=== PATIENT | male | born 1990 | race Caucasian/White ===

== ENCOUNTER 2021-02-09 12:00 | Outpatient (REF) | payer BC, OTHER, SELFPAY ==
--- NOTE | ~2021-02-09 | XR_ITS ---
EXAMINATION: XR ABDOMEN KUB CLINICAL INDICATION: Constipation and weight loss COMPARISON: None TECHNIQUE: AP view of the abdomen. FINDINGS: No dilated air-filled loops of small bowel to suggest an obstructive process. There is a mild to moderate stool burden throughout the colon. Visualized lung bases are well aerated. Scoliotic and postsurgical changes of the lumbar spine. An IVC filter projects over the mid right abdomen. XR/XR KUB IMPRESSION: -nonobstructing bowel gas pattern. -Hsio-ud-hbxrlggn colonic stool burden.
== END 2021-02-09 12:01 | disposition home or self-care (01) ==
LOC: HO.XRAY 12:00
PROVIDERS: PCP Internal Medicine; Visit Provider Internal Medicine
DX: R05 Cough (principal); R63.4 Abnormal weight loss; G43.909 Migraine, unspecified, not intractable, without status migrainosus
CPT/HCPCS: 74018

== ENCOUNTER 2021-04-12 23:05 | Emergency (ER) | payer BC, OTHER, SELFPAY ==
[2021-04-12 23:10] VITALS: BP 125/76; PULSE 108; RESP 18; TEMP 36.4; O2SAT 95; BMI 22.9
[2021-04-13 00:07] LABS: COVID-19 Test Negative (Negative); IDNOW Serial# 9DD0AD1C
[2021-04-13 00:12] LABS: Amphetamine Screen Urine Not Detected (Not Detect); Barbiturates, Urine Not Detected (Not Detect); Benzodiazepines Screen Urine POSITIVE (Not Detect); Cannabinoid Screen Urine Not Detected (Not Detect); Cocaine Screen Urine Not Detected (Not Detect); Opiate Screen Urine POSITIVE (Not Detect); Phencyclidine Screen Urine Not Detected (Not Detect)
--- NOTE | 2021-04-13 01:27 | ED_ITS ---
HPI - Psych General Chief Complaint: Psychiatric Symptoms Stated Complaint: crisis Time Seen by Provider: 04/12/21 23:44 Source: patient Mode of arrival: EMS Limitations: no limitations History of Present Illness HPI Narrative: Patient is a 31-year-old male with a past medical history of heroin addiction who was brought in by ambulance from a detox facility after he presented the staff with a suicide note. The patient tells me that he got caught injecting heroin at his sober house and that the pet house sitter called 911. pet house sitter told EMS that the patient presented a suicide note to him and that is why he called 911. Patient denied suicidal ideations to EMS staff as well as the staff at this hospital. When I questioned the patient, he stated that he thinks he has it under control and denied anything about a note. he did not lead tonight suicidal ideations but he did deny HI. he denies any physical complaints at this time. patient states the pet house sitter told him he could come back tonight if we discharged him. Related Data Home Medications Medication Instructions Recorded Confirmed fremanezumab-vfrm [Ajovy 1 mg SUBCUT QMONTH 04/12/21 04/12/21 Autoinjector] gabapentin 1 cap PO DAILY 04/12/21 04/12/21 sumatriptan succinate 1 tab PO Q2H PRN 04/12/21 04/12/21 Allergies Allergy/AdvReac Type Severity Reaction Status Date / Time vancomycin [VANCOMYCIN] Allergy Unknown SKIN GETS Unverified 07/02/20 19:28 RED Review of Systems Review of Systems: Yes all other systems are reviewed and are negative [facility] Social History Social History Advance Directives: No Advance Directives Information Provided: No Physical Exam Vital Signs: Vital Signs: Last Vital Signs Temp 97.5 F 04/12/21 23:10 Pulse 108 H 04/12/21 23:10 Resp 18 04/12/21 23:10 BP 125/76 04/12/21 23:10 Pulse Ox 95 04/12/21 23:10 Body Mass Index 22.9 Const: General: cooperative, healthy appearing, comfortable and no acute distress Nutritional Appearance: average body habitus Orientation/consciousness: patient oriented x3 Limitations: no limitations HENMT: Head: Yes normal to inspection, Yes No palpable skull fracture present, Yes normocephalic and Yes atraumatic Ears: hearing grossly normal bilaterally and external ears normal General nose exam: Normal external nose present Face and sinus: Yes normal facial exam Eyes: General: appearance normal, both eyes and all related structures Neck: Neck: Yes normal visual inspection and Yes full ROM Resp: Effort & Inspection: normal respiratory effort and able to speak in complete sentences Neuro: General: patient oriented x3 Psych: Appearance: disheveled Speech and movement: Normal speech and movement present Affect: normal affect Attitude: cooperative Thought process: Normal thought process present Thought content: Suicidality present and no homicidality Insight: Fair insight present (Psych) Judgement: Fair judgement present (Psych) Course Course Course Narrative: Patient is a 31-year-old male with a past medical history of heroin addiction who was brought in by ambulance from a detox facility after he presented the staff with a suicide note. vital signs notable for tachycardia at 108BPM. physical exam unremarkable. Will put in consult to [facility] for SI. Reevaluation(s) Reevaluation #1: sign out to Dr Echevarria Time: 02:00 [facility] - Psych Lab Data Labs: Lab Results 04/12/21 04/12/21 Range/Units 23:41 23:41 Urine Opiates Screen POSITIVE H (Not Detect) Ur Barbiturates Screen Not Detected (Not Detect) Ur Phencyclidine Scrn Not Detected (Not Detect) Ur Amphetamines Screen Not Detected (Not Detect) U Benzodiazepines Scrn POSITIVE H (Not Detect) Urine Cocaine Screen Not Detected (Not Detect) U Marijuana (THC) Screen Not Detected (Not Detect) COVID-19 (GALINA) Negative (Negative) COVID-19 Clin Com See Note Discharge Plan Discharge Clinical Impression: Suicidal ideation, Heroin use Prescriptions: No Action sumatriptan succinate 100 mg tablet 1 tab PO Q2H PRN (Reason: Migraine Headache) RF: 0 gabapentin 300 mg capsule 1 cap PO DAILY RF: 0 Ajovy Autoinjector 225 mg/1.5 mL auto-injector 1 mg subcut QMONTH RF: 0
--- NOTE | 2021-04-13 06:27 | PC.NURSE ---
Patient slept through the night, no distress observed/reported, respiration +/=/non-labored bilaterally, patient will be seeing by N this morning, will continue to monitor.
[2021-04-13 07:48] VITALS: BP 101/70; PULSE 98; RESP 15; TEMP 37.3; O2SAT 98
[2021-04-13] MEDS: Gabapentin 300 MG CAPSULE PO (09:05)
--- NOTE | 2021-04-13 11:24 | PC.NURSE ---
Report received. Pt currently resting in bed, no complaints at this time, calm.
--- NOTE | 2021-04-13 11:52 | PC.NURSE ---
C/o pain on tops of hands near IV injection sites. Areas swollen and warm to touch. VICKY Yost notified.
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
== END 2021-04-13 13:19 | disposition home or self-care (01) ==
PROVIDERS: Physician Assistant; Emergency Provider Emergency Medicine Emergency Medical Services
DX: R45.851 Suicidal ideations (principal); F11.20 Opioid dependence, uncomplicated; Z20.822 Contact with and (suspected) exposure to COVID-19; L03.114 Cellulitis of left upper limb; L03.113 Cellulitis of right upper limb; R00.0 Tachycardia, unspecified
CPT/HCPCS: 36415; 80307; 87635; 99284; 99285

== ENCOUNTER 2022-04-05 10:32 | Emergency (ER) | payer BC, OTHER, SELFPAY ==
--- NOTE | ~2022-04-05 | XR_ITS ---
EXAMINATION: XR ANKLE, RIGHT CLINICAL INFORMATION: Right ankle pain for 2 days. No recent injury. COMPARISON: Radiographs right foot 03/08/2019, 02/19/2019 TECHNIQUE: Right ankle is imaged in 4 views. FINDINGS: There is no acute or healing fracture, dislocation, destructive process. There has been prior open reduction internal fixation with hardware distal fibula, distal tibia and talar dome. The hardware is similar to prior exam 03/08/2019. The 2 distal most screws passing through intraosseous region distal lower leg are chronically fractured, unchanged from the prior remote exam. No interval hardware failure or osteolysis. Again, there is osseous ankylosis in the intraosseous region between the distal fibula and tibia. There is chondrocalcinosis ankle joint. Old appearing posttraumatic changes talar dome. No erosive change. Again, there is spurring distal anterior tibia and adjacent talar dome with some corticated ossicles posterior ankle. Subtalar joint unremarkable. Borderline posterior calcaneal spur again seen. XR/XR ankle RT 2V IMPRESSION: -Old posttraumatic and postsurgical changes. -No visible acute fracture, dislocation, destructive process, or osteolysis. -Degenerative changes ankle joint with chondrocalcinosis. No visible erosive change.
[2022-04-05 10:41] VITALS: BP 150/96; PULSE 147; RESP 22; TEMP 37.1; O2SAT 97; BMI 20.7
[2022-04-05 11:25] VITALS: BP 168/84; PULSE 134; RESP 18; TEMP 37.3; O2SAT 98
--- NOTE | 2022-04-05 11:45 | ECG_ITS ---
Test Reason : tachycardia Blood Pressure : / mmHG Vent. Rate : 118 BPM Atrial Rate : 118 BPM P-R Int : 134 ms QRS Dur : 082 ms QT Int : 316 ms P-R-T Axes : 081 048 006 degrees QTc Int : 442 ms Sinus tachycardia Cannot rule out Inferior infarct , age undetermined Abnormal ECG No previous ECGs available Referred By: Jeanna Little Electronically Signed By:BREANN VASQUES MD
--- NOTE | 2022-04-05 11:48 | ED_ITS ---
HPI - General Adult General Chief complaint: Skin/Abscess/Foreign Body Stated complaint: bug bite r ankle Time Seen by Provider: 04/05/22 11:01 Source: patient Mode of arrival: ambulatory History of Present Illness HPI narrative: 32-year-old male with history of PE right femoral, history of IVDA states that he is 1 year sober and currently lives an a custodial house and comes in with complaints of right ankle pain that started 2 days ago that he attributes to a bug bite and states that is very painful on palpation. His history is sign ificant for having been seen at [facility] within the past 3 months and at that time he was diagnosed with a clot in the right femoral vein which was surgically removed and he was placed on Eliquis and states that he took it for 1 month but then said it was too expensive and he stops taking the medication. He reports heart palpitations but denies shortness of breath at this time. Related Data Home Medications Medication Instructions Recorded Confirmed fremanezumab-vfrm 225 mg/1.5 mL 1 mg subcut QMONTH 04/12/21 04/12/21 subcutaneous auto-injector (Ajovy) gabapentin 300 mg capsule 1 cap PO DAILY 04/12/21 04/12/21 sumatriptan succinate 100 mg tablet 1 tab PO Q2H PRN Migraine Headache 04/12/21 04/12/21 methadone 5 mg/5 mL oral solution 57 mg PO DAILY 04/13/21 04/13/21 Previous Rx's Medication Instructions Recorded doxycycline monohydrate 100 mg 100 mg PO BID #20 caps 04/13/21 capsule Allergies Allergy/AdvReac Type Severity Reaction Status Date / Time vancomycin [VANCOMYCIN] Allergy Unknown SKIN GETS Unverified 07/02/20 19:28 RED Review of Systems Review of Systems: Pertinent positives and negatives as stated in HPI and 10 point review of systems is otherwise negative. [facility] Past Medical History Source: nursing notes reviewed Social History Social History Alcohol intake: never Patient Tobacco Use Status: Never used Tobacco Use of substances other than those prescribed or required for medical reasons: No Physical Exam ED Vital Signs: Vital Signs - 24 hr 04/05/22 10:41 04/05/22 11:25 Temperature 98.7 F 99.2 F Pulse Rate 147 H 134 H Respiratory Rate 22 H 18 Blood Pressure 150/96 H 168/84 H Pulse Oximetry 97 98 Oxygen Delivery Method Room Air Room Air BMI result Body Mass Index 20.7 VITAL SIGNS: Reviewed. GENERAL: Well developed, well nourished, in no acute distress. HEAD: Normocephalic/atraumatic EYES: PERRLA, EOMI EARS: Ext canals without abnormality OROPHARYNX: no oral lesions noted, posterior pharynx clear LUNGS: Normal breath sounds. No adventitious sounds or accessory muscle use. SpO2<97> CARDIOVASCULAR: Sinus tachycardia and rhythm without noted murmurs ABDOMEN: Soft, non-tender, non-distended with bowel sounds. Right groin with well-healed scar, no erythema or induration. MUSCULOSKELETAL: No tenderness, deformities, or effusions noted on gross inspection. EXTREMITIES: No cyanosis, clubbing or edema, old bruising noted to the anterior aspect of bilateral lower extremities with evidence of scabs from scratching, no obvious insect bite noted the right ankle is somewhat edematous on both the lateral and medial malleoli, however patient has history of injury as well as hardware to the ankle and denies any falls or re-injury. There is no erythema or induration to the right ankle and is otherwise neurovascularly intact.. SKIN: Inspection of the skin reveals no rashes, ulcerations NEUROLOGIC: Alert and oriented x 4. Strength and sensation to light touch were grossly intact x 4. Course Course Course Narrative: 32-year-old male with history and clinical presentation with poor medication compliance as he decided to stop taking Eliquis despite having recent right femoral thrombosis. Without comes in tachycardic in with right ankle pain that does not appear to be cellulitic in nature. Review of all investigations otherwise negative for acute findings, specifically the D-dimer is less than 150, patient has a prescription for Eliquis and he was strongly counseled on taking this medication as directed. He is oxygenating well on room air and has no tachypnea or increased work of breathing. The ankle does not appear cellulitic and is likely simply inflammatory process and he was encouraged to take [id number] analgesics for this and to use crutches as needed. He is noted to have crutches within the room and otherwise directed to follow-up with his primary care provider. Medical Decision Making Lab Data Result diagrams: 04/05/22 11:59 04/05/22 11:59 Labs: Lab Results 04/05/22 04/05/22 04/05/22 Range/Units 11:59 11:59 11:59 WBC 9.5 (4.8-10.8) X10*3/uL RBC 5.24 (4.60-5.80) X10*6/uL Hgb 14.5 (14.0-18.0) g/dl Hct 45.0 (42.0-52.0) % MCV 85.9 (80.0-98.0) fL MCH 27.7 (27.0-33.0) pg MCHC 32.2 (31.0-36.0) g/dl RDW 17.2 H (11.0-16.0) % Plt Count 352 (160-400) X10*3/uL MPV 9.4 (9.4-12.4) fL Immature Gran % (Auto) 1.1 H (0.0-0.4) % Neut % (Auto) 75.7 H (45-73) % Lymph % (Auto) 12.8 L (20-40) % [place] % (Auto) 10.0 (2-11) % Eos % (Auto) 0.1 (0-4) % Baso % (Auto) 0.3 (0-2) % Lymph # (Auto) 1.2 (1.2-4.9) X10*3/uL [place] # (Auto) 1.0 (0.1-1.2) X10*3/uL Eos # (Auto) 0.0 (0.0-0.4) X10*3/uL Baso # (Auto) 0.0 (0.0-0.2) X10*3/uL Abs Immat Gran (auto) 0.10 H (0.00-0.03) X10*3/uL Absolute Neuts (auto) 7.2 (2.0-8.3) x10*3/uL Absolute Nucleated RBC 0.000 (0.0-0.012) X10*3/uL Nucleated RBC % (auto) 0.0 (0.0-0.2) /100WBC D-Dimer High Sensitivty < 150 NG/ML Sodium 137 (135-145) mmol/L Potassium 4.4 (3.3-5.1) mmol/L Chloride 96 (96-108) mmol/L Carbon Dioxide 31 H (22-29) mmol/L Anion Gap 14 (12-20) BUN 19 H (9-16) mg/dL Creatinine 0.97 (0.5-1.4) mg/dL Estim Creat Clear Calc 99.8 Estimated GFR > 60 Random Glucose 109 (60-115) mg/dL Calcium 9.6 (8.4-10.2) mg/dL Total Bilirubin 0.4 (0.0-1.0) mg/dL AST 23 (5-37) U/L ALT 22 (0-40) U/L Alkaline Phosphatase 120 H (39-117) U/L Total Protein 7.5 (6.5-8.0) g/dL Albumin 4.2 (3.5-5.0) g/dL ECG Data Attestation: I personally reviewed and interpreted this ECG as follows: Prior ECG tracings: not available for review Interpretation: Sinus tachycardia, HR- 118, no STEMI, possible SQ 3 in inferior leads will evaluate for PE. Discharge Plan Discharge Clinical Impression: Ankle pain, right Patient Disposition: Home, Self-Care Instructions: Crutch Instructions (ED), Arthralgia (ED), R.I.C.E. Treatment (ED), Ice Pack Application (ED) Additional Instructions: 1. Resume all home medications as prescribed. Recommend [id number] a nalgesics for remaining pain as well as application of ice to unexposed skin for additional pain relief 2. Resume your Eliquis as directed, last picker that prescription today. 3. Follow-up with your primary care provider for re-evaluation of your ankle, and use crutches as needed. return to the ER for worsening symptoms. Prescriptions: No Action sumatriptan succinate 100 mg tablet 1 tab PO Q2H PRN (Reason: Migraine Headache) gabapentin 300 mg capsule 1 cap PO DAILY Ajovy Autoinjector 225 mg/1.5 mL auto-injector 1 mg subcut QMONTH methadone 5 mg/5 mL Solution 57 mg PO DAILY doxycycline monohydrate 100 mg capsule 100 mg PO BID Qty: 20 0RF
[2022-04-05 12:05] LABS: MANUAL DIFF FLAG NO
[2022-04-05 12:07] LABS: Basophils Percent Auto 0.3 % (0-2); Eosinophils Percent Auto 0.1 % (0-4); Hemoglobin 14.5 g/dl (14.0-18.0); Imm Gran Pct Auto 1.1 % (0.0-0.4); Lymphocytes Absolute Auto 1.2 X10*3/uL (1.2-4.9); Lymphocytes Percent Auto 12.8 % (20-40); Mean Corpuscular HGB Conc 32.2 g/dl (31.0-36.0); Mean Corpuscular Hemoglobin 27.7 pg (27.0-33.0); Mean Corpuscular Volume 85.9 fL (80.0-98.0); Mean Platelet Volume 9.4 fL (9.4-12.4); Neutrophils Absolute Auto 7.2 x10*3/uL (2.0-8.3); Neutrophils Percent Auto 75.7 % (45-73); Platelet Count 352 X10*3/uL (160-400); Red Blood Count 5.24 X10*6/uL (4.60-5.80); Red Cell Distribution Width 17.2 % (11.0-16.0); White Blood Count 9.5 X10*3/uL (4.8-10.8)
[2022-04-05 12:16] LABS: D Dimer High Sensitivity < 150 NG/ML
[2022-04-05] MEDS: Ketorolac Tromethamine 30 MG/ML VIAL 15 MG IVPUSH (12:18)
[2022-04-05] MEDS: Acetaminophen 325 MG TABLET 975 MG PO (12:19)
[2022-04-05 12:22] LABS: Alanine Aminotransferase 22 U/L (0-40); Albumin Level 4.2 g/dL (3.5-5.0); Alkaline Phosphatase 120 U/L (39-117); Anion Gap 14 (12-20); Aspartate Amino Transferase 23 U/L (5-37); Bilirubin Total 0.4 mg/dL (0.0-1.0); Blood Urea Nitrogen 19 mg/dL (9-16); Calcium 9.6 mg/dL (8.4-10.2); Carbon Dioxide 31 mmol/L (22-29); Chloride 96 mmol/L (96-108); Creatinine Clr Calc Pharmacy 99.8; Estimated Glomerular Filt Rate > 60; Glucose Random 109 mg/dL (60-115); Potassium 4.4 mmol/L (3.3-5.1); Sodium 137 mmol/L (135-145); Total Protein 7.5 g/dL (6.5-8.0)
== END 2022-04-05 14:37 | disposition home or self-care (01) ==
LOC: HO.ED 13:13
PROVIDERS: Emergency Provider Student in an Organized Health Care Education/Training Program
DX: M25.572 Pain in left ankle and joints of left foot (principal); R00.0 Tachycardia, unspecified; Z79.899 Other long term (current) drug therapy
CPT/HCPCS: 36415; 73600; 80053; 85025; 85379; 93005; 96374; 99284; J1885

== ENCOUNTER 2022-09-25 11:21 | Emergency (ER) | payer BC, SELFPAY ==
--- NOTE | ~2022-09-25 | US_ITS ---
EXAMINATION: US VENOUS ULTRASOUND WITH DOPPLER LOWER EXTREMITY, RIGHT CLINICAL INFORMATION: Pain. Injury. History of inferior vena cava filter placed 8-9 months ago. COMPARISON: None TECHNIQUE: Ultrasound of the deep veins is performed from the hip to the calf with compression sonography and color and pulse Doppler assessment. Spectral analysis with color-flow imaging is performed. FINDINGS: There is chronic appearing small volume of nonocclusive thrombus in the common femoral vein. There is normal venous compression and respiratory variation and augmented flow in the remainder of the deep veins of the lower extremity. The visualized of the superficial femoral vein, profunda femoral vein, popliteal vein, and the trifurcation region shows no evidence of deep venous thrombosis. There is no significant popliteal fossa cyst. If the patient's symptoms persist, followup ultrasound in 5 days 7 days might be of value to exclude proximal propagation from a non-visualized calf vein. US/US venous duplex LE RT IMPRESSION: 1. No acute DVT demonstrated in the right lower extremity. 2. Chronic appearing small volume of nonocclusive thrombus in the common femoral vein. This critical result was discussed with Dr Whitney on 09/25/2022, 3:17 PM and it was ascertained that the content and urgency of the report was understood at the time of direct communication.
--- NOTE | ~2022-09-25 | XR_ITS ---
EXAMINATION: XR KNEE, RIGHT CLINICAL INFORMATION: Status post injury 1 week ago. COMPARISON: None TECHNIQUE: Four views of the right knee. FINDINGS: A curvilinear lucency is seen in the lateral tibial plateau extending to the articular surface. Mild depression is seen with sclerosis. The medial tibial plateau is intact. The patella, femur and fibula are intact as well. The joint spaces are otherwise unremarkable. Trace suprapatellar joint effusion. The soft tissues are unremarkable. XR/XR knee RT 4V IMPRESSION: Acute, mildly depressed lateral tibial plateau fracture with intra-articular extension. Trace suprapatellar joint effusion. Correlate with physical exam and trauma history.
--- NOTE | ~2022-09-25 | CT_ITS ---
EXAMINATION: CT KNEE WITHOUT CONTRAST, RIGHT CLINICAL INFORMATION: Tibial plateau fracture. COMPARISON: X-ray of the right knee performed earlier same day. TECHNIQUE: CT scan of the right knee is performed without contrast with reconstruction imaging performed at the acquisition workstation. This CT examination was performed using dose optimization techniques as appropriate, variously including the following: *Automated exposure control *Adjustment of mA and/or kV according to patient size (this includes techniques or standardized protocols for targeted exams where dose is matched to indication/reason for exam; i.e. extremities or head) *Use of iterative reconstruction technique DLP: 240 mGy-cm FINDINGS: There is a moderately comminuted minimally displaced intra-articular tibial plateau fracture. The fracture involves essentially all of the articular surface of the lateral compartment. Deep to the articular surface, the fracture extends medially to the level of the tibial spines. There is a small minimally displaced fracture fragment noted within the intercondylar notch measuring approximately 5 mm. There is joint depression of approximately 3.6 mm. The fracture extends distally over approximately 2.3 cm craniocaudal through the cortex of the proximal lateral metaphysis. There is a mild joint effusion. There is a small Garcia's cyst. No additional fractures. There is no arthrosis. CT/CT knee RT wo IV con IMPRESSION: Moderately comminuted minimally depressed intra-articular lateral tibial plateau fracture. Joint effusion and Garcia's cyst.
[2022-09-25 11:26] VITALS: BP 133/76; PULSE 121; RESP 14; TEMP 36.1; O2SAT 99; BMI 23.0
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
--- OUTSIDE RECORDS SUMMARY | 2022-09-25 11:54 | XMS_ITS | Continuity of Care Document ---
:1990 Author Organization [facility] Address [address] [place] [address]- Care Team Providers Name Role Phone Not on Staff, PCP Primary Care Physician Unavailable Encounter [facility] [place] Date(s): 06/17/22 - 06/20/[address] [address]- Encounter Diagnosis Tachycardia (Final) - 06/17/22 Shortness of breath (Final) - 06/17/22 Chest pain (Final) - 06/17/22 Discharge Disposition: A-D/C Home Attending Physician: Eliseo ERICKSON, Jose Flanagan Admitting Physician: Saida Morocho MD Referring Physician: Not on Staff, Referring MD Allergies, Adverse Reactions, Alerts Substance Reaction Severity Status vancomycin red skin raswh Active Medications Ajovy Autoinjector 225 mg/1.5 mL subcutaneous solution = 225 mg, Subcutaneous Injection, Every 28 days, # 1 kit, 5 Refills, Maintenance, 06/18/22 4:26:00 EDT, Partial fill upon patient request if the prescription is for a schedule II opioid drug. Start Date: 06/18/22 Status: OrderedcloNIDine 0.1 mg oral tablet 0.1 mg, 1, tablet, By Mouth, 2 times a day, # 14 tablet, Refills 0, Tot. Refills 0, Maintenance, 06/20/22 11:51:00 EDT, Route to Pharmacy Electronically, [facility], Partial fill upon patient request if the prescription is for a schedule... Start Date: 06/20/22 Stop Date: 06/27/22 Status: Orderedesomeprazole 20 mg oral enteric coated capsule 1 capsule = 20 mg, By Mouth, Daily, # 30 capsule, 0 Refills, Maintenance, 12/28/17 18:37:37, EC Capsule Start Date: 12/28/17 Status: OrderedGabapentin = 300 mg, By Mouth, 3 times a day, 0 Refills, Maintenance, 06/17/22 17:19:00 EDT, Partial fill upon patient request if the prescription is for a schedule II opioid drug. Start Date: 06/17/22 Status: Orderedgabapentin 300 mg oral capsule 300 mg, Capsule, By Mouth, 06/20/22 9:00:00 EDT Start Date: 06/20/22 Stop Date: 06/20/22 Status: CompletedImitrex 100 mg oral tablet 1 tablet = 100 mg, By Mouth, Daily, PRN for migraine headache, may repeat dose after 2 hours up to amaximum of 2, # 9 tablet, 0 Refills, Maintenance, 06/17/22 17:20:00 EDT, Tablet, Partial fill upon patient request if the prescription is for a schedu... Start Date: 06/17/22 Status: OrderedMethadone = 67 mg, Daily, 0 Refills, Maintenance, 06/17/22 17:20:00 EDT, Partial fill upon patient request if the prescription is for a schedule II opioid drug. Start Date: 06/17/22 Status: OrderedMethadone Liquid 67 mg, Solution, By Mouth, 06/20/22 9:00:00 EDT Start Date: 06/20/22 Stop Date: 06/20/22 Status: CompletedZolpidem = 10 mg, Daily at bedtime, 0 Refills, Maintenance, 06/17/22 17:19:00 EDT, Partial fill upon patient request if the prescription is for a schedule II opioid drug. Start Date: 06/17/22 Status: Ordered Problem List Condition Effective Dates Status Health Status Informant Deep vein thrombosis (DVT) of femoral Active vein of right lower extremity(Confirmed) History of migraine Active headaches(Confirmed) History of heroin abuse(Confirmed) Active Results Orders for Microbiology Reports Name Date Blood Culture 06/17/22 Blood Culture #2 06/17/22 Microbiology Reports TEST:Blood Culture STATUS:Unauthenticated BODY SITE: SOURCE:Blood COLLECTED DATE/TIME:06/17/22 9:59 AMBlood Culture SPECIMEN DESCRIPTION : BLOOD LAC SPECIAL REQUESTS : NONE CULTURE : NO GROWTH 3 DAYS REPORT STATUS : PRELIMINARY REPORT TEST:Blood Culture, Second Order STATUS:Unauthenticated BODY SITE: SOURCE:Blood COLLECTED DATE/TIME:06/17/22 9:40 AMBlood Culture, Second Order SPECIMEN DESCRIPTION : BLOOD RAC SPECIAL REQUESTS : NONE CULTURE : NO GROWTH 3 DAYS REPORT STATUS : PRELIMINARY REPORT Radiology Reports Exam Date Time Procedure Performing Provider Status 06/17/22 4:20 PM Chest Portable Julienne, Naomi; Auth (Verifie d) Notes:(Chest Portable) Reason For Exam: Shortness of BreathRESULT: Chest Portable Chest Portable Reason: Shortness of Breath; Clinical Question(s): CHF COMPARISON: Earlier today at 12:28 PM FINDINGS: LINES AND TUBES: None. LUNGS AND PLEURA: Clear lungs. Normal pulmonary vascularity. No pleural effusion. No pneumothorax. HEART, MEDIASTINUM AND BECKY: Heart is normal in size. Normal upper mediastinal and hilar contour. BONES AND SOFT TISSUES: No acute abnormality. IMPRESSION: No acute abnormality. WSN: [id number] Ordering Physician: Felix Evans Dictated By: Marco Gil MD Dictated Date/Time: 06/17/22 4:39 pm Reviewed By: Marco Gil MD Signed By: Marco Gil MD Signed Date/Time: 06/17/22 4:39 pm Transcribed By: TERRY Transcribed Date/Time: 06/17/22 4:38 pm Exam Date Time Procedure Performing Provider Status 06/17/22 1:03 PM Chest Portable Jesus Alberto , Sheridan; Auth (Verified) Notes:(Chest Portable) Reason For Exam: Shortness of BreathRESULT: Chest Portable Chest Portable Hx of Present Illness: SOB; Clinical Question(s): CHF; COMPARISON: None. FINDINGS: LINES AND TUBES: None. LUNGS AND PLEURA: Clear lungs. Normal pulmonary vascularity. No pleural effusion. No pneumothorax. HEART, MEDIASTINUM AND BECKY: Heart is normal in size. Normal upper mediastinal and hilar contour. BONES AND SOFT TISSUES: No acute abnormality. IMPRESSION: No acute abnormality. WSN: [id number] Ordering Physician: Felix Evans Dictated By: Teodoro Mireles MD Dictated Date/Time: 06/17/22 1:23 pm Reviewed By: Teodoro Mireles MD Signed By: Teodoro Mireles MD Signed Date/Time: 06/17/22 1:23 pm Transcribed By: CSHannah Transcribed Date/Time: 06/17/22 1:22 pm Vital Signs Most recent to oldest 1 2 3 [Reference Range]: Height 178 cm 178 cm 178 cm (06/20/22 7:52 AM) (06/20/22 2:34 AM) (06/19/22 10:54 PM) Weight 68.5 kg 68.5 kg (06/18/22 12:11 AM) (06/17/22 5:21 PM) Oxygen Saturation [94-100 %] 100 % 98 % 99 % (06/20/22 7:52 AM) (06/20/22 2:34 AM) (06/19/22 10:54 PM) Pulse Rate [55-90 bpm] 89 bpm 82 bpm 86 bpm (06/20/22 7:52 AM) (06/20/22 2:34 AM) (06/19/22 10:54 PM) Body Mass Index [18.5-24.99] 21.62 (06/17/22 5:21 PM) Blood Pressure [90-138/55-84 105/70 mm Hg 100/71 mm Hg 123 /88 mm Hg mm Hg] (06/20/22 7:52 AM) (06/20/22 2:34 AM) (06/19/22 10:54 PM) Respiratory Rate [16-30 18 br/min 18 br/min 16 br/mi n br/min] (06/20/22 9:36 AM) (06/20/22 9:25 AM) (06/20/22 7:52 A M) Temperature [96.8-100.4 97.7 DegF 98.3 DegF 98.1 Deg F DegF] (06/20/22 7:52 AM) (06/20/22 2:34 AM) (06/19/22 10:54 PM) Mode of Delivery (Oxygen) Room air Room air Room a ir (06/20/22 7:52 AM) (06/20/22 2:34 AM) (06/19/22 10:54 PM) Blood pressure sites Arm, right Arm, right Arm, right (06/20/22 7:52 AM) (06/20/22 2:34 AM) (06/19/22 10:54 PM) Temperature Route Oral Oral Oral (06/20/22 7:52 AM) (06/20/22 2:34 AM) (06/19/22 10:54 PM) Dry Weight 68.5 kg (06/17/22 5:21 PM) Weight Obtained Via Patient/family stated (06/17/22 5:21 PM) Portable XR Chest Views [facility]ers[facility] , CIS S: TRANSCRIBE Teodoro Mireles MD: VERIFY Event Display: Result: Authored Date: [id number] Chest Portable Hx of Present Illness: SOB; Clinical Question(s): CHF; COMPARISON: None. FINDINGS: LINES AND TUBES: None. LUNGS AND PLEURA: Clear lungs. Normal pulmonary vascularity. No pleural effusion. No pneumothorax. HEART, MEDIASTINUM AND BECKY: Heart is normal in size. Normal upper mediastinal and hilar contour. BONES AND SOFT TISSUES: No acute abnormality. IMPRESSION: No acute abnormality. WSN: [id number] Ordering Physician: Felix Evans Dictated By: Teodoro Mireles MD Dictated Date/Time: 06/17/22 1:23 pm Reviewed By: Teodoro Mireles MD Signed By: Teodoro Mireles MD Signed Date/Time: 06/17/22 1:23 pm Transcribed By: TERRY Transcribed Date/Time: 06/17/22 1:22 pmBHSPowerscrimarquita , CIS S: TRANSCRIBE Marco Gil MD: VERIFY Event Display: Result: Authored Date: [id number] Chest Portable Reason: Shortness of Breath; Clinical Question(s): CHF COMPARISON: Earlier today at 12:28 PM FINDINGS: LINES AND TUBES: None. LUNGS AND PLEURA: Clear lungs. Normal pulmonary vascularity. No pleural effusion. No pneumothorax. HEART, MEDIASTINUM AND BECKY: Heart is normal in size. Normal upper mediastinal and hilar contour. BONES AND SOFT TISSUES: No acute abnormality. IMPRESSION: No acute abnormality. WSN: [id number] Ordering Physician: Felix Evans Dictated By: Marco Gil MD Dictated Date/Time: 06/17/22 4:39 pm Reviewed By: Marco Gil MD Signed By: Marco Gil MD Signed Date/Time: 06/17/22 4:39 pm Transcribed By: TERRY Transcribed Date/Time: 06/17/22 4:38 pm Care Team PersonnelName: Not on Staff, PCP
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
--- NOTE | 2022-09-25 12:05 | ECG_ITS ---
Test Reason : tavhycardia Blood Pressure : / mmHG Vent. Rate : 098 BPM Atrial Rate : 098 BPM P-R Int : 138 ms QRS Dur : 086 ms QT Int : 368 ms P-R-T Axes : 075 022 -11 degrees QTc Int : 469 ms Normal sinus rhythm cannot exclude old Inferior infarct (cited on or before 05-APR-2022) Abnormal ECG When compared with ECG of 05-APR-2022 11:44, No significant change was found Referred By: Francisco Toro Electronically Signed By:GINNY ATKINS
[2022-09-25] MEDS: SUMAtriptan succinate 25 MG TABLET PO (16:34)
== END 2022-09-25 17:11 | disposition home or self-care (01) ==
PROVIDERS: Emergency Provider Emergency Medicine
DX: S82.141A Displaced bicondylar fracture of right tibia, initial encounter for closed fracture (principal); I82.411 Acute embolism and thrombosis of right femoral vein; G43.909 Migraine, unspecified, not intractable, without status migrainosus; R00.0 Tachycardia, unspecified; M25.561 Pain in right knee; V29.401A Electric (assisted) bicycle driver injured in collision with unspecified motor vehicles in traffic accident, initial encounter; Y93.9 Activity, unspecified; Y92.410 Unspecified street and highway as the place of occurrence of the external cause; Y99.9 Unspecified external cause status; Z79.899 Other long term (current) drug therapy
CPT/HCPCS: 29530; 73564; 73700; 93005; 93971; 99283; 99284

== ENCOUNTER 2022-09-27 12:52 | Day surgery (SDC) | payer BC, SELFPAY ==
[2022-09-27] VITALS (13 sets, daily range): BP systolic 133–161; BP diastolic 78–103; PULSE 82–104; RESP 14–20; TEMP 36.3–37.1; O2SAT 0–100; BMI 23.0
--- NOTE | ~2022-09-27 | FL_ITS ---
EXAMINATION: XR FLUOROSCOPY WITH IMAGES CLINICAL INFORMATION: Tibial plateau fracture. COMPARISON: CT knee 09/25/2022. TECHNIQUE: Fluoroscopy Supervised By: Dr. Wero Ramos Fluoroscopy Time: 0.9 minutes Cumulative Dose: 4.87 mGy DAP: 0.0847 Gy-cm2 Images: 2 FINDINGS: Imaging demonstrates a lateral plate with 6 screws. Please see the operative note for complete details FL/FL guidance in OR IMPRESSION: Fluoroscopy provided for a lateral plate and screws.
[2022-09-27 13:38] LABS: Amphetamine Screen Urine Not Detected (Not Detect); Barbiturates, Urine Not Detected (Not Detect); Benzodiazepines Screen Urine Not Detected (Not Detect); Cannabinoid Screen Urine Not Detected (Not Detect); Cocaine Screen Urine Not Detected (Not Detect); Fentanyl, urine Not Detected (Not Detect); Opiate Screen Urine Not Detected (Not Detect); Phencyclidine Screen Urine Not Detected (Not Detect)
[2022-09-27 13:41] LABS: COVID-19 Test Negative (Negative); IDNOW Serial# 16C4AD1C
--- NOTE | 2022-09-27 14:35 | MHC.SHP ---
Pre-Procedural Eval Section A Date of Service: 09/27/22 The patient is an INPATIENT: No Changes since office visit: No Cold of Flu in the past 2 weeks, No New Medical Problems, No Changes in Medication and No Patient answered all questions The History & Physical has been completed within 30 days and I have reviewed it.: Yes Section B Chief Complaint: Displaced bicondylar fracture of right tibia, Allergies: Allergies Allergy/AdvReac Type Severity Reaction Status Date / Time vancomycin [VANCOMYCIN] Allergy Unknown SKIN GETS Verified 09/27/22 14:03 RED Plan I have reviewed the history and physical and performed a pertinent physical examination on my patient. No changes have occurred unless specified. Time Spent With Patient Time: Total time managing care of this patient today ____ minutes.
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
--- NOTE | 2022-09-27 15:17 | HO.ANESPROP2 ---
HPI - Anesthesia Eval Consult details Narrative: 32 M for tibial ORIF PMFSH Active Problems Active Problems: All Active Problems (Updated 09/26/22 @ 15:45 by Elizabeth Mata PA-C) Tibial plateau fracture, right (Acute) Family History Family history of problems with anesthesia: No Surgical History History of Problems with Anesthesia: No Social History Social History Alcohol intake: never Patient Tobacco Use Status: Never used Tobacco Use of substances other than those prescribed or required for medical reasons: No Are you DNR?: No Advance Directives: No Advance Directives Information Provided: Yes Meds Allergies Allergy/AdvReac Type Severity Reaction Status Date / Time vancomycin [VANCOMYCIN] Allergy Unknown SKIN GETS Verified 09/27/22 14:03 RED Home Medications Medication Instructions Recorded Confirmed Last Taken Type fremanezumab-vfrm 225 mg/1.5 mL 1 mg subcut QMONTH 04/12/21 04/12/21 Unknown History subcutaneous auto-injector (Ajovy) gabapentin 300 mg capsule 1 cap PO DAILY 04/12/21 04/12/21 Unknown History sumatriptan succinate 100 mg tablet 1 tab PO Q2H PRN Migraine Headache 04/12/21 04/12/21 Unknown History methadone 5 mg/5 mL oral solution 57 mg PO DAILY 04/13/21 04/13/21 04/11/21 History Exam Exam Date and Time: September 27, 2022 1517 Height,Weight and Vital Signs: Height 5 ft 11 in Weight 165 lb Last Vital Signs Temp 97.3 F 09/27/22 14:01 Pulse 98 09/27/22 14:01 Resp 14 09/27/22 14:01 BP 144/97 H 09/27/22 14:01 Pulse Ox 96 09/27/22 14:01 O2 Del Method 09/27/22 14:01 Pertinent Lab Results Pertinent Lab Results: Laboratory Tests 09/27/22 09/27/22 13:12 13:12 Urine Opiates Screen Not Detected Urine Fentanyl Screen Not Detected Ur Barbiturates Screen Not Detected Ur Phencyclidine Scrn Not Detected Ur Amphetamines Screen Not Detected U Benzodiazepines Scrn Not Detected Urine Cocaine Screen Not Detected U Marijuana (THC) Screen Not Detected COVID-19 (GALINA) Negative COVID-19 Clin Com See Note Airway Mallampati Class: II TM Dist: >3cm Neck ROM: Full Loose/Missing/Broken Teeth: Yes Assessment and Plan Assessment Anesthesia Assessment: Anesthesia Plan Discussed and Chart Reviewed Final Anesthetic Review Family History of Problems with Anesthesia: No History of Problems with Anesthesia: No NPO: Yes ASA Class: II Final Preanesthetic Review: No Changes in Pt Med Stat, Meds/Allgs Chart Reviewed, Consent Obtained/Reviewed and Anes Risks/Benef Reviewed Patient Risk: Low Procedure Risk: Low Anesthetic Plan Anesthetic Plan: GA and Regional Block (0.25% ropivacaine to minimize risk of missed compartment syndrome) Disposition: Standard PACU
--- NOTE | 2022-09-27 16:46 | P.BOP_ITS ---
Brief Operative Note Date of Service: 09/27/22 Pre-op diagnosis: Right tibial plateau fracture Post-op diagnosis: same Procedure: ORIF right tibial Plateau Implants: Tahoma locking plate and 5 ml Hydroset Surgeon: Wero Ramos MD Anesthesia: GETA and regional Was an Wholesale Parts Salesperson used for this Procedure?: Yes Wholesale Parts Salesperson: Parth Diggs Estimated blood loss (mL): 150 Tourniquet time (min): 79 IV fluids (mL): 1,200 Pathology: none sent Condition: stable Disposition: PACU
[2022-09-27] MEDS: oxyCODONE HCl Immed Release 5 MG TABLET PO (17:32)
[2022-09-27] MEDS: Acetaminophen 1,000 MG/100 ML PIGGYBACK 400 MG IV (17:33)
[2022-09-27] MEDS: HYDROmorphone HCl 0.5 MG/0.5 ML SYRINGE IVPUSH (17:47)
[2022-09-27] MEDS: Docusate Sodium 100 MG CAPSULE PO (20:59)
[2022-09-27] MEDS: oxyCODONE HCl ER 10 MG TAB.ER.12H PO (20:59)
[2022-09-27] MEDS: Celecoxib 200 MG CAPSULE PO (20:59)
[2022-09-27] MEDS: Lactated Ringers 1,000 ML 100 ML IVCONT (21:18)
[2022-09-27] MEDS: ceFAZolin Sodium/Dextrose,Iso 2 GM/50 ML PIGGYBACK IV (21:20)
[2022-09-27] MEDS: HYDROmorphone HCl 0.5 MG/0.5 ML SYRINGE 0.25 MG IVPUSH (21:32)
[2022-09-27] MEDS: oxyCODONE HCl Immed Release 5 MG TABLET 10 MG PO (22:44)
[2022-09-28] VITALS (7 sets, daily range): BP systolic 140–158; BP diastolic 79–101; PULSE 68–93; RESP 16–18; TEMP 36.6–38.1; O2SAT 96–100; BMI 21.5
[2022-09-28] MEDS: HYDROmorphone HCl 0.5 MG/0.5 ML SYRINGE 0.25 MG IVPUSH (01:11)
[2022-09-28] MEDS: Acetaminophen 1,000 MG/100 ML PIGGYBACK 400 MG IV (02:43)
[2022-09-28] MEDS: Magnesium Hydrox/Alum Hydrox 30 ML ORAL.SUSP PO ×2 (02:52→07:59)
[2022-09-28] MEDS: oxyCODONE HCl Immed Release 5 MG TABLET 10 MG PO ×3 (03:18→19:35)
--- NOTE | 2022-09-28 03:28 | PC.NURSE ---
0118AM-0120 AM PT WAS C/o excruciating pain in his right knee , knee has immobulizer on cms+ ice applied and dilaudid prn dose given 0.25 mg iv when Elizabeth WISE GOT MESSAGE SHE ORDERED tylenol iv and given. also pt c/o heart burn maalax given as ordered pt stated tylenol iv didnt do anything and also nursing spring assembler supervisor was notified of this sytuation we also got zofran iv for nausea. spoke with pts aunt and she said we should be medicating him better and she will speak with our nursing director. pt receved his oxycodone q 4 hours po 10 mg
[2022-09-28] MEDS: ondansetron HCL 4 MG/2 ML VIAL IVPUSH ×2 (03:44→07:56)
[2022-09-28] MEDS: HYDROmorphone HCl 0.5 MG/0.5 ML SYRINGE IVPUSH (06:08)
[2022-09-28] MEDS: Scopolamine 1.5 MG PATCH.TD.3 EAR-BEHIND (06:08)
--- NOTE | 2022-09-28 07:42 | PM.PNORT ---
Subjective Subjective Date of Service: 09/28/22 <Elizabeth Mata PA-C - Last Filed: 09/28/22 10:00> 09/28/22 <Parth Diggs PA-C - Last Filed: 09/28/22 07:58> Interval history: POD1 s/p right tibial plateau ORIF. Pain is difficult to manage. Adjustments made periodically throughout the night. <Elizabeth Mata PA-C - Last Filed: 09/28/22 10:00> POD1 s/p right tibial plateau ORIF. Pain is difficult to manage. Adjustments made periodically throughout the night. Resting in bed with brace on Denies cp, sob, palpitations. <Parth Diggs PA-C - Last Filed: 09/28/22 07:58> Physical Exam Vital Signs: Vital Signs: Last Vital Signs Temp 97.9 F 09/28/22 03:00 Pulse 81 09/28/22 03:00 Resp 18 09/28/22 03:00 BP 140/92 H 09/28/22 03:00 Pulse Ox 100 09/28/22 03:00 O2 Del Method 09/28/22 03:00 O2 Flow Rate 2 09/27/22 18:17 BMI result Body Mass Index 21.5 <Elizabeth Mata PA-C - Last Filed: 09/28/22 10:00> Const: General: cooperative, healthy appearing and no acute distress <Parth Diggs PA-C - Last Filed: 09/28/22 07:58> Resp: Effort & Inspection: normal respiratory effort and able to speak in complete sentences <Parth Diggs PA-C - Last Filed: 09/28/22 07:58> Cardio: Rate: regular rate <Parth Diggs PA-C - Last Filed: 09/28/22 07:58> Peripheral pulses: Peripheral pulses 2+ throughout <Parth Diggs PA-C - Last Filed: 09/28/22 07:58> GI: Palpation (GI): Soft to palpation <Parth Diggs PA-C - Last Filed: 09/28/22 07:58> Skin: General skin exam: no rashes or lesions noted <Parth Diggs PA-C - Last Filed: 09/28/22 07:58> Extrem: Other: Right knee bandage c/d/i. No drainage. Mild swelling, compartments soft. Calf supple non tender. He isable to dorsi/plantar flex. NVI. <Parth Diggs PA-C - Last Filed: 09/28/22 07:58> Procedures Date of Service Date of Service: 09/28/22 <Parth Diggs PA-C - Last Filed: 09/28/22 07:58> Progress Note: A&P Assessment and plan (1) Tibial plateau fracture, right: Status: Acute <Elizabeth Mata PA-C - Last Filed: 09/28/22 10:00> Assessment and Plan: Pain mgmnt-medication adjusted Begin PT --NWB RLE, NWB ROM, SLR gait training-brace prn Dispo-home when cleared by PT <Parth Diggs PA-C - Last Filed: 09/28/22 07:58> Time Spent With Patient Time: Total time managing care of this patient today ____ minutes. <Elizabeth Mata PA-C - Last Filed: 09/28/22 10:00> Quality Stroke Does the patient have a stroke diagnosis?: No <Parth Diggs PA-C - Last Filed: 09/28/22 07:58> VTE Prior VTE?: No <Parth Diggs PA-C - Last Filed: 09/28/22 07:58> VTE Risk Level:: Surgical - moderate <Parth Diggs PA-C - Last Filed: 09/28/22 07:58> VTE Device Contraindication: N/A - Device Ordered <Parth Diggs PA-C - Last Filed: 09/28/22 07:58> VTE Drug Contraindication: Treatment Not Indicated <Parht Diggs PA-C - Last Filed: 09/28/22 07:58>
[2022-09-28] MEDS: HYDROmorphone HCl 0.5 MG/0.5 ML SYRINGE 1 MG IVPUSH ×5 (07:56→18:03)
[2022-09-28] MEDS: Acetaminophen 1,000 MG/100 ML PIGGYBACK 100 MG IV ×3 (08:10→21:00)
[2022-09-28] MEDS: Docusate Sodium 100 MG CAPSULE PO ×2 (08:52→19:37)
[2022-09-28] MEDS: oxyCODONE HCl ER 10 MG TAB.ER.12H PO ×2 (08:52→23:23)
[2022-09-28] MEDS: Celecoxib 200 MG CAPSULE PO ×2 (08:52→19:36)
[2022-09-28] MEDS: Lactated Ringers 1,000 ML 100 ML IVCONT (08:53)
[2022-09-28 09:09] LABS: MANUAL DIFF FLAG NO
[2022-09-28 09:30] LABS: Basophils Percent Auto 0.2 % (0-2); Hematocrit 40.5 % (42.0-52.0); Imm Gran Abs Auto 0.08 X10*3/uL (0.00-0.03); Imm Gran Pct Auto 0.9 % (0.0-0.4); Lymphocytes Absolute Auto 0.9 X10*3/uL (1.2-4.9); Lymphocytes Percent Auto 10.6 % (20-40); Mean Corpuscular HGB Conc 32.1 g/dl (31.0-36.0); Mean Corpuscular Hemoglobin 29.1 pg (27.0-33.0); Mean Corpuscular Volume 90.8 fL (80.0-98.0); Monocytes Percent Auto 11.8 % (2-11); Neutrophils Absolute Auto 6.6 x10*3/uL (2.0-8.3); Neutrophils Percent Auto 76.5 % (45-73); Platelet Count 302 X10*3/uL (160-400); Red Blood Count 4.46 X10*6/uL (4.60-5.80); Red Cell Distribution Width 14.6 % (11.0-16.0); White Blood Count 8.7 X10*3/uL (4.8-10.8)
--- NOTE | 2022-09-28 10:08 | MHC.RECOVRN ---
Met with pt and aunt in 376 to discuss pain management as well as substance use. Pt laying in bed, awake, alert, easily engages in conversation, wincing. Pt reports pain management was inadequate overnight, aunt visibly upset pt was not being managed properly. Pt reports receiving 60 mg methadone daily x a couple years from [facility]. Pt denies substance use at this time. Pt educated regarding tolerance and need for increased pain medication, pt acknowledges and understands. Pt educated regarding thought that methadone blocks other pain medication. Pt reports dilaudid increase to 1 mg q2 hours has been effective and just received a dose. Pt is also receiving 10 mg oxycodone which pt finds helpful. Pt denies other questions or concerns at this time. Aunt insistent that all providers, including surgeons and anesthesiology, be educated regarding pain management in people with CARTER. Pt and aunt provided with t/w contact information if needed. Discussed with Tatianna Smith APRN.
[2022-09-28 10:09] LABS: Anion Gap 15 (12-20); Blood Urea Nitrogen 11 mg/dL (9-16); Calcium 9.4 mg/dL (8.4-10.2); Carbon Dioxide 25 mmol/L (22-29); Chloride 101 mmol/L (96-108); Creatinine Clr Calc Pharmacy 119.8; Estimated Glomerular Filt Rate > 60; Glucose Fasting 120 mg/dL (60-99); Sodium 137 mmol/L (135-145)
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
[2022-09-28] MEDS: LORazepam 2 MG/ML VIAL 1 MG IV (10:51)
--- NOTE | 2022-09-28 13:28 | MHC.RECOVRN ---
Spoke with Madhu at [facility], pt last received 61 mg methadone on 09/27 at 11:47AM. Madhu informed t/w that pt would need dc paperwork and to arrive to [facility] between 7-11AM to be reinstated once dc from [facility]. Pt must also bring last dose letter. RN aware.
--- NOTE | 2022-09-28 14:02 | P.OP_ITS ---
Operative Note Operative Note Date of Service: 09/27/22 Narrative: Date of Service: 09/27/22 Pre-op diagnosis: Right tibial plateau fracture Post-op diagnosis: same Procedure: ORIF right tibial Plateau Implants: Max locking plate and 5 ml Hydroset Surgeon: Wero Ramos MD Anesthesia: GETA and regional Was an Project Drilling Engineer used for this Procedure?: Yes Project Drilling Engineer: Parth Diggs Estimated blood loss (mL): 150 Tourniquet time (min): 79 IV fluids (mL): 1,200 Pathology: none sent Condition: stable Disposition: PACU Procedure in detail: Patient was brought to the operating room and placed supine on the surgical table. He was prepped and draped in standard sterile fashion and a time out was called to identify proper site, proper procedure and IV antibiotics per weight were administered.The tourniquet was insufflated to 300 mm Hg and I began by making a lateral incision from the distal femur across the lateral joint line to Gerdy's tubercle. The IT band was incised in line with the incision and the capsule was opened. There was hematoma and joint fluid that was evacuated. I tag ged and incision the lateral coronary ligments. The joint space was then visualized as my nutrition services assistant applied a varus pressure to the knee. The lateral tibial plateau was depressed and the split exited the anterior tibial plateau. The lateral cortex was reflected laterally and a tamp was then used to elevate the lateral joint surface. 5 ml of Hydroset was placed ion the remaining metaphyseal space and a small Fisk lateral locking plate was applied. THe lateral tibial plateau cortex was repositioned and 4 proximal locking screws, a raft screw and 2 distal cortical screws were placed using standard AO technique and biplanar fluoroscopy. I was satsfied with the articualr reduction under direct visualization and with fluoro as well as the hardware position. I then let the tourniquet down and there was no brisk bleeding. Patient was then placed in sterile dressing and extubated. She was brought to the recovery room in stable condition. There were no known complications.
--- NOTE | 2022-09-28 14:10 | HE.PHANOTE ---
METHADONE CONFIRMATION FORM RECEIVED FROM [facility] FOR 61MG LAST TAKEN 09/27
--- NOTE | 2022-09-28 14:37 | PC.NURSE ---
Patient C/O persistent right knee pain. Surgery at bedside to evaluate patient at 0730. IV dilaudid increased from 0.5mg to 1MG q2 hrs. Dilaudid given at 0800, 1000, and 1315. Patient c/o nausea, able to eat 25% of breakfast and lunch. Phenergan given at 1230 with relief. Patient states pain level is 8/10, slightly improved . PT encouraged patient to participate to sit on the side of the bed, but unable due to pain level. Methadone verified from facility and faxed to pharmacy, awaiting order. Aunt at bedside throughout the day, and updated on plan of care.
[2022-09-28] MEDS: Zolpidem Tartrate 5 MG TABLET PO (23:26)
[2022-09-29] MEDS: oxyCODONE HCl Immed Release 5 MG TABLET 10 MG PO ×2 (05:43→11:14)
[2022-09-29 07:00] VITALS: BP 131/96; PULSE 98; RESP 17; TEMP 36.6; O2SAT 98
--- NOTE | 2022-09-29 08:20 | MHC.CM.PN ---
Addendum entered by Sujey Lewis RN 09/29/22 09:08: CHANGE OF PLAN - AUNT (LEONELA) ASKS FOR A REFERRAL TO [place] AFTER SPEAKING WITH ORTHO TEAM PATIENT WILL GO TO: [address] [facility] Original Note: PATIENT IS FULLY INDEPENDENT. HE LIVES IN A [facility]. NO DME OR VNA HE DOES HAVE METHADONE TREATMENT SERVICES. AT [place], PATIENT WILL BE STAYING WITH HIS AUNT (IN ROOM) PRIOR TO RETURNING TO [facility]. AUNT IS AN RN AND DOES NOT FEEL PATIENT WILL NEED ADDITIONAL SERVICES IN THE HOME
[2022-09-29] MEDS: Celecoxib 200 MG CAPSULE PO (09:02)
[2022-09-29] MEDS: oxyCODONE HCl ER 10 MG TAB.ER.12H PO (09:02)
[2022-09-29] MEDS: methADONE HCl 20 MG/2 ML ORAL.CONC 61 MG PO (09:03)
--- NOTE | 2022-09-29 09:07 | PM.PNORT ---
Subjective Subjective Date of Service: 09/29/22 Interval history: POD2 s/p right tibial plateau ORIF. Patient is resting in bed. Pain is more managed today. Aunt is sitting in the hallway and then followed to bedside. No overnight events. No additional complaints. Physical Exam Vital Signs: Vital Signs: Last Vital Signs Temp 97.8 F 09/29/22 07:00 Pulse 98 09/29/22 07:00 Resp 17 09/29/22 07:00 BP 131/96 H 09/29/22 07:00 Pulse Ox 98 09/29/22 07:00 O2 Del Method 09/29/22 07:00 O2 Flow Rate 2 09/27/22 18:17 BMI result Body Mass Index 21.5 Const: General: cooperative, healthy appearing and no acute distress Resp: Effort & Inspection: normal respiratory effort and able to speak in complete sentences Cardio: Rate: regular rate Peripheral pulses: Peripheral pulses 2+ throughout GI: Palpation (GI): Soft to palpation Skin: General skin exam: no rashes or lesions noted Extrem: Other: Right knee bandage c/d/i. No drainage. Mild swelling, compartments soft. Calf supple non tender. He isable to dorsi/plantar flex. NVI. Procedures Date of Service Date of Service: 09/29/22 Progress Note: A&P Assessment and plan (1) Tibial plateau fracture, right: Status: Acute Assessment and Plan: Pain mgmnt-medication adjustments made yesterday, IV was removed yesterday evening and patient is no longer taking IV Dilaudid Begin PT --NWB RLE, NWB ROM, SLR gait training-brace prn Dispo-home when cleared by PT, Answered all questions by aunt at bedside Time Spent With Patient Time: Total time managing care of this patient today ____ minutes. Quality Stroke Does the patient have a stroke diagnosis?: No VTE Prior VTE?: No VTE Risk Level:: Surgical - moderate VTE Device Contraindication: N/A - Device Ordered VTE Drug Contraindication: Treatment Not Indicated
--- NOTE | 2022-09-29 09:15 | PC.NURSE ---
Patient refused AM Colace, states he is having bowel movements and Colace causes abd discomfort
--- NOTE | 2022-09-29 09:34 | HO.POSTANES ---
Post Anesthesia Evaluation Post Anesthesia Evaluation Vital Signs: Vital Signs Temp Pulse Resp BP Pulse Ox O2 Del Method 09/29/22 07:00 97.8 F 98 17 131/96 H 98 Room Air 09/28/22 23:00 100.5 F H 68 16 156/79 H 99 Room Air Anesthesia: Nerve Block and General Mental Status: Awake Pain Control: Satisfactory Nausea/Vomiting: None Hydration: Adequate Anesthesia-Related Issues: No Anes. Related Issues
--- NOTE | 2022-09-29 10:08 | P.PNIM_ITS ---
Subjective Subjective Date of Service: 09/29/22 Interval History: . He is reasonably well controlled. BP is better Review of Systems Gen: no fever Resp: no sob, no cough CV: no chest, no HARRY, no leg edema GI: No n/v, no abd pain Neuro: No confusion pain in the knee Physical Exam Vital Signs: Vital Signs: Last Vital Signs Temp 97.8 F 09/29/22 07:00 Pulse 98 09/29/22 07:00 Resp 17 09/29/22 07:00 BP 131/96 H 09/29/22 07:00 Pulse Ox 98 09/29/22 07:00 O2 Del Method 09/29/22 07:00 O2 Flow Rate 2 09/27/22 18:17 BMI result Body Mass Index 21.5 Const: Other: General: AO X 3, no acute distress Resp: CTA bilateral CVS: S1,S2,RRR GI: +BS, NT, no distention Skin: No rash, knee dressing in place Neuro: motor grossly intact Psych: appropriate affect Objective Data Active Medications Al Hydroxide/Mg Hydroxide (Magnesium Hydrox/Alum Hydrox 30 Ml Oral.Susp) 30 ml PO Q6H PRN PRN Reason: Indigestion Last Admin: 09/28/22 07:59 Dose: 30 ml Documented By: YANA Celecoxib (Celecoxib 200 Mg Capsule) 200 mg PO BID [facility] Last Admin: 09/29/22 09:02 Dose: 200 mg Documented By: CAROL Docusate Sodium (Docusate Sodium 100 Mg Capsule) 100 mg PO BID [facility] Last Admin: 09/29/22 09:02 Dose: Not Given Documented By: CAROL Non-Admin Reason: Patient Refused Enoxaparin Sodium (Enoxaparin Sodium 40 Mg/0.4 Ml Syringe) 40 mg SUBCUT Q24H [facility] Hydromorphone HCl (Hydromorphone Hcl 0.5 Mg/0.5 Ml Syringe) 1 mg IVPUSH Q2H PRN; Protocol PRN Reason: Pain, Severe (Pain Scale 7-10) Last Admin: 09/28/22 18:03 Dose: 1 mg Documented By: SARAHI Promethazine HCl 12.5 mg/ (Sodium Chloride) 50.5 mls @ 202 mls/hr IV Q4H PRN PRN Reason: Nausea Last Infusion: 09/28/22 12:26 Dose: 0 mls/hr Documented By: YANA Methadone HCl (Methadone Hcl 20 Mg/2 Ml Oral.Conc) 61 mg PO DAILY [facility] Last Admin: 09/29/22 09:03 Dose: 61 mg Documented By: CAROL Ondansetron HCl (Ondansetron Hcl 4 Mg/2 Ml Vial) 4 mg IVPUSH Q6H PRN PRN Reason: Nausea Last Admin: 09/28/22 07:56 Dose: 4 mg Documented By: YANA Oxycodone HCl (Oxycodone Hcl Immed Release 5 Mg Tablet) 10 mg PO Q4H PRN PRN Reason: Pain, Moderate (Pain Scale 4-6 Last Admin: 09/28/22 19:35 Dose: 10 mg Documented By: ЕЛЕНА Comments: PT SCREAMING IN PAIN, RESTLESS, ANXIOUS AND UPSET. MED WAS GIVEN BUT NOT SCANNED UNDER THE CIRCUMSTANCES Oxycodone HCl (Oxycodone Hcl Er 10 Mg Tab.Er.12h) 10 mg PO BID [facility] Last Admin: 09/29/22 09:02 Dose: 10 mg Documented By: CAROL Sodium Chloride (0.9 % Sodium Chloride Flush 3 Ml Syringe) 3 ml IVFLUSH QSHIFT [facility] Last Admin: 09/29/22 09:03 Dose: Not Given Documented By: CAROL Non-Admin Reason: No Access Zolpidem Tartrate (Zolpidem Tartrate 5 Mg Tablet) 5 mg PO BEDTIME PRN PRN Reason: Insomnia Last Admin: 09/28/22 23:26 Dose: 5 mg Documented By: ЕЛЕНА Labs CBC & Chem 7: 09/28/22 08:28 09/28/22 08:28 Labs: Laboratory Results - last 24 hr 09/28/22 08:28 Anion Gap 15 Estim Creat Clear Calc 119.8 Estimated GFR > 60 Fasting Glucose 120 H Calcium 9.4 Assessment and Plan (1) Tibial plateau fracture, right: Status: Acute (2) Opioid use disorder in remission: Status: Acute Plan 32/m with history of opioid use desorder in remission here with tibia plateau fracture s/p repair, noted to have elevated BP 1/ Elevated BP no diagnosis of HTN, BP is better, residual high could be pain related. To follow up with PCP upon discharge 2/Opioid use desorder--continue Methadone 3/s/p repair of tibial plateau fracture--management per ortho from medical perspective ok to dc Time Spent With Patient Time: Total time managing care of this patient today ____ minutes. Quality Stroke Does the patient have a stroke diagnosis?: No VTE Prior VTE?: No VTE Risk Level:: Surgical - moderate VTE Device Contraindication: N/A - Device Ordered VTE Drug Contraindication: Treatment Not Indicated
[2022-09-29 11:00] VITALS: BP 143/90; PULSE 86; RESP 17; TEMP 36.9; O2SAT 97
--- NOTE | 2022-09-29 11:24 | MHC.RECOVRN ---
Met with pt to follow up regarding pain management and methadone. Pt did not receive methadone yesterday but did receive it today. Pt reports pain is bearable and is currently trying to catch up on sleep. Pt denied questions or concerns for t/w.
--- NOTE | 2022-09-29 11:34 | PC.NURSE ---
Patient refused Lovenox injection, educated on importance of med
--- NOTE | 2022-09-29 12:44 | P.DS_ITS ---
DS: Providers Provider Date of Service: 09/29/22 Primary care physician: Wero Ramos MD Consults: 09/27/22 19:45 Consult to Hospitalist Routine Consulting Provider: Hospitalist Reason For Exam: h/o substance use on methadone 09/28/22 09:14 Consult to Care Team Routine Comment: s/p orif right tibial plateau Reason for consultation: methadone use, high anxiety about narcotics DS: Diagnosis Discharge Diagnosis (1) Tibial plateau fracture, right: Status: Acute DS: Summary Hospital Course Hospital Course: The patient underwent a successful ORIF right tibial plateau, was transferred to PACU and then to the floor to recover. During their stay, their vitals were stable, afebrile at 98.4. Labs were unremarkable, H/H 13.0/40.5. POD 2 he was started on Lovenox for DVT ppx,he also received PT services twice a day. Prior to discharge, their dressing was change, incision clean dry and intact, new Aquacel dressing applied and the plan was to be discharged home with PT services. Time Spent with Patient Time attestation: Total time managing care of this patient today 25 minutes. Discharge coordination time: Less than 30 minutes Quality: Safe Use of Opioids Does Pt have an Active Cancer Diagnosis on the Problem List?: No Quality: Stroke Does the patient have a stroke diagnosis?: No Physical Exam Vital Signs: Vital Signs: Last Vital Signs Temp 98.4 F 09/29/22 11:00 Pulse 86 09/29/22 11:00 Resp 17 09/29/22 11:00 BP 143/90 H 09/29/22 11:00 Pulse Ox 97 09/29/22 11:00 O2 Del Method 09/29/22 11:00 O2 Flow Rate 2 09/27/22 18:17 BMI result Body Mass Index 21.5 Const: General: cooperative, healthy appearing and no acute distress Resp: Effort & Inspection: normal respiratory effort and able to speak in complete sentences Cardio: Rate: regular rate Peripheral pulses: Peripheral pulses 2+ throughout GI: Palpation (GI): Soft to palpation Skin: General skin exam: no rashes or lesions noted Extrem: Other: Right knee bandage c/d/i. No drainage. Mild swelling, compartments soft. Calf supple non tender. He isable to dorsi/plantar flex. NVI. Discharge Plan Discharge Patient Disposition: Home Health Service Referrals: Parth Diggs PA-C [Physician Merchandise Presentation Manager] - 1 Week (10/07/22 10:15 [facility] [place] [facility] Parth Diggs PA-C) Discharge Medications: New docusate sodium 100 mg Capsule 100 mg PO BID 14 Days Qty: 28 0RF celecoxib 200 mg Capsule 200 mg PO BID 30 Days Qty: 60 0RF enoxaparin 40 mg/0.4 mL Syringe 40 mg subcut Q24H 42 Days Qty: 16.8 0RF oxycodone 10 mg tablet 10 mg PO Q4H PRN (Reason: Pain, Moderate (Pain Scale 4-6) 7 Days Qty: 42 0RF Rx Instructions: Partial Fill upon patient request. oxycodone [OxyContin] 10 mg Tablet,Oral Only,Ext.Rel.12 Hr 10 mg PO BID 3 Days Qty: 6 0RF Rx Instructions: Partial Fill upon patient request. acetaminophen 325 mg Tablet 650 mg PO Q6H PRN (Reason: Pain, Mild (Pain Scale 1-3)) 30 Days Qty: 240 0RF Continued sumatriptan succinate 100 mg tablet 1 tab PO Q2H PRN (Reason: Migraine Headache) gabapentin 300 mg capsule 1 cap PO DAILY Ajovy Autoinjector 225 mg/1.5 mL auto-injector 1 mg subcut QMONTH methadone 5 mg/5 mL Solution 61 mg PO DAILY Discontinued doxycycline monohydrate 100 mg capsule 100 mg PO BID Qty: 20 0RF amoxicillin-pot clavulanate 875-125 mg tablet 1 tab PO Q12H 5 Days Qty: 10 0RF Discharge Orders: Discharge Order (Routine); Ordered 09/29/22 Ordered By: Parth Diggs Diet: Regular diet Activity on Discharge: Use cane or walker Activity Restrictions/Additional Instructions: * NWB x6 weeks * NWB ROM as tolerated beginning 2 weeks post op * Knee immobilizer intact on at all times while ambulating-may remove with NWB ROM exercises * Keep dressing clean, dry and intact . * Continue anticoagulant x 6 weeks * No tub bath or shower-Keep dressing clean, dry and intact * Follow up with orthopedics in 1 week
--- NOTE | 2022-09-29 12:49 | P.F2F_ITS ---
Service Date Service Date: 09/29/22 Encounter Date of encounter: 09/29/22 Reasons for Services Signs and symptoms assessed: right knee pain, swelling, difficulty with ambulation. Reason for long term: medication management and medication treatment Reason for physical therapy: home safety and mobility, therapeutic exercises, restore joint function, gait/transfer training, assess need for DME, ADL training and energy conservation Reason for occupational therapy: home safety and mobility, therapeutic exercises, restore joint function, gait/transfer training, assess need for DME, ADL training and energy conservation MD Overseeing Care: Wero Ramos Homebound: Leaving the home is medically contraindicated at this time without the asist of a device and/or another person due th the listed conditions above and below. Reason homebound: unsteady gait / fall risk, leg weakness, pain with ambulation, pain with transfers, poor balance / fall risk, non-weight bearing and unable to drive Homebound supporting statement: Pt. is considered home bound due to recent surgery. Unable to drive, poor balance, poor gait mechanics. Certification: Based on the above findings, I certify that this patient is confined to the home and needs intermittent long term care, physical therapy and/or speech therapy, or continues to need occupational therapy. The patient is under my care, and I have initiated the establishment of the plan of care. The patient will be followed by a physician who will periodically review the plan of care. Time Spent With Patient Time: Total time managing care of this patient today ____ minutes.
--- NOTE | 2022-09-29 14:01 | MHC.CM.PN ---
PATIENT IS DC HOME (TO [facility] ) WITH NEW [facility] SERVICES. ORTHO TO SIGN ORDERS PATIENT HAS MISSED PCP VISITS
== END 2022-09-29 16:01 | disposition home health service (06) ==
LOC: HO.SSS 12:53 → HO.S3 18:07
PROVIDERS: Anesthesiology; Physician Assistant; PCP Orthopaedic Surgery; Visit Provider Orthopaedic Surgery
PROC: (CPT 27535; principal; 2022-09-27 15:50)
DX: S82.141A Displaced bicondylar fracture of right tibia, initial encounter for closed fracture (principal); F11.20 Opioid dependence, uncomplicated; R03.0 Elevated blood-pressure reading, without diagnosis of hypertension; Z79.899 Other long term (current) drug therapy; V28.09XA Other motorcycle driver injured in noncollision transport accident in nontraffic accident, initial encounter; Y93.55 Activity, bike riding; Y92.9 Unspecified place or not applicable; Y99.9 Unspecified external cause status; Z20.822 Contact with and (suspected) exposure to COVID-19; Z88.1 Allergy status to other antibiotic agents
CPT/HCPCS: 27535; 36415; 80048; 80307; 85025; 87635; 97116; 97162; C1713; J0131; J0690; J1170; J2060; J2250; J2370; J2405; J2550; J2795; J3010

== ENCOUNTER 2022-10-07 07:58 | Outpatient (REF) | payer BC, SELFPAY ==
--- NOTE | ~2022-10-07 | XR_ITS ---
EXAMINATION: XR KNEE, RIGHT CLINICAL INFORMATION: Fracture tibial plateau. Reduction. COMPARISON: Right knee radiographs 09/25/2022 TECHNIQUE: AP and lateral views of the right knee. FINDINGS: The lateral tibial plateau fracture is reduced with lateral side plate and multiple screws. Fracture fragments are in near-anatomic alignment. The hardware is intact. There is no destructive process or osteolysis. Skin alivia are present. There is small suprapatellar effusion. Bony mineralization normal. No periostitis. XR/XR knee RT 2V IMPRESSION: Status post reduction lateral tibial plateau fracture. Hardware intact. No destructive process.
== END 2022-10-07 07:59 | disposition home or self-care (01) ==
LOC: HO.HOSX 07:58
PROVIDERS: Visit Provider Physician Assistant
DX: S82.141D Displaced bicondylar fracture of right tibia, subsequent encounter for closed fracture with routine healing (principal)
CPT/HCPCS: 73560

== ENCOUNTER 2022-11-02 10:41 | Emergency (ER) | payer BC, SELFPAY ==
--- NOTE | ~2022-11-02 | US_ITS ---
EXAMINATION: US VENOUS ULTRASOUND WITH DOPPLER LOWER EXTREMITY, BILATERAL CLINICAL INFORMATION: Recent right knee surgery with question of DVT COMPARISON: 09/25/2022 TECHNIQUE: Ultrasound of the deep veins is performed from the hip to the calf with compression sonography and color and pulse Doppler assessment. Spectral analysis with color-flow imaging is performed. FINDINGS: RIGHT: On 09/25/2022, there was no evidence of right-sided DVT. On today's study, acute thrombus is seen extending throughout the femoral vein into the calf veins. The thrombus in the tibial veins and femoral vein appear occlusive. Some flow is seen in the popliteal vein. Thrombus is also present in the profunda femoris vein. Chronic thickening/is present in the right common femoral There is no significant popliteal fossa cyst. LEFT: On the left, there is thrombus in the common femoral vein with a small patent. The left lower extremity is otherwise unremarkable with normal venous compression and respiratory variation and augmented flow. The visualized superficial femoral vein, profunda femoral vein, popliteal vein, and the trifurcation region shows no evidence of deep venous thrombosis. There is no significant popliteal fossa cyst. US/US venous duplex LE BI IMPRESSION: Acute extensive DVT right lower extremity. 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
[2022-11-02 10:48] VITALS: BP 125/91; PULSE 110; RESP 19; TEMP 36.6; O2SAT 99; BMI 22.9
[2022-11-02 11:07] LABS: MANUAL DIFF FLAG NO
[2022-11-02 11:10] LABS: Basophils Absolute Auto 0.1 X10*3/uL (0.0-0.2); Basophils Percent Auto 0.6 % (0-2); Eosinophils Absolute Auto 0.1 X10*3/uL (0.0-0.4); Eosinophils Percent Auto 1.4 % (0-4); Hematocrit 39.9 % (42.0-52.0); Hemoglobin 12.9 g/dl (14.0-18.0); Imm Gran Abs Auto 0.35 X10*3/uL (0.00-0.03); Imm Gran Pct Auto 3.4 % (0.0-0.4); Lymphocytes Absolute Auto 1.5 X10*3/uL (1.2-4.9); Lymphocytes Percent Auto 14.3 % (20-40); Mean Corpuscular HGB Conc 32.3 g/dl (31.0-36.0); Mean Corpuscular Hemoglobin 27.9 pg (27.0-33.0); Mean Corpuscular Volume 86.4 fL (80.0-98.0); Mean Platelet Volume 9.6 fL (9.4-12.4); Monocytes Absolute Auto 0.9 X10*3/uL (0.1-1.2); Monocytes Percent Auto 8.6 % (2-11); Neutrophils Absolute Auto 7.3 x10*3/uL (2.0-8.3); Neutrophils Percent Auto 71.7 % (45-73); Platelet Count 360 X10*3/uL (160-400); Red Blood Count 4.62 X10*6/uL (4.60-5.80); Red Cell Distribution Width 15.1 % (11.0-16.0); White Blood Count 10.2 X10*3/uL (4.8-10.8)
[2022-11-02 11:16] LABS: Prothrombin Time 11.7 SEC (10.0-13.1)
[2022-11-02 11:28] LABS: Anion Gap 13 (12-20); Blood Urea Nitrogen 12 mg/dL (9-16); Calcium 9.9 mg/dL (8.4-10.2); Carbon Dioxide 35 mmol/L (22-29); Chloride 95 mmol/L (96-108); Creatinine Clr Calc Pharmacy 106.8; Estimated Glomerular Filt Rate > 60; Glucose Random 83 mg/dL (60-115); Potassium 4.2 mmol/L (3.3-5.1); Sodium 139 mmol/L (135-145)
[2022-11-02 12:33] LABS: Partial Thromboplastin Time 25.2 SEC (26.0-36.4)
[2022-11-02 12:37] LABS: Alanine Aminotransferase 28 U/L (0-40); Albumin Level 4.3 g/dL (3.5-5.0); Alkaline Phosphatase 78 U/L (39-117); Aspartate Amino Transferase 27 U/L (5-37); Bilirubin Direct 0.2 mg/dL (0.0-0.5); Bilirubin Total 0.4 mg/dL (0.0-1.0); Total Protein 7.5 g/dL (6.5-8.0)
--- NOTE | 2022-11-02 13:16 | ED.LOWEXIN ---
HPI - Extremity Injury (Lower) General Chief Complaint: Extremity Injury, Lower Stated Complaint: R knee surg T-1 month/Leg is swollen Time Seen by Provider: 11/02/22 13:01 History of Present Illness HPI Narrative: Patient is a 32-year-old male with a history of DVTs in the past. Patient had a [place] filter in place baseline. Patient had a bad ankle and spine fracture about 12 years ago, had the [place] filter placed in [place]. Middle of September patient had a tibial plateau fracture on the right side. It was subsequently repaired. Post surgery patient was placed on Lovenox 40 mg. He took it for 2 days and then decided not to take it now is noticing increasing swelling to the leg today. Patient came to the ED for further evaluation. There is no fever no chills no systemic complaints. Patient is from home. Denies any chest pain or shortness of breath no diaphoresis. Has a previous history of IV drug use but has not use IV narcotics. Patient is on methadone. Related Data Home Medications Medication Instructions Recorded Confirmed fremanezumab-vfrm 225 mg/1.5 mL 1 mg subcut QMONTH 04/12/21 04/12/21 subcutaneous auto-injector (Ajovy) gabapentin 300 mg capsule 1 cap PO DAILY 04/12/21 04/12/21 sumatriptan succinate 100 mg tablet 1 tab PO Q2H PRN Migraine Headache 04/12/21 04/12/21 methadone 5 mg/5 mL oral solution 61 mg PO DAILY 04/13/21 09/28/22 Previous Rx's Medication Instructions Recorded acetaminophen 325 mg tablet 650 mg PO Q6H PRN Pain, Mild (Pain 09/29/22 Scale 1-3) 30 days #240 tabs docusate sodium 100 mg capsule 100 mg PO BID 14 days #28 caps 09/29/22 enoxaparin 40 mg/0.4 mL 40 mg (0.4 mL) subcut Q24H 42 days 09/29/22 subcutaneous syringe #16.8 mL oxycodone 10 mg tablet,crush 10 mg PO BID 3 days #6 tabs 09/29/22 resistant,extended release 12 hr (OxyContin) oxycodone 10 mg tablet 10 mg PO Q6H PRN Pain, Moderate 10/18/22 (Pain Scale 4-6 7 days #42 tabs celecoxib 200 mg capsule 200 mg PO BID #60 caps 10/26/22 apixaban 5 mg (74 tabs) tablets in 5 mg PO BID #74 ea 11/02/22 a dose pack (Eliquis DVT-PE Treat 30D Start) Allergies Allergy/AdvReac Type Severity Reaction Status Date / Time vancomycin [VANCOMYCIN] Allergy Unknown SKIN GETS Verified 10/07/22 10:25 RED Review of Systems Review of Systems: Positive positive Yes all other systems are reviewed and are negative [facility] Past Medical History Attestation statement: The following information was validated with the patient. Medical History Opioid use disorder in remission Social History Social History Household Members: None Housing: Other Do you presently have visiting nurse or other home services: No Alcohol intake: never Patient Tobacco Use Status: Current everyday Tobacco user e-Cigarette/Vaping Use: Former Use Second Hand Smoke Exposure: No Substance Use Type: Heroin Advance Directives: No Advance Directives Information Provided: No service: No Current occupational status: unemployed Physical Exam Vital Signs: Vital Signs: Last Vital Signs Temp 98 F 11/02/22 10:48 Pulse 110 H 11/02/22 10:48 Resp 19 11/02/22 10:48 BP 125/91 H 11/02/22 10:48 Pulse Ox 99 11/02/22 10:48 O2 Del Method 11/02/22 10:48 BMI result Body Mass Index 22.9 Appearance: Alert. Oriented X3. No acute distress. Eyes: Pupils equal, round and reactive to light. ENT: Pharynx normal. Neck: Normal inspection. Neck supple. No lymph nodes noted. No crepitus CVS: Normal heart rate and rhythm. Pulses normal. Normal S1 and S2 Respiratory: No respiratory distress. Breath sounds normal. No Wheezing. No rales Abdomen: Soft and nontender. No rigidity. No distention. good BS x4 Skin: Skin warm and dry. Normal skin color. Normal skin turgor. Extremities: positive right lower extremity edema. Clearly more swollen on the right side compared to the left. Distal pulses intact at dorsalis pedis and posterior tibialis. Sensation grossly intact. Motor intact at ankle, knees, hips, surgical scar grossly intact. There is no erythema. There is no discharge noted. Neuro: Oriented X 3. No motor deficit. No sensory deficit. Moving all extermities. No slurred speech Medical Decision Making Differential Diagnosis Differential diagnosis includes DVT in the lower extremity. Swelling postop. Ultrasound was done. Doppler ultrasound showed extensive DVT noted. In the right lower extremity. The finding was discussed with vascular surgery Dr. Wick. Agree with plan of starting Eliquis, close follow-up on an outpatient basis. Patient has no chest pain no shortness of breath no diaphoresis. No evidence for PE at this point. The wound did not look infected. He is well appearing. He is 32 years old. Comfortable managing his affairs. Comfortable with using crutches. Patient told to take the medication, close follow-up with vascular surgery given the extensive clot. Worsening condition return to the emergency department. Look out for shortness of breath. Patient is in stable condition with discharge home. Consult Healthcare Provider Management of the patient was discussed with: Ex Assistant/Program Director Vascular surgery consulted Lab Data MDM Lab Attestation statement: I reviewed the patient's lab results. 11/02/22 11:00 11/02/22 11:00 Labs: Lab Results 11/02/22 11/02/22 11/02/22 Range/Units 11:00 11:00 11:00 WBC 10.2 (4.8-10.8) X10*3/uL RBC 4.62 (4.60-5.80) X10*6/uL Hgb 12.9 L (14.0-18.0) g/dl Hct 39.9 L (42.0-52.0) % MCV 86.4 (80.0-98.0) fL MCH 27.9 (27.0-33.0) pg MCHC 32.3 (31.0-36.0) g/dl RDW 15.1 (11.0-16.0) % Plt Count 360 (160-400) X10*3/uL MPV 9.6 (9.4-12.4) fL Immature Gran % (Auto) 3.4 H (0.0-0.4) % Neut % (Auto) 71.7 (45-73) % Lymph % (Auto) 14.3 L (20-40) % Hart % (Auto) 8.6 (2-11) % Eos % (Auto) 1.4 (0-4) % Baso % (Auto) 0.6 (0-2) % Lymph # (Auto) 1.5 (1.2-4.9) X10*3/uL Hart # (Auto) 0.9 (0.1-1.2) X10*3/uL Eos # (Auto) 0.1 (0.0-0.4) X10*3/uL Baso # (Auto) 0.1 (0.0-0.2) X10*3/uL Abs Immat Gran (auto) 0.35 H (0.00-0.03) X10*3/uL Absolute Neuts (auto) 7.3 (2.0-8.3) x10*3/uL Absolute Nucleated RBC 0.000 (0.0-0.012) X10*3/uL Nucleated RBC % (auto) 0.0 (0.0-0.2) /100WBC PT 11.7 (10.0-13.1) SEC INR 1.0 (0.9-1.1) APTT 25.2 L (26.0-36.4) SEC Sodium 139 (135-145) mmol/L Potassium 4.2 (3.3-5.1) mmol/L Chloride 95 L (96-108) mmol/L Carbon Dioxide 35 H (22-29) mmol/L Anion Gap 13 (12-20) BUN 12 (9-16) mg/dL Creatinine 1.00 (0.5-1.4) mg/dL Estim Creat Clear Calc 106.8 Estimated GFR > 60 Random Glucose 83 (60-115) mg/dL Calcium 9.9 (8.4-10.2) mg/dL Magnesium 2.0 (1.6-2.6) mg/dL Total Bilirubin 0.4 (0.0-1.0) mg/dL Direct Bilirubin 0.2 (0.0-0.5) mg/dL AST 27 (5-37) U/L ALT 28 (0-40) U/L Alkaline Phosphatase 78 (39-117) U/L Total Protein 7.5 (6.5-8.0) g/dL Albumin 4.3 (3.5-5.0) g/dL External Record Review External record reviewed: Inpatient record Prescription Management I considered prescription management with: Other will prescribe patient with Eliquis. Considered giving patient Lovenox but patient preferred to take a pill. Social Determinants Patient?s care significantly limited by Social Determinants of Health including: Alcoholism and drug addiction in family Discharge Plan Discharge Clinical Impression: Tibial plateau fracture, right, DVT (deep venous thrombosis) Patient Disposition: Home, Self-Care Instructions: Leg Fracture (ED), Deep Vein Thrombosis (ED) Prescriptions: New Eliquis DVT-PE Treat 30D Start 5 mg (74 tabs) tablets,dose pack 5 mg PO BID Qty: 74 0RF No Action oxycodone 10 mg tablet 10 mg PO Q6H PRN (Reason: Pain, Moderate (Pain Scale 4-6) 7 Days Qty: 42 0RF Rx Instructions: Partial Fill upon patient request. celecoxib 200 mg capsule 200 mg PO BID Qty: 60 0RF sumatriptan succinate 100 mg tablet 1 tab PO Q2H PRN (Reason: Migraine Headache) gabapentin 300 mg capsule 1 cap PO DAILY Ajovy Autoinjector 225 mg/1.5 mL auto-injector 1 mg subcut QMONTH methadone 5 mg/5 mL Solution 61 mg PO DAILY docusate sodium 100 mg Capsule 100 mg PO BID 14 Days Qty: 28 0RF enoxaparin 40 mg/0.4 mL Syringe 40 mg subcut Q24H 42 Days Qty: 16.8 0RF oxycodone [OxyContin] 10 mg Tablet,Oral Only,Ext.Rel.12 Hr 10 mg PO BID 3 Days Qty: 6 0RF Rx Instructions: Partial Fill upon patient request. acetaminophen 325 mg Tablet 650 mg PO Q6H PRN (Reason: Pain, Mild (Pain Scale 1-3)) 30 Days Qty: 240 0RF Referrals: Lon Wick MD [Physician] - 11/04/22
[2022-11-02 13:26] VITALS: BP 131/91; PULSE 93; RESP 15; TEMP 37.5; O2SAT 100
--- NOTE | 2022-11-02 13:30 | PC.NURSE ---
patient a/ox4 . jaquanrla . heart rate regular at 77 beats per minute . breathing even and unlabored . lungs clear thought . leg on right side is paler then left . swollen below knee and patient reports pain level of 3 out of 10 . patient recently had knee surgery .a month ago . poitive for pulses in the extremity . ultrasound done . abdomen soft . positive bowel sounds in all four quadrants . patient aware of plan of care .
--- NOTE | 2022-11-02 13:52 | PC.NURSE ---
Patient a/ox4 . VSS . Went over discharge instructions as ordered by provider . patient to follow up with vascular contact information provided . patient to return ed if symptoms worsen . no questions at this time .
== END 2022-11-02 13:55 | disposition home or self-care (01) ==
PROVIDERS: Physician Assistant Medical; Emergency Provider Emergency Medicine Emergency Medical Services
DX: I82.411 Acute embolism and thrombosis of right femoral vein (principal); I82.512 Chronic embolism and thrombosis of left femoral vein; S82.141D Displaced bicondylar fracture of right tibia, subsequent encounter for closed fracture with routine healing; X58.XXXD Exposure to other specified factors, subsequent encounter; R60.0 Localized edema; F17.200 Nicotine dependence, unspecified, uncomplicated; F11.20 Opioid dependence, uncomplicated; Z79.01 Long term (current) use of anticoagulants
CPT/HCPCS: 36415; 80048; 80076; 83735; 85025; 85610; 85730; 93970; 99284

== ENCOUNTER 2022-11-04 08:14 | Outpatient (REF) | payer BC, SELFPAY ==
--- NOTE | ~2022-11-04 | XR_ITS ---
EXAMINATION: XR knee RT 2V CLINICAL INFORMATION: Pain COMPARISON: Knee radiographs 10/04/2022 TECHNIQUE: 2 views of the knee FINDINGS: Redemonstration of a lateral plate and screw fixation of the proximal tibia fixating the lateral tibial plateau fracture which demonstrates decreased conspicuity of the fracture margins suggesting ongoing healing. Alignment is unchanged. No evidence of hardware fracture or complication. Joint spaces are maintained. Trace suprapatellar joint effusion similar to prior. Soft tissues are unremarkable. XR/XR knee RT 2V IMPRESSION: Redemonstration of a lateral plate and screw fixation of the proximal tibia fixating the lateral tibial plateau fracture which demonstrates decreased conspicuity of the fracture margins suggesting ongoing healing. Alignment is unchanged. No evidence of hardware fracture or complication. Trace suprapatellar joint effusion similar to prior.
== END 2022-11-04 08:15 | disposition home or self-care (01) ==
LOC: HO.HOSX 08:14
PROVIDERS: Visit Provider Physician Assistant
DX: S82.141D Displaced bicondylar fracture of right tibia, subsequent encounter for closed fracture with routine healing (principal)
CPT/HCPCS: 73560

== ENCOUNTER 2022-11-11 18:48 | Inpatient (IN) | payer BC, SELFPAY ==
--- NOTE | ~2022-11-11 | CT_ITS ---
EXAMINATION: CT FOOT WITHOUT CONTRAST, RIGHT CLINICAL INFORMATION: Question gas COMPARISON: Right ankle radiographs 04/05/2022, right foot radiographs 03/08/2019 TECHNIQUE: Axial images were acquired through the right foot and ankle without the administration of intravenous contrast. Coronal and sagittal reconstructed images were generated. This CT examination was performed using dose optimization techniques as appropriate, variously including the following: *Automated exposure control *Adjustment of mA and/or kV according to patient size (this includes techniques or standardized protocols for targeted exams where dose is matched to indication/reason for exam; i.e. extremities or head) *Use of iterative reconstruction technique DLP: 238 mGy-cm FINDINGS: No tracking soft tissue gas identified. No unexpected radiodense foreign body is seen. No loculated fluid collection to suggest abscess. No appreciable tenosynovitis. No ankle or subtalar joint effusion. Chronic/healed fracture deformities of the distal tibia and talus. Previously removed fixation in the distal tibia and calcaneus with ghost fixation tracks and a couple retained syndesmotic screw fragments. There is solid ankylosis at the distal tibiofibular syndesmosis. Deformity of the talar dome and advanced posttraumatic ankle joint osteoarthritis with milder posterior subtalar joint osteoarthritis. There are scattered ossicles about the ankle joint consistent with intra-articular bodies. Healed fracture deformity of the proximal fifth metatarsal noted. Mild subcutaneous edema along the dorsal foot with a couple small possible blisters or skin tags medially overlying the midfoot. Correlate with exam. Mild subcutaneous edema about the visualized lower leg. CT/CT foot RT wo IV con IMPRESSION: 1. No tracking soft tissue gas or unexpected radiodense foreign body identified. Mild subcutaneous edema and possible mild skin blistering or skin tags overlying the medial midfoot. Correlate with exam. 2. No loculated fluid collection to suggest abscess. 3. Chronic/healed fracture deformities of the distal tibia and talus status post prior fixation. 4. 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 5. Prior healed proximal fifth metatarsal fracture.
--- NOTE | ~2022-11-11 | US_ITS ---
EXAMINATION: US VENOUS ULTRASOUND WITH DOPPLER LOWER EXTREMITY, BILATERAL CLINICAL INFORMATION: Worsening swelling, question occlusive DVT right lower extremity COMPARISON: Lower extremity DVT study 11/02/2022 TECHNIQUE: Ultrasound of the deep veins is performed from the hip to the calf with compression sonography and color and pulse Doppler assessment. Spectral analysis with color-flow imaging is performed. FINDINGS: RIGHT: The greater saphenous vein was not seen. The popliteal, peroneal, and posterior tibial veins of the calf are patent, and the previously seen thrombus in the peroneal vein has resolved.. There is occlusive thrombus in the common femoral vein, proximal, mid, and distal femoral vein, similar to prior. The femoral profunda vein appears patent and was previously occluded. LEFT: Again seen is near occlusive thrombus in the common femoral vein similar to prior and greater saphenous vein, not previously imaged. Remainder of the deep veins are patent with normal compression. US/US venous duplex LE BI IMPRESSION: Again seen is extensive deep venous thrombus in the right lower extremity with interval resolution of the previously seen thrombus in the peroneal and a femoral profunda veins. Again seen is near occlusive thrombus in the left common femoral vein similar to prior. There is also superficial venous thrombus in the greater saphenous vein, not previously imaged.
[2022-11-11 18:49] VITALS: BP 144/96; PULSE 92; RESP 18; TEMP 36.8; O2SAT 95; BMI 22.3
--- NOTE | 2022-11-11 18:50 | ED.GENADULT ---
HPI - General Adult General Chief complaint: Extremity Injury, Lower <VICKY Zee - Last Filed: 11/11/22 18:52> Stated complaint: R Foot injury, work <VICKY Zee - Last Filed: 11/11/22 18:52> Time Seen by Provider: 11/11/22 19:43 <VICKY Zee - Last Filed: 11/11/22 18:52> Source: patient <Carroll Lindsey MD - Last Filed: 11/11/22 23:11> Mode of arrival: ambulatory <Carroll Lindsey MD - Last Filed: 11/11/22 23:11> Limitations: no limitations <Carroll Lindsey MD - Last Filed: 11/11/22 23:11> History of Present Illness HPI narrative: This is a 32 years old man presented to emergency room complaining of right foot pain and redness since today. Also has been complaining of chills. <Carroll Lindsey MD - Last Filed: 11/11/22 23:11> Onset (ago): hour(s) (8) <Carroll Lindsey MD - Last Filed: 11/11/22 23:11> Location: lower extremity (rt foot) <Carroll Lindsey MD - Last Filed: 11/11/22 23:11> Radiation: non-radiation <Carroll Lindsey MD - Last Filed: 11/11/22 23:11> Severity: moderate <Carroll Lindsey MD - Last Filed: 11/11/22 23:11> Quality: burning <Carroll Lindsey MD - Last Filed: 11/11/22 23:11> Relieving factors: none <Carroll Lindsey MD - Last Filed: 11/11/22 23:11> Exacerbating factors: none <Carroll Lindsey MD - Last Filed: 11/11/22 23:11> Related Data Home medications: Home Medications Medication Instructions Recorded Confirmed fremanezumab-vfrm 225 mg/1.5 mL 225 mg subcut QMONTH 04/12/21 11/11/22 subcutaneous auto-injector (Ajovy) gabapentin 300 mg capsule 1 cap PO BEDTIME 04/12/21 11/11/22 sumatriptan succinate 100 mg tablet 1 tab PO Q2H PRN Migraine Headache 04/12/21 11/11/22 methadone 5 mg/5 mL oral solution 50 mg PO DAILY 04/13/21 09/28/22 apixaban 5 mg tablet 10 mg PO BID 11/11/22 11/11/22 celecoxib 200 mg capsule 200 mg PO BID PRN Pain 11/11/22 11/11/22 cephalexin 500 mg capsule 1 cap PO QID 11/11/22 11/11/22 sulfamethoxazole 800 2 tab PO BID 11/11/22 11/11/22 mg-trimethoprim 160 mg tablet <VICKY Zee - Last Filed: 11/11/22 18:52> Allergies/adverse reactions: Allergies Allergy/AdvReac Type Severity Reaction Status Date / Time vancomycin [VANCOMYCIN] Allergy Unknown SKIN GETS Verified 11/04/22 12:34 RED <VICKY Zee - Last Filed: 11/11/22 18:52> Review of Systems ENT: Reports system reviewed and no additional complaints, except as documented <Carroll Lindsey MD - Last Filed: 11/11/22 23:11> [facility] Past Medical History [facility] Narrative: hx cellulitis/hx dvt/hx IVDA <Carroll Lindsey MD - Last Filed: 11/11/22 23:11> Medical History: Medical History Opioid use disorder in remission <VICKY Zee - Last Filed: 11/11/22 18:52> Social History Social History: Social History Household Members: None Housing: Other Do you presently have visiting nurse or other home services: No Alcohol intake: never Patient Tobacco Use Status: Current everyday Tobacco user Smoked in Last 30 Days: No e-Cigarette/Vaping Use: Former Use Second Hand Smoke Exposure: No Use of substances other than those prescribed or required for medical reasons: No Substance Use Type: Heroin Advance Directives: No Advance Directives Information Provided: No service: No Current occupational status: unemployed <VICKY Zee - Last Filed: 11/11/22 18:52> Physical Exam ED Vital Signs: Vital Signs - 24 hr 11/11/22 18:49 11/11/22 19:26 11/11/22 20:07 Temperature 98.2 F 98.6 F 98.6 F Pulse Rate 92 93 86 Respiratory Rate 18 22 H 15 Blood Pressure 144/96 H 146/105 H 148/103 H Pulse Oximetry 95 96 96 Oxygen Delivery Method Room Air Room Air Room Air BMI result Body Mass Index 22.3 <VICKY Zee - Last Filed: 11/11/22 18:52> Vital Signs - 24 hr 11/11/22 18:49 11/11/22 19:26 11/11/22 20:07 Temperature 98.2 F 98.6 F 98.6 F Pulse Rate 92 93 86 Respiratory Rate 18 22 H 15 Blood Pressure 144/96 H 146/105 H 148/103 H Pulse Oximetry 95 96 96 Oxygen Delivery Method Room Air Room Air Room Air BMI result Body Mass Index 22.3 <Carroll Lindsey MD - Last Filed: 11/11/22 23:11> Const General: cooperative <Carroll Lindsey MD - Last Filed: 11/11/22 23:11> Nutritional Appearance: average body habitus <Carroll Lindsey MD - Last Filed: 11/11/22 23:11> Orientation/consciousness: patient oriented x3 <Carroll Lindsey MD - Last Filed: 11/11/22 23:11> HENMT Head: Yes normal to inspection <Carroll Lindsey MD - Last Filed: 11/11/22 23:11> Ears: hearing grossly normal bilaterally <Carroll Lindsey MD - Last Filed: 11/11/22 23:11> General nose exam: Normal external nose present <Carroll Lindsey MD - Last Filed: 11/11/22 23:11> Face and sinus: Yes normal facial exam <Carroll Lindsey MD - Last Filed: 11/11/22 23:11> Neck Neck: Yes normal visual inspection <Carroll Lindsey MD - Last Filed: 11/11/22 23:11> Chest Chest palpation & inspection: normal inspection of the chest <Carroll Lindsey MD - Last Filed: 11/11/22 23:11> Resp Effort & Inspection: normal respiratory effort <Carroll Lindsey MD - Last Filed: 11/11/22 23:11> Auscultation: clear to auscultation bilaterally <Carroll Lindsey MD - Last Filed: 11/11/22 23:11> Cardio Jugular venous distension: no JVD <Carroll Lindsey MD - Last Filed: 11/11/22 23:11> Rate: regular rate <Carroll Lindsey MD - Last Filed: 11/11/22 23:11> Rhythm: regular rhythm <Carroll Lindsey MD - Last Filed: 11/11/22 23:11> GI Inspection: Yes normal to inspection <Carroll Lindsey MD - Last Filed: 11/11/22 23:11> Palpation (GI): not firm, nontender and no guarding <Carroll Lindsey MD - Last Filed: 11/11/22 23:11> Skin General skin exam: no rashes or lesions noted <Carroll Lindsey MD - Last Filed: 11/11/22 23:11> Neuro General: patient oriented x3 <Carroll Lindsey MD - Last Filed: 11/11/22 23:11> Extrem Other: Right foot is very red tender to touch I was able to palpate the pulses by Doppler <Carroll Lindsey MD - Last Filed: 11/11/22 23:11> Course Course Course Narrative: RME performed by Haydee Hurtado PA-C. Patient is a 32 year old male on Eliquis for a lower extremity blood clot presenting to the emergency department for right foot redness + swelling. Labs ordered. Patient placed in the [facility] room pending results and room availability. <VICKY Zee - Last Filed: 11/11/22 18:52> Reevaluation(s) Reevaluation #1: ct no gas will admit to medicine <Carroll Lindsey MD - Last Filed: 11/11/22 23:11> Time: 23:09 <Carroll Lindsey MD - Last Filed: 11/11/22 23:11> Medications Administered Generic Name Dose Route Start Last Admin Trade Name Freq PRN Reason Stop Dose Admin Gabapentin 300 mg 11/11/22 22:00 11/11/22 22:33 Gabapentin 300 Mg Capsule PO 300 mg BEDTIME [place] Administration Discontinued Medications Generic Name Dose Route Start Last Admin Trade Name Freq PRN Reason Stop Dose Admin Piperacillin Sod/Tazobactam 50 mls @ 100 mls/hr 11/11/22 19:58 11/11/22 20:45 Sod 3.375 gm/ Sodium Chloride IV 11/11/22 20:27 Infused ONCE ONE Infusion Vancomycin HCl 1,500 mg/ 500 mls @ 333.333 mls/hr 11/11/22 19:59 11/11/22 21:36 Sodium Chloride IV 11/11/22 21:28 333.33 mls/hr ONCE ONE Administration <VICKY Zee - Last Filed: 11/11/22 18:52> Medications Administered Generic Name Dose Route Start Last Admin Trade Name Freq PRN Reason Stop Dose Admin Gabapentin 300 mg 11/11/22 22:00 11/11/22 22:33 Gabapentin 300 Mg Capsule PO 300 mg BEDTIME [place] Administration Discontinued Medications Generic Name Dose Route Start Last Admin Trade Name Freq PRN Reason Stop Dose Admin Piperacillin Sod/Tazobactam 50 mls @ 100 mls/hr 11/11/22 19:58 11/11/22 20:45 Sod 3.375 gm/ Sodium Chloride IV 11/11/22 20:27 Infused ONCE ONE Infusion Vancomycin HCl 1,500 mg/ 500 mls @ 333.333 mls/hr 11/11/22 19:59 11/11/22 21:36 Sodium Chloride IV 11/11/22 21:28 333.33 mls/hr ONCE ONE Administration <Carroll Lindsey MD - Last Filed: 11/11/22 23:11> Procedures EJ/Peripheral Line Arm L: Time Out Performed: Yes <Carroll Lindsey MD - Last Filed: 11/11/22 23:11> Skin Cleansed in Sterile Fashion: Yes <Carroll Lindsey MD - Last Filed: 11/11/22 23:11> Size (gauge): 20 <Carroll Lindsey MD - Last Filed: 11/11/22 23:11> IV Secured and Dressing Applied: Yes <Carroll Lindsey MD - Last Filed: 11/11/22 23:11> Patient Tolerated Procedure: well <Carroll Lindsey MD - Last Filed: 11/11/22 23:11> Additional Comments: Under ultrasound-guided cannulated the left basilic vein with a 20 gauge a long catheter good flash good blood return <Carroll Lindsey MD - Last Filed: 11/11/22 23:11> Medical Decision Making Differential Diagnosis Differential Diagnoses: The differential diagnosis associated with the presentation includes <Carroll Lindsey MD - Last Filed: 11/11/22 23:11> cellulitis/abscess <Carroll Lindsey MD - Last Filed: 11/11/22 23:11> Admission/Observation Consideration of admission/observation: Escalation of care including admission/observation considered <Carroll Lindsey MD - Last Filed: 11/11/22 23:11> Lab Data MDM Lab Attestation statement: I reviewed the patient's lab results. <Carroll Lindsey MD - Last Filed: 11/11/22 23:11> Result Diagrams: 11/11/22 19:05 11/11/22 19:05 <VICKY Zee - Last Filed: 11/11/22 18:52> Labs: Lab Results 11/11/22 11/11/22 11/11/22 Range/Units 19:05 19:05 19:05 WBC 10.1 (4.8-10.8) X10*3/uL RBC 5.05 (4.60-5.80) X10*6/uL Hgb 13.8 L (14.0-18.0) g/dl Hct 43.2 (42.0-52.0) % MCV 85.5 (80.0-98.0) fL MCH 27.3 (27.0-33.0) pg MCHC 31.9 (31.0-36.0) g/dl RDW 15.3 (11.0-16.0) % Plt Count 476 H D (160-400) X10*3/uL MPV 8.9 L (9.4-12.4) fL Immature Gran % (Auto) 1.7 H (0.0-0.4) % Neut % (Auto) 74.3 H (45-73) % Lymph % (Auto) 17.3 L (20-40) % Gonzales % (Auto) 4.9 (2-11) % Eos % (Auto) 1.3 (0-4) % Baso % (Auto) 0.5 (0-2) % Lymph # (Auto) 1.7 (1.2-4.9) X10*3/uL Gonzales # (Auto) 0.5 (0.1-1.2) X10*3/uL Eos # (Auto) 0.1 (0.0-0.4) X10*3/uL Baso # (Auto) 0.1 (0.0-0.2) X10*3/uL Abs Immat Gran (auto) 0.17 H (0.00-0.03) X10*3/uL Absolute Neuts (auto) 7.5 (2.0-8.3) x10*3/uL Absolute Nucleated RBC 0.000 (0.0-0.012) X10*3/uL Nucleated RBC % (auto) 0.0 (0.0-0.2) /100WBC ESR 16 H (0-15) MM/HR PT 15.2 H (10.0-13.1) SEC INR 1.3 H (0.9-1.1) APTT 38.5 H D (26.0-36.4) SEC Sodium (135-145) mmol/L Potassium (3.3-5.1) mmol/L Chloride (96-108) mmol/L Carbon Dioxide (22-29) mmol/L Anion Gap (12-20) BUN (9-16) mg/dL Creatinine (0.5-1.4) mg/dL Estim Creat Clear Calc Estimated GFR Random Glucose (60-115) mg/dL Lactic Acid (0.5-2.0) mmol/L Calcium (8.4-10.2) mg/dL Magnesium (1.6-2.6) mg/dL Total Bilirubin (0.0-1.0) mg/dL AST (5-37) U/L ALT (0-40) U/L Alkaline Phosphatase (39-117) U/L C-Reactive Protein (< or = 0.50) mg/dL Total Protein (6.5-8.0) g/dL Albumin (3.5-5.0) g/dL 11/11/22 11/11/22 Range/Units 19:05 19:57 WBC (4.8-10.8) X10*3/uL RBC (4.60-5.80) X10*6/uL Hgb (14.0-18.0) g/dl Hct (42.0-52.0) % MCV (80.0-98.0) fL MCH (27.0-33.0) pg MCHC (31.0-36.0) g/dl RDW (11.0-16.0) % Plt Count (160-400) X10*3/uL MPV (9.4-12.4) fL Immature Gran % (Auto) (0.0-0.4) % Neut % (Auto) (45-73) % Lymph % (Auto) (20-40) % Gonzales % (Auto) (2-11) % Eos % (Auto) (0-4) % Baso % (Auto) (0-2) % Lymph # (Auto) (1.2-4.9) X10*3/uL Gonzales # (Auto) (0.1-1.2) X10*3/uL Eos # (Auto) (0.0-0.4) X10*3/uL Baso # (Auto) (0.0-0.2) X10*3/uL Abs Immat Gran (auto) (0.00-0.03) X10*3/uL Absolute Neuts (auto) (2.0-8.3) x10*3/uL Absolute Nucleated RBC (0.0-0.012) X10*3/uL Nucleated RBC % (auto) (0.0-0.2) /100WBC ESR (0-15) MM/HR PT (10.0-13.1) SEC INR (0.9-1.1) APTT (26.0-36.4) SEC Sodium 134 L (135-145) mmol/L Potassium 3.9 (3.3-5.1) mmol/L Chloride 98 (96-108) mmol/L Carbon Dioxide 23 (22-29) mmol/L Anion Gap 17 (12-20) BUN 14 (9-16) mg/dL Creatinine 1.42 H (0.5-1.4) mg/dL Estim Creat Clear Calc 75.2 Estimated GFR 57 Random Glucose 56 L* (60-115) mg/dL Lactic Acid 2.0 (0.5-2.0) mmol/L Calcium 9.6 (8.4-10.2) mg/dL Magnesium 2.4 (1.6-2.6) mg/dL Total Bilirubin 0.3 (0.0-1.0) mg/dL AST 19 (5-37) U/L ALT 16 (0-40) U/L Alkaline Phosphatase 106 (39-117) U/L C-Reactive Protein 0.87 H (< or = 0.50) mg/dL Total Protein 8.3 H (6.5-8.0) g/dL Albumin 4.7 (3.5-5.0) g/dL <VICKY Zee - Last Filed: 11/11/22 18:52> Lab Results 11/11/22 11/11/22 11/11/22 Range/Units 19:05 19:05 19:05 WBC 10.1 (4.8-10.8) X10*3/uL RBC 5.05 (4.60-5.80) X10*6/uL Hgb 13.8 L (14.0-18.0) g/dl Hct 43.2 (42.0-52.0) % MCV 85.5 (80.0-98.0) fL MCH 27.3 (27.0-33.0) pg MCHC 31.9 (31.0-36.0) g/dl RDW 15.3 (11.0-16.0) % Plt Count 476 H D (160-400) X10*3/uL MPV 8.9 L (9.4-12.4) fL Immature Gran % (Auto) 1.7 H (0.0-0.4) % Neut % (Auto) 74.3 H (45-73) % Lymph % (Auto) 17.3 L (20-40) % Gonzales % (Auto) 4.9 (2-11) % Eos % (Auto) 1.3 (0-4) % Baso % (Auto) 0.5 (0-2) % Lymph # (Auto) 1.7 (1.2-4.9) X10*3/uL Gonzales # (Auto) 0.5 (0.1-1.2) X10*3/uL Eos # (Auto) 0.1 (0.0-0.4) X10*3/uL Baso # (Auto) 0.1 (0.0-0.2) X10*3/uL Abs Immat Gran (auto) 0.17 H (0.00-0.03) X10*3/uL Absolute Neuts (auto) 7.5 (2.0-8.3) x10*3/uL Absolute Nucleated RBC 0.000 (0.0-0.012) X10*3/uL Nucleated RBC % (auto) 0.0 (0.0-0.2) /100WBC ESR 16 H (0-15) MM/HR PT 15.2 H (10.0-13.1) SEC INR 1.3 H (0.9-1.1) APTT 38.5 H D (26.0-36.4) SEC Sodium (135-145) mmol/L Potassium (3.3-5.1) mmol/L Chloride (96-108) mmol/L Carbon Dioxide (22-29) mmol/L Anion Gap (12-20) BUN (9-16) mg/dL Creatinine (0.5-1.4) mg/dL Estim Creat Clear Calc Estimated GFR Random Glucose (60-115) mg/dL Lactic Acid (0.5-2.0) mmol/L Calcium (8.4-10.2) mg/dL Magnesium (1.6-2.6) mg/dL Total Bilirubin (0.0-1.0) mg/dL AST (5-37) U/L ALT (0-40) U/L Alkaline Phosphatase (39-117) U/L C-Reactive Protein (< or = 0.50) mg/dL Total Protein (6.5-8.0) g/dL Albumin (3.5-5.0) g/dL 11/11/22 11/11/22 Range/Units 19:05 19:57 WBC (4.8-10.8) X10*3/uL RBC (4.60-5.80) X10*6/uL Hgb (14.0-18.0) g/dl Hct (42.0-52.0) % MCV (80.0-98.0) fL MCH (27.0-33.0) pg MCHC (31.0-36.0) g/dl RDW (11.0-16.0) % Plt Count (160-400) X10*3/uL MPV (9.4-12.4) fL Immature Gran % (Auto) (0.0-0.4) % Neut % (Auto) (45-73) % Lymph % (Auto) (20-40) % Gonzales % (Auto) (2-11) % Eos % (Auto) (0-4) % Baso % (Auto) (0-2) % Lymph # (Auto) (1.2-4.9) X10*3/uL Gonzales # (Auto) (0.1-1.2) X10*3/uL Eos # (Auto) (0.0-0.4) X10*3/uL Baso # (Auto) (0.0-0.2) X10*3/uL Abs Immat Gran (auto) (0.00-0.03) X10*3/uL Absolute Neuts (auto) (2.0-8.3) x10*3/uL Absolute Nucleated RBC (0.0-0.012) X10*3/uL Nucleated RBC % (auto) (0.0-0.2) /100WBC ESR (0-15) MM/HR PT (10.0-13.1) SEC INR (0.9-1.1) APTT (26.0-36.4) SEC Sodium 134 L (135-145) mmol/L Potassium 3.9 (3.3-5.1) mmol/L Chloride 98 (96-108) mmol/L Carbon Dioxide 23 (22-29) mmol/L Anion Gap 17 (12-20) BUN 14 (9-16) mg/dL Creatinine 1.42 H (0.5-1.4) mg/dL Estim Creat Clear Calc 75.2 Estimated GFR 57 Random Glucose 56 L* (60-115) mg/dL Lactic Acid 2.0 (0.5-2.0) mmol/L Calcium 9.6 (8.4-10.2) mg/dL Magnesium 2.4 (1.6-2.6) mg/dL Total Bilirubin 0.3 (0.0-1.0) mg/dL AST 19 (5-37) U/L ALT 16 (0-40) U/L Alkaline Phosphatase 106 (39-117) U/L C-Reactive Protein 0.87 H (< or = 0.50) mg/dL Total Protein 8.3 H (6.5-8.0) g/dL Albumin 4.7 (3.5-5.0) g/dL <Carroll Lindsey MD - Last Filed: 11/11/22 23:11> Radiology Impression Radiologist Impression: re deformity of the proximal fifth metatarsal noted. Mild subcutaneous edema along the dorsal foot with a couple small possible blisters or skin tags medially overlying the midfoot. Correlate with exam. Mild subcutaneous edema about the visualized lower leg. CT/CT foot RT wo IV con IMPRESSION: 1.? No tracking soft tissue gas or unexpected radiodense foreign body identified. Mild subcutaneous edema and possible mild skin blistering or skin tags overlying the medial midfoot. Correlate with exam. 2.? No loculated fluid collection to suggest abscess. 3.? Chronic/healed fracture deformities of the distal tibia and talus status post prior fixation. 4.? 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 5.? Prior healed proximal fifth metatarsal fracture. ? Dictated By: Ryland Goncalves Signed By: <Electronically signed by Violette Goncalves in [place]> 11/11/222127 <Carroll Lindsey MD - Last Filed: 11/11/22 23:11> Discharge Plan Discharge Clinical Impression: Cellulitis of foot <VICKY Zee - Last Filed: 11/11/22 18:52> Patient Disposition: Admitted As Inpatient <VICKY Zee - Last Filed: 11/11/22 18:52>
[2022-11-11 19:14] LABS: MANUAL DIFF FLAG NO
[2022-11-11 19:15] LABS: Basophils Absolute Auto 0.1 X10*3/uL (0.0-0.2); Basophils Percent Auto 0.5 % (0-2); Eosinophils Absolute Auto 0.1 X10*3/uL (0.0-0.4); Eosinophils Percent Auto 1.3 % (0-4); Hematocrit 43.2 % (42.0-52.0); Hemoglobin 13.8 g/dl (14.0-18.0); Imm Gran Abs Auto 0.17 X10*3/uL (0.00-0.03); Imm Gran Pct Auto 1.7 % (0.0-0.4); Lymphocytes Absolute Auto 1.7 X10*3/uL (1.2-4.9); Lymphocytes Percent Auto 17.3 % (20-40); Mean Corpuscular HGB Conc 31.9 g/dl (31.0-36.0); Mean Corpuscular Hemoglobin 27.3 pg (27.0-33.0); Mean Corpuscular Volume 85.5 fL (80.0-98.0); Mean Platelet Volume 8.9 fL (9.4-12.4); Monocytes Absolute Auto 0.5 X10*3/uL (0.1-1.2); Monocytes Percent Auto 4.9 % (2-11); Neutrophils Absolute Auto 7.5 x10*3/uL (2.0-8.3); Neutrophils Percent Auto 74.3 % (45-73); Platelet Count 476 X10*3/uL (160-400); Red Blood Count 5.05 X10*6/uL (4.60-5.80); Red Cell Distribution Width 15.3 % (11.0-16.0); White Blood Count 10.1 X10*3/uL (4.8-10.8)
[2022-11-11 19:21] LABS: INTERNATIONAL NORM RATIO 1.3 (0.9-1.1); Prothrombin Time 15.2 SEC (10.0-13.1)
[2022-11-11 19:24] LABS: Partial Thromboplastin Time 38.5 SEC (26.0-36.4)
[2022-11-11 19:26] VITALS: BP 146/105; PULSE 93; RESP 22; TEMP 37; O2SAT 96
[2022-11-11 19:42] LABS: Alanine Aminotransferase 16 U/L (0-40); Albumin Level 4.7 g/dL (3.5-5.0); Alkaline Phosphatase 106 U/L (39-117); Anion Gap 17 (12-20); Aspartate Amino Transferase 19 U/L (5-37); Bilirubin Total 0.3 mg/dL (0.0-1.0); Blood Urea Nitrogen 14 mg/dL (9-16); C Reactive Protein 0.87 mg/dL (< or = 0.50); Calcium 9.6 mg/dL (8.4-10.2); Carbon Dioxide 23 mmol/L (22-29); Chloride 98 mmol/L (96-108); Creatinine Clr Calc Pharmacy 75.2; Estimated Glomerular Filt Rate 57; Glucose Random 56 mg/dL (60-115); Magnesium 2.4 mg/dL (1.6-2.6); Potassium 3.9 mmol/L (3.3-5.1); Sodium 134 mmol/L (135-145); Total Protein 8.3 g/dL (6.5-8.0)
[2022-11-11 20:07] VITALS: BP 148/103; PULSE 86; RESP 15; TEMP 37; O2SAT 96
[2022-11-11 20:13] LABS: Erythrocyte Sedimentation Rate 16 MM/HR (0-15)
[2022-11-11] MEDS: Piperacillin Sodium/Tazobactam 3.375 GM in 0.9 % Sodium Chloride 50 ML IV (20:18)
--- NOTE | 2022-11-11 20:19 | PC.NURSE ---
Nursing Assessment: Pt is a/ox 4, pt is presenting swollen w/ redness and pain on his right foot today. Pt has chills, and he was connected to the cardiac cath lab manager, it shows NSR but he is hypertensive. This nurse has notified the provider. Labs has been drawn and IV on his LAC w/ ultrasound by the provider. Pt is afribile, and abx are running. please referral to the worklist for further information.
[2022-11-11] MEDS: vancomycin HCL 1,500 MG in 0.9 % Sodium Chloride 500 ML 333.33 MG IV (21:36)
--- NOTE | 2022-11-11 21:45 | PC.NURSE ---
Addendum entered by Becky Mariee 11/11/22 21:47: This nurse also oliver with the pen the rash, the rash is still in the within the line. Original Note: Re-assessment: Pt reports he is in pain 8/10. this nurse administered abx as order. pt is on the monitor and it shows sinus tachy, BP has been improved.
--- NOTE | 2022-11-11 21:55 | PHA.MEDREC ---
MED REC COMPLETE, Patient filled eliquis DVT pack on 11/02/22 should be complete with the 10 mg bid for 7 days. However, the patient has not completed all the doses of the 10 mg bid. Pharmacy Consult ? Medication Reconciliation Pharmacy has completed the medication reconciliation.
--- NOTE | 2022-11-11 22:02 | P.HPHOSP_ITS ---
History of Present Illness Date of Service: 11/11/22 Chief Complaint: foot pain This is a 32-year-old male with a significant surgical history that includes recent right tibial plateau fracture status post surgical repair about 1 month and half ago, as well as right ankle surgery about 4 months ago due to hardware infection in the setting of prior surgical intervention. Patient reports that about a week and half ago he also developed DVT and is currently on Eliquis. He reports that he had Imitrex and ejection a week ago at an urgent care clinic due to his history of migraines, and the site got cellulitis and he was on Keflex as well as Bactrim antibiotics for 1 week. Comes into the hospital today with complaints of right foot pain. He reports that he was at work when he realize his foot was swollen, very tender, as well as red. He reports no fever but has significant chills, no chest pain, no n ausea or vomiting, no diarrhea constipation, no urinary symptoms and no lower extremity edema. He describes the pain as throbbing 10/10 pain constant, nonradiating. On arrival to the ED patient hemodynamically stable with no significant abnormal vitals except for a slightly elevated blood pressure Labs are significant for WBC count of 10.1, ESR 16, glucose of 56, CT of the right foot shows no tracking soft tissue gas or unexpected radiodense foreign body identified, mild subcutaneous edema , no loculated fluid collection to suggest abscess Review of Systems Review of Systems: Yes all other systems are reviewed and are negative [facility] Medical History (Updated 11/12/22 @ 06:29 by Quita Griffiths MD) Migraine headache Opioid use disorder in remission Surgical History (Updated 11/12/22 @ 06:29 by Quita Griffiths MD) History of ankle surgery History of surgery on lower extremity Social History Household Members: None Housing: Apartment Do you presently have visiting nurse or other home services: No Alcohol intake: never Patient Tobacco Use Status: Never used Tobacco Smoked in Last 30 Days: No e-Cigarette/Vaping Use: Never Used Patient Interested in Nicotine Replacement: No Patient Given Instructions on How to Stop Smoking: No Second Hand Smoke Exposure: No Use of substances other than those prescribed or required for medical reasons: No Substance Use Type: Heroin Last Used Substance Other:: summer Currently Displaying Signs/Symptoms of Drug Intoxication Withdrawal: No Any prior treatment program specific to substance use: Yes (methadone) Have you been hit, kicked, punched, or otherwise hurt by someone within the past year? If so, by whom?: No Do you feel safe in your current relationship?: No Current Relationship Is there a partner from a previous relationship who is making you feel unsafe now?: No Are you made to feel afraid or neglected: No Advance Directives: No Advance Directives Information Provided: No Do you have thoughts of harming others: None Do you have a plan to hurt others: No Plan Recently lost weight without trying: No Eating poorly because of decreased appetite: No Nutrition Risks: No Nutritional Risk Poor oral hygiene: No service: No Current occupational status: unemployed Meds Allergies Allergy/AdvReac Type Severity Reaction Status Date / Time vancomycin [VANCOMYCIN] Allergy Unknown SKIN GETS Verified 11/04/22 12:34 RED Active Medications: Current Medications Pharmacy Consult (Consult Rx Vancomycin Dosing) 1 each MISCELLANE DAILY PRN PRN Reason: Consult order Home Medications Medication Instructions Recorded Confirmed Last Taken Type fremanezumab-vfrm 225 mg/1.5 mL 225 mg subcut QMONTH 04/12/21 11/11/22 10/21/22 History subcutaneous auto-injector (Ajovy) gabapentin 300 mg capsule 1 cap PO BEDTIME 04/12/21 11/11/22 Unknown History sumatriptan succinate 100 mg tablet 1 tab PO Q2H PRN Migraine Headache 04/12/21 11/11/22 Unknown History methadone 5 mg/5 mL oral solution 50 mg PO DAILY 04/13/21 09/28/22 09/27/22 History apixaban 5 mg tablet 10 mg PO BID 11/11/22 11/11/22 Unknown History celecoxib 200 mg capsule 200 mg PO BID PRN Pain 11/11/22 11/11/22 Unknown History cephalexin 500 mg capsule 1 cap PO QID 11/11/22 11/11/22 Unknown History sulfamethoxazole 800 2 tab PO BID 11/11/22 11/11/22 Unknown History mg-trimethoprim 160 mg tablet Physical Exam Vital Signs and Narrative: Vital Signs: Last Vital Signs Temp 98.6 F 11/11/22 20:07 Pulse 86 11/11/22 20:07 Resp 15 11/11/22 20:07 BP 148/103 H 11/11/22 20:07 Pulse Ox 96 11/11/22 20:07 O2 Del Method 11/11/22 20:07 BMI result Body Mass Index 22.3 Const: General: cooperative and no acute distress Orientation/consciousness: patient oriented x3 Eyes: General: appearance normal, both eyes and all related structures Resp: Effort & Inspection: normal respiratory effort Auscultation: clear to auscultation bilaterally Cardio: Rate: regular rate Rhythm: regular rhythm GI: Palpation (GI): Soft to palpation Auscultation: normal bowel sounds Skin: Other: Scars along the lateral aspect of right knee as well as right ankle appear clean with no evidence of infection at the site of surgery General skin exam: no rashes or lesions noted Neuro: General: patient oriented x3 Cognition (Neuro): normal cognition Extrem: Other: Right foot severely tender, warm, erythematous,, as well edematous Results Labs 11/11/22 19:05 11/11/22 19:05 Labs: Laboratory Results - last 24 hr 11/11/22 11/11/22 11/11/22 19:05 19:05 19:05 MCV 85.5 MCH 27.3 MCHC 31.9 RDW 15.3 Plt Count 476 H D MPV 8.9 L Immature Gran % (Auto) 1.7 H Neut % (Auto) 74.3 H Lymph % (Auto) 17.3 L [place] % (Auto) 4.9 Eos % (Auto) 1.3 Baso % (Auto) 0.5 Lymph # (Auto) 1.7 [place] # (Auto) 0.5 Eos # (Auto) 0.1 Baso # (Auto) 0.1 Abs Immat Gran (auto) 0.17 H Absolute Neuts (auto) 7.5 Absolute Nucleated RBC 0.000 Nucleated RBC % (auto) 0.0 ESR 16 H PT 15.2 H INR 1.3 H APTT 38.5 H D Anion Gap Estim Creat Clear Calc Estimated GFR Random Glucose Lactic Acid Calcium Magnesium Total Bilirubin AST ALT Alkaline Phosphatase C-Reactive Protein Total Protein Albumin 11/11/22 11/11/22 19:05 19:57 MCV MCH MCHC RDW Plt Count MPV Immature Gran % (Auto) Neut % (Auto) Lymph % (Auto) [place] % (Auto) Eos % (Auto) Baso % (Auto) Lymph # (Auto) [place] # (Auto) Eos # (Auto) Baso # (Auto) Abs Immat Gran (auto) Absolute Neuts (auto) Absolute Nucleated RBC Nucleated RBC % (auto) ESR PT INR APTT Anion Gap 17 Estim Creat Clear Calc 75.2 Estimated GFR 57 Random Glucose 56 L* Lactic Acid 2.0 Calcium 9.6 Magnesium 2.4 Total Bilirubin 0.3 AST 19 ALT 16 Alkaline Phosphatase 106 C-Reactive Protein 0.87 H Total Protein 8.3 H Albumin 4.7 Imaging Radiologist's Impressions: Impressions Foot CT 11/11/22 21:14 IMPRESSION: 1. No tracking soft tissue gas or unexpected radiodense foreign body identified. Mild subcutaneous edema and possible mild skin blistering or skin tags overlying the medial midfoot. Correlate with exam. 2. No loculated fluid collection to suggest abscess. 3. Chronic/healed fracture deformities of the distal tibia and talus status post prior fixation. 4. 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 5. Prior healed proximal fifth metatarsal fracture. Assessment and Plan (1) Cellulitis of foot: Status: Acute (2) Tibial plateau fracture, right: Status: Acute Plan 32-year-old male with past medical history of surgical intervention as well as recent DVT on Eliquis presents to the hospital with complaints of right foot pain and swelling # right foot cellulitis - acute - associated with elevated ESR and CRP - no evidence of abscess on CT - was on p.o. antibiotics for earlier cellulitis of leg secondary to Imitrex injection - given failed p.o. antibiotics as well as history of heart where infection and the same ankle about 4-5 months ago requiring >1 month of abx , patient will be admitted for IV antibiotics - follow cultures # DVT - patient appears to have been noncompliant with his medication per review with pharmacy - will continue 10 mg b.i.d. # recent tibial plateau fracture of the right status post repair - no evidence of acute infection, no pain # migraine headaches - stable - continue home sumatriptan p.r.n. DVT prophylaxis: Eliquis Events patient need for IV antibiotics he will require minimum 2 nights inpatient hospital stay for further management and monitoring Time Spent With Patient Time: Total time managing care of this patient today ____ minutes. Quality Stroke Does the patient have a stroke diagnosis?: No VTE Prior VTE?: No VTE Risk Level:: Medical - moderate - high VTE Device Contraindication: Treatment Not Indicated VTE Drug Contraindication: N/A - Med Ordered
[2022-11-11] MEDS: Gabapentin 300 MG CAPSULE PO (22:33)
[2022-11-11 23:21] LABS: COVID-19 Test Negative (Negative); IDNOW Serial# 6674DD1D
[2022-11-11] MEDS: Morphine Sulfate 4 MG/ML CARTRIDGE IVPUSH (23:22)
[2022-11-11] MEDS: Lactated Ringers 1,000 ML 100 ML IVCONT (23:22)
[2022-11-11] MEDS: ondansetron HCL 4 MG/2 ML VIAL IVPUSH (23:22)
--- NOTE | 2022-11-11 23:30 | PC.NURSE ---
Re-assess: Pt V/S are stable, Pt PRN pc meds were administered. Pt is on the cell inspector and it shows NSR. Pt has LR running as order.
[2022-11-11 23:31] VITALS: BP 119/68; PULSE 93; RESP 16; TEMP 36.9; O2SAT 97
--- NOTE | 2022-11-12 00:35 | PC.NURSE ---
PT's POC 100
[2022-11-12 00:38] LABS: Glucose, Whole Blood 100 mg/dL (60-115)
[2022-11-12 00:59] VITALS: BMI 22.3
[2022-11-12 01:04] VITALS: BP 123/79; PULSE 90; RESP 18; TEMP 36.8; O2SAT 99
[2022-11-12 04:00] VITALS: BP 91/58; PULSE 68; RESP 18; TEMP 36.6; O2SAT 98
[2022-11-12] MEDS: Ketorolac Tromethamine 15 MG/ML VIAL IVPUSH (05:32)
[2022-11-12 07:10] LABS: MANUAL DIFF FLAG NO
[2022-11-12 07:20] LABS: Basophils Percent Auto 0.5 % (0-2); Eosinophils Absolute Auto 0.2 X10*3/uL (0.0-0.4); Eosinophils Percent Auto 2.5 % (0-4); Hematocrit 37.6 % (42.0-52.0); Hemoglobin 11.9 g/dl (14.0-18.0); Imm Gran Abs Auto 0.13 X10*3/uL (0.00-0.03); Lymphocytes Absolute Auto 1.7 X10*3/uL (1.2-4.9); Mean Corpuscular HGB Conc 31.6 g/dl (31.0-36.0); Mean Corpuscular Hemoglobin 27.5 pg (27.0-33.0); Mean Platelet Volume 9.6 fL (9.4-12.4); Monocytes Absolute Auto 0.5 X10*3/uL (0.1-1.2); Neutrophils Absolute Auto 3.9 x10*3/uL (2.0-8.3); Platelet Count 359 X10*3/uL (160-400); Red Blood Count 4.32 X10*6/uL (4.60-5.80); Red Cell Distribution Width 15.7 % (11.0-16.0); White Blood Count 6.5 X10*3/uL (4.8-10.8)
[2022-11-12 07:38] LABS: Anion Gap 13 (12-20); Blood Urea Nitrogen 10 mg/dL (9-16); Calcium 8.5 mg/dL (8.4-10.2); Carbon Dioxide 25 mmol/L (22-29); Chloride 103 mmol/L (96-108); Creatinine Clr Calc Pharmacy 88.2; Estimated Glomerular Filt Rate > 60; Glucose Random 98 mg/dL (60-115); Potassium 4.2 mmol/L (3.3-5.1); Sodium 137 mmol/L (135-145)
[2022-11-12 07:48] VITALS: BP 110/67; PULSE 80; RESP 16; TEMP 36.4; O2SAT 97
[2022-11-12 08:04] LABS: Glucose, Whole Blood 98 mg/dL (60-115)
--- NOTE | 2022-11-12 08:09 | HE.PHANOTE ---
VANCOMYCIN DOSING BASED ON SCR DOSE CONTINUE AT 750 Q 12 HOURS
[2022-11-12] MEDS: Morphine Sulfate 4 MG/ML CARTRIDGE IVPUSH ×3 (08:49→18:18)
[2022-11-12] MEDS: diphenhydrAMINE HCL 25 MG CAPSULE PO ×2 (08:49→20:48)
[2022-11-12] MEDS: Apixaban 5 MG TABLET 10 MG PO (08:49)
[2022-11-12] MEDS: Lactated Ringers 1,000 ML 100 ML IVCONT (08:52)
[2022-11-12] MEDS: 0.9 % Sodium Chloride Flush 3 ML SYRINGE IVFLUSH ×2 (08:58→15:39)
[2022-11-12] MEDS: vancomycin HCL 750 MG in 0.9 % Sodium Chloride 250 ML 265 MG IV ×2 (09:07→20:35)
--- NOTE | 2022-11-12 10:21 | MHC.CM.PN ---
Lives alone on second floor apartment. Takes uber to where he needs to go, but will be buying a car this week. 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 Plan is D/C to home via aunt for transport and if MD recommends VNA services, he would like [facility]. However if in-home nursing services are in fact recommended, he would like for the VNA to run his insurance first, and call him with any out of pocket expenses per visit prior to his agreement for in-home services. CM to follow.
[2022-11-12 10:52] LABS: PTT Heparin Drip 37.1 SEC (53-77.9)
[2022-11-12] MEDS: Heparin Sodium,Porcine 5,000 UNIT/ML VIAL 5800 UNIT IVPUSH (11:04)
[2022-11-12] MEDS: Heparin Sodium,Porcine/1/2NS 25,000 UNIT/250 ML IV.SOLN 10.15 UNIT IVCONT (11:06)
[2022-11-12] MEDS: methADONE HCl 20 MG/2 ML ORAL.CONC 50 MG PO (11:28)
--- NOTE | 2022-11-12 11:55 | P.PNIM_ITS ---
Subjective Subjective Date of Service: 11/12/22 Interval History: C/o RLE swelling/pain, R foot redness No fever Review of Systems Review of Systems: Yes all other systems are reviewed and are negative Physical Exam Vital Signs: Vital Signs: Last Vital Signs Temp 97.6 F 11/12/22 07:48 Pulse 80 11/12/22 07:48 Resp 16 11/12/22 07:48 BP 110/67 11/12/22 07:48 Pulse Ox 97 11/12/22 07:48 O2 Del Method 11/12/22 07:48 BMI result Body Mass Index 22.3 Const: Other: Temp Pulse Resp BP Pulse Ox O2 Del Method 97.6 F 80 16 110/67 97 11/12/22 07:48 11/12/22 07:48 11/12/22 07:48 11/12/22 07:48 11/12/22 07:48 11/12/22 07:48 Gen: in no acute distress HEENT: sclera anicteric, moist mucus membranes Neck: supple Lungs: clear to auscultation bilaterally Heart: regular rate and rhythm, no murmurs Abd: soft, non-tender, non-distended Ext: R lateral superior tibial surgical scar, R ankle scar, R foot with erythema to dorsum without fluctuance, extensive edema + tenderness of entire RLE Skin: warm/well-perfused Neuro: alert and oriented x3, no focal findings Psych: appropriate affect Objective Data Active Medications Acetaminophen (Acetaminophen 325 Mg Tablet) 650 mg PO Q6H PRN PRN Reason: Pain, Mild (Pain Scale 1-3) Diphenhydramine HCl (Diphenhydramine Hcl 25 Mg Capsule) 25 mg PO Q6H PRN PRN Reason: itching Last Admin: 11/12/22 08:49 Dose: 25 mg Documented By: ANDRES Docusate Sodium (Docusate Sodium 100 Mg Capsule) 100 mg PO DAILY PRN PRN Reason: Constipation Gabapentin (Gabapentin 300 Mg Capsule) 300 mg PO BEDTIME [place] Last Admin: 11/11/22 22:33 Dose: 300 mg Documented By: YVETTE Heparin Sodium (Porcine) (Heparin Sodium,Porcine 5,000 Unit/Ml Vial) 2,900 unit 40 unit/kg (2900 unit) IVPUSH PROTOCOL BOLUS PRN; Protocol PRN Reason: 40 unit/kg - Heparin Protocol Heparin Sodium (Porcine) (Heparin Sodium,Porcine 5,000 Unit/Ml Vial) 5,800 unit 80 unit/kg (5800 unit) IVPUSH PROTOCOL BOLUS PRN; Protocol PRN Reason: 80 unit/kg - Heparin Protocol Lactated Ringer's (Lr) 1,000 mls @ 100 mls/hr IVCONT .Q10H [facility] Last Admin: 11/12/22 08:52 Dose: 100 mls/hr Documented By: ANDRES Vancomycin HCl 750 mg/ Sodium (Chloride) 265 mls @ 265 mls/hr IV Q12H [facility] Last Infusion: 11/12/22 10:11 Dose: 0 mls/hr Documented By: ANDRES Heparin Sodium/Sodium Chloride (Heparin Sodium,Porcine/1/2ns) 25,000 unit in 250 mls @ 0 mls/hr IVCONT .Q0M [facility]; Protocol Last Admin: 11/12/22 11:06 Dose: 14 units/kg/hr, 10.15 mls/hr Documented By: ANDRES Co-signed By: MAURO Methadone HCl (Methadone Hcl 20 Mg/2 Ml Oral.Conc) 50 mg PO DAILY [facility] Last Admin: 11/12/22 11:28 Dose: 50 mg Documented By: ANDRES Morphine Sulfate (Morphine Sulfate 4 Mg/Ml Cartridge) 4 mg IVPUSH Q4H PRN; Protocol PRN Reason: Pain, Severe (Pain Scale 7-10) Last Admin: 11/12/22 08:49 Dose: 4 mg Documented By: ANDRES Non-Formulary Medication (Fremanezumab-Vfrm [Ajovy Autoinjector]) 225 mg SUBCUT Q30D [facility] Ondansetron HCl (Ondansetron Hcl 4 Mg/2 Ml Vial) 4 mg IVPUSH Q8H PRN PRN Reason: Nausea and Vomiting Last Admin: 11/11/22 23:22 Dose: 4 mg Documented By: YVETTE Pharmacy Consult (Consult Rx Vancomycin Dosing) 1 each MISCELLANE DAILY PRN PRN Reason: Consult order Sodium Chloride (0.9 % Sodium Chloride Flush 3 Ml Syringe) 3 ml IVFLUSH QSHIFT [facility] Last Admin: 11/12/22 08:58 Dose: 3 ml Documented By: ANDRES Sumatriptan Succinate (Sumatriptan Succinate 100 Mg Tablet) 100 mg PO Q2H PRN PRN Reason: Migraine Headache Labs 11/12/22 06:05 11/12/22 06:05 Labs: Laboratory Results - last 24 hr 11/11/22 11/11/22 11/11/22 19:05 19:05 19:05 MCV 85.5 MCH 27.3 MCHC 31.9 RDW 15.3 Plt Count 476 H D MPV 8.9 L Immature Gran % (Auto) 1.7 H Neut % (Auto) 74.3 H Lymph % (Auto) 17.3 L [place] % (Auto) 4.9 Eos % (Auto) 1.3 Baso % (Auto) 0.5 Lymph # (Auto) 1.7 [place] # (Auto) 0.5 Eos # (Auto) 0.1 Baso # (Auto) 0.1 Abs Immat Gran (auto) 0.17 H Absolute Neuts (auto) 7.5 Absolute Nucleated RBC 0.000 Nucleated RBC % (auto) 0.0 ESR 16 H PT 15.2 H INR 1.3 H APTT 38.5 H D aPTT Heparin Protocol Anion Gap Estim Creat Clear Calc Estimated GFR POC Glucose Random Glucose Lactic Acid Calcium Magnesium Total Bilirubin AST ALT Alkaline Phosphatase C-Reactive Protein Total Protein Albumin COVID-19 ([facility]) COVID-[employer] 11/11/22 11/11/22 11/11/22 19:05 19:57 22:40 MCV MCH MCHC RDW Plt Count MPV Immature Gran % (Auto) Neut % (Auto) Lymph % (Auto) [place] % (Auto) Eos % (Auto) Baso % (Auto) Lymph # (Auto) [place] # (Auto) Eos # (Auto) Baso # (Auto) Abs Immat Gran (auto) Absolute Neuts (auto) Absolute Nucleated RBC Nucleated RBC % (auto) ESR PT INR APTT aPTT Heparin Protocol Anion Gap 17 Estim Creat Clear Calc 75.2 Estimated GFR 57 POC Glucose Random Glucose 56 L* Lactic Acid 2.0 Calcium 9.6 Magnesium 2.4 Total Bilirubin 0.3 AST 19 ALT 16 Alkaline Phosphatase 106 C-Reactive Protein 0.87 H Total Protein 8.3 H Albumin 4.7 COVID-19 ([facility]) Negative COVID-19 Clin Com See Note 11/12/22 11/12/22 11/12/22 00:33 06:05 06:05 MCV 87.0 MCH 27.5 MCHC 31.6 RDW 15.7 Plt Count 359 MPV 9.6 Immature Gran % (Auto) 2.0 H Neut % (Auto) 61.0 Lymph % (Auto) 26.0 [place] % (Auto) 8.0 Eos % (Auto) 2.5 Baso % (Auto) 0.5 Lymph # (Auto) 1.7 [place] # (Auto) 0.5 Eos # (Auto) 0.2 Baso # (Auto) 0.0 Abs Immat Gran (auto) 0.13 H Absolute Neuts (auto) 3.9 Absolute Nucleated RBC 0.000 Nucleated RBC % (auto) 0.0 ESR PT INR APTT aPTT Heparin Protocol Anion Gap 13 Estim Creat Clear Calc 88.2 Estimated GFR > 60 POC Glucose 100 Random Glucose 98 Lactic Acid Calcium 8.5 D Magnesium Total Bilirubin AST ALT Alkaline Phosphatase C-Reactive Protein Total Protein Albumin COVID-19 ([facility]) COVID-19 Clin Com 11/12/22 11/12/22 07:52 10:30 MCV MCH MCHC RDW Plt Count MPV Immature Gran % (Auto) Neut % (Auto) Lymph % (Auto) [place] % (Auto) Eos % (Auto) Baso % (Auto) Lymph # (Auto) [place] # (Auto) Eos # (Auto) Baso # (Auto) Abs Immat Gran (auto) Absolute Neuts (auto) Absolute Nucleated RBC Nucleated RBC % (auto) ESR PT INR APTT aPTT Heparin Protocol 37.1 L Anion Gap Estim Creat Clear Calc Estimated GFR POC Glucose 98 Random Glucose Lactic Acid Calcium Magnesium Total Bilirubin AST ALT Alkaline Phosphatase C-Reactive Protein Total Protein Albumin COVID-19 ([facility]) COVID-19 Clin Com Microbiology Microbiology Results: Microbiology 11/11/22 19:57 Blood Culture - Final Blood - Venous Assessment and Plan (1) Cellulitis of foot: Status: Acute Plan d#2 32yo M with recent R tibial plateau fracture s/p ORIF 09/28/22, R ankle surgery about 4 months ago, RLE DVT diagnosed 11/02/22 admitted with cellulitis # nonpurulent cellulitis without abscess - vancomycin 11/11-, cefazolin 11/12-, follow BCx - recently had a more proximal cellulitis treated with [id number] and cephalexin # acute occlusive DVT - change apixaban to heparin gtt, repeat US and consult Vascular Surgery # migraine - prn sumatriptan # OUD - continue methadone after verifying with Josi Clifford # VTE ppx: IV heparin # dispo: TBD In my clinical judgment, the patient requires continued inpatient hospitali zation for the following reasons: IV heparin, IV ABX Time Spent With Patient Time: Total time managing care of this patient today __40__ minutes. Quality Stroke Does the patient have a stroke diagnosis?: No VTE Prior VTE?: No VTE Risk Level:: Medical - moderate - high VTE Device Contraindication: Treatment Not Indicated VTE Drug Contraindication: N/A - Med Ordered
[2022-11-12 12:19] VITALS: BP 123/66; PULSE 84; RESP 16; TEMP 36.9; O2SAT 97
[2022-11-12 15:40] VITALS: BP 121/78; PULSE 86; RESP 19; TEMP 36.6; O2SAT 98
--- NOTE | 2022-11-12 16:49 | PC.NURSE ---
Patient has orders for continuous heparin drip and IV antibiotics, Patient only has one IV access site with heparin drip running, multiple attempts to gain another IV access not effective, Nursing hotel or motel cleaning supervisor and Dr Tucker made aware, per nursing hotel or motel cleaning supervisor Elizabeth an ICU nurse will attempt to gain another IV access for antibiotics.
--- NOTE | 2022-11-12 18:33 | PC.NURSE ---
ED nurse to floor to attempt secondary IV access, Ultrasound used to guide insertion of 18g catheter into pt's R upper arm. Pt tolerated well, IV patent, will continue to monitor.
[2022-11-12 19:32] VITALS: BP 119/68; PULSE 87; TEMP 36.6; O2SAT 96
[2022-11-12] MEDS: Gabapentin 300 MG CAPSULE PO (20:35)
[2022-11-12] MEDS: Acetaminophen 325 MG TABLET 650 MG PO (20:48)
[2022-11-13 00:39] LABS: PTT Heparin Drip 62.4 SEC (53-77.9)
[2022-11-13] MEDS: vancomycin HCL 750 MG in 0.9 % Sodium Chloride 250 ML 265 MG IV (01:11)
[2022-11-13 04:00] VITALS: BP 102/60; PULSE 70; RESP 18; TEMP 35.9; O2SAT 97
[2022-11-13 06:44] LABS: INTERNATIONAL NORM RATIO 1.1 (0.9-1.1); Prothrombin Time 12.3 SEC (10.0-13.1)
[2022-11-13 06:47] LABS: PTT Heparin Drip 61.3 SEC (53-77.9)
[2022-11-13 07:01] LABS: Vancomycin Trough 11.6 mcg/mL (10.0-20.0)
[2022-11-13 08:00] VITALS: BP 121/78; PULSE 69; RESP 18; TEMP 36.4; O2SAT 96
[2022-11-13 08:02] LABS: Creatinine Clr Calc Pharmacy 124.1; Estimated Glomerular Filt Rate > 60
[2022-11-13] MEDS: Morphine Sulfate 4 MG/ML CARTRIDGE IVPUSH (09:20)
[2022-11-13] MEDS: 0.9 % Sodium Chloride Flush 3 ML SYRINGE IVFLUSH ×2 (09:21→17:34)
[2022-11-13] MEDS: methADONE HCl 20 MG/2 ML ORAL.CONC 50 MG PO (09:21)
[2022-11-13 11:11] LABS: Vancomycin Trough 7.6 mcg/mL (10.0-20.0)
[2022-11-13] MEDS: Heparin Sodium,Porcine/1/2NS 25,000 UNIT/250 ML IV.SOLN 10.15 UNIT IVCONT (11:16)
--- NOTE | 2022-11-13 11:21 | HE.PHANOTE ---
RE: vanco Trough on 11/13 came back at 7.2; increased ddose to 1000mg Q12H with predicted AUC 402mg/L, trough 11.4. Next level to be drawn 11/14/22 @1100
--- NOTE | 2022-11-13 12:15 | HO.PM.IMPN ---
Subjective Subjective Date of Service: 11/13/22 Interval History: ongoing RLE swelling R foot redness improved Review of Systems Review of Systems: Yes all other systems are reviewed and are negative Physical Exam Vital Signs: Vital Signs: Last Vital Signs Temp 97.6 F 11/13/22 08:00 Pulse 69 11/13/22 08:00 Resp 18 11/13/22 08:00 BP 121/78 11/13/22 08:00 Pulse Ox 96 11/13/22 08:00 O2 Del Method 11/13/22 08:00 BMI result Body Mass Index 22.3 Const: Other: Gen: in no acute distress HEENT: sclera anicteric, moist mucus membranes Neck: supple Lungs: clear to auscultation bilaterally Heart: regular rate and rhythm, no murmurs Abd: soft, non-tender, non-distended Ext: R lateral superior tibial surgical scar, R ankle scar, R foot with erythema to dorsum without fluctuance, extensive edema + tenderness of entire RLE Skin: warm/well-perfused Neuro: alert and oriented x3, no focal findings Psych: appropriate affect Objective Data Active Medications Acetaminophen (Acetaminophen 325 Mg Tablet) 650 mg PO Q6H PRN PRN Reason: Pain, Mild (Pain Scale 1-3) Last Admin: 11/12/22 20:48 Dose: 650 mg Documented By: VENKATESH Diphenhydramine HCl (Diphenhydramine Hcl 25 Mg Capsule) 25 mg PO Q6H PRN PRN Reason: itching Last Admin: 11/12/22 20:48 Dose: 25 mg Documented By: VENKATESH Docusate Sodium (Docusate Sodium 100 Mg Capsule) 100 mg PO DAILY PRN PRN Reason: Constipation Gabapentin (Gabapentin 300 Mg Capsule) 300 mg PO BEDTIME [place] Last Admin: 11/12/22 20:35 Dose: 300 mg Documented By: VENKATESH Heparin Sodium (Porcine) (Heparin Sodium,Porcine 5,000 Unit/Ml Vial) 2,900 unit 40 unit/kg (2900 unit) IVPUSH PROTOCOL BOLUS PRN; Protocol PRN Reason: 40 unit/kg - Heparin Protocol Heparin Sodium (Porcine) (Heparin Sodium,Porcine 5,000 Unit/Ml Vial) 5,800 unit 80 unit/kg (5800 unit) IVPUSH PROTOCOL BOLUS PRN; Protocol PRN Reason: 80 unit/kg - Heparin Protocol Heparin Sodium/Sodium Chloride (Heparin Sodium,Porcine/1/2ns) 25,000 unit in 250 mls @ 0 mls/hr IVCONT .Q0M [facility]; Protocol Last Admin: 11/13/22 11:16 Dose: 14 units/kg/hr, 10.15 mls/hr Documented By: ANDRES Co-signed By: JESSE Cefazolin Sodium 1 gm/ Sodium (Chloride) 50 mls @ 100 mls/hr IV Q8H [facility] Last Infusion: 11/13/22 10:42 Dose: 0 mls/hr Documented By: ANDRES Vancomycin HCl 1,000 mg/ (Sodium Chloride) 270 mls @ 270 mls/hr IV Q12H [facility] Methadone HCl (Methadone Hcl 20 Mg/2 Ml Oral.Conc) 50 mg PO DAILY [facility] Last Admin: 11/13/22 09:21 Dose: 50 mg Documented By: ANDRES Morphine Sulfate (Morphine Sulfate 4 Mg/Ml Cartridge) 4 mg IVPUSH Q4H PRN; Protocol PRN Reason: Pain, Severe (Pain Scale 7-10) Last Admin: 11/13/22 09:20 Dose: 4 mg Documented By: ANDRES Non-Formulary Medication (Fremanezumab-Vfrm [Ajovy Autoinjector]) 225 mg SUBCUT Q30D [facility] Ondansetron HCl (Ondansetron Hcl 4 Mg/2 Ml Vial) 4 mg IVPUSH Q8H PRN PRN Reason: Nausea and Vomiting Last Admin: 11/11/22 23:22 Dose: 4 mg Documented By: YVETTE Pharmacy Consult (Consult Rx Vancomycin Dosing) 1 each MISCELLANE DAILY PRN PRN Reason: Consult order Sodium Chloride (0.9 % Sodium Chloride Flush 3 Ml Syringe) 3 ml IVFLUSH QSHIFT [facility] Last Admin: 11/13/22 09:21 Dose: 3 ml Documented By: ANDRES Sumatriptan Succinate (Sumatriptan Succinate 100 Mg Tablet) 100 mg PO Q2H PRN PRN Reason: Migraine Headache Labs 11/12/22 06:05 11/13/22 07:36 Labs: Laboratory Results - last 24 hr 11/12/22 11/13/22 11/13/22 17:34 00:15 06:25 PT INR aPTT Heparin Protocol 66.0 D 62.4 Estim Creat Clear Calc Estimated GFR Vancomycin Trough 11.6 11/13/22 11/13/22 11/13/22 06:25 07:36 10:43 PT 12.3 INR 1.1 aPTT Heparin Protocol 61.3 Estim Creat Clear Calc 124.1 Estimated GFR > 60 Vancomycin Trough 7.6 L Impressions Venous Duplex 11/12/22 10:55 IMPRESSION: Again seen is extensive deep venous thrombus in the right lower extremity with interval resolution of the previously seen thrombus in the peroneal and a femoral profunda veins. Again seen is near occlusive thrombus in the left common femoral vein similar to prior. There is also superficial venous thrombus in the greater saphenous vein, not previously imaged. Microbiology Microbiology Results: Microbiology 11/11/22 19:57 Blood Culture - Preliminary Blood - Venous No growth after 24 hours. 11/11/22 19:58 Blood Culture - Preliminary Blood - Venous No growth after 24 hours. 11/11/22 19:57 Blood Culture - Final Blood - Venous Assessment and Plan (1) Cellulitis of foot: Status: Acute Plan d#3 32yo M with recent R tibial plateau fracture s/p ORIF 09/28/22, R ankle surgery about 4 months ago, RLE DVT diagnosed 11/02/22 admitted with cellulitis # nonpurulent cellulitis without abscess - vancomycin 11/11-, cefazolin 11/12-, follow BCx - recently had a more proximal cellulitis treated with TMP-SMX and cephalexin # acute occlusive DVT - changed apixaban to heparin gtt, Vascular Surgery consultation pending # migraine - prn sumatriptan # OUD - continue methadone # VTE ppx: IV heparin # dispo: TBD In my clinical judgment, the patient requires continued inpatient hospitalization for the following reasons: IV heparin, IV ABX Time Spent With Patient Time: Total time managing care of this patient today __35__ minutes. Quality Stroke Does the patient have a stroke diagnosis?: No VTE Prior VTE?: No VTE Risk Level:: Medical - moderate - high VTE Device Contraindication: Treatment Not Indicated VTE Drug Contraindication: N/A - Med Ordered
[2022-11-13] MEDS: diphenhydrAMINE HCL 25 MG CAPSULE PO (12:24)
[2022-11-13] MEDS: Acetaminophen 1,000 MG/100 ML PIGGYBACK 400 MG IV ×2 (12:25→18:11)
[2022-11-13] MEDS: vancomycin HCL 1,000 MG in 0.9 % Sodium Chloride 250 ML 270 MG IV (12:48)
[2022-11-13] MEDS: HYDROmorphone HCl 0.5 MG/0.5 ML SYRINGE IVPUSH ×3 (14:11→22:04)
[2022-11-13 15:57] VITALS: BP 107/63; PULSE 62; RESP 18; TEMP 36.3; O2SAT 98
[2022-11-13 20:00] VITALS: BP 110/62; PULSE 76; RESP 18; TEMP 36.5; O2SAT 98
[2022-11-13] MEDS: Gabapentin 300 MG CAPSULE PO (22:05)
[2022-11-13] MEDS: SUMAtriptan succinate 100 MG TABLET PO (22:10)
[2022-11-14] MEDS: Acetaminophen 1,000 MG/100 ML PIGGYBACK 400 MG IV (01:26)
[2022-11-14] MEDS: vancomycin HCL 1,000 MG in 0.9 % Sodium Chloride 250 ML 270 MG IV ×2 (01:38→13:20)
[2022-11-14] MEDS: HYDROmorphone HCl 0.5 MG/0.5 ML SYRINGE IVPUSH ×4 (03:22→22:16)
[2022-11-14 03:29] VITALS: BP 100/61; PULSE 61; RESP 18; TEMP 36.3; O2SAT 98
[2022-11-14 06:47] LABS: PTT Heparin Drip 67.8 SEC (53-77.9)
[2022-11-14 06:49] LABS: Anion Gap 14 (12-20); Blood Urea Nitrogen 8 mg/dL (9-16); C Reactive Protein 1.18 mg/dL (< or = 0.50); Calcium 9.8 mg/dL (8.4-10.2); Carbon Dioxide 23 mmol/L (22-29); Chloride 106 mmol/L (96-108); Creatinine Clr Calc Pharmacy 124.1; Estimated Glomerular Filt Rate > 60; Glucose Random 107 mg/dL (60-115); Potassium 4.4 mmol/L (3.3-5.1); Sodium 139 mmol/L (135-145)
[2022-11-14 06:59] LABS: Hematocrit 38.4 % (42.0-52.0); Hemoglobin 12.1 g/dl (14.0-18.0); Mean Corpuscular HGB Conc 31.5 g/dl (31.0-36.0); Mean Corpuscular Hemoglobin 28.1 pg (27.0-33.0); Mean Corpuscular Volume 89.3 fL (80.0-98.0); Mean Platelet Volume 9.3 fL (9.4-12.4); Platelet Count 306 X10*3/uL (160-400); Red Cell Distribution Width 15.6 % (11.0-16.0); White Blood Count 5.7 X10*3/uL (4.8-10.8)
[2022-11-14 07:49] VITALS: BP 114/66; PULSE 60; RESP 18; TEMP 36.9; O2SAT 98
[2022-11-14] MEDS: 0.9 % Sodium Chloride Flush 3 ML SYRINGE IVFLUSH (09:09)
[2022-11-14] MEDS: methADONE HCl 20 MG/2 ML ORAL.CONC 50 MG PO (09:09)
--- NOTE | 2022-11-14 10:29 | P.PNIM_ITS ---
Subjective Subjective Date of Service: 11/14/22 Interval History: RLE swelling markedly better R foot erythema also improved No fever No dyspnea Review of Systems Review of Systems: Yes all other systems are reviewed and are negative Physical Exam Vital Signs: Vital Signs: Last Vital Signs Temp 98.5 F 11/14/22 07:49 Pulse 60 11/14/22 07:49 Resp 18 11/14/22 07:49 BP 114/66 11/14/22 07:49 Pulse Ox 98 11/14/22 07:49 O2 Del Method 11/14/22 07:49 BMI result Body Mass Index 22.3 Const: Other: Gen: in no acute distress HEENT: sclera anicteric, moist mucus membranes Neck: supple Lungs: clear to auscultation bilaterally Heart: regular rate and rhythm, no murmurs Abd: soft, non-tender, non-distended Ext: R lateral superior tibial surgical scar, R ankle scar, R foot with erythema to dorsum without fluctuance, extensive edema + tenderness of entire RLE Skin: warm/well-perfused Neuro: alert and oriented x3, no focal findings Psych: appropriate affect Objective Data Active Medications Acetaminophen (Acetaminophen 325 Mg Tablet) 650 mg PO Q6H PRN PRN Reason: Pain, Mild (Pain Scale 1-3) Last Admin: 11/12/22 20:48 Dose: 650 mg Documented By: VENKATESH Diphenhydramine HCl (Diphenhydramine Hcl 25 Mg Capsule) 25 mg PO Q6H PRN PRN Reason: itching Last Admin: 11/13/22 12:24 Dose: 25 mg Documented By: ANDRES Docusate Sodium (Docusate Sodium 100 Mg Capsule) 100 mg PO DAILY PRN PRN Reason: Constipation Gabapentin (Gabapentin 300 Mg Capsule) 300 mg PO BEDTIME [place] Last Admin: 11/13/22 22:05 Dose: 300 mg Documented By: ANGIE Heparin Sodium (Porcine) (Heparin Sodium,Porcine 5,000 Unit/Ml Vial) 2,900 unit 40 unit/kg (2900 unit) IVPUSH PROTOCOL BOLUS PRN; Protocol PRN Reason: 40 unit/kg - Heparin Protocol Heparin Sodium (Porcine) (Heparin Sodium,Porcine 5,000 Unit/Ml Vial) 5,800 unit 80 unit/kg (5800 unit) IVPUSH PROTOCOL BOLUS PRN; Protocol PRN Reason: 80 unit/kg - Heparin Protocol Hydromorphone HCl (Hydromorphone Hcl 0.5 Mg/0.5 Ml Syringe) 0.5 mg IVPUSH Q4H PRN; Protocol PRN Reason: severe pain Last Admin: 11/14/22 09:46 Dose: 0.5 mg Documented By: YAW Heparin Sodium/Sodium Chloride (Heparin Sodium,Porcine/1/2ns) 25,000 unit in 250 mls @ 0 mls/hr IVCONT .Q0M [facility]; Protocol Last Titration: 11/14/22 09:13 Dose: 14 units/kg/hr, 10.15 mls/hr Documented By: YAW Co-signed By: ALEXANDRE Cefazolin Sodium 1 gm/ Sodium (Chloride) 50 mls @ 100 mls/hr IV Q8H [facility] Last Infusion: 11/14/22 09:40 Dose: 0 mls/hr Documented By: YAW Vancomycin HCl 1,000 mg/ (Sodium Chloride) 270 mls @ 270 mls/hr IV Q12H [facility] Last Infusion: 11/14/22 03:27 Dose: 0 mls/hr Documented By: ANGIE Methadone HCl (Methadone Hcl 20 Mg/2 Ml Oral.Conc) 50 mg PO DAILY [facility] Last Admin: 11/14/22 09:09 Dose: 50 mg Documented By: YAW Non-Formulary Medication (Fremanezumab-Vfrm [Ajovy Autoinjector]) 225 mg SUBCUT Q30D [facility] Ondansetron HCl (Ondansetron Hcl 4 Mg/2 Ml Vial) 4 mg IVPUSH Q8H PRN PRN Reason: Nausea and Vomiting Last Admin: 11/11/22 23:22 Dose: 4 mg Documented By: YVETTE Pharmacy Consult (Consult Rx Vancomycin Dosing) 1 each MISCELLANE DAILY PRN PRN Reason: Consult order Sodium Chloride (0.9 % Sodium Chloride Flush 3 Ml Syringe) 3 ml IVFLUSH QSHIFT [facility] Last Admin: 11/14/22 09:09 Dose: 3 ml Documented By: YAW Sumatriptan Succinate (Sumatriptan Succinate 100 Mg Tablet) 100 mg PO Q2H PRN PRN Reason: Migraine Headache Last Admin: 11/13/22 22:10 Dose: 100 mg Documented By: ANGIE Labs 11/14/22 06:04 11/14/22 06:04 Labs: Laboratory Results - last 24 hr 11/13/22 11/14/22 11/14/22 10:43 06:04 06:04 MCV 89.3 MCH 28.1 MCHC 31.5 RDW 15.6 Plt Count 306 MPV 9.3 L Absolute Nucleated RBC 0.000 Nucleated RBC % (auto) 0.0 aPTT Heparin Protocol Anion Gap 14 Estim Creat Clear Calc 124.1 Estimated GFR > 60 Random Glucose 107 Calcium 9.8 D C-Reactive Protein 1.18 H Vancomycin Trough 7.6 L 11/14/22 06:04 MCV MCH MCHC RDW Plt Count MPV Absolute Nucleated RBC Nucleated RBC % (auto) aPTT Heparin Protocol 67.8 Anion Gap Estim Creat Clear Calc Estimated GFR Random Glucose Calcium C-Reactive Protein Vancomycin Trough Microbiology Microbiology Results: Microbiology 11/11/22 19:57 Blood Culture - Preliminary Blood - Venous No growth after 48 hours. 11/11/22 19:58 Blood Culture - Preliminary Blood - Venous No growth after 48 hours. Assessment and Plan (1) Cellulitis of foot: Status: Acute Plan d#4 32yo M with recent R tibial plateau fracture s/p ORIF 09/28/22, R ankle surgery about 4 months ago, RLE DVT diagnosed 11/02/22 admitted with cellulitis # nonpurulent cellulitis without abscess - vancomycin 11/11-, cefazolin 11/12-, BCx negative to date - recently had a more proximal cellulitis treated with TMP-SMX and cephalexin # acute occlusive DVT - changed apixaban to heparin gtt, Vascular Surgery consultation pending # CHAPIN - resolved, was likely prerenal # migraine - prn sumatriptan # OUD - continue methadone # VTE ppx: IV heparin # dispo: eventually home In my clinical judgment, the patient requires continued inpatient ho spitalization for the following reasons: IV heparin, IV ABX Time Spent With Patient Time: Total time managing care of this patient today __35__ minutes. Quality Stroke Does the patient have a stroke diagnosis?: No VTE Prior VTE?: No VTE Risk Level:: Medical - moderate - high VTE Device Contraindication: Treatment Not Indicated VTE Drug Contraindication: N/A - Med Ordered
[2022-11-14] MEDS: Heparin Sodium,Porcine/1/2NS 25,000 UNIT/250 ML IV.SOLN 10.15 UNIT IVCONT (11:32)
[2022-11-14 11:38] LABS: Vancomycin Trough 14.3 mcg/mL (10.0-20.0)
--- NOTE | 2022-11-14 11:47 | HE.PHANOTE ---
Vancomycin Dosing Level therapeutic at 14.3 today. Continue current regimen. Next level 11/15 @ 1100. Isidro WinnD
[2022-11-14] MEDS: Calcium Carbonate 750 MG TAB.CHEW PO ×2 (12:11→22:06)
--- NOTE | 2022-11-14 14:49 | PC.NURSE ---
heparin drip paused for few minutes so patient can take a shower, approved by Dr Tucker.
--- NOTE | 2022-11-14 15:09 | MHC.CM.PN ---
PER MD ROUNDS, PT NOT YET MEDICALLY CLEARED, AWAITING VASCULAR CONSULT AND STILL REQUIRING IV HEPARIN AND ABX DCP; HOME NO SERVICES, FAMILY TO TRANSPORT
[2022-11-14 15:51] VITALS: BP 116/64; PULSE 71; RESP 20; TEMP 36.8; O2SAT 99
[2022-11-14] MEDS: SUMAtriptan succinate 100 MG TABLET PO (18:04)
[2022-11-14 19:51] VITALS: BP 120/58; PULSE 68; RESP 20; TEMP 36.4; O2SAT 98
[2022-11-14] MEDS: Gabapentin 300 MG CAPSULE PO (22:06)
[2022-11-14] MEDS: diphenhydrAMINE HCL 25 MG CAPSULE PO (22:07)
[2022-11-15] MEDS: Calcium Carbonate 750 MG TAB.CHEW PO ×2 (00:18→14:00)
[2022-11-15] MEDS: vancomycin HCL 1,000 MG in 0.9 % Sodium Chloride 250 ML 270 MG IV ×2 (00:19→13:53)
[2022-11-15] MEDS: HYDROmorphone HCl 0.5 MG/0.5 ML SYRINGE IVPUSH ×4 (02:09→18:05)
[2022-11-15 03:38] VITALS: BP 105/69; PULSE 85; RESP 18; TEMP 36.7; O2SAT 97
[2022-11-15 07:45] LABS: Creatinine Clr Calc Pharmacy 111.1; Estimated Glomerular Filt Rate > 60
[2022-11-15 07:47] VITALS: BP 122/91; PULSE 89; RESP 17; TEMP 36.4; O2SAT 96
[2022-11-15] MEDS: 0.9 % Sodium Chloride Flush 3 ML SYRINGE IVFLUSH (07:56)
[2022-11-15] MEDS: SUMAtriptan succinate 100 MG TABLET PO ×2 (07:56→13:04)
[2022-11-15] MEDS: methADONE HCl 20 MG/2 ML ORAL.CONC 50 MG PO (07:57)
[2022-11-15 08:12] LABS: PTT Heparin Drip 46.6 SEC (53-77.9)
[2022-11-15] MEDS: Heparin Sodium,Porcine 5,000 UNIT/ML VIAL 2900 UNIT IVPUSH (08:28)
[2022-11-15] MEDS: Heparin Sodium,Porcine/1/2NS 25,000 UNIT/250 ML IV.SOLN 11.6 UNIT IVCONT (10:20)
[2022-11-15 13:25] LABS: Vancomycin Trough 12.7 mcg/mL (10.0-20.0)
--- NOTE | 2022-11-15 13:31 | HE.PHANOTE ---
Vancomycin Dosing Patient level therapeutic today at 12.7. Continue current regimen vanco 1000 mg Q12H. Next level 2/ @ 1100. Isidro WinnD
--- NOTE | 2022-11-15 13:58 | P.PNIM_ITS ---
Subjective Subjective Date of Service: 11/15/22 Interval History: Seen in follow-up for cellulitis of the right foot, bilateral occlusive DVTs lower extremity Interval history: Reports pain and swelling has improved in the right foot. Does report a ?neuropathy? pain in the medial aspects of the bilateral lower legs. No back pain. On heparin drip Review of Systems Review of Systems: Yes all other systems are reviewed and are negative Physical Exam Vital Signs: Vital Signs: Last Vital Signs Temp 97.6 F 11/15/22 07:47 Pulse 89 11/15/22 07:47 Resp 17 11/15/22 07:47 BP 122/91 H 11/15/22 07:47 Pulse Ox 96 11/15/22 07:47 O2 Del Method 11/15/22 07:47 BMI result Body Mass Index 22.3 Constitutional - Awake and Alert, No apparent distress Eyes - PERRLA, EOMI Cardiovascular - S1S2, RRR, No edema Respiratory - Normal lung expansion, Normal respiratory effort, No respiratory distress, CTA bilaterally Gastrointestinal - NT / ND; +BS; No rebound or guarding Extremities - no calf tenderness bilaterally, no calf swelling. Mild receding erythema and with mild swelling right foot. See photo. Skin - Warm/Dry Neurological - Alert & oriented x3, CN II-XII in tact, 5/5 strength BUE and BLE. Sensation in tact Psychological - Appropriate affect Objective Data Active Medications Acetaminophen (Acetaminophen 325 Mg Tablet) 650 mg PO Q6H PRN PRN Reason: Pain, Mild (Pain Scale 1-3) Last Admin: 11/12/22 20:48 Dose: 650 mg Documented By: VENKATESH Calcium Carbonate (Calcium Carbonate 750 Mg Tab.Chew) 750 mg PO Q4H PRN PRN Reason: heart burn Last Admin: 11/15/22 00:18 Dose: 750 mg Documented By: ANGIE Comments: per md to give now Diphenhydramine HCl (Diphenhydramine Hcl 25 Mg Capsule) 25 mg PO Q6H PRN PRN Reason: itching Last Admin: 11/14/22 22:07 Dose: 25 mg Documented By: ANGIE Docusate Sodium (Docusate Sodium 100 Mg Capsule) 100 mg PO DAILY PRN PRN Reason: Constipation Gabapentin (Gabapentin 300 Mg Capsule) 300 mg PO BEDTIME [place] Last Admin: 11/14/22 22:06 Dose: 300 mg Documented By: ANGIE Heparin Sodium (Porcine) (Heparin Sodium,Porcine 5,000 Unit/Ml Vial) 2,900 unit 40 unit/kg (2900 unit) IVPUSH PROTOCOL BOLUS PRN; Protocol PRN Reason: 40 unit/kg - Heparin Protocol Last Admin: 11/15/22 08:28 Dose: 2,900 unit Documented By: YAW Heparin Sodium (Porcine) (Heparin Sodium,Porcine 5,000 Unit/Ml Vial) 5,800 unit 80 unit/kg (5800 unit) IVPUSH PROTOCOL BOLUS PRN; Protocol PRN Reason: 80 unit/kg - Heparin Protocol Hydromorphone HCl (Hydromorphone Hcl 0.5 Mg/0.5 Ml Syringe) 0.5 mg IVPUSH Q4H PRN; Protocol PRN Reason: severe pain Last Admin: 11/15/22 13:11 Dose: 0.5 mg Documented By: YAW Heparin Sodium/Sodium Chloride (Heparin Sodium,Porcine/1/2ns) 25,000 unit in 250 mls @ 0 mls/hr IVCONT .Q0M [facility]; Protocol Last Admin: 11/15/22 10:20 Dose: 16 units/kg/hr, 11.6 mls/hr Documented By: YAW Co-signed By: AMPARO Cefazolin Sodium 1 gm/ Sodium (Chloride) 50 mls @ 100 mls/hr IV Q8H [facility] Last Infusion: 11/15/22 10:51 Dose: 0 mls/hr Documented By: YAW Vancomycin HCl 1,000 mg/ (Sodium Chloride) 270 mls @ 270 mls/hr IV Q12H [facility] Last Infusion: 11/15/22 01:33 Dose: 0 mls/hr Documented By: ANGIE Methadone HCl (Methadone Hcl 20 Mg/2 Ml Oral.Conc) 50 mg PO DAILY [facility] Last Admin: 11/15/22 07:57 Dose: 50 mg Documented By: YAW Non-Formulary Medication (Fremanezumab-Vfrm [Ajovy Autoinjector]) 225 mg SUBCUT Q30D [facility] Ondansetron HCl (Ondansetron Hcl 4 Mg/2 Ml Vial) 4 mg IVPUSH Q8H PRN PRN Reason: Nausea and Vomiting Last Admin: 11/11/22 23:22 Dose: 4 mg Documented By: YVETTE Pharmacy Consult (Consult Rx Vancomycin Dosing) 1 each MISCELLANE DAILY PRN PRN Reason: Consult order Sodium Chloride (0.9 % Sodium Chloride Flush 3 Ml Syringe) [facility] Last Admin: 11/15/22 07:56 Dose: 3 ml Documented By: YAW Sumatriptan Succinate (Sumatriptan Succinate 100 Mg Tablet) 100 mg PO Q2H PRN PRN Reason: Migraine Headache Last Admin: 11/15/22 13:04 Dose: 100 mg Documented By: YAW Labs 11/14/22 06:04 11/15/22 05:49 Labs: Laboratory Results - last 24 hr 11/15/22 11/15/22 11/15/22 05:49 05:49 11:25 aPTT Heparin Protocol 46.6 L D Estim Creat Clear Calc 111.1 Estimated GFR > 60 Vancomycin Trough 12.7 Assessment and Plan (1) Cellulitis of foot: Status: Acute (2) DVT of lower extremity, bilateral: Status: Acute Plan 32yo M with recent R tibial plateau fracture s/p ORIF 09/28/22, R ankle surgery about 4 months ago, RLE DVT diagnosed 11/02/22 admitted with cellulitis # nonpurulent cellulitis without abscess - vancomycin 11/11-, cefazolin 11/12-, BCx negative to date - recently had a more proximal cellulitis treated with TMP-SMX and cephalexin # acute occlusive DVT BLE - Continue heparin gtt -Vascular Surgery consultation pending # CHAPIN - resolved, was likely prerenal # migraine - prn sumatriptan # OUD - continue methadone # VTE ppx: IV heparin # dispo: eventually home In my clinical judgment, the patient requires continued inpatient hospitalization for the following reasons: IV heparin, IV ABX and expert consultation pending Time Spent With Patient Time: Total time managing care of this patient today ____ minutes. Quality Stroke Does the patient have a stroke diagnosis?: No VTE Prior VTE?: No VTE Risk Level:: Medical - moderate - high VTE Device Contraindication: Treatment Not Indicated VTE Drug Contraindication: N/A - Med Ordered
[2022-11-15] MEDS: diphenhydrAMINE HCL 25 MG CAPSULE PO (14:00)
[2022-11-15 15:15] LABS: PTT Heparin Drip 138.1 SEC (53-77.9)
[2022-11-15] MEDS: Acetaminophen 325 MG TABLET 650 MG PO (15:27)
[2022-11-15 16:00] VITALS: BP 135/91; PULSE 85; RESP 18; TEMP 36.9; O2SAT 99
[2022-11-15] MEDS: ondansetron HCL 4 MG/2 ML VIAL IVPUSH (16:09)
[2022-11-15] MEDS: Butalb/Acetamin/Caff 50/325/40 TABLET 1 TAB PO (16:09)
--- NOTE | 2022-11-15 16:56 | PC.NURSE ---
last PTT-HD was high 138.1 heparin drip paused , next draw scheduled for 1620, phlebatomy is having hard time drawing, one more person available to draw. awaiting, results are delayed for that reason. VICKY Bae made aware.
[2022-11-15 17:42] LABS: PTT Heparin Drip 31.6 SEC (53-77.9)
[2022-11-15] MEDS: Enoxaparin Sodium 80 MG/0.8 ML SYRINGE 70 MG SUBCUT (18:45)
--- NOTE | 2022-11-15 18:45 | PM.DS ---
DS: Providers Provider Date of Service: 11/15/22 Date of admission: 11/11/22 21:54 Date of discharge: 11/15/22 Primary care physician: None Physician Attending physician on admission: Quita Griffiths Consults: 11/12/22 10:12 Consult to Vascular Surgery Routine Consulting Provider: Lon Wick Reason for consultation: extensive occlusive postop RLE thrombus Attending physician on discharge: Clem Louis Discharging clinician: Stephanie Pa DS: Diagnosis Discharge Diagnosis (1) Cellulitis of foot: Status: Acute (2) DVT of lower extremity, bilateral: Status: Acute DS: Summary Hospital Course Hospital Course: HPI on admission 11/11/[address] Griffiths: Chief Complaint: foot pain This is a 32-year-old male with a significant surgical history that includes recent right? tibial plateau fracture status post surgical repair about 1 month and half ago, as well as right ankle surgery about 4 months ago due to hardware infection in the setting of prior surgical intervention.? Patient reports that about a week and half ago he also developed DVT and is currently on Eliquis.? He reports that he had Imitrex and ejection a week ago at an urgent care clinic due to his history of migraines, and the site got cellulitis and he was on Keflex as well as Bactrim antibiotics for 1 week.? Comes into the hospital today with complaints of right foot pain.? He reports that he was at work when he realize his foot was swollen, very tender, as well as red.? He reports no fever but has significant chills, no chest pain, no nausea or vomiting, no diarrhea constipation, no urinary symptoms and no lower extremity edema.? He describes the pain as throbbing 10/10 pain constant, nonradiating.? On arrival to the ED patient hemodynamically stable with no significant abnormal vitals except for a slightly elevated blood pressure Labs are significant for WBC count of 10.1, ESR 16, glucose of 56, CT of the right foot shows no tracking soft tissue gas or unexpected radiodense foreign body identified, mild subcutaneous edema , no loculated fluid collection to suggest abscess Hospital course: Pt admitted with acute cellulitis of the right foot. CT of the foot was negative for any abscess. He was treated with IV Ancef and vancomycin x 4 days with improvement in erythema, warmth, and swelling. Venous duplex was also repeated to evaluate given bilateral occlussive DVTS BLE given pain and swelling. B/l venous duplex showed extensive DVT in the right lower extremity with interval resolution of previously seen thrombus in the perineal and femoral profundus veins as well as near occlusive thrombus in the left common femoral vein similar to prior as well as superficial venous thrombus in the greater saphenous vein not previously imaged. Patient reports strict compliance with the Eliquis he had been prescribed and had been taking 10 mg twice daily for 9 days. Decision was made to change anticoagulation to IV heparin drip. Case was discussed with vascular surgery and patient was not felt to be a candidate for interventional thrombolytic therapy given recent surgeries for tibial plateau fracture and ankle fracture. He will be discharged on 70 mg subQ Lovenox twice daily and does already have follow-up with Dr. Wick in vascular surgery this . He will be discharged with augmentin 875mg and doxycycline 100mg BID x 5 days. Follow up with methadone clinic and PCP soon. Advised to return for any new or worsening symtpoms. Status at Discharge Functional status at discharge: uses cane/walker (crutches) Overall status at discharge: patient is progressing back to baseline Time Spent with Patient Time attestation: Total time managing care of this patient today ____ minutes. Discharge coordination time: Greater than 30 minutes Quality: Safe Use of Opioids Does Pt have an Active Cancer Diagnosis on the Problem List?: No Quality: Stroke Does the patient have a stroke diagnosis?: No Physical Exam Vital Signs: Vital Signs: Last Vital Signs Temp 98.4 F 11/15/22 16:00 Pulse 85 11/15/22 16:00 Resp 18 11/15/22 16:00 BP 135/91 H 11/15/22 16:00 Pulse Ox 99 11/15/22 16:00 O2 Del Method 11/15/22 16:00 BMI result Body Mass Index 22.3 Constitutional - Awake and Alert, No apparent distress Eyes - PERRLA, EOMI Cardiovascular - S1S2, RRR, No edema Respiratory - Normal lung expansion, Normal respiratory effort, No respiratory distress, CTA bilaterally Gastrointestinal - NT / ND; +BS; No rebound or guarding - No CVA tenderness Extremities - no calf tenderness bilaterally, no calf swelling. Mild erythema and mild swelling right foot within margins of skin marking Musculoskeletal - Normal inspection, normal ROM Skin - Warm/Dry Neurological - Alert & oriented x3 Psychological - Appropriate affect DS: Data Data Completed and Pending Labs on day of discharge: Laboratory Results - last 24 hr 11/15/22 11/15/22 11/15/22 05:49 05:49 11:25 aPTT Heparin Protocol 46.6 L D Creatinine 0.96 Estim Creat Clear Calc 111.1 Estimated GFR > 60 Vancomycin Trough 12.7 11/15/22 11/15/22 14:28 17:19 aPTT Heparin Protocol 138.1 H* D 31.6 L D Creatinine Estim Creat Clear Calc Estimated GFR Vancomycin Trough Preliminary micro results at discharge 11/11/22 19:57 Blood Culture - Preliminary Blood - Venous No growth after 48 hours. 11/11/22 19:58 Blood Culture - Preliminary Blood - Venous No growth after 48 hours. Discharge Plan Discharge Anticipated Discharge Date/Time: 11/15/22 18:25 Patient Disposition: Home, Self-Care Discharge Diagnosis: cellulitis right foot, bilateral DVT Referrals: Physician,None [Primary Care Provider] - 1 Week Discharge Medications: New amoxicillin-pot clavulanate 875-125 mg tablet 1 tab PO BID Qty: 10 0RF doxycycline hyclate 100 mg capsule 100 mg PO BID Qty: 10 0RF Rx Instructions: Take with food and full glass of water. Do not lay down for 1 hour after taking enoxaparin [Lovenox] 80 mg/0.8 mL syringe 80 mg subcut Q12H Qty: 8 0RF Rx Instructions: Use 0.7ml twice daily. Discharge excess Continued sumatriptan succinate 100 mg tablet 1 tab PO Q2H PRN (Reason: Migraine Headache) gabapentin 300 mg capsule 1 cap PO BEDTIME Ajovy Autoinjector 225 mg/1.5 mL auto-injector 225 mg subcut QMONTH methadone 5 mg/5 mL Solution 50 mg PO DAILY Discontinued sulfamethoxazole-trimethoprim 800-160 mg tablet 2 tab PO BID cephalexin 500 mg capsule 1 cap PO QID apixaban 5 mg Tablet 10 mg PO BID Rx Instructions: APIXABAN 10 MG BID FOR 7 DAYS, THEN 5 MG BID. PATIENT FILLED ON 11/03/22, SHOULD BE COMPLETE WITH 7 DAYS celecoxib 200 mg capsule 200 mg PO BID PRN (Reason: Pain) Discharge Orders: Discharge Order (Routine); Ordered 11/15/22 Ordered By: Stephanie Pa Diet: Regular diet Activity on Discharge: Walk with crutches Stand Alone Forms: Patient Portal Discharge page Care Plan Goals: COntinue treating cellulitis Treat bilateral DVT Health Concerns: CEllulitis R foot Bilateral occlusive DVT- provoked post operative with noncompliance with lovenox Plan of Treatment: Your admitted with cellulitis of the right foot after having failed oral antibiotics outpatient. You were treated with IV vancomycin and cefazolin with improvement in symptoms. You should continue antibiotic treatment until oral antibiotics are gone. You will be discharged with Augmentin 875 mg twice daily and doxycycline 100 mg twice daily for 5 days. I would strongly recommend taking these medications with food and a full glass of water and do not lay down for at least 1 hour after taking the medication. There is also limited improvement in your bilateral DVTs in the lower extremities with occlusion in the right femoral vein and partial occlusion in the left despite compliance with therapeutic dose of Eliquis 10 mg twice daily. Your treated inpatient with a heparin drip and will be discharged home with 70 mg of Lovenox twice daily. You have been given a dose of 70 mg Lovenox in the hospital so your next dose due is tomorrow morning around 07:00. Please use 2 of your 40mg/0.4ml synringes to administer 70mg/0.7ml twice daily. Follow up with Dr. Wick on as scheduled for recommendations on transitioning to oral medication. Assessment: as above Discharge Date/Time: 11/15/22 19:17
== END 2022-11-15 19:17 | disposition home or self-care (01) | DRG 721 ==
LOC: HO.ED 21:37 → HO.EDOVER 22:05 → HO.S3 11-12 00:06
PROVIDERS: Family Medicine; Physician Assistant Medical; Admitting Provider Internal Medicine; Emergency Provider Emergency Medicine; Visit Provider Physician Assistant
DX: T80.29XA Infection following other infusion, transfusion and therapeutic injection, initial encounter (principal); N17.9 Acute kidney failure, unspecified; I82.413 Acute embolism and thrombosis of femoral vein, bilateral; G43.909 Migraine, unspecified, not intractable, without status migrainosus; T45.516A Underdosing of anticoagulants, initial encounter; F11.20 Opioid dependence, uncomplicated; L03.115 Cellulitis of right lower limb; Z20.822 Contact with and (suspected) exposure to COVID-19; Z88.1 Allergy status to other antibiotic agents; Z79.899 Other long term (current) drug therapy
CPT/HCPCS: 36415; 73700; 80048; 80053; 80202; 82565; 82947; 83605; 83735; 85025; 85027; 85610; 85652; 85730; 86140; 87040; 87635; 93970; 99285; J0131; J0690; J1170; J1643; J1650; J1885; J2270; J2405; J2543; J3370; J3371

== ENCOUNTER 2022-12-16 10:25 | Outpatient (REF) | payer BC, SELFPAY ==
--- NOTE | ~2022-12-16 | XR_ITS ---
EXAMINATION: XR KNEES, STANDING AP BILATERAL XR KNEE, RIGHT CLINICAL INFORMATION: Pain. Prior fracture. Follow-up. COMPARISON: Radiographs right knee 11/04/2022, 10/07/2022, 09/25/2022. TECHNIQUE: Bilateral standing AP view of the knees is performed. Right knee is also imaged in lateral and axial patella views. FINDINGS: Right: There is hardware proximal tibia again seen with probable augmentation subchondral lateral tibial plateau. The hardware is intact. There is healing from prior studies. No destructive process or osteolysis. No knee joint narrowing no definite suprapatellar effusion. Hoffa's fat pad appears normal. Patella shows no lateralization or definite tilting. Left: No destructive process. No knee joint compartment narrowing or erosive change. XR/XR knee standing BI IMPRESSION: Right: Hardware intact. No destructive process or osteolysis. No effusion. No knee joint compartment narrowing or erosive change. Left: No joint narrowing or erosive change.
--- NOTE | ~2022-12-16 | XR_ITS ---
EXAMINATION: XR KNEES, STANDING AP BILATERAL XR KNEE, RIGHT CLINICAL INFORMATION: Pain. Prior fracture. Follow-up. COMPARISON: Radiographs right knee 11/04/2022, 10/07/2022, 09/25/2022. TECHNIQUE: Bilateral standing AP view of the knees is performed. Right knee is also imaged in lateral and axial patella views. FINDINGS: Right: There is hardware proximal tibia again seen with probable augmentation subchondral lateral tibial plateau. The hardware is intact. There is healing from prior studies. No destructive process or osteolysis. No knee joint narrowing no definite suprapatellar effusion. Hoffa's fat pad appears normal. Patella shows no lateralization or definite tilting. Left: No destructive process. No knee joint compartment narrowing or erosive change. XR/XR knee RT 2V IMPRESSION: Right: Hardware intact. No destructive process or osteolysis. No effusion. No knee joint compartment narrowing or erosive change. Left: No joint narrowing or erosive change.
== END 2022-12-16 10:26 | disposition home or self-care (01) ==
LOC: HO.HOSX 10:25
PROVIDERS: Visit Provider Orthopaedic Surgery
DX: S82.141D Displaced bicondylar fracture of right tibia, subsequent encounter for closed fracture with routine healing (principal); X58.XXXD Exposure to other specified factors, subsequent encounter
CPT/HCPCS: 73560; 73565

== ENCOUNTER 2023-02-22 16:34 | Emergency (ER) | payer BC, SELFPAY ==
[2023-02-22 16:40] VITALS: BP 127/90; PULSE 120; O2SAT 95
--- NOTE | 2023-02-22 16:41 | ED.PSYCH ---
HPI - Psych General Chief Complaint: ETOH/Substance Use Stated Complaint: DIZZINESS AFTER HEROIN USE Related Data Home Medications Medication Instructions Recorded Confirmed fremanezumab-vfrm 225 mg/1.5 mL 225 mg subcut QMONTH 04/12/21 11/11/22 subcutaneous auto-injector (Ajovy) gabapentin 300 mg capsule 1 cap PO BEDTIME 04/12/21 11/11/22 sumatriptan succinate 100 mg tablet 1 tab PO Q2H PRN Migraine Headache 04/12/21 11/11/22 methadone 5 mg/5 mL oral solution 50 mg PO DAILY 04/13/21 09/28/22 Previous Rx's Medication Instructions Recorded amoxicillin 875 mg-potassium 1 tab PO BID #10 tabs 11/15/22 clavulanate 125 mg tablet doxycycline hyclate 100 mg capsule 100 mg PO BID #10 caps 11/15/22 enoxaparin 80 mg/0.8 mL 80 mg (0.8 mL) subcut Q12H #8 mL 11/15/22 subcutaneous syringe (Lovenox) Allergies Allergy/AdvReac Type Severity Reaction Status Date / Time vancomycin [VANCOMYCIN] Allergy Unknown SKIN GETS Verified 11/04/22 12:34 RED PMFSH Past Medical History Medical History (Updated 02/22/23 @ 19:43 by VICKY Arellano) DVT of lower extremity, bilateral Migraine headache Opioid use disorder in remission Surgical History (Updated 11/12/22 @ 06:29 by Quita Griffiths MD) History of ankle surgery History of surgery on lower extremity Social History Social History Household Members: None Housing: Apartment Do you presently have visiting nurse or other home services: No Alcohol intake: never Patient Tobacco Use Status: Never used Tobacco e-Cigarette/Vaping Use: Never Used Second Hand Smoke Exposure: No Substance Use Type: Heroin service: No Current occupational status: employed Physical Exam Vital Signs: Vital Signs: Last Vital Signs Temp 98.4 F 02/22/23 16:58 Pulse 125 H 02/22/23 16:58 Resp 18 02/22/23 16:58 BP 121/95 H 02/22/23 16:58 Pulse Ox 92 02/22/23 16:58 O2 Del Method Room Air 02/22/23 16:58 BMI result Body Mass Index 25.9 Course Course Course Narrative: RME - 32 yo male with history of polysubstance abuse presents to the ER via EMS for evaluation of nausea and dizziness today at work. He was found injecting heroin in the bathroom at his place of employment. He states his symptoms started prior to drug use. Admitted to EMS to using 5 bags today. He states he is in the process of changing over from methadone to suboxone, did not take it today. HR 120 in triage. admits to anxiety Plan: labs, utox, etoh, ekg Reevaluation(s) Reevaluation #1: patient's father came to the triage room demanding that his son be brought back to the treatment room because he was worried about his symptoms being from a stroke. he states I know everything that happened today, he needs to be seen. his father was reassured, that his symptoms were more concerning for substance abuse rather than stroke. patient was found in the bathroom several times during his 2 hour wait in the ER. had to be asked to vacate the bathroom after being in there 20+ minutes. patient states he was leaving the ER and did not want to wait any more. Time: 19:36 Discharge Plan Discharge Clinical Impression: Active substance abuse Patient Disposition: Elopement Prescriptions: No Action sumatriptan succinate 100 mg tablet 1 tab PO Q2H PRN (Reason: Migraine Headache) gabapentin 300 mg capsule 1 cap PO BEDTIME Ajovy Autoinjector 225 mg/1.5 mL auto-injector 225 mg subcut QMONTH methadone 5 mg/5 mL Solution 50 mg PO DAILY amoxicillin-pot clavulanate 875-125 mg tablet 1 tab PO BID Qty: 10 0RF doxycycline hyclate 100 mg capsule 100 mg PO BID Qty: 10 0RF Rx Instructions: Take with food and full glass of water. Do not lay down for 1 hour after taking enoxaparin [Lovenox] 80 mg/0.8 mL syringe 80 mg subcut Q12H Qty: 8 0RF Rx Instructions: Use 0.7ml twice daily. Discharge excess
[2023-02-22 16:58] VITALS: BP 121/95; PULSE 125; RESP 18; TEMP 36.9; O2SAT 92; BMI 25.9
--- NOTE | 2023-02-22 17:02 | ECG_ITS ---
Test Reason : dizziness Blood Pressure : / mmHG Vent. Rate : 132 BPM Atrial Rate : 132 BPM P-R Int : 128 ms QRS Dur : 082 ms QT Int : 298 ms P-R-T Axes : 069 -21 -01 degrees QTc Int : 441 ms Sinus tachycardia cannot exclude old inferior infarct When compared with ECG of 25-SEP-2022 13:52, Increase in ventricular rate Referred By: Tiffanie Johnson Electronically Signed By:GINNY ATKINS
--- NOTE | 2023-02-22 19:31 | PC.NURSE ---
PTS FATHER APPROACHED TRIAGE ROOM STATING HE SUSPECTED PT WAS HAVING A STROKE GIVEN HIS HX OF DVTS. HE WAS ADVISED THAT WAS NOT THE ENTIRETY OF THE STORY PROVIDED DURING TRIAGE PROCESS. FATHER STATED HE UNDERSTOOD WHAT HAD TAKEN PLACE TODAY. FATHER WAS REASSURED THAT HIS SONS SYMPTOMS WERE MORE CONCERNING FOR SUBSTANCE USE OVER CVA. REGISTRATION STAFF STATING THAT THE PT DIRECTED HIS FATHER HERE FOR FURTHER CLARIFICATION OF HOW LONG IT WOULD TAKE FOR HIM TO BE SEEN IN THE MAIN ED. PT APPEARED IN TRIAGE, SPEECH SLURRED, FORGETFUL, HOSTILE TO STAFF FOR HAVING SPOKEN WITH HIS FATHER.
--- OUTSIDE RECORDS SUMMARY | 2023-02-22 19:52 | XMS_ITS | Continuity of Care Document ---
Author Name Unknown Organization [facility] Address [address] [place] [address]- Care Team Providers Care Chair Installer Name Role Phone Not on Staff, PCP Primary Care Physician Unavail able Encounter [facility] Date(s): 11/17/22 - 12/17/22 [facility] [address] [place] [id number]- Allergies, Adverse Reactions, Alerts Substance Reaction Severity Status vancomycin red skin raswh Active Medications Ajovy Autoinjector 225 mg/1.5 mL subcutaneous solution = 225 mg, Subcutaneous Injection, Every 28 days, # 1 kit, 5 Refills, Maintenance, 06/18/22 4:26:00 EDT, Partial fill upon patient request if the prescription is for a schedule II opioid drug. Start Date: 06/18/22 Status: Ordered cloNIDine 0.1 mg oral tablet 0.1 mg, 1, tablet, By Mouth, 2 times a day, # 14 tablet, Refills 0, Tot. Refills 0, Maintenance, 06/20/22 11:51:00 EDT, Route to Pharmacy Electronically, [facility], Partial fill upon patient request if the prescription is for a schedule... Start Date: 06/20/22 Stop Date: 06/27/22 Status: Ordered esomeprazole 20 mg oral enteric coated capsule 1 capsule = 20 mg, By Mouth, Daily, # 30 capsule, 0 Refills, Maintenance, 12/28/17 18:37:37, EC Capsule Start Date: 12/28/17 Status: Ordered Gabapentin = 300 mg, By Mouth, 3 times a day, 0 Refills, Maintenance, 06/17/22 17:19:00 EDT, Partial fill uponpatient request if the prescription is for a schedule II opioid drug. Start Date: 06/17/22 Status: Ordered Imitrex 100 mg oral tablet 1 tablet = 100 mg, By Mouth, Daily, PRN for migraine headache, may repeat dose after 2 hours up to a maximum of 2, # 9 tablet, 0 Refills, Maintenance, 06/17/22 17:20:00 EDT, Tablet, Partial fill uponpatient request if the prescription is for a schedu... Start Date: 06/17/22 Status: Ordered Methadone = 67 mg, Daily, 0 Refills, Maintenance, 06/17/22 17:20:00 EDT, Partial fill upon patient request ifthe prescription is for a schedule II opioid drug. Start Date: 06/17/22 Status: Ordered Zolpidem = 10 mg, Daily at bedtime, 0 Refills, Maintenance, 06/17/22 17:19:00 EDT, Partial fill upon patientrequest if the prescription is for a schedule II opioid drug. Start Date: 06/17/22 Status: Ordered Problem List Condition Confirmation Course Effective Dates Status Health St atus Informant Deep vein thrombosis (DVT) of femoral vein of right lower extremity Confirmed Active History of migraine headaches Confirmed Active History of heroin abuse Confirmed Active Patient Care team information Care Team Personnel Name: Not on Staff, PCP Position: [facility] Physician (General Medicine) Member Role: PCP Name: Pamela Maza LPN Position: [facility] RN Member Role: Primary Care Nurse Care Team Related Persons Name: ARTHUR ORTIZ Address: [place] [address] Name: JOSE FRANCISCO ORTIZ Address: home [address] [place] [address]
== END 2023-02-22 19:53 | disposition left against medical advice (07) ==
PROVIDERS: Emergency Provider Emergency Medicine
DX: F19.10 Other psychoactive substance abuse, uncomplicated (principal); R42 Dizziness and giddiness; F11.20 Opioid dependence, uncomplicated; Z86.718 Personal history of other venous thrombosis and embolism; Z79.01 Long term (current) use of anticoagulants
CPT/HCPCS: 93005; 99283

== ENCOUNTER 2023-03-20 08:33 | Outpatient (REF) | payer MEDICAID, SELFPAY | END 2023-03-20 08:34 | disposition home or self-care (01) | LOC: HO.HOSX 08:33 | PROVIDERS: Visit Provider Orthopaedic Surgery | DX: Z13.89 Encounter for screening for other disorder (principal) ==

== ENCOUNTER 2023-04-14 00:35 | Emergency (ER) | payer OTHER, SELFPAY ==
[2023-04-14 00:39] VITALS: BP 147/110; PULSE 114; RESP 18; TEMP 37; O2SAT 96; BMI 23.0
[2023-04-14 01:07] LABS: Basophils Percent Auto 0.4 % (0-2); Eosinophils Absolute Auto 0.1 X10*3/uL (0.0-0.4); Hematocrit 35.2 % (42.0-52.0); Imm Gran Abs Auto 0.08 X10*3/uL (0.00-0.03); Imm Gran Pct Auto 1.2 % (0.0-0.4); Lymphocytes Absolute Auto 1.6 X10*3/uL (1.2-4.9); Lymphocytes Percent Auto 23.8 % (20-40); MANUAL DIFF FLAG NO; Mean Corpuscular HGB Conc 31.3 g/dl (31.0-36.0); Mean Corpuscular Hemoglobin 26.4 pg (27.0-33.0); Mean Corpuscular Volume 84.4 fL (80.0-98.0); Mean Platelet Volume 9.3 fL (9.4-12.4); Monocytes Absolute Auto 0.5 X10*3/uL (0.1-1.2); Monocytes Percent Auto 7.9 % (2-11); Neutrophils Absolute Auto 4.5 x10*3/uL (2.0-8.3); Neutrophils Percent Auto 65.7 % (45-73); Platelet Count 565 X10*3/uL (160-400); Red Blood Count 4.17 X10*6/uL (4.60-5.80); Red Cell Distribution Width 14.4 % (11.0-16.0); White Blood Count 6.8 X10*3/uL (4.8-10.8)
[2023-04-14 01:24] LABS: Anion Gap 17 (12-20); Blood Urea Nitrogen 12 mg/dL (9-16); Calcium 10.3 mg/dL (8.4-10.2); Carbon Dioxide 26 mmol/L (22-29); Chloride 103 mmol/L (96-108); Estimated Glomerular Filt Rate > 60; Glucose Random 90 mg/dL (60-115); Potassium 4.1 mmol/L (3.3-5.1); Sodium 142 mmol/L (135-145)
--- NOTE | 2023-04-14 01:31 | ED.UPPEXIN ---
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 He denies headache or chest pain. Related Data Home Medications Medication Instructions Recorded Confirmed fremanezumab-vfrm 225 mg/1.5 mL 225 mg subcut QMONTH 04/12/21 11/11/22 subcutaneous auto-injector (Ajovy) gabapentin 300 mg capsule 1 cap PO BEDTIME 04/12/21 11/11/22 sumatriptan succinate 100 mg tablet 1 tab PO Q2H PRN Migraine Headache 04/12/21 11/11/22 methadone 5 mg/5 mL oral solution 50 mg PO DAILY 04/13/21 09/28/22 Previous Rx's Medication Instructions Recorded enoxaparin 80 mg/0.8 mL 80 mg (0.8 mL) subcut Q12H #8 mL 11/15/22 subcutaneous syringe (Lovenox) amoxicillin 875 mg-potassium 1 tab PO BID 5 days #10 tabs 04/14/23 clavulanate 125 mg tablet Allergies Allergy/AdvReac Type Severity Reaction Status Date / Time vancomycin [VANCOMYCIN] Allergy Unknown SKIN GETS Verified 04/14/23 00:45 RED Review of Systems Review of Systems: Pertinent positives and negatives as stated in HPI [facility] Past Medical History Source: nursing notes reviewed Medical History DVT of lower extremity, bilateral Migraine headache Opioid use disorder in remission Surgical History History of ankle surgery History of surgery on lower extremity Social History Social History Household Members: None Housing: Apartment Do you presently have visiting nurse or other home services: No Alcohol intake: never Patient Tobacco Use Status: Never used Tobacco e-Cigarette/Vaping Use: Never Used Second Hand Smoke Exposure: No Substance Use Type: Heroin Advance Directives: No Advance Directives Information Provided: No service: No Current occupational status: employed Physical Exam Vital Signs: Vital Signs: Last Vital Signs Temp 98.6 F 04/14/23 00:39 Pulse 114 H 04/14/23 00:39 Resp 18 04/14/23 00:39 BP 147/110 H 04/14/23 00:39 Pulse Ox 96 04/14/23 00:39 O2 Del Method Room Air 04/14/23 00:39 BMI result Body Mass Index 23.0 VITAL SIGNS: Reviewed. GENERAL: Well developed, well nourished, in no acute distress. HEAD: Normocephalic/atraumatic EYES: PERRLA, EOMI EARS: Ext canals without abnormality LUNGS: Normal breath sounds. No adventitious sounds or accessory muscle use. SpO2<96> CARDIOVASCULAR: Regular rate and rhythm without noted murmurs ABDOMEN: Soft, non-tender, non-distended with bowel sounds. MUSCULOSKELETAL: No tenderness, deformities, or effusions noted on gross inspection. EXTREMITIES: No cyanosis, clubbing or edema; LEFT HAND/WRIST: There is in and checks on site noted at the mid, dorsal, left wrist with some warmth, minimal erythema, fROM. SKIN: Inspection of the skin reveals no rashes NEUROLOGIC: Alert and oriented x 4. Strength and sensation to light touch were grossly intact x 4. Medical Decision Making Medical Decision Making MDM Narrative: 33M with injection to dorsum of left hand, DDX: cellulitis, inflammatory response, localized infiltration of cocaine substance. I reviewed all investigations and hematologic results are w/o leukocytosis or left shift, elevated platelets 2/2 acute phase reactant from cocaine use. Chemistries are grossly wnl. Pt will receive initia abx here and then be discharged with remaining course. Differential Diagnosis Please see the discussion above Admission/Observation Consideration of admission/observation: Escalation of care including admission/observation considered Lab Data Please see the discussion above 04/14/23 01:01 04/14/23 01:01 Labs: Lab Results 04/14/23 04/14/23 Range/Units 01:01 01:01 WBC 6.8 (4.8-10.8) X10*3/uL RBC 4.17 L (4.60-5.80) X10*6/uL Hgb 11.0 L (14.0-18.0) g/dl Hct 35.2 L (42.0-52.0) % MCV 84.4 (80.0-98.0) fL MCH 26.4 L (27.0-33.0) pg MCHC 31.3 (31.0-36.0) g/dl RDW 14.4 (11.0-16.0) % Plt Count 565 H D (160-400) X10*3/uL MPV 9.3 L (9.4-12.4) fL Immature Gran % (Auto) 1.2 H (0.0-0.4) % Neut % (Auto) 65.7 (45-73) % Lymph % (Auto) 23.8 (20-40) % [place] % (Auto) 7.9 (2-11) % Eos % (Auto) 1.0 (0-4) % Baso % (Auto) 0.4 (0-2) % Lymph # (Auto) 1.6 (1.2-4.9) X10*3/uL [place] # (Auto) 0.5 (0.1-1.2) X10*3/uL Eos # (Auto) 0.1 (0.0-0.4) X10*3/uL Baso # (Auto) 0.0 (0.0-0.2) X10*3/uL Abs Immat Gran (auto) 0.08 H (0.00-0.03) X10*3/uL Absolute Neuts (auto) 4.5 (2.0-8.3) x10*3/uL Absolute Nucleated RBC 0.000 (0.0-0.012) X10*3/uL Nucleated RBC % (auto) 0.0 (0.0-0.2) /100WBC Sodium 142 (135-145) mmol/L Potassium 4.1 (3.3-5.1) mmol/L Chloride 103 (96-108) mmol/L Carbon Dioxide 26 (22-29) mmol/L Anion Gap 17 (12-20) BUN 12 (9-16) mg/dL Creatinine 1.07 (0.5-1.4) mg/dL Estim Creat Clear Calc 102.0 Estimated GFR > 60 Random Glucose 90 (60-115) mg/dL Calcium 10.3 H (8.4-10.2) mg/dL External Record Review External record reviewed: Outpatient record and Prior outpatient labs Discharge Plan Discharge Clinical Impression: Cellulitis of hand Patient Disposition: Home, Self-Care Instructions: Cellulitis (ED) Additional Instructions: Complete the entire course of antibiotics as ordered. Prescriptions: New amoxicillin-pot clavulanate 875-125 mg tablet 1 tab PO BID 5 Days Qty: 10 0RF Discontinued amoxicillin-pot clavulanate 875-125 mg tablet 1 tab PO BID Qty: 10 0RF doxycycline hyclate 100 mg capsule 100 mg PO BID Qty: 10 0RF Rx Instructions: Take with food and full glass of water. Do not lay down for 1 hour after taking No Action sumatriptan succinate 100 mg tablet 1 tab PO Q2H PRN (Reason: Migraine Headache) gabapentin 300 mg capsule 1 cap PO BEDTIME Ajovy Autoinjector 225 mg/1.5 mL auto-injector 225 mg subcut QMONTH methadone 5 mg/5 mL Solution 50 mg PO DAILY enoxaparin [Lovenox] 80 mg/0.8 mL syringe 80 mg subcut Q12H Qty: 8 0RF Rx Instructions: Use 0.7ml twice daily. Discharge excess
[2023-04-14 01:46] VITALS: BP 125/87; PULSE 107; RESP 14; O2SAT 96
--- NOTE | 2023-04-14 01:55 | PC.NURSE ---
Pt A&Ox4, reports 9/10 constant sharp/stabbing left wrist pain. Pt reports injecting cocaine to left wrist area one hour prior to arrival. Pt able to move extremity/fingers. Area warm to touch, small red area noted, ice pack provided.
[2023-04-14] MEDS: Acetaminophen 325 MG TABLET 975 MG PO (02:15)
[2023-04-14] MEDS: Amoxicillin/Potassium Clav 875 MG TABLET PO (02:15)
[2023-04-14] MEDS: Ibuprofen 400 MG TABLET PO (02:15)
== END 2023-04-14 02:38 | disposition home or self-care (01) ==
PROVIDERS: Emergency Provider Student in an Organized Health Care Education/Training Program
DX: L03.114 Cellulitis of left upper limb (principal); F14.90 Cocaine use, unspecified, uncomplicated; F11.20 Opioid dependence, uncomplicated; Z86.718 Personal history of other venous thrombosis and embolism; Z79.01 Long term (current) use of anticoagulants
CPT/HCPCS: 36415; 80048; 85025; 99283; 99284

== ENCOUNTER 2023-05-26 06:24 | Emergency (ER) | payer OTHER, SELFPAY ==
[2023-05-26 06:37] VITALS: BP 129/100; PULSE 91; RESP 16; TEMP 36.7; O2SAT 100; BMI 22.2
--- NOTE | 2023-05-26 07:05 | ED.ABDPAIN ---
HPI - Abdominal Pain General Chief Complaint: Abdominal Pain Stated Complaint: Abdominal Pain Time Seen by Provider: 05/26/23 06:57 Source: patient Mode of arrival: ambulatory Limitations: no limitations History of Present Illness HPI narrative: 33-year-old male who presents emergency department for evaluation headache, nausea, vomiting and abdominal pain. Patient states that he gets frequent migraine headaches and gets 1 headache a week. He states that last night he developed a headache which is located on the on the right front of his head and radiates the back of his head. The headache is been constant and is 7/10 at its worst. The headache is consistent with 1 of his migraine headaches. He states that the headache triggered abdominal pain which he describes as a diffuse, cramping sensation which is 5/10 at its worst. Patient had nausea and multiple episodes of vomiting. He denied diarrhea. Patient does have a history of opiate use disorder and states that he was on methadone and they switched him over to Suboxone which caused him to have cravings and he does abuse injection last week. He is back on methadone at this time. He denied fever, chills, rhinorrhea, sore throat, cough, chest pain, shortness of breath, dyspnea on exertion, frequency, urgency or dysuria. He states that he is constipated and he attributes this to the methadone. Related Data Home Medications Medication Instructions Recorded Confirmed fremanezumab-vfrm 225 mg/1.5 mL 225 mg subcut QMONTH 04/12/21 11/11/22 subcutaneous auto-injector (Ajovy) gabapentin 300 mg capsule 1 cap PO BEDTIME 04/12/21 11/11/22 sumatriptan succinate 100 mg tablet 1 tab PO Q2H PRN Migraine Headache 04/12/21 11/11/22 methadone 5 mg/5 mL oral solution 50 mg PO DAILY 04/13/21 09/28/22 Previous Rx's Medication Instructions Recorded enoxaparin 80 mg/0.8 mL 80 mg (0.8 mL) subcut Q12H #8 mL 11/15/22 subcutaneous syringe (Lovenox) amoxicillin 875 mg-potassium 1 tab PO BID 5 days #10 tabs 04/14/23 clavulanate 125 mg tablet ondansetron 4 mg disintegrating 4 mg PO Q6-8H PRN nausea and 05/26/23 tablet vomiting #14 tabs promethazine 25 mg rectal 25 mg ID Q6H PRN nausea and 05/26/23 suppository (Promethegan) vomiting #20 ea Allergies Allergy/AdvReac Type Severity Reaction Status Date / Time vancomycin [VANCOMYCIN] Allergy Unknown SKIN GETS Verified 05/26/23 06:36 RED Review of Systems Review of Systems Yes all other systems are reviewed and are negative [facility] Past Medical History [facility] Narrative: Social history: Migraines, DVT, cellulitis, tibial plateau fracture. Social history: He vapes tobacco products. He occasionally drinks alcohol. Does have a history of opiate use disorder and uses injection heroin, last use 1 week prior, currently he is on methadone. Medical History DVT of lower extremity, bilateral Migraine headache Opioid use disorder in remission Surgical History History of ankle surgery History of surgery on lower extremity Social History Social History Household Members: None Housing: Apartment Do you presently have visiting nurse or other home services: No Alcohol intake: current Alcohol intake frequency: holidays/special occasions only Patient Tobacco Use Status: Never used Tobacco Smoked in Last 30 Days: No e-Cigarette/Vaping Use: Never Used Second Hand Smoke Exposure: No Use of substances other than those prescribed or required for medical reasons: Yes Substance Use Type: Heroin and Marijuana Substance Use Frequency: Occasionally Last Used Substance: Weeks (ago) Any prior treatment program specific to substance use: Yes Advance Directives: No Advance Directives Information Provided: No service: No Current occupational status: employed Physical Exam ED Vital Signs: Vital Signs - 24 hr 05/26/23 06:37 05/26/23 07:14 05/26/23 10:19 Temperature 98.0 F 97.7 F Pulse Rate 91 86 66 Respiratory Rate 16 18 16 Blood Pressure 129/100 H 129/100 H 144/89 H Pulse Oximetry 100 100 99 Oxygen Delivery Method Room Air Room Air Room Air BMI result Body Mass Index 22.2 Vital signs revealed elevated blood pressure 129/100 otherwise unremarkable Exam General: Awake, alert in mild distress secondary to his nausea, head and abdominal pain Head: Normocephalic, atraumatic EENT: PERRL, Lids normal, sclera normal, conjunctiva normal, nose normal , ears normal, throat without erythema or exudates Neck: Supple, no adenopathy, trachea midline and nontender Lung: breath sounds symmetric, no wheezing, rales or rhonchi Chest: symmetric movement, nontender Heart: regular rate and rhythm, normal S1, S2 no murmurs or rubs Abdomen: soft, non-tender, nondistended, normal bowel sounds Back: no vertebral tenderness, no CVAT Extremities: no deformities, moves all extremities symmetrically Skin: no rashes, no lesion, normal color and warmth Neuro: Awake, alert, oriented, normal speech, cranial nerves intact, moves all extremities symmetrically Psych: Pleasant, cooperative Procedures EJ/Peripheral Line Neck R: Time Out Performed: No Skin Cleansed in Sterile Fashion: Yes Size (gauge): 20 IV Secured and Dressing Applied: Yes Patient Tolerated Procedure: well Medical Decision Making Medical Decision Making [facility] Narrative: 33-year-old male with a history of migraines, heroin use disorder-last use 1 week prior, methadone maintenance who presents emergency department for evaluation of a headache which is typical for his migraines with associated abdominal pain, nausea, and vomiting. Vital signs were unremarkable pain. Physical examination revealed no significant abdominal tenderness and he had a normal neurologic exam. Following evaluation was ordered by me: CBC, CMP, lipase, urinalysis. I ordered IV insertion, normal saline x1 L, Toradol 15 mg IV, Zofran 4 mg IV and Ativan 1 mg IV 1337: Nursing staff was unable to establish an IV site I did put in a right EJ, patient tolerated the procedure well. Patient did get some improvement with initial treatment but then required a 2nd dose of Toradol 15 mg IV, Phenergan 12.5 mg IV and a 2 L of normal saline. Patient is feeling significantly better We did confirm his methadone dose, he received his last dose yesterday , therefore I ordered methadone 75 mg orally. Patient will be discharged home with prescriptions for Zofran ODT and Phenergan 25 mg suppositories. He was given printed and verbal instructions and discharged Differential Diagnosis Differential Diagnoses: The differential diagnosis associated with the presentation includes Differential diagnosis includes was not limited to viral syndrome, migraine with abdominal symptoms, electrolyte abnormalities, anemia Admission/Observation Consideration of admission/observation: Escalation of care including admission/observation considered Lab Data [facility] Lab Attestation statement: I reviewed the patient's lab results. My independent interpretation patient's laboratory evaluation is as follows: Anemia with an H&H of 11 and 36. Elevated platelets [id number]. Normal CMP. Normal lipase. Urinalysis was negative. 05/26/23 07:56 05/26/23 07:56 Labs: Lab Results 05/26/23 05/26/23 05/26/23 Range/Units 07:56 07:56 10:23 WBC 10.7 (4.8-10.8) X10*3/uL RBC 4.96 (4.60-5.80) X10*6/uL Hgb 11.5 L (14.0-18.0) g/dl Hct 36.9 L (42.0-52.0) % MCV 74.4 L (80.0-98.0) fL MCH 23.2 L (27.0-33.0) pg MCHC 31.2 (31.0-36.0) g/dl RDW 15.9 (11.0-16.0) % Plt Count 650 H (160-400) X10*3/uL MPV 9.4 (9.4-12.4) fL Immature Gran % (Auto) 0.9 H (0.0-0.4) % Neut % (Auto) 82.0 H (45-73) % Lymph % (Auto) 12.8 L (20-40) % [place] % (Auto) 3.8 (2-11) % Eos % (Auto) 0.1 (0-4) % Baso % (Auto) 0.4 (0-2) % Lymph # (Auto) 1.4 (1.2-4.9) X10*3/uL [place] # (Auto) 0.4 (0.1-1.2) X10*3/uL Eos # (Auto) 0.0 (0.0-0.4) X10*3/uL Baso # (Auto) 0.0 (0.0-0.2) X10*3/uL Abs Immat Gran (auto) 0.10 H (0.00-0.03) X10*3/uL Absolute Neuts (auto) 8.7 H (2.0-8.3) x10*3/uL Absolute Nucleated RBC 0.000 (0.0-0.012) X10*3/uL Nucleated RBC % (auto) 0.0 (0.0-0.2) /100WBC Sodium 140 (135-145) mmol/L Potassium 4.1 (3.3-5.1) mmol/L Chloride 98 (96-108) mmol/L Carbon Dioxide 29 (22-29) mmol/L Anion Gap 17 (12-20) BUN 13 (9-16) mg/dL Creatinine 1.29 (0.5-1.4) mg/dL Estim Creat Clear Calc 79.4 Estimated GFR > 60 Random Glucose 107 (60-115) mg/dL Calcium 11.7 H D (8.4-10.2) mg/dL Total Bilirubin 0.4 (0.0-1.0) mg/dL AST 19 (5-37) U/L ALT 14 (0-40) U/L Alkaline Phosphatase 71 (39-117) U/L Total Protein 8.7 H (6.5-8.0) g/dL Albumin 4.8 (3.5-5.0) g/dL Lipase 55 (8-78) U/L Urine Color Yellow Urine Appearance Cloudy Urine pH 8.5 (5.0-9.0) Ur Specific [place] 1.020 (1.005-1.025) Urine Protein Trace (Neg-Trace) mg/dL Urine Glucose (UA) Negative (Negative) mg/dL Urine Ketones 80 (Negative) mg/dL Urine Blood Negative (Negative) Urine Nitrite Negative (Negative) Ur Leukocyte Esterase Negative (Negative) External Record Review External record reviewed: Outside ED record (Methadone dose record) Prescription Management I considered prescription management with: Other (Antiemetics) Chronic Conditions Patient?s care impacted by: Other (Opiate use disorder, chronic migraine) Medications Administered Discontinued Medications Generic Name Dose Route Start Last Admin Trade Name Freq PRN Reason Stop Dose Admin Sodium Chloride 1,000 mls @ 999 mls/hr 05/26/23 07:05 05/26/23 09:23 Ns IV 05/26/23 08:05 Infused .Q1H1M STA Infusion Promethazine HCl 12.5 mg/ 50.5 mls @ 202 mls/hr 05/26/23 12:06 05/26/23 13:16 Sodium Chloride IV 05/26/23 12:07 Infused ONCE ONE Infusion Sodium Chloride 1,000 mls @ 999 mls/hr 05/26/23 12:06 05/26/23 13:17 Ns IV 05/26/23 13:06 999 mls/hr .Q1H1M STA Administration Ketorolac Tromethamine 15 mg 05/26/23 07:05 05/26/23 08:17 Ketorolac Tromethamine 15 Mg/Ml Vial IVPUSH 05/26/23 07:06 15 mg ONCE STA Administration Ketorolac Tromethamine 15 mg 05/26/23 12:06 05/26/23 12:36 Ketorolac Tromethamine 15 Mg/Ml Vial IVPUSH 05/26/23 12:07 15 mg ONCE STA Administration Lorazepam 1 mg 05/26/23 07:05 05/26/23 08:32 Lorazepam 2 Mg/Ml Vial IVPUSH 05/26/23 07:06 1 mg STAT STA Administration Ondansetron HCl 4 mg 05/26/23 07:05 05/26/23 08:17 Ondansetron Hcl 4 Mg/2 Ml Vial IVPUSH 05/26/23 07:06 4 mg ONCE ONE Administration Discharge Plan Discharge Clinical Impression: Abdominal migraine, Migraine headache, Vomiting, Opiate use, Encounter for methadone maintenance therapy Patient Disposition: Home, Self-Care Additional Instructions: Your presentation is consistent with your migraine headache and abdominal migraine syndrome. Your blood work was unremarkable pain You did receive your dose of methadone 75 mg orally here in the emergency department Take Zofran ODT 4 mg pills, 1 pill dissolved in your mouth every 8 hours as needed for nausea and vomiting. Also take Phenergan 25 mg suppositories, 1 suppository every 8 hours as needed for nausea and vomiting Follow-up with your doctor in 2 days. Please return to the emergency department if your symptoms get worse or if you develop any symptoms that are concerning to you. Prescriptions: New promethazine [Promethegan] 25 mg suppository 25 mg ID Q6H PRN (Reason: nausea and vomiting) Qty: 20 0RF ondansetron 4 mg tablet,disintegrating 4 mg PO Q6-8H PRN (Reason: nausea and vomiting) Qty: 14 0RF No Action sumatriptan succinate 100 mg tablet 1 tab PO Q2H PRN (Reason: Migraine Headache) gabapentin 300 mg capsule 1 cap PO BEDTIME Ajovy Autoinjector 225 mg/1.5 mL auto-injector 225 mg subcut QMONTH methadone 5 mg/5 mL Solution 50 mg PO DAILY enoxaparin [Lovenox] 80 mg/0.8 mL syringe 80 mg subcut Q12H Qty: 8 0RF Rx Instructions: Use 0.7ml twice daily. Discharge excess amoxicillin-pot clavulanate 875-125 mg tablet 1 tab PO BID 5 Days Qty: 10 0RF
[2023-05-26 07:14] VITALS: BP 129/100; PULSE 86; RESP 18; O2SAT 100
--- NOTE | 2023-05-26 07:52 | PC.NURSE ---
RN unable to place IV at this time. MD Lovell placed EJ to right neck. labs drawn.
[2023-05-26 08:00] LABS: MANUAL DIFF FLAG NO
[2023-05-26 08:01] LABS: Basophils Percent Auto 0.4 % (0-2); Eosinophils Percent Auto 0.1 % (0-4); Hematocrit 36.9 % (42.0-52.0); Hemoglobin 11.5 g/dl (14.0-18.0); Imm Gran Pct Auto 0.9 % (0.0-0.4); Lymphocytes Absolute Auto 1.4 X10*3/uL (1.2-4.9); Lymphocytes Percent Auto 12.8 % (20-40); Mean Corpuscular HGB Conc 31.2 g/dl (31.0-36.0); Mean Corpuscular Hemoglobin 23.2 pg (27.0-33.0); Mean Corpuscular Volume 74.4 fL (80.0-98.0); Mean Platelet Volume 9.4 fL (9.4-12.4); Monocytes Absolute Auto 0.4 X10*3/uL (0.1-1.2); Monocytes Percent Auto 3.8 % (2-11); Neutrophils Absolute Auto 8.7 x10*3/uL (2.0-8.3); Platelet Count 650 X10*3/uL (160-400); Red Blood Count 4.96 X10*6/uL (4.60-5.80); Red Cell Distribution Width 15.9 % (11.0-16.0); White Blood Count 10.7 X10*3/uL (4.8-10.8)
[2023-05-26] MEDS: Ketorolac Tromethamine 15 MG/ML VIAL IVPUSH ×2 (08:17→12:36)
[2023-05-26] MEDS: ondansetron HCL 4 MG/2 ML VIAL IVPUSH (08:17)
[2023-05-26] MEDS: 0.9 % Sodium Chloride 1,000 ML 999 ML IV ×2 (08:18→13:17)
[2023-05-26 08:23] LABS: Alanine Aminotransferase 14 U/L (0-40); Albumin Level 4.8 g/dL (3.5-5.0); Alkaline Phosphatase 71 U/L (39-117); Anion Gap 17 (12-20); Aspartate Amino Transferase 19 U/L (5-37); Bilirubin Total 0.4 mg/dL (0.0-1.0); Blood Urea Nitrogen 13 mg/dL (9-16); Calcium 11.7 mg/dL (8.4-10.2); Carbon Dioxide 29 mmol/L (22-29); Chloride 98 mmol/L (96-108); Creatinine Clr Calc Pharmacy 79.4; Estimated Glomerular Filt Rate > 60; Glucose Random 107 mg/dL (60-115); Lipase 55 U/L (8-78); Potassium 4.1 mmol/L (3.3-5.1); Sodium 140 mmol/L (135-145); Total Protein 8.7 g/dL (6.5-8.0)
[2023-05-26] MEDS: LORazepam 2 MG/ML VIAL 1 MG IVPUSH (08:32)
[2023-05-26 10:19] VITALS: BP 144/89; PULSE 66; RESP 16; TEMP 36.5; O2SAT 99
[2023-05-26 10:30] LABS: Appearance Urine Cloudy; Color Urine Yellow; Glucose Urine UA Negative (Negative); Leukocyte Esterase Urine Negative (Negative); Nitrite Urine Negative (Negative); PH 8.5 (5.0-9.0); Urine Blood Negative (Negative); Urine Ketones 80 mg/dL (Negative); Urine Protein Trace mg/dL (Neg-Trace)
[2023-05-26] MEDS: methADONE HCl 20 MG/2 ML ORAL.CONC 75 MG PO (13:55)
[2023-05-26 14:30] VITALS: BP 137/91; PULSE 109; RESP 18; TEMP 36.7; O2SAT 97
--- NOTE | 2023-05-29 07:51 | HE.PHANOTE ---
RE; METHADONE VERIFICATION last dose 75 mg given 05/26/23 @yani
== END 2023-05-26 14:49 | disposition home or self-care (01) ==
PROVIDERS: Emergency Provider Emergency Medicine Emergency Medical Services
DX: G43.D0 Abdominal migraine, not intractable (principal); G44.89 Other headache syndrome; G43.909 Migraine, unspecified, not intractable, without status migrainosus; F11.20 Opioid dependence, uncomplicated; Z79.899 Other long term (current) drug therapy
CPT/HCPCS: 36415; 80053; 81003; 83690; 85025; 96361; 96365; 96375; 96376; 99284; J1885; J2060; J2405; J2550

== ENCOUNTER 2023-06-19 11:00 | Emergency (ER) | payer OTHER, SELFPAY ==
[2023-06-19 11:03] VITALS: BP 141/99; PULSE 96; RESP 18; TEMP 37.4; O2SAT 98; BMI 24.0
--- NOTE | 2023-06-19 11:03 | ED.GENADULT ---
HPI - General Adult General Chief complaint: Dental/Oral Stated complaint: dental pain Time Seen by Provider: 06/19/23 11:19 Source: patient and RN notes reviewed Mode of arrival: ambulatory Limitations: no limitations History of Present Illness HPI narrative: This is a 33-year-old male, with no known past medical history, presenting to the emergency department with complaints of left upper dental pain x 2 days. Patient reports that he has had problems with a left upper tooth, states that he a dental implant. He states that last year he had similar problems and was treated with a course of antibiotics and was told to follow-up with a specialist as the implant should not be causing him to have these problems. He states that he did not follow-up with the specialist. He states that he recently was laid off his job and has had difficulty with health insurance and dental insurance. He states that he is able to follow-up with his dentist, he will call tomorrow to make an appointment. He has been taking ibuprofen and Tylenol which has provided him with some relief. No other complaints or concerns at this time. MD complaint: Dental pain Onset (ago): day(s) Radiation: non-radiation Relieving factors: none Exacerbating factors: none Associated symptoms: denies other symptoms Related Data Home Medications Medication Instructions Recorded Confirmed fremanezumab-vfrm 225 mg/1.5 mL 225 mg subcut QMONTH 04/12/21 11/11/22 subcutaneous auto-injector (Ajovy) gabapentin 300 mg capsule 1 cap PO BEDTIME 04/12/21 11/11/22 sumatriptan succinate 100 mg tablet 1 tab PO Q2H PRN Migraine Headache 04/12/21 11/11/22 methadone 5 mg/5 mL oral solution 50 mg PO DAILY 04/13/21 09/28/22 Previous Rx's Medication Instructions Recorded enoxaparin 80 mg/0.8 mL 80 mg (0.8 mL) subcut Q12H #8 mL 11/15/22 subcutaneous syringe (Lovenox) amoxicillin 875 mg-potassium 1 tab PO BID 5 days #10 tabs 04/14/23 clavulanate 125 mg tablet ondansetron 4 mg disintegrating 4 mg PO Q6-8H PRN nausea and 05/26/23 tablet vomiting #14 tabs promethazine 25 mg rectal 25 mg CO Q6H PRN nausea and 05/26/23 suppository (Promethegan) vomiting #20 ea amoxicillin 875 mg-potassium 1 tab PO BID 7 days #14 tabs 06/19/23 clavulanate 125 mg tablet ibuprofen 600 mg tablet 600 mg PO Q6H PRN pain #45 tabs 06/19/23 Allergies Allergy/AdvReac Type Severity Reaction Status Date / Time vancomycin [VANCOMYCIN] AdvReac Unknown red man Verified 06/19/23 11:06 syndrome Review of Systems Review of Systems: Yes all other systems are reviewed and are negative Constitutional: Constitutional: Reports as per [facility] Past Medical History Medical History DVT of lower extremity, bilateral Migraine headache Opioid use disorder in remission Surgical History History of ankle surgery History of surgery on lower extremity Social History Social History Household Members: None Housing: Apartment Do you presently have visiting nurse or other home services: No Alcohol intake: current Alcohol intake frequency: holidays/special occasions only Patient Tobacco Use Status: Never used Tobacco e-Cigarette/Vaping Use: Never Used Second Hand Smoke Exposure: No Substance Use Type: Heroin and Marijuana Advance Directives: No Advance Directives Information Provided: Yes service: No Current occupational status: employed Physical Exam ED Vital Signs: Vital Signs - 24 hr 06/19/23 11:03 Temperature 99.3 F Pulse Rate 96 Respiratory Rate 18 Blood Pressure 141/99 H Pulse Oximetry 98 Oxygen Delivery Method Room Air BMI result Body Mass Index 24.0 Const General: cooperative, comfortable and no acute distress Orientation/consciousness: patient oriented x3 Limitations: no limitations HENMT Head: Yes normal to inspection, Yes normocephalic and Yes atraumatic Ears: hearing grossly normal bilaterally General nose exam: Normal external nose present Face and sinus: Yes normal facial exam Mouth: Normal oral and palatal mucosa present, oropharynx normal and moist mucous membranes Teeth image: 1. Patient has tenderness palpation along tooth 16. Also with tenderness to palpation along the outer and inner gumline. No overlying her obvious erythema. No fluctuance or drainage. Throat: Yes posterior oropharynx normal Eyes General: appearance normal, both eyes and all related structures Eyelids: Yes eyelids normal Conjunctivae: conjunctivae normal Sclerae: sclerae normal Pupils: Equal, round and reactive pupils present EOM: EOMs intact bilaterally Neck Neck: Yes normal visual inspection, Yes full ROM and Yes no lymphadenopathy Lymphatic: no lymphadenopathy noted Chest Chest palpation & inspection: normal inspection of the chest Resp Effort & Inspection: normal respiratory effort and able to speak in complete sentences Auscultation: clear to auscultation bilaterally, no crackles, no rales, no rhonchi and no wheezes Cardio Rate: regular rate Rhythm: regular rhythm Heart sounds: S1 normal heart sound present and S2 normal heart sound present GI Inspection: Yes normal to inspection Skin General skin exam: no rashes or lesions noted Trauma: no lacerations or abrasions Wounds: no wounds Neuro General: patient oriented x3 and moves all extremities Cranial nerves: Yes Equal, round and reactive pupils present Extrem General: Yes normal to inspection Right upper extremity: normal to inspection Left upper extremity: normal to inspection Right lower extremity: normal to inspection Left lower extremity: normal to inspection Course Course Course Narrative: This is a rapid medical exam: Additional HPI, ROS, PE not included below will be deferred to primary provider. Patient is a 33-year-old male presenting to the emergency department with complaint of left upper jaw dental pain for 2 days. Denies any fevers/chills. States he has had a root canal to affected tooth with crown. Feels as though there is a space between crown and tooth, as he has had several infections to same tooth. Feels area is infected. Medical Decision Making Medical Decision Making [facility] Narrative: 33-year-old male presenting to the emergency department with complaints of left upper dental pain x2 days. Patient has had no trauma or injury to this tooth. He states that this tooth has had problems in the past and states that this is an implant. He states that he had similar problems last year was treated with a course of antibiotics and was told to follow-up with a specialist. He states that he was laid off and was unable to follow-up with the specialist. He states that his symptoms resolved up until 2 days ago. He endorses tenderness palpation along the left upper tooth without any evidence dental abscess or dental decay. Given clinical findings, will treat with course of antibiotics. Urged the importance of following up with dentist as well as maxillofacial surgeon given recurrent symptoms. Patient given return precautions. Patient understands and agrees with plan. Stable for discharge Differential Diagnosis Differential Diagnoses: The differential diagnosis associated with the presentation includes Dental decay, dental fracture, dental abscess, facial pain Discharge Plan Discharge Clinical Impression: Pain, dental, Dental abscess Patient Disposition: Home, Self-Care Instructions: Toothache (ED) Additional Instructions: You likely have any dental infection that needs to be treated with antibiotics. Please take prescribed medication as directed. Finish the entire course even if your feeling better. Continue taking ibuprofen and Tylenol as needed for pain. You need to follow-up with your dentist, call tomorrow to make an appointment. If any new or worsening symptoms occur, please return for re-evaluation. I am giving you the name and number to a maxillofacial surgeon. You likely need to be seen by her dentist prior to being seen by them however you can call them and ask. [facility] [address] [place] [address] Prescriptions: New amoxicillin-pot clavulanate 875-125 mg tablet 1 tab PO BID 7 Days Qty: 14 0RF ibuprofen 600 mg tablet 600 mg PO Q6H PRN (Reason: pain) Qty: 45 0RF No Action sumatriptan succinate 100 mg tablet 1 tab PO Q2H PRN (Reason: Migraine Headache) gabapentin 300 mg capsule 1 cap PO BEDTIME Ajovy Autoinjector 225 mg/1.5 mL auto-injector 225 mg subcut QMONTH methadone 5 mg/5 mL Solution 50 mg PO DAILY enoxaparin [Lovenox] 80 mg/0.8 mL syringe 80 mg subcut Q12H Qty: 8 0RF Rx Instructions: Use 0.7ml twice daily. Discharge excess amoxicillin-pot clavulanate 875-125 mg tablet 1 tab PO BID 5 Days Qty: 10 0RF promethazine [Promethegan] 25 mg suppository 25 mg CO Q6H PRN (Reason: nausea and vomiting) Qty: 20 0RF ondansetron 4 mg tablet,disintegrating 4 mg PO Q6-8H PRN (Reason: nausea and vomiting) Qty: 14 0RF Discharge Date/Time: 06/19/23 12:46
== END 2023-06-19 12:46 | disposition home or self-care (01) ==
PROVIDERS: Emergency Provider Emergency Medicine
DX: K04.7 Periapical abscess without sinus (principal); Z79.899 Other long term (current) drug therapy
CPT/HCPCS: 99281; 99283

== ENCOUNTER 2023-12-21 13:25 | Emergency (ER) | payer OTHER, SELFPAY ==
--- NOTE | ~2023-12-21 | XR_ITS ---
EXAMINATION: XR LUMBOSACRAL SPINE CLINICAL INFORMATION: Low back pain COMPARISON: None available. TECHNIQUE: Three views of the lumbosacral spine. FINDINGS: Patient is status post posterior decompression and fusion of L2-L4. There is no evidence of hardware failure. There is dextroscoliosis of the lumbar spine. Lumbar vertebral body heights are maintained. There is mild narrowing of most disc space heights throughout the lumbar spine. An IVC filter is present. Moderate stool burden throughout visualized loops of colon. XR/XR lumbar spine 2-3V IMPRESSION: Postsurgical changes of the lumbar spine without evidence of hardware failure.
--- NOTE | ~2023-12-21 | MR_ITS ---
EXAMINATION: MR LUMBAR SPINE WITH AND WITHOUT CONTRAST CLINICAL INFORMATION: Back pain, IV drug abuse COMPARISON: Same day lumbar radiographs TECHNIQUE: MRI of the lumbar spine was obtained using routine sequences with and without the administration of intravenous contrast. 6.5 mL of intravenous Gadavist was administered without immediate complication. FINDINGS: This examination assumes the presence of 5 lumbar type vertebral bodies. For the purposes of this examination, the L5-S1 intervertebral disc space is visualized on axial series 6 image 28. The normal lumbar lordosis is preserved. Trace retrolisthesis of L1-L2. Chronic mild superior endplate height loss at L3. Dextrocurvature of the lumbar spine. Prior posterior fusion at L2-L4 with paired pedicle screws in the L2 and L4 vertebral bodies. There is faint edema along the inferior endplate of L1 with associated enhancement. No discrete epidural collection at this level. The conus medullaris and cauda equina nerve roots are unremarkable; the conus terminates at the level of T12-L1. No abnormal enhancement along the cauda equina nerve roots. L1-L2: Eccentric left disc bulge. Mild facet degeneration. Asymmetric narrowing of the left lateral recess. The central canal is otherwise patent. The neural foramen remain patent. L2-L3: Posterior decompression. No significant spinal canal stenosis. The neural foramen are patent. L3-L4: Posterior decompression. The spinal canal and neural foramen are patent. L4-L5: Disc bulge extending into the bilateral neural foramen. Right foraminal annular fissure. Facet arthropathy with ligamentum flavum redundancy. The central canal is not significantly narrowed. Likely moderate left and [id number] right neural foraminal stenosis with exiting nerve root abutment is suboptimally evaluated secondary to adjacent susceptibility artifact. L5-S1: Facet arthropathy. The spinal canal and neural foramen are patent. MR/MR lumbar spine w con IMPRESSION: Prior posterior decompression and fusion at L2-L4. No significant spinal canal stenosis in the lumbar spine. Faint edema/enhancement along the inferior endplate of L1 is favored to be on the basis of degenerative change. No epidural collection is visualized. Mild to moderate bilateral neural foraminal stenosis at L4-L5.
[2023-12-21 13:30] VITALS: BP 122/83; PULSE 124; RESP 18; TEMP 36.7; O2SAT 99; BMI 20.4
--- NOTE | 2023-12-21 13:30 | ED.GENADULT ---
HPI - General Adult General Chief complaint: Back Pain/Injury Stated complaint: back pain surgery 2019 Time Seen by Provider: 12/21/23 13:58 Source: patient and RN notes reviewed Mode of arrival: ambulatory Limitations: no limitations History of Present Illness HPI narrative: This is a 33-year-old male, with a history opiate use disorder on methadone, presenting to the emergency department with complaints of atraumatic low back pain x2 weeks. Patient reports that he has a history of spinal fusion several years ago, which resolved most of his back pain. He states that over the last 2 weeks he has had worsening back pain. He is unsure whether not this is due to a bad mattress. He states that the pain has only worsened. He also reports that he is on methadone, last dose this morning however states that he has been using IV drugs on top of this. Last use was about 1 week ago. He endorses chills, no fevers, chest pain, shortness of breath, abdominal pain, nausea, vomiting or diarrhea. No other complaints or concerns at this time. MD complaint: Atraumatic back pain Onset (ago): week(s) Radiation: non-radiation Relieving factors: none Exacerbating factors: none Associated symptoms: denies other symptoms Treatments prior to arrival: none Related Data Home Medications Medication Instructions Recorded Confirmed fremanezumab-vfrm 225 mg/1.5 mL 225 mg subcut QMONTH 04/12/21 11/11/22 subcutaneous auto-injector (Ajovy) gabapentin 300 mg capsule 1 cap PO BEDTIME 04/12/21 11/11/22 sumatriptan succinate 100 mg tablet 1 tab PO Q2H PRN Migraine Headache 04/12/21 11/11/22 methadone 5 mg/5 mL oral solution 50 mg PO DAILY 04/13/21 09/28/22 Previous Rx's Medication Instructions Recorded enoxaparin 80 mg/0.8 mL 80 mg (0.8 mL) subcut Q12H #8 mL 11/15/22 subcutaneous syringe (Lovenox) amoxicillin 875 mg-potassium 1 tab PO BID 5 days #10 tabs 04/14/23 clavulanate 125 mg tablet ondansetron 4 mg disintegrating 4 mg PO Q6-8H PRN nausea and 05/26/23 tablet vomiting #14 tabs promethazine 25 mg rectal 25 mg [place] Q6H PRN nausea and 05/26/23 suppository (Promethegan) vomiting #20 ea amoxicillin 875 mg-potassium 1 tab PO BID 7 days #14 tabs 06/19/23 clavulanate 125 mg tablet ibuprofen 600 mg tablet 600 mg PO Q6H PRN pain #45 tabs 06/19/23 cyclobenzaprine 10 mg tablet 10 mg PO TID PRN muscle spasm #15 12/21/23 tabs dexamethasone 4 mg tablet 4 mg PO BID #6 tabs 12/21/23 venlafaxine 75 mg capsule,extended 75 mg PO DAILY #30 caps 12/21/23 release 24 hr Allergies Allergy/AdvReac Type Severity Reaction Status Date / Time vancomycin [VANCOMYCIN] AdvReac Unknown red man Verified 11/29/23 13:24 syndrome Review of Systems Review of Systems: Yes all other systems are reviewed and are negative Constitutional: Constitutional: Reports as per [facility] Past Medical History Attestation statement: The following information was validated with the patient. Medical History DVT of lower extremity, bilateral Migraine headache Opioid use disorder in remission Surgical History History of surgery on lower extremity History of ankle surgery Social History Social History Household Members: None Housing: Apartment Do you presently have visiting nurse or other home services: No Alcohol intake: current Alcohol intake frequency: holidays/special occasions only Patient Tobacco Use Status: Never used Tobacco Smoked in Last 30 Days: No e-Cigarette/Vaping Use: Never Used Second Hand Smoke Exposure: No Use of substances other than those prescribed or required for medical reasons: Yes Substance Use Type: Heroin Advance Directives: No service: No Current occupational status: employed Physical Exam ED Vital Signs: Vital Signs - 24 hr 12/21/23 13:30 12/21/23 14:35 12/21/23 17:29 Temperature 98.0 F 98.3 F 99.2 F Pulse Rate 124 H 100 101 H Respiratory Rate 18 18 18 Blood Pressure 122/83 135/82 121/85 Pulse Oximetry 99 95 96 Oxygen Delivery Method Room Air Room Air Room Air 12/21/23 20:00 Temperature 98.5 F Pulse Rate 78 Respiratory Rate 16 Blood Pressure 113/80 Pulse Oximetry 96 Oxygen Delivery Method Room Air BMI result Body Mass Index 20.4 Const General: cooperative, comfortable and no acute distress Orientation/consciousness: patient oriented x3 Limitations: no limitations HENMT Head: Yes normal to inspection, Yes normocephalic and Yes atraumatic Ears: hearing grossly normal bilaterally General nose exam: Normal external nose present Face and sinus: Yes normal facial exam Mouth: Normal oral and palatal mucosa present, oropharynx normal and moist mucous membranes Throat: Yes posterior oropharynx normal Eyes General: appearance normal, both eyes and all related structures Eyelids: Yes eyelids normal Conjunctivae: conjunctivae normal Sclerae: sclerae normal Pupils: Equal, round and reactive pupils present EOM: EOMs intact bilaterally Neck Neck: Yes normal visual inspection, Yes full ROM and Yes no lymphadenopathy Lymphatic: no lymphadenopathy noted Chest Chest palpation & inspection: normal inspection of the chest Resp Effort & Inspection: normal respiratory effort and able to speak in complete sentences Auscultation: clear to auscultation bilaterally, no crackles, no rales, no rhonchi and no wheezes Cardio Rate: regular rate Rhythm: regular rhythm Heart sounds: S1 normal heart sound present and S2 normal heart sound present GI Inspection: Yes normal to inspection Back/Spine/Pelvis Other: No overlying erythema, edema or warmth. No tenderness palpation along the midline spine or paraspinous muscles. Skin General skin exam: no rashes or lesions noted Trauma: no lacerations or abrasions Wounds: no wounds Neuro General: patient oriented x3 and moves all extremities Cranial nerves: Yes Equal, round and reactive pupils present Extrem General: Yes normal to inspection Right upper extremity: normal to inspection Left upper extremity: normal to inspection Right lower extremity: normal to inspection Left lower extremity: normal to inspection Course Course Course Narrative: This is a rapid medical exam: Additional HPI, ROS, PE not included below will be deferred to primary provider. Patient is a 33-year-old male with history of opioid use disorder in remission on methadone presenting to the emergency department with complaint of lower back pain for the past 10 days. Reports fusion of L2-3 in 2019. Reports muscle spasms following that surgery which feel similar. Denies recent trauma. Does admit to IV drug use within the past week. States occasional numbness to left leg with ambulation. Denies saddle anesthesia or bowel/bladder incontinence. Denies fever. Denies history of cancer. Plan: lumbar xray Reevaluation(s) Reevaluation #1: MRI called, will take patient at [id number]. Patient complaining of headache. Typically takes Imitrex for migraine. Will administer Imitrex. Patient's back pain has since improved after receiving Toradol. Will continue to closely monitor. Time: 18:03 Reevaluation #2: Patient went to MRI. I discussed case with my attending physician, Dr. Toro who recommends starting IV abx. He does have an allergy to vancomycin, will treat with zosyn. Sign-out given to my colleague, Howard Keller PA-C pending MRI. Time: 19:24 Reevaluation #3: Patient received in sign-out at change of shift pending MRI to evaluate for epidural abscess given the atraumatic back pain with history of drug abuse. MRI shows no evidence of infectious process. Patient does have disc herniation with neural foraminal narrowing. Plan to treat as lumbar radiculopathy. He is results were discussed with the patient, return precautions were given Time: 22:03 Medications Administered Discontinued Medications Generic Name Dose Route Start Last Admin Trade Name Freq PRN Reason Stop Dose Admin Cyclobenzaprine HCl 10 mg 12/21/23 22:04 12/21/23 22:30 Cyclobenzaprine Hcl 10 Mg Tablet PO 12/21/23 22:05 10 mg ONCE ONE Administration Dexamethasone 4 mg 12/21/23 22:04 12/21/23 22:30 Dexamethasone 4 Mg Tablet PO 12/21/23 22:05 4 mg ONCE ONE Administration Gadobutrol 7.5 ml 12/21/23 20:09 12/21/23 20:10 Gadobutrol 7.5 Ml Vial IVPUSH 12/21/23 20:10 6.5 ml ONCE ONE Administration Piperacillin Sod/Tazobactam 50 mls @ 100 mls/hr 12/21/23 19:29 12/21/23 21:38 Sod 3.375 gm/ Sodium Chloride IV 12/21/23 19:58 Infused ONCE ONE Infusion Ketorolac Tromethamine 10 mg 12/21/23 14:42 12/21/23 15:20 Ketorolac Tromethamine 15 Mg/Ml Vial IVPUSH 12/21/23 14:43 10 mg ONCE ONE Administration Sumatriptan Succinate 100 mg 12/21/23 17:54 12/21/23 20:28 Sumatriptan Succinate 100 Mg Tablet PO 12/21/23 17:55 100 mg ONCE ONE Administration Medical Decision Making Medical Decision Making [facility] Narrative: This is a 33-year-old male, with a history of opioid use disorder on methadone, presenting to the emergency department with atraumatic back pain x 2 weeks. Patient on arrival appears uncomfortable, tachycardic at 124. Given history of IV drug use, concerning for spinal/epidural abscess. Other differentials including herniated disc, spinal fracture, sciatica. I discussed this case with my attending physician, Dr. Mullins, he reports given history of present illness as well as clinical findings, need to obtain MRI with IV contrast to rule out abscess. Plan: Labs, blood cultures, inflammatory markers, x-ray lumbar spine which was ordered out in triage, Toradol 10 mg IV push, and MRI. Differential Diagnosis Differential Diagnoses: The differential diagnosis associated with the presentation includes See above Admission/Observation Consideration of admission/observation: Escalation of care including admission/observation considered Lab Data [facility] Lab Attestation statement: I reviewed the patient's lab results. 12/21/23 15:22 12/21/23 15:22 Labs: Lab Results 12/21/23 Range/Units 15:22 WBC 15.8 H (4.8-10.8) X10*3/uL RBC 5.16 (4.60-5.80) X10*6/uL Hgb 11.0 L (14.0-18.0) g/dl Hct 36.6 L (42.0-52.0) % MCV 70.9 L (80.0-98.0) fL MCH 21.3 L (27.0-33.0) pg MCHC 30.1 L (31.0-36.0) g/dl RDW 19.7 H (11.0-16.0) % Plt Count 681 H (160-400) X10*3/uL MPV 8.9 L (9.4-12.4) fL Immature Gran % (Auto) 0.9 H (0.0-0.4) % Neut % (Auto) 76.0 H (45-73) % Lymph % (Auto) 14.2 L (20-40) % [place] % (Auto) 6.8 (2-11) % Eos % (Auto) 1.7 (0-4) % Baso % (Auto) 0.4 (0-2) % Lymph # (Auto) 2.2 (1.2-4.9) X10*3/uL [place] # (Auto) 1.1 (0.1-1.2) X10*3/uL Eos # (Auto) 0.3 (0.0-0.4) X10*3/uL Baso # (Auto) 0.1 (0.0-0.2) X10*3/uL Abs Immat Gran (auto) 0.14 H (0.00-0.03) X10*3/uL Absolute Neuts (auto) 12.0 H (2.0-8.3) x10*3/uL Absolute Nucleated RBC 0.000 (0.0-0.012) X10*3/uL Nucleated RBC % (auto) 0.0 (0.0-0.2) /100WBC ESR 36 H (0-15) MM/HR Sodium 140 (135-145) mmol/L Potassium 4.2 (3.3-5.1) mmol/L Chloride 99 (96-108) mmol/L Carbon Dioxide 31 H (22-29) mmol/L Anion Gap 14 (12-20) BUN 13 (9-16) mg/dL Creatinine 0.83 (0.5-1.4) mg/dL Estim Creat Clear Calc 113.5 Estimated GFR > 60 Random Glucose 69 (60-115) mg/dL Calcium 9.9 D (8.4-10.2) mg/dL Total Bilirubin 0.2 (0.0-1.0) mg/dL Direct Bilirubin < 0.2 (0.0-0.5) mg/dL AST 16 (5-37) U/L ALT 13 (0-40) U/L Alkaline Phosphatase 77 (39-117) U/L C-Reactive Protein 7.40 H (< or = 0.50) mg/dL Total Protein 8.3 H (6.5-8.0) g/dL Albumin 4.1 (3.5-5.0) g/dL Radiology Impression Discussion of test interpretation with radiology: I have reviewed the radiologist's reading. External Record Review External record reviewed: Inpatient record, Office record, Outpatient record, Prior outpatient labs, Prior outpatient radiology, Primary care record and Outside ED record Discharge Plan Discharge Clinical Impression: Back pain Patient Disposition: Home, Self-Care Instructions: Acute Low Back Pain (ED) Additional Instructions: Your MRI showed no evidence of spinal abscess or epidural abscess Take dexamethasone twice daily for 3 days Use Motrin Tylenol for pain. Use cyclobenzaprine as needed for muscle spasms This may make you sleepy, did not drink alcohol or drive after taking it Follow-up with your primary doctor as planned. Return for new or worsening symptoms Prescriptions: New venlafaxine 75 mg capsule,extended release 24hr 75 mg PO DAILY Qty: 30 0RF dexamethasone 4 mg tablet 4 mg PO BID Qty: 6 0RF cyclobenzaprine 10 mg tablet 10 mg PO TID PRN (Reason: muscle spasm) Qty: 15 0RF No Action sumatriptan succinate 100 mg tablet 1 tab PO Q2H PRN (Reason: Migraine Headache) gabapentin 300 mg capsule 1 cap PO BEDTIME Ajovy Autoinjector 225 mg/1.5 mL auto-injector 225 mg subcut QMONTH methadone 5 mg/5 mL Solution 50 mg PO DAILY enoxaparin [Lovenox] 80 mg/0.8 mL syringe 80 mg subcut Q12H Qty: 8 0RF Rx Instructions: Use 0.7ml twice daily. Discharge excess amoxicillin-pot clavulanate 875-125 mg tablet 1 tab PO BID 5 Days Qty: 10 0RF promethazine [Promethegan] 25 mg suppository 25 mg [place] Q6H PRN (Reason: nausea and vomiting) Qty: 20 0RF ondansetron 4 mg tablet,disintegrating 4 mg PO Q6-8H PRN (Reason: nausea and vomiting) Qty: 14 0RF amoxicillin-pot clavulanate 875-125 mg tablet 1 tab PO BID 7 Days Qty: 14 0RF ibuprofen 600 mg tablet 600 mg PO Q6H PRN (Reason: pain) Qty: 45 0RF Interventions: ED Discharge Assessment Last Done: 12/21/23 22:24 Discharge Date/Time: 12/21/23 22:32
[2023-12-21 14:35] VITALS: BP 135/82; PULSE 100; RESP 18; TEMP 36.8; O2SAT 95
[2023-12-21] MEDS: Ketorolac Tromethamine 15 MG/ML VIAL 10 MG IVPUSH (15:20)
[2023-12-21 15:28] LABS: MANUAL DIFF FLAG NO
[2023-12-21 15:32] LABS: Basophils Absolute Auto 0.1 X10*3/uL (0.0-0.2); Basophils Percent Auto 0.4 % (0-2); Eosinophils Absolute Auto 0.3 X10*3/uL (0.0-0.4); Eosinophils Percent Auto 1.7 % (0-4); Hematocrit 36.6 % (42.0-52.0); Imm Gran Abs Auto 0.14 X10*3/uL (0.00-0.03); Imm Gran Pct Auto 0.9 % (0.0-0.4); Lymphocytes Absolute Auto 2.2 X10*3/uL (1.2-4.9); Lymphocytes Percent Auto 14.2 % (20-40); Mean Corpuscular HGB Conc 30.1 g/dl (31.0-36.0); Mean Corpuscular Hemoglobin 21.3 pg (27.0-33.0); Mean Corpuscular Volume 70.9 fL (80.0-98.0); Mean Platelet Volume 8.9 fL (9.4-12.4); Monocytes Absolute Auto 1.1 X10*3/uL (0.1-1.2); Monocytes Percent Auto 6.8 % (2-11); Platelet Count 681 X10*3/uL (160-400); Red Blood Count 5.16 X10*6/uL (4.60-5.80); Red Cell Distribution Width 19.7 % (11.0-16.0); White Blood Count 15.8 X10*3/uL (4.8-10.8)
[2023-12-21 15:46] LABS: Alanine Aminotransferase 13 U/L (0-40); Albumin Level 4.1 g/dL (3.5-5.0); Alkaline Phosphatase 77 U/L (39-117); Anion Gap 14 (12-20); Aspartate Amino Transferase 16 U/L (5-37); Bilirubin Direct < 0.2 mg/dL (0.0-0.5); Bilirubin Total 0.2 mg/dL (0.0-1.0); Blood Urea Nitrogen 13 mg/dL (9-16); Calcium 9.9 mg/dL (8.4-10.2); Carbon Dioxide 31 mmol/L (22-29); Chloride 99 mmol/L (96-108); Creatinine Clr Calc Pharmacy 113.5; Estimated Glomerular Filt Rate > 60; Glucose Random 69 mg/dL (60-115); Potassium 4.2 mmol/L (3.3-5.1); Sodium 140 mmol/L (135-145); Total Protein 8.3 g/dL (6.5-8.0)
[2023-12-21 16:09] LABS: Erythrocyte Sedimentation Rate 36 MM/HR (0-15)
[2023-12-21 17:29] VITALS: BP 121/85; PULSE 101; RESP 18; TEMP 37.3; O2SAT 96
[2023-12-21 20:00] VITALS: BP 113/80; PULSE 78; RESP 16; TEMP 36.9; O2SAT 96
[2023-12-21] MEDS: gadobutroL 7.5 ML VIAL IVPUSH (20:10)
[2023-12-21] MEDS: SUMAtriptan succinate 100 MG TABLET PO (20:28)
[2023-12-21] MEDS: Piperacillin Sodium/Tazobactam 3.375 GM in 0.9 % Sodium Chloride 50 ML IV (21:04)
--- NOTE | 2023-12-21 21:04 | PC.NURSE ---
Pt off floor in MRI when ABX were ordered.
[2023-12-21] MEDS: Cyclobenzaprine HCl 10 MG TABLET PO (22:30)
[2023-12-21] MEDS: dexAMETHasone 4 MG TABLET PO (22:30)
== END 2023-12-21 22:32 | disposition home or self-care (01) ==
PROVIDERS: Physician Assistant Medical; Emergency Provider Emergency Medicine
DX: R51.9 Headache, unspecified (principal); M54.50 Low back pain, unspecified; Z79.899 Other long term (current) drug therapy
CPT/HCPCS: 36415; 72100; 72149; 80048; 80076; 85025; 85652; 86140; 87040; 96365; 96375; 99284; 99285; A9585; J1885; J2543; J8540

== ENCOUNTER 2023-12-29 15:29 | Inpatient (IN) | payer OTHER, SELFPAY ==
[2023-12-29] VITALS (8 sets, daily range): BP systolic 88–117; BP diastolic 53–83; PULSE 81–120; RESP 16–20; TEMP 36.6–36.7; O2SAT 98–100; BMI 20.6
--- NOTE | 2023-12-29 | ECG_ITS ---
Test Reason : LEG SWELLING Blood Pressure : / mmHG Vent. Rate : 095 BPM Atrial Rate : 095 BPM P-R Int : 136 ms QRS Dur : 090 ms QT Int : 382 ms P-R-T Axes : 073 034 029 degrees QTc Int : 480 ms Normal sinus rhythm Nonspecific T wave abnormality Prolonged QT Abnormal ECG When compared with ECG of 22-FEB-2023 17:33, Non-specific change in ST segment in Inferior leads Referred By: Bibi Jewell Electronically Signed By:BREANN VASQUES MD
--- NOTE | ~2023-12-29 | US_ITS ---
EXAMINATION: US SCROTUM CLINICAL INFORMATION: Left testicular pain/swelling. COMPARISON: None available. TECHNIQUE: A sonogram of the scrotum was performed assessing weeks-scale appearance and color Doppler flow. Spectral Doppler analysis of the arterial and venous flow were performed in the testes bilaterally. FINDINGS: RIGHT: Right testicle measures 4 x 2 x 2.8 cm, volume 11.8 mL. No focal testicular parenchymal lesions are visualized. Spectral Doppler analysis of the arterial and venous flow is normal in the right testis. Right epididymal head is normal in size. There is a 0.6 x 0.5 x 0.5 cm simple appearing epididymal head cyst. No right hydrocele or varicocele is seen. Right epididymal Doppler flow is normal. LEFT: Left testicle measures 4 x 2 x 2.6 cm, volume 11.1 mL. No focal testicular parenchymal lesions are visualized. Spectral Doppler analysis of the arterial and venous flow is normal in the left testis. Left epididymal head is normal in size. No left hydrocele or varicocele is seen. Left epididymal Doppler flow is normal. US/US scrotum doppler IMPRESSION: Subcentimeter simple-appearing left epididymal head cyst. No additional significant abnormality.
--- NOTE | ~2023-12-29 | CT_ITS ---
EXAMINATION: CT ABDOMEN AND PELVIS WITH CONTRAST CLINICAL INFORMATION: Low back and left groin/thigh pain COMPARISON: None available. TECHNIQUE: Multidetector volumetric images were obtained from the superior aspect of the liver through the pubic symphysis following administration 85 mL of Omnipaque 350 intravenous contrast. Sagittal and coronal reformatted images were obtained on the technologist's workstation. Oral contrast: Yes This CT examination was performed using dose optimization techniques as appropriate, variously including the following: *Automated exposure control *Adjustment of mA and/or kV according to patient size (this includes techniques or standardized protocols for targeted exams where dose is matched to indication/reason for exam; i.e. extremities or head) *Use of iterative reconstruction technique DLP: 538 mGy-cm FINDINGS: LUNG BASES: The visualized lung bases are unremarkable. LIVER, GALLBLADDER, AND BILIARY TREE: The liver is normal in size, shape, and attenuation. No focal hepatic lesion or biliary ductal dilatation is present. The gallbladder is unremarkable with no evidence of radiopaque gallstones, gallbladder wall thickening, or obvious pericholecystic inflammatory changes. PANCREAS: Unremarkable. SPLEEN: Unremarkable. ADRENAL GLANDS: Unremarkable. KIDNEYS AND URETERS: The kidneys are normal in size, shape, and attenuation. No hydronephrosis, hydroureter, or calculi seen. No perinephric stranding. BLADDER: Unremarkable. GASTROINTESTINAL TRACT: Constipation. The small and large bowel are otherwise unremarkable. The appendix is unremarkable. ABDOMINAL WALL: No significant hernia is appreciated. LYMPH NODES: Normal. VASCULAR: Scarring of both groin. 2 linear Radiopaque densities of the right groin questionable for surgical clips versus possible broken needles. Enlarged left superficial femoral vein likely related to thrombus subcutaneous edema left thigh. IVC filter PELVIC VISCERA: Unremarkable. OSSEOUS STRUCTURES: Posterior surgical rods and bilateral screws at L2 and. There is irregularity of the disc space at L1-L2 questionable for discitis. There may be a mild compression fracture of the left superior endplate of the L3 vertebral body/compression fracture. There is curvature of the thoracolumbar spine to the right. CT/CT abdomen pelvis w IV con IMPRESSION: Constipation. Scarring of both groins. 2 linear Radiopaque densities of the right groin questionable for surgical clips versus possible broken needles. Left femoral DVT. Surgical hardware in the lumbar spine. Question L1-L2 discitis and mild L3 vertebral body compression fracture. Fleischner guidelines were followed.
--- NOTE | ~2023-12-29 | MR_ITS ---
MR LUMBAR SPINE WITHOUT AND WITH CONTRAST CLINICAL INFORMATION: Intravenous drug abuse. Question discitis. COMPARISON: Lumbar spine MRI 12/21/2023. TECHNIQUE: MRI of the lumbar spine was obtained using routine sequences with and without contrast. Intravenous contrast: Gadavist 8.5 mL FINDINGS: At L1-L2, there has been progressive opposing endplate T2 signal change/enhancement as well as significant opposing endplate cortical erosion better seen on CT. Findings are highly suspicious for osteomyelitis discitis at L1-L2. No additional evidence of infection within the lumbar spine. There is no epidural abscess and there is no drainable soft tissue abscess. There are redemonstrated postoperative changes following laminectomy and posterior instrumented fusion at the L2-L4 levels. Rightward convex scoliotic curvature at the thoracolumbar junction. Chronic upper endplate height loss at L3. No pathologic enhancement along the cauda equina nerve roots accounting from artifact from the surgical hardware. There is paraspinal muscular atrophy within the lower lumbar spine. Partially imaged bladder is significantly distended. L1-L2: A broad-based left paracentral disc protrusion continues to compress the traversing left L2 nerve root within the left subarticular zone and left lateral disc osteophyte and facet arthropathy result in similar mild left-sided foraminal encroachment. L2-L3: Postoperative changes following laminectomy and posterior instrumented fusion. There is no central canal stenosis and there is no foraminal stenosis. L3-L4: Postoperative changes following laminectomy and posterior instrument fusion. No central canal stenosis and no foraminal stenosis. L4-L5: There is a diffuse annular disc bulge and there is severe bilateral facet arthropathy. There is no central canal stenosis. Disc osteophyte and facet arthropathy result in similar moderate to severe bilateral foraminal stenosis with mass effect on the exiting L4 nerve roots bilaterally. L5-S1: Disc contour is normal. There is severe bilateral facet arthropathy. There is no central canal stenosis and there is no foraminal stenosis. MR/MR lumbar spine wo/w con IMPRESSION: - At L1-L2, there has been progressive opposing endplate T2 signal change/enhancement as well as significant opposing endplate cortical erosion better seen on CT. Findings are highly suspicious for osteomyelitis discitis at L1-L2. No additional evidence of infection within the lumbar spine. There is no epidural abscess and there is no drainable soft tissue abscess. - At L1-L2, a broad-based left paracentral disc protrusion continues to compress the traversing left L2 nerve root within the left subarticular zone and spondylitic changes result in moderate left-sided foraminal stenosis. - At L4-L5, multifactorial degenerative changes result in moderate to severe bilateral foraminal stenosis with mass effect on the exiting L4 nerve roots bilaterally. - Chronic compression deformity at L3. - Partially imaged bladder is significantly distended.
--- NOTE | ~2023-12-29 | US_ITS ---
EXAMINATION: Ultrasound arterial duplex left lower extremity CLINICAL INFORMATION: Pain and swelling and discoloration. History of IV drug COMPARISON: None. TECHNIQUE: Doppler color and grayscale evaluation of the arteries of the left lower extremity including waveform spectral analysis FINDINGS: The left common femoral, superficial femoral, profunda femoral, popliteal and posterior tibial arteries are normal in caliber and patent. These demonstrate normal triphasic waveforms. Left common femoral artery peak systolic velocity is minimally elevated measuring 144 cm/s. Peak systolic velocities are otherwise normal. Visualized peroneal, anterior tibial and dorsalis pedis arteries are patent. US/US arterial duplex [facility] IMPRESSION: Slightly elevated left common femoral artery peak systolic velocity otherwise unremarkable exam.
--- NOTE | ~2023-12-29 | US_ITS ---
EXAMINATION: US SCROTUM CLINICAL INFORMATION: Left testicular pain/swelling. COMPARISON: None available. TECHNIQUE: A sonogram of the scrotum was performed assessing weeks-scale appearance and color Doppler flow. Spectral Doppler analysis of the arterial and venous flow were performed in the testes bilaterally. FINDINGS: RIGHT: Right testicle measures 4 x 2 x 2.8 cm, volume 11.8 mL. No focal testicular parenchymal lesions are visualized. Spectral Doppler analysis of the arterial and venous flow is normal in the right testis. Right epididymal head is normal in size. There is a 0.6 x 0.5 x 0.5 cm simple appearing epididymal head cyst. No right hydrocele or varicocele is seen. Right epididymal Doppler flow is normal. LEFT: Left testicle measures 4 x 2 x 2.6 cm, volume 11.1 mL. No focal testicular parenchymal lesions are visualized. Spectral Doppler analysis of the arterial and venous flow is normal in the left testis. Left epididymal head is normal in size. No left hydrocele or varicocele is seen. Left epididymal Doppler flow is normal. US/US scrotum IMPRESSION: Subcentimeter simple-appearing left epididymal head cyst. No additional significant abnormality.
--- NOTE | ~2023-12-29 | US_ITS ---
EXAMINATION: US VENOUS DUPLEX LOWER EXTREMITY, LEFT CLINICAL INFORMATION: History of DVT. History of IV drug use. Pain. COMPARISON: Previous ultrasound October 2022. TECHNIQUE: Ultrasound of the deep veins is performed from the hip to the calf with compression sonography and color and pulse Doppler assessment. Spectral analysis with color-flow imaging is performed. FINDINGS: There is occlusive thrombus seen in the left common femoral, profunda femoral and superficial femoral veins. This is new from October 2022 exam. The left popliteal, peroneal and posterior tibial veins are patent. The visualized greater saphenous vein in the upper thigh is patent and has been recanalized in the interval from October 2022. No Garcia's cyst. US/US venous duplex LE IMPRESSION: Left common femoral, profunda femoral and superficial femoral DVT. Findings were communicated to Bibi Jewell by telephone on 12/29/2023 at 1926 hours
--- NOTE | 2023-12-29 15:49 | ED.GENADULT ---
HPI - General Adult General Chief complaint: Skin/Abscess/Foreign Body Stated complaint: ?L leg infection Time Seen by Provider: 12/29/23 16:42 Source: patient Mode of arrival: ambulatory Limitations: no limitations History of Present Illness HPI narrative: This is a 33-year-old male who has a history of IV drug abuse, previous lumbar surgery (Dr Jose MCCAULEY), h/o DVT not currently on AC therapy who presents to the ER with complaints of left groin pain, with pain that radiates down the left leg with swelling and lower back pain. Patient reports for the last 2 months he has had progressive lower back pain. Has been on methadone 95 mg daily but in the last month has resumed using heroin due to his pain in his lower back. He injects heroin daily. He does not inject cocaine. Reports he injected into the left groin 2 days ago and is now having pain at the site and feels that he has pain reading is the left leg in his left leg is swollen. He denies any fevers or chills. No numbness in the groin. No weakness in the lower legs. No bowel or bladder incontinence. Related Data Home Medications Medication Instructions Recorded Confirmed fremanezumab-vfrm 225 mg/1.5 mL 225 mg subcut QMONTH 04/12/21 12/29/23 subcutaneous auto-injector (Ajovy) gabapentin 300 mg capsule 1 cap PO TID 04/12/21 12/29/23 sumatriptan succinate 100 mg tablet 1 tab PO Q2H PRN Migraine Headache 04/12/21 12/29/23 methadone 5 mg/5 mL oral solution 95 mg PO DAILY 04/13/21 12/29/23 ondansetron 4 mg disintegrating 4 mg PO Q12H PRN nausea and 12/29/23 12/29/23 tablet vomiting Previous Rx's Medication Instructions Recorded cyclobenzaprine 10 mg tablet 10 mg PO TID PRN muscle spasm #15 12/21/23 tabs venlafaxine 75 mg capsule,extended 75 mg PO DAILY #30 caps 12/21/23 release 24 hr Allergies Allergy/AdvReac Type Severity Reaction Status Date / Time vancomycin [VANCOMYCIN] AdvReac Unknown red man Verified 12/29/23 15:55 syndrome Review of Systems Review of Systems: Yes all other systems are reviewed and are negative Constitutional: Constitutional: Reports no additional constitutional complaints, Denies body ache(s), Denies chills, Denies fever(s), Denies headache(s) and Denies weakness Eyes: Eyes: Reports no additional eye complaints and Denies change in vision ENT: Reports system reviewed and no additional complaints, except as documented, Denies dizziness, Denies headache(s), Denies nasal congestion, Denies nasal discharge and Denies neck pain Cardiovascular: Cardiovascular: Reports no additional cardiovascular complaints, Denies chest pain, Reports leg edema and Denies dyspnea Respiratory: Respiratory: Reports no additional respiratory complaints, Denies cough and Denies dyspnea Gastrointestinal: Gastrointestinal: Reports no additional gastrointestinal complaints, Denies abdominal pain, Denies diarrhea, Denies nausea and Denies vomiting Genitourinary: Genitourinary: Denies urinary incontinence Musculoskeletal: Musculoskeletal: Reports no additional musculoskeletal complaints, Reports back pain, Denies arthralgias, Denies joint swelling, Denies neck pain, Denies numbness and Denies tingling Integumentary/Breasts: Skin/Breast: Reports system reviewed and no additional complaints, except as docu and Denies rash Neurologic: Reports system reviewed and no additional complaints, except as documented, Denies Abnormal speech present, Denies dizziness, Denies headache(s), Denies numbness, Denies tingling and Denies weakness PMFSH Past Medical History Attestation statement: The following information was validated with the patient. Source: old records reviewed and nursing notes reviewed Medical History (Updated 12/29/23 @ 21:36 by VICKY Rausch) Opioid use disorder DVT of lower extremity, bilateral Migraine headache Surgical History History of surgery on lower extremity History of ankle surgery Social History Social History Household Members: None Housing: Apartment Do you presently have visiting nurse or other home services: No Alcohol intake: current Alcohol intake frequency: holidays/special occasions only Patient Tobacco Use Status: Never used Tobacco Smoked in Last 30 Days: No e-Cigarette/Vaping Use: Never Used Second Hand Smoke Exposure: No Use of substances other than those prescribed or required for medical reasons: Yes Substance Use Type: Heroin Substance Use Frequency: Recent Binge Advance Directives: No Advance Directives Information Provided: No service: No Current occupational status: employed Physical Exam ED Vital Signs: Vital Signs - 24 hr 12/29/23 15:49 12/29/23 16:47 12/29/23 18:51 Temperature 98.0 F 98.1 F 97.8 F Pulse Rate 120 H 110 H 104 H Respiratory Rate 20 18 18 Blood Pressure 117/83 114/76 90/53 L Pulse Oximetry 100 100 100 Oxygen Delivery Method Room Air Room Air Room Air 12/29/23 20:00 12/29/23 20:21 12/29/23 20:45 Temperature 98.1 F Pulse Rate 94 Respiratory Rate 17 Blood Pressure 88/58 L 97/61 101/56 L Pulse Oximetry 98 Oxygen Delivery Method Room Air 12/29/23 21:02 Temperature Pulse Rate Respiratory Rate Blood Pressure 95/58 L Pulse Oximetry Oxygen Delivery Method BMI result Body Mass Index 20.6 Const General: cooperative, healthy appearing, comfortable and no acute distress Orientation/consciousness: patient oriented x3 Limitations: no limitations HENMT Head: Yes normal to inspection Ears: hearing grossly normal bilaterally General nose exam: Normal external nose present Face and sinus: Yes normal facial exam Mouth: Normal oral and palatal mucosa present Throat: Yes posterior oropharynx normal Eyes General: appearance normal, both eyes and all related structures Pupils: Equal, round and reactive pupils present Neck Neck: Yes normal visual inspection, Yes full ROM, Yes no lymphadenopathy and Yes no meningeal signs Chest Chest palpation & inspection: normal inspection of the chest Resp Effort & Inspection: normal respiratory effort Auscultation: clear to auscultation bilaterally Cardio Rate: regular rate Rhythm: regular rhythm Peripheral pulses: Peripheral pulses 2+ throughout GI Inspection: Yes normal to inspection Palpation (GI): Soft to palpation and nontender Auscultation: normal bowel sounds Abdomen image: 1. There is an injection site seen at the left groin. There is no surrounding obvious abscess or redness or drainage. There is some diffuse tenderness the left thigh and mild swelling noted. The compartments are soft and compressible. There are normal DP and PT pulses. Normal sensation distally. Full active and passive range of motion of the left lower extremity Back/Spine/Pelvis Other: Tenderness the lumbar mid spine with no step-offs or deformities Thoracic/Lumbar Spine: thoracic and lumbar spine normal to inspection Skin General skin exam: no rashes or lesions noted Neuro General: patient oriented x3, moves all extremities, no meningeal signs, no focal motor deficits and normal sensation to monofilament Cranial nerves: Yes Equal, round and reactive pupils present Cognition (Neuro): normal cognition Speech: No Abnormal speech present Gait exam (Neuro): Normal gait present Motor exam (neuro): 5/5 motor strength present throughout Sensory Exam: Normal double simultaneous stimulation for sensation Deep tendon reflexes (DTR's): Right patellar reflex intensity grade: 2+ and Left patellar reflex intensity grade: 2+ Extrem General: Yes normal to inspection Course Course Course Narrative: This is an RME: Additional HPI, ROS, PE not included below will be deferred to primary provider. Patient is a 33-year-old male presenting to emergency department for evaluation of L groin/ L testicular pain, redness, swelling x 2-3 days after injecting IV drugs into this area. expressing concern for cellulitis. denies any testicular injury. Plan: Labs, lactic acid, blood cultures, US Reevaluation(s) Reevaluation #1: 0-I signed up for this patient and went in to see him but he is in US Reevaluation #2: Patient's CT shows diskitis with no evidence of an epidural abscess. He does have a leukocytosis as well as an elevated lactic acid and is receiving IV antibiotics. He has no neurological deficits or red flag symptoms. Of note he had a lumbar MRI on December 20 which did not show any epidural abscess. See Impression in MDM. The patient has a left occlusive DVT in the femoral veins which is complicated. We do not have vascular coverage here [facility]. I did call and speak to both [facility] and [facility] and they are only accepting critical transfers. Will call . Reevaluation #3: 2039-I spoke to the vascular doctor at [facility] Dr. Smith. We reviewed the ultrasound findings. He tells me that they would perform no intervention and treat this patient with IV heparin. Does not feel that transfer is warranted. I provided all this information to our hospitalist who accepted admission Medications Administered Generic Name Dose Route Start Last Admin Trade Name Freq PRN Reason Stop Dose Admin Heparin Sodium/Sodium Chloride 25,000 unit in 250 mls @ 0 mls/hr 12/29/23 21:00 12/29/23 21:13 Heparin Sodium,Porcine/1/2ns IVCONT 14 units/kg/hr .Q0M AZ 9.1 mls/hr Administration Protocol Per Protocol Discontinued Medications Generic Name Dose Route Start Last Admin Trade Name Abdi PRN Reason Stop Dose Admin Heparin Sodium (Porcine) 5,200 unit 12/29/23 20:42 12/29/23 21:11 Heparin Sodium,Porcine 5,000 Unit/Ml Vial 80 unit/kg (5200 unit) 12/29/23 20:43 5,200 unit IVPUSH Administration ONCE ONE Ceftriaxone Sodium 2 gm/ 50 mls @ 100 mls/hr 12/29/23 17:59 12/29/23 20:09 Sodium Chloride IV 12/29/23 18:28 Infused ONCE ONE Infusion Sodium Chloride 1,000 mls @ 999 mls/hr 12/29/23 17:59 12/29/23 20:09 Ns IV 12/29/23 18:59 Infused .Q1H1M STA Infusion Sodium Chloride 1,000 mls @ 999 mls/hr 12/29/23 20:11 12/29/23 21:21 Ns IV 12/29/23 21:11 Infused .Q1H1M STA Infusion Iohexol 100 ml 12/29/23 18:21 12/29/23 18:26 Iohexol 350 Mg/Ml 100 Ml Infus..Btl IV 12/29/23 18:22 85 ml ONCE ONE Administration Procedures EJ/Peripheral Line Arm L: Time Out Performed: No Skin Cleansed in Sterile Fashion: Yes Size (gauge): 20 IV Secured and Dressing Applied: Yes Patient Tolerated Procedure: well Additional Comments: L AC Medical Decision Making Medical Decision Making [facility] Narrative: [id number]-This is a 33-year-old male who has a history of IV drug abuse, previous lumbar surgery (Dr Garcia ), h/o DVT not on AC therapy who presents to the ER with complaints of left groin pain, with pain that radiates down the left leg with swelling and lower back pain. Patient reports for the last 2 months he has had progressive lower back pain. Has been on methadone 95 mg daily but in the last month has resumed using heroin due to his pain in his lower back. He injects heroin daily. He does not inject cocaine. Reports he injected into the left groin 2 days ago and is now having pain at the site and feels that he has pain reading is the left leg in his left leg is swollen. He denies any fevers or chills. No numbness in the groin. No weakness in the lower legs. No bowel or bladder incontinence. There is an injection site seen at the left groin. There is no surrounding obvious abscess or redness or drainage. There is some diffuse tenderness the left thigh and mild swelling noted. The compartments are soft and compressible. There are normal DP and PT pulses. Normal sensation distally. Full active and passive range of motion of the left lower extremity Tenderness the mid spine with no step-offs deformities. Normal neuro exam with no focal deficits. Patient will need labs including blood cultures and lactic acid Will obtain imaging of the left lower extremity with both arterial and venous ultrasound Will also obtain imaging of the lumbar spine and left groin area with a CT of the abdomen and pelvis after discussion with our histology technician At this time infection is considered and so antibiotics are ordered Fluids ordered Differential Diagnosis Differential Diagnoses: The differential diagnosis associated with the presentation includes Cellulitis, abscess, DVT, epidural abscess Low suspicion for compartment syndrome, necrotizing fasciitis, Malachi's gangrene Admission/Observation Consideration of admission/observation: Escalation of care including admission/observation considered see course of care Consult Healthcare Provider Management of the patient was discussed with: Hospitalist and Senior Front End Engineer Dr Odom 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 I called and spoke to him and he is not covering vascular services and we have no vascular coverage Spoke to Dr Schwartz who accepted admission Lab Data MDM Lab Attestation statement: I reviewed the patient's lab results. Leukocytosis, elevated lactic 12/29/23 17:05 12/29/23 17:05 Labs: Lab Results 12/29/23 12/29/23 Range/Units 17:05 20:00 WBC 12.1 H (4.8-10.8) X10*3/uL RBC 5.41 (4.60-5.80) X10*6/uL Hgb 11.6 L (14.0-18.0) g/dl Hct 39.0 L (42.0-52.0) % MCV 72.1 L (80.0-98.0) fL MCH 21.4 L (27.0-33.0) pg MCHC 29.7 L (31.0-36.0) g/dl RDW 20.1 H (11.0-16.0) % Plt Count 582 H (160-400) X10*3/uL MPV 8.9 L (9.4-12.4) fL Immature Gran % (Auto) 3.1 H (0.0-0.4) % Neut % (Auto) 66.7 (45-73) % Lymph % (Auto) 20.6 (20-40) % [place] % (Auto) 6.9 (2-11) % Eos % (Auto) 2.1 (0-4) % Baso % (Auto) 0.6 (0-2) % Lymph # (Auto) 2.5 (1.2-4.9) X10*3/uL [place] # (Auto) 0.8 (0.1-1.2) X10*3/uL Eos # (Auto) 0.3 (0.0-0.4) X10*3/uL Baso # (Auto) 0.1 (0.0-0.2) X10*3/uL Abs Immat Gran (auto) 0.38 H (0.00-0.03) X10*3/uL Absolute Neuts (auto) 8.1 (2.0-8.3) x10*3/uL Absolute Nucleated RBC 0.000 (0.0-0.012) X10*3/uL Nucleated RBC % (auto) 0.0 (0.0-0.2) /100WBC PT 12.5 (11.1-13.3) SEC INR 1.0 (0.9-1.1) APTT 27.7 (26.0-36.8) SEC Sodium 139 (135-145) mmol/L Potassium 4.6 (3.3-5.1) mmol/L Chloride 101 (96-108) mmol/L Carbon Dioxide 26 (22-29) mmol/L Anion Gap 17 (12-20) BUN 23 H (9-16) mg/dL Creatinine 0.96 (0.5-1.4) mg/dL Estim Creat Clear Calc 98.7 Estimated GFR > 60 Random Glucose 85 (60-115) mg/dL Lactic Acid 2.6 H* (0.5-2.0) mmol/L Lactic Acid F/U @ 2Hr 1.0 (0.5-2.0) mmol/L Calcium 9.5 (8.4-10.2) mg/dL Total Bilirubin 0.2 (0.0-1.0) mg/dL AST 25 (5-37) U/L ALT 13 (0-40) U/L Alkaline Phosphatase 77 (39-117) U/L Total Creatine Kinase 13 L (38-174) U/L Total Protein 8.5 H (6.5-8.0) g/dL Albumin 4.0 (3.5-5.0) g/dL Independent Interpretation I performed an independent interpretation of an: EKG, Ultrasound and CT Scan Interpretation: I independently reviewed the venous, arterial US, CT A/P and agree with rad report I independently reviewed the EKG which shows normal sinus rhythm with a rate of 95, normal IL, normal QRS normal QT Radiology Impression Discussion of test interpretation with radiology: I have reviewed the radiologist's reading. Radiologist Impression: [address] [address] Ultrasound Report Signed Patient: Sergio Clark MR#: [id number] : 1990 Acct:[id number] Age/Sex: 33 / M ADM Date: 12/29/23 Loc: .ED Attending Dr: Ordering Physician: Cari Gu CNP Date of Service: 12/29/23 Procedure(s): US scrotum doppler Accession Number(s): [id number] cc: Cari Gu CNP; Physician,Unknown ~ EXAMINATION: US SCROTUM CLINICAL INFORMATION: Left testicular pain/swelling. COMPARISON: None available. TECHNIQUE: A sonogram of the scrotum was performed assessing weeks-scale appearance and color Doppler flow. Spectral Doppler analysis of the arterial and venous flow were performed in the testes bilaterally. FINDINGS: RIGHT: Right testicle measures 4 x 2 x 2.8 cm, volume 11.8 mL. No focal testicular parenchymal lesions are visualized. Spectral Doppler analysis of the arterial and venous flow is normal in the right testis. Right epididymal head is normal in size. There is a 0.6 x 0.5 x 0.5 cm simple appearing epididymal head cyst. No right hydrocele or varicocele is seen. Right epididymal Doppler flow is normal. LEFT: Left testicle measures 4 x 2 x 2.6 cm, volume 11.1 mL. No focal testicular parenchymal lesions are visualized. Spectral Doppler analysis of the arterial and venous flow is normal in the left testis. Left epididymal head is normal in size. No left hydrocele or varicocele is seen. Left epididymal Doppler flow is normal. US/US scrotum doppler IMPRESSION: Subcentimeter simple-appearing left epididymal head cyst. No additional significant abnormality. [place] [address] Ultrasound Report Signed Patient: Sergio Clark MR#: [id number] : 1990 Acct:[id number] Age/Sex: 33 / M ADM Date: 12/29/23 Loc: HO.ED Attending Dr: Ordering Physician: Bibi Mijares NP Date of Service: 12/29/23 Procedure(s): US arterial duplex LE LT Accession Number(s): [id number] cc: Physician,Unknown ; Bibi Mijares NP~ EXAMINATION: Ultrasound arterial duplex left lower extremity CLINICAL INFORMATION: Pain and swelling and discoloration. History of IV drug COMPARISON: None. TECHNIQUE: Doppler color and grayscale evaluation of the arteries of the left lower extremity including waveform spectral analysis FINDINGS: The left common femoral, superficial femoral, profunda femoral, popliteal and posterior tibial arteries are normal in caliber and patent. These demonstrate normal triphasic waveforms. Left common femoral artery peak systolic velocity is minimally elevated measuring 144 cm/s. Peak systolic velocities are otherwise normal. Visualized peroneal, anterior tibial and dorsalis pedis arteries are patent. US/US arterial duplex LE LT IMPRESSION: Slightly elevated left common femoral artery peak systolic velocity otherwise unremarkable exam. FINDINGS: LUNG BASES: The visualized lung bases are unremarkable. LIVER, GALLBLADDER, AND BILIARY TREE: The liver is normal in size, shape, and attenuation. No focal hepatic lesion or biliary ductal dilatation is present. The gallbladder is unremarkable with no evidence of radiopaque gallstones, gallbladder wall thickening, or obvious pericholecystic inflammatory changes. PANCREAS: Unremarkable. SPLEEN: Unremarkable. ADRENAL GLANDS: Unremarkable. KIDNEYS AND URETERS: The kidneys are normal in size, shape, and attenuation. No hydronephrosis, hydroureter, or calculi seen. No perinephric stranding. BLADDER: Unremarkable. GASTROINTESTINAL TRACT: Constipation. The small and large bowel are otherwise unremarkable. The appendix is unremarkable. ABDOMINAL WALL: No significant hernia is appreciated. LYMPH NODES: Normal. VASCULAR: Scarring of both groin. 2 linear Radiopaque densities of the right groin questionable for surgical clips versus possible broken needles. Enlarged left superficial femoral vein likely related to thrombus subcutaneous edema left thigh. IVC filter PELVIC VISCERA: Unremarkable. OSSEOUS STRUCTURES: Posterior surgical rods and bilateral screws at L2 and. There is irregularity of the disc space at L1-L2 questionable for discitis. There may be a mild compression fracture of the left superior endplate of the L3 vertebral body/compression fracture. There is curvature of the thoracolumbar spine to the right. CT/CT abdomen pelvis w IV con IMPRESSION: Constipation. Scarring of both groins. 2 linear Radiopaque densities of the right groin questionable for surgical clips versus possible broken needles. Left femoral DVT. Surgical hardware in the lumbar spine. Question L1-L2 discitis and mild L3 vertebral body compression fracture. Fleischner guidelines were followed. [place] [address] Ultrasound Report Signed Patient: Sergio Clark MR#: [id number] : 1990 Acct:[id number] Age/Sex: 33 / M ADM Date: 12/29/23 Loc: .ED Attending Dr: Ordering Physician: Bibi Mijares NP Date of Service: 12/29/23 Procedure(s): US venous duplex [facility] Accession Number(s): [id number] cc: Physician,Unknown ; Bibi Mijares NP~ EXAMINATION: US VENOUS DUPLEX LOWER EXTREMITY, LEFT CLINICAL INFORMATION: History of DVT. History of IV drug use. Pain. COMPARISON: Previous ultrasound October 2022. TECHNIQUE: Ultrasound of the deep veins is performed from the hip to the calf with compression sonography and color and pulse Doppler assessment. Spectral analysis with color-flow imaging is performed. FINDINGS: There is occlusive thrombus seen in the left common femoral, profunda femoral and superficial femoral veins. This is new from October 2022 exam. The left popliteal, peroneal and posterior tibial veins are patent. The visualized greater saphenous vein in the upper thigh is patent and has been recanalized in the interval from October 2022. No Garcia's cyst. US/US venous duplex LE LT IMPRESSION: Left common femoral, profunda femoral and superficial femoral DVT. Findings were communicated to Bibi Jeewll by telephone on 12/29/2023 at 1926 hours External Record Review External record reviewed: Prior outpatient radiology [address] [address] Magnetic Resonance Report Signed Patient: Sergio Clark MR#: [id number] : 1990 Acct:[id number] Age/Sex: 33 / M ADM Date: 12/21/23 Loc: HO.ED Attending Dr: Ordering Physician: Zully Erwin Date of Service: 12/21/23 Procedure(s): MR lumbar spine w con Accession Number(s): [id number] cc: Zully Erwin; Physician,Unknown ~ EXAMINATION: MR LUMBAR SPINE WITH AND WITHOUT CONTRAST CLINICAL INFORMATION: Back pain, IV drug abuse COMPARISON: Same day lumbar radiographs TECHNIQUE: MRI of the lumbar spine was obtained using routine sequences with and without the administration of intravenous contrast. 6.5 mL of intravenous Gadavist was administered without immediate complication. FINDINGS: This examination assumes the presence of 5 lumbar type vertebral bodies. For the purposes of this examination, the L5-S1 intervertebral disc space is visualized on axial series 6 image 28. The normal lumbar lordosis is preserved. Trace retrolisthesis of L1-L2. Chronic mild superior endplate height loss at L3. Dextrocurvature of the lumbar spine. Prior posterior fusion at L2-L4 with paired pedicle screws in the L2 and L4 vertebral bodies. There is faint edema along the inferior endplate of L1 with associated enhancement. No discrete epidural collection at this level. The conus medullaris and cauda equina nerve roots are unremarkable; the conus terminates at the level of T12-L1. No abnormal enhancement along the cauda equina nerve roots. L1-L2: Eccentric left disc bulge. Mild facet degeneration. Asymmetric narrowing of the left lateral recess. The central canal is otherwise patent. The neural foramen remain patent. L2-L3: Posterior decompression. No significant spinal canal stenosis. The neural foramen are patent. L3-L4: Posterior decompression. The spinal canal and neural foramen are patent. L4-L5: Disc bulge extending into the bilateral neural foramen. Right foraminal annular fissure. Facet arthropathy with ligamentum flavum redundancy. The central canal is not significantly narrowed. Likely moderate left and [id number] right neural foraminal stenosis with exiting nerve root abutment is suboptimally evaluated secondary to adjacent susceptibility artifact. L5-S1: Facet arthropathy. The spinal canal and neural foramen are patent. MR/MR lumbar spine w con IMPRESSION: Prior posterior decompression and fusion at L2-L4. No significant spinal canal stenosis in the lumbar spine. Faint edema/enhancement along the inferior endplate of L1 is favored to be on the basis of degenerative change. No epidural collection is visualized. Mild to moderate bilateral neural foraminal stenosis at L4-L5. Tests considered The following testing was considered but not selected: MRI Prescription Management I considered prescription management with: Antibiotic Critical Care Time Critical Care Time Critical Care Time: Yes Total Critical Care Time: 90 Attestation: Discussion with specialist, discussion with hospitalist for admission Spoke to several tertiary care centers for possible transfer Discharge Plan Discharge Clinical Impression: Acute deep vein thrombosis (DVT) of femoral vein, Discitis, Leukocytosis, Elevated lactic acid level Patient Disposition: Admitted As Inpatient
--- NOTE | 2023-12-29 16:56 | PC.NURSE ---
Pt coming from home, reports he injected heroin in his left femoral vein for the past few days. Pt reports he has had pain and redness at site of injection. Along with swelling and discoloration of lower left leg. Pt reports he recently relapsed with heroin, uses daily now. Pt alert and oriented, breathing even and unlabored, skin pale and dry. Pt reports pain to left leg, 8/10. Pt able to move leg, purplish discoloration noted at knee area and swelling noted from knee to foot area. Pt neg for CP, SOB or cough.
[2023-12-29 17:11] LABS: MANUAL DIFF FLAG NO
--- NOTE | 2023-12-29 17:13 | PC.NURSE ---
Pt now to ultrasound at this time. Able to obtain some labs and IV however ?infiltration with some discomfort with flush and will assess upon return to unit.
[2023-12-29 17:17] LABS: Basophils Absolute Auto 0.1 X10*3/uL (0.0-0.2); Basophils Percent Auto 0.6 % (0-2); Eosinophils Absolute Auto 0.3 X10*3/uL (0.0-0.4); Eosinophils Percent Auto 2.1 % (0-4); Hemoglobin 11.6 g/dl (14.0-18.0); Imm Gran Abs Auto 0.38 X10*3/uL (0.00-0.03); Imm Gran Pct Auto 3.1 % (0.0-0.4); Lymphocytes Absolute Auto 2.5 X10*3/uL (1.2-4.9); Lymphocytes Percent Auto 20.6 % (20-40); Mean Corpuscular HGB Conc 29.7 g/dl (31.0-36.0); Mean Corpuscular Hemoglobin 21.4 pg (27.0-33.0); Mean Corpuscular Volume 72.1 fL (80.0-98.0); Mean Platelet Volume 8.9 fL (9.4-12.4); Monocytes Absolute Auto 0.8 X10*3/uL (0.1-1.2); Monocytes Percent Auto 6.9 % (2-11); Neutrophils Absolute Auto 8.1 x10*3/uL (2.0-8.3); Neutrophils Percent Auto 66.7 % (45-73); Platelet Count 582 X10*3/uL (160-400); Red Blood Count 5.41 X10*6/uL (4.60-5.80); Red Cell Distribution Width 20.1 % (11.0-16.0); White Blood Count 12.1 X10*3/uL (4.8-10.8)
[2023-12-29 17:32] LABS: Alanine Aminotransferase 13 U/L (0-40); Alkaline Phosphatase 77 U/L (39-117); Anion Gap 17 (12-20); Aspartate Amino Transferase 25 U/L (5-37); Bilirubin Total 0.2 mg/dL (0.0-1.0); Blood Urea Nitrogen 23 mg/dL (9-16); Calcium 9.5 mg/dL (8.4-10.2); Carbon Dioxide 26 mmol/L (22-29); Chloride 101 mmol/L (96-108); Creatinine Clr Calc Pharmacy 98.7; Estimated Glomerular Filt Rate > 60; Glucose Random 85 mg/dL (60-115); Potassium 4.6 mmol/L (3.3-5.1); Sodium 139 mmol/L (135-145); Total Protein 8.5 g/dL (6.5-8.0)
[2023-12-29] MEDS: iohexoL 350 MG/ML 100 ML INFUS..BTL IV (18:26)
[2023-12-29] MEDS: 0.9 % Sodium Chloride 1,000 ML 999 ML IV ×3 (18:49→22:17)
[2023-12-29] MEDS: cefTRIAXone sodium 2 GM in 0.9 % Sodium Chloride 50 ML IV (18:49)
[2023-12-29 19:09] LABS: Reflex Lactate? Lactic Acid Added
[2023-12-29 19:18] LABS: Lactic Acid 2.6 mmol/L (0.5-2.0)
[2023-12-29 20:18] LABS: Prothrombin Time 12.5 SEC (11.1-13.3)
[2023-12-29 20:21] LABS: Partial Thromboplastin Time 27.7 SEC (26.0-36.8)
--- NOTE | 2023-12-29 20:22 | PC.NURSE ---
ivf infusing. +pedal pulses bilat. skin warm and dry; color appropriate to pt ethnicity. axox4.
[2023-12-29] MEDS: Heparin Sodium,Porcine 5,000 UNIT/ML VIAL 5200 UNIT IVPUSH (21:11)
[2023-12-29] MEDS: Heparin Sodium,Porcine/1/2NS 25,000 UNIT/250 ML IV.SOLN 9.1 UNIT IVCONT (21:13)
--- NOTE | 2023-12-29 21:18 | PHA.MEDREC ---
Pharmacy Consult ? Medication Reconciliation Pharmacy has completed the medication reconciliation.
--- NOTE | 2023-12-29 21:19 | PC.NURSE ---
heparin infusion started per dec. pt placed on heart monitor. Bibi [employer] aware of bp. ekg ordered per verbal order. pt axox4 speaking full clear sentences. pt denies cp/sob/n/v/d at this time. call ramon within reach.
--- NOTE | 2023-12-29 21:24 | PM.IMHP ---
History of Present Illness Date of Service: 12/29/23 Attending physician on admission: Serene Schwartz Chief Complaint: LLE pain, swelling 33-year-old male with history of mood disorder, opioid dependence on methadone, ongoing IV drug abuse with heroin (relapsed 1 month ago), chronic low back pain, and history of bilateral DVT (provoked- post op) completed course of Lovenox/Eliquis presented to the ED earlier today for evaluation of increased pain, swelling, mild erythema in the left lower extremity. The patient reports he had been clean from IV drugs but given worsening low back pain about 1 month ago began injecting heroin into the groin. Reports last use was 4 days ago. He is also reporting left scrotal discomfort. Denies any fevers, chills, shortness of breath, lightheadedness, palpitations, syncope, chest pain. Since arrival, patient has been tachycardic to 120 but afebrile. He did have a brief period of hypotension with blood pressure 88/58 which responded to IV fluids the blood pressure remains soft at 101/62. Chronic microcytic anemia with H/H 11.6/39.0%. Renal function and electrolyte levels normal. Initial lactic acid 2.6 improved to 1.0 following IV fluids. Hepatic function within normal limits. Total CK 13. ESR/CRP pending. Venous duplex of the left lower extremity shows occlusive thrombus in the left common femoral, profunda femoral and superficial femoral veins new compared to prior exam. Previously noted DVT in the left popliteal, peroneal, posterior tibial vein and greater saphenous vein in the upper thigh noted to be patent and recannulized from prior imaging. CT abdomen pelvis shows constipation and scarring of both groins with 2 linear radiopaque densities of the right groin questionable for surgical clips versus possible broken needles as well as left femoral DVT. There is surgical hardware in the lumbar spine with question of L1-L2 diskitis mild L3 vertebral body compression fracture. Scrotal ultrasound shows subcentimeter simple appearing left epididymal head cysts but no significant abnormality. In the ED has been given 2 L IV NS, 2 g ceftriaxone, and has been initiated on heparin drip per protocol after calls placed to [facility] vascular surgery did not recommend intervention at this time but recommended transfer should symptoms worsen. Review of Systems Review of Systems: General: No fevers, malaise, unintentional weight loss HEENT: No blurred vision, diplopia. No sore throat, nasal congestion, rhinorrhea, sinus pain, ear pain Cardiovascular: No chest pain, palpitations, or leg edema Respiratory: No shortness of breath, wheezing, cough GI: No abdominal pain, nausea, vomiting, diarrhea, constipation, melena, hematochezia : +Lscrotum pain. No dysuria, hematuria, increased urinary frequency, decreased urinary output MSK: No myalgia, back pain. +LLE pain/swelling Neuro: No headaches, weakness, paresthesias Skin: No rashes or lesions [facility] Medical History (Updated 12/29/23 @ 21:36 by VICKY Rausch) Opioid use disorder DVT of lower extremity, bilateral Migraine headache Surgical History History of surgery on lower extremity History of ankle surgery Social History Household Members: None Housing: Apartment Do you presently have visiting nurse or other home services: No Alcohol intake: current Alcohol intake frequency: holidays/special occasions only Patient Tobacco Use Status: Never used Tobacco Smoked in Last 30 Days: No e-Cigarette/Vaping Use: Never Used Second Hand Smoke Exposure: No Use of substances other than those prescribed or required for medical reasons: Yes Substance Use Type: Heroin Substance Use Frequency: Recent Binge Advance Directives: No Advance Directives Information Provided: No service: No Current occupational status: employed Meds Allergies Allergy/AdvReac Type Severity Reaction Status Date / Time vancomycin [VANCOMYCIN] AdvReac Unknown red man Verified 12/29/23 15:55 syndrome Active Medications: Current Medications Acetaminophen (Acetaminophen 325 Mg Tablet) 650 mg PO Q6H PRN PRN Reason: Pain, Mild (Pain Scale 1-3) Heparin Sodium (Porcine) (Heparin Sodium,Porcine 5,000 Unit/Ml Vial) 2,600 unit 40 unit/kg (2600 unit) IVPUSH PROTOCOL BOLUS PRN; Protocol PRN Reason: 40 unit/kg - Heparin Protocol Heparin Sodium (Porcine) (Heparin Sodium,Porcine 5,000 Unit/Ml Vial) 5,200 unit 80 unit/kg (5200 unit) IVPUSH PROTOCOL BOLUS PRN; Protocol PRN Reason: 80 unit/kg - Heparin Protocol Hydromorphone HCl (Hydromorphone Hcl 0.5 Mg/0.5 Ml Syringe) 0.5 mg IVPUSH Q4H PRN; Protocol PRN Reason: Pain, Severe (Pain Scale 7-10) Heparin Sodium/Sodium Chloride (Heparin Sodium,Porcine/1/2ns) 25,000 unit in 250 mls @ 0 mls/hr IVCONT .Q0M [facility]; Protocol Last Admin: 12/29/23 21:13 Dose: 14 units/kg/hr, 9.1 mls/hr Sodium Chloride (Ns) 1,000 mls @ 999 mls/hr IV .Q1H1M [facility] Stop: 12/29/23 22:15 Ceftriaxone Sodium 2 gm/ (Sodium Chloride) 50 mls @ 100 mls/hr IV Q24H [facility] Ondansetron HCl (Ondansetron Hcl 4 Mg/2 Ml Vial) 4 mg IVPUSH Q8H PRN PRN Reason: Nausea and Vomiting Oxycodone HCl (Oxycodone Hcl Immed Release 5 Mg Tablet) 5 mg PO Q6H PRN PRN Reason: Pain, Moderate(Pain Scale 4-6) Pharmacy Consult (Consult Rx Vancomycin Dosing) 1 each MISCELLANE DAILY PRN PRN Reason: Consult order Senna (Sennosides 8.6 Mg Tablet) 17.2 mg PO BEDTIME PRN PRN Reason: Constipation Sodium Chloride (0.9 % Sodium Chloride Flush 3 Ml Syringe) [facility] Medications Medication Instructions Recorded Confirmed Last Taken Type fremanezumab-vfrm 225 mg/1.5 mL 225 mg subcut QMONTH 04/12/21 12/29/23 08/27/23 History subcutaneous auto-injector (Ajovy) gabapentin 300 mg capsule 1 cap PO TID 04/12/21 12/29/23 12/29/23 History sumatriptan succinate 100 mg tablet 1 tab PO Q2H PRN Migraine Headache 04/12/21 12/29/23 12/25/23 History methadone 5 mg/5 mL oral solution 95 mg PO DAILY 04/13/21 12/29/23 12/29/23 History ondansetron 4 mg disintegrating 4 mg PO Q12H PRN nausea and 12/29/23 12/29/23 12/27/23 History tablet vomiting Physical Exam Vital Signs and Narrative: Vital Signs: Last Vital Signs Temp 98.1 F 12/29/23 20:00 Pulse 81 12/29/23 21:18 Resp 16 12/29/23 21:18 BP 101/62 12/29/23 21:18 Pulse Ox 98 12/29/23 21:18 O2 Del Method Room Air 12/29/23 21:18 BMI result Body Mass Index 20.6 Constitutional - Awake and Alert, No apparent distress Eyes - PERRLA, EOMI Cardiovascular - S1S2, RRR, No edema Respiratory - Normal lung expansion, Normal respiratory effort, No respiratory distress, CTA bilaterally Gastrointestinal - NT / ND; +BS; No rebound or guarding - No scrotal swelling, erythema, masses. Track galarza in the bilateral groin Extremities - LLE swelling and ttp with faint erythema in the proximal aspect of the extremity, no palpable cords Skin - Warm/Dry Neurological - Alert & oriented x3 Psychological - Appropriate affect Results Labs 12/29/23 17:05 12/29/23 17:05 Labs: Laboratory Results - last 24 hr 12/29/23 12/29/23 17:05 20:00 MCV 72.1 L MCH 21.4 L MCHC 29.7 L RDW 20.1 H Plt Count 582 H MPV 8.9 L Immature Gran % (Auto) 3.1 H Neut % (Auto) 66.7 Lymph % (Auto) 20.6 [place] % (Auto) 6.9 Eos % (Auto) 2.1 Baso % (Auto) 0.6 Lymph # (Auto) 2.5 [place] # (Auto) 0.8 Eos # (Auto) 0.3 Baso # (Auto) 0.1 Abs Immat Gran (auto) 0.38 H Absolute Neuts (auto) 8.1 Absolute Nucleated RBC 0.000 Nucleated RBC % (auto) 0.0 PT 12.5 INR 1.0 APTT 27.7 Anion Gap 17 Estim Creat Clear Calc 98.7 Estimated GFR > 60 Random Glucose 85 Lactic Acid 2.6 H* Lactic Acid F/U @ 2Hr 1.0 Calcium 9.5 Total Bilirubin 0.2 AST 25 ALT 13 Alkaline Phosphatase 77 Total Creatine Kinase 13 L Total Protein 8.5 H Albumin 4.0 Imaging Radiologist's Impressions: Impressions Scrotum Ultrasound 03/15/24 17:30 IMPRESSION: Subcentimeter simple-appearing left epididymal head cyst. No additional significant abnormality. Scrotum Ultrasound 12/29/23 17:30 IMPRESSION: Subcentimeter simple-appearing left epididymal head cyst. No additional significant abnormality. Duplex Scan Lower Extremity Artery 12/29/23 18:27 IMPRESSION: Slightly elevated left common femoral artery peak systolic velocity otherwise unremarkable exam. Abdomen/Pelvis CT 12/29/23 18:30 IMPRESSION: Constipation. Scarring of both groins. 2 linear Radiopaque densities of the right groin questionable for surgical clips versus possible broken needles. Left femoral DVT. Surgical hardware in the lumbar spine. Question L1-L2 discitis and mild L3 vertebral body compression fracture. Fleischner guidelines were followed. Venous Duplex 12/29/23 18:37 IMPRESSION: Left common femoral, profunda femoral and superficial femoral DVT. Findings were communicated to Bibi Jewell by telephone on 12/29/2023 at 1926 hours Assessment and Plan (1) Left leg DVT: Status: Acute (2) Discitis of lumbar region: Status: Acute (3) Severe sepsis: Status: Acute Plan 33-year-old male with history of mood disorder, opioid dependence on methadone, ongoing IV drug abuse with heroin (relapsed 1 month ago), chronic low back pain, and history of bilateral DVT (provoked- post op) completed course of Lovenox/Eliquis admitted for management of occlusive LLE DVT and severe sepsis due to discitis #Lumbar discitis with severe sepsis -tachycardic, leukocytosis, lactic acidosis, hypotension- resolved with IVF. No sepsis shock -CT abd/pelvis shows possible discitis at L1-L2 -IV vanco q12h and 2g ctx daily (initiated 12/28) -MRI lumbar spine -ID consult -pain management prn. continue methadone -Follow cbc, cultures -med/tele for close vs monitoring #Acute occlusive LLE DVT -venous duplex shows occlusive left common femoral, profunda femoral, and superficial femoral DVT. Previous site of bilateral DVT veins patent with recanalization -Per [facility] surgery (Dr. Smith), no intervention at this time. Recommended IV heparin per protocol which was initiated (12/28). Should symptoms worsen, agreeable to rediscuss transfer -continue heparin drip per protocol #Opioid depedence with ongoing IVDA -check hepb/c and hiv given ongoing IVDA -continue methadone (miravista) -addiction med consult #Mood disorder -continue effexor #Chronic low back pain -ct abd/pelvis shows L3 compression fx -pain management prn, continue methadone, flexeril, gabapentin -outpt follow up #migraines -imitrex prn dvt prophylaxis/treatment- heparin per protocol full code pt requires inpt stay at least 2 midnights due to occlusive dvt lle requiring iv heparin for ac as well as iv abx for treatment of discitis with severe sepsis Quality Stroke Does the patient have a stroke diagnosis?: No VTE Prior VTE?: Yes VTE Risk Level:: Medical - moderate - high VTE Device Contraindication: Treatment Not Indicated VTE Drug Contraindication: N/A - Med Ordered
[2023-12-29 22:14] LABS: Erythrocyte Sedimentation Rate 22 MM/HR (0-15)
[2023-12-29] MEDS: vancomycin HCL 1,500 MG in 0.9 % Sodium Chloride 500 ML 333.33 MG IV (22:17)
--- NOTE | 2023-12-29 23:35 | PC.NURSE ---
report received from Burt RN - assumed care of pt at 2300
[2023-12-30 02:15] LABS: Appearance Urine Clear; Color Urine Yellow; Glucose Urine UA Negative (Negative); Leukocyte Esterase Urine Negative (Negative); Nitrite Urine Negative (Negative); PH 5.5 (5.0-9.0); Specific Gravity - Urine >= 1.030 (1.005-1.025); Urine Blood Negative (Negative); Urine Ketones Negative (Negative); Urine Protein Negative (Neg-Trace)
[2023-12-30 02:21] VITALS: BP 113/75; PULSE 82; RESP 18; TEMP 36.1; O2SAT 97
[2023-12-30 02:30] VITALS: BMI 21.3
[2023-12-30 02:31] LABS: Amphetamine Screen Urine Not Detected (Not Detect); Barbiturates, Urine Not Detected (Not Detect); Cannabinoid Screen Urine POSITIVE (Not Detect); Cocaine Screen Urine Not Detected (Not Detect); Fentanyl, urine POSITIVE (Not Detect); Opiate Screen Urine Not Detected (Not Detect); Phencyclidine Screen Urine Not Detected (Not Detect)
[2023-12-30 02:49] LABS: Benzodiazepines Screen Urine Not Detected (Not Detect)
[2023-12-30] MEDS: Calcium Carbonate 750 MG TAB.CHEW PO (03:13)
[2023-12-30 03:29] LABS: PTT Heparin Drip 74.6 SEC (53-77.9)
[2023-12-30 04:32] LABS: HBS Num1 1.31 mIU/mL (0-7.99); HBc Num1 0.08 S/CO (0.00-0.79); HBsAGNum1 0.28 S/CO (0.00-0.99); HIV AB/AG Nonreactive (Nonreactive); HIV Num 1 0.06 S/CO (0.00-0.99); Hepatitis B Core Antibody Nonreactive (Nonreactive); Hepatitis B Surface Antigen Negative (Negative); ~HepC Num1 0.24 S/CO (0.00-0.79); ~Hepatitis B Surface Antibody NONREACTIVE (Nonreactive); ~Hepatitis C Antibody Nonreactive (Nonreactive)
--- NOTE | 2023-12-30 07:01 | HO.PM.IMPN ---
Subjective Subjective Date of Service: 12/30/23 Interval History: f/u DVT, disckitis has some back pain, no fever and doesn't look toxic no weakness in legs,no urinary or stool incontinence Physical Exam Vital Signs: Vital Signs: Last Vital Signs Temp 97 F 12/30/23 02:21 Pulse 82 12/30/23 02:21 Resp 18 12/30/23 02:21 BP 113/75 12/30/23 02:21 Pulse Ox 97 12/30/23 02:21 O2 Del Method Room Air 12/30/23 02:21 BMI result Body Mass Index 21.3 General: AO X 3, no acute distress Resp: CTA bilateral CVS: S1,S2,RRR GI: +BS, NT, no distention Skin: No rash Neuro: motor grossly intact, essentially normal neur exam Psych: appropriate affect Objective Data Active Medications Acetaminophen (Acetaminophen 325 Mg Tablet) 650 mg PO Q6H PRN PRN Reason: Pain, Mild (Pain Scale 1-3) Calcium Carbonate (Calcium Carbonate 750 Mg Tab.Chew) 750 mg PO Q6H PRN PRN Reason: Heartburn Last Admin: 12/30/23 03:13 Dose: 750 mg Documented By: MADELYN Cyclobenzaprine HCl (Cyclobenzaprine Hcl 10 Mg Tablet) 10 mg PO TID PRN PRN Reason: muscle spasm Gabapentin (Gabapentin 300 Mg Capsule) 300 mg PO TID [facility] Heparin Sodium (Porcine) (Heparin Sodium,Porcine 5,000 Unit/Ml Vial) 2,600 unit 40 unit/kg (2600 unit) IVPUSH PROTOCOL BOLUS PRN; Protocol PRN Reason: 40 unit/kg - Heparin Protocol Heparin Sodium (Porcine) (Heparin Sodium,Porcine 5,000 Unit/Ml Vial) 5,200 unit 80 unit/kg (5200 unit) IVPUSH PROTOCOL BOLUS PRN; Protocol PRN Reason: 80 unit/kg - Heparin Protocol Hydromorphone HCl (Hydromorphone Hcl 0.5 Mg/0.5 Ml Syringe) 0.5 mg IVPUSH Q4H PRN; Protocol PRN Reason: Pain, Severe (Pain Scale 7-10) Heparin Sodium/Sodium Chloride (Heparin Sodium,Porcine/1/2ns) 25,000 unit in 250 mls @ 0 mls/hr IVCONT .Q0M [facility]; Protocol Last Titration: 12/30/23 03:59 Dose: 14 units/kg/hr, 9.1 mls/hr Documented By: MADELYN Co-signed By: ROSSY Ceftriaxone Sodium 2 gm/ (Sodium Chloride) 50 mls @ 100 mls/hr IV Q24H [facility] Vancomycin HCl 1,000 mg/ (Sodium Chloride) 270 mls @ 270 mls/hr IV Q12H [facility] Methadone HCl (Methadone Hcl 20 Mg/2 Ml Oral.Conc) 95 mg PO DAILY [facility] Ondansetron HCl (Ondansetron Hcl 4 Mg/2 Ml Vial) 4 mg IVPUSH Q8H PRN PRN Reason: Nausea and Vomiting Oxycodone HCl (Oxycodone Hcl Immed Release 5 Mg Tablet) 5 mg PO Q6H PRN PRN Reason: Pain, Moderate(Pain Scale 4-6) Pharmacy Consult (Consult Rx Vancomycin Dosing) 1 each MISCELLANE DAILY PRN PRN Reason: Consult order Senna (Sennosides 8.6 Mg Tablet) 17.2 mg PO BEDTIME PRN PRN Reason: Constipation Sodium Chloride (0.9 % Sodium Chloride Flush 3 Ml Syringe) 3 ml IVFLUSH QSHIFT [facility] Last Admin: 12/29/23 23:50 Dose: Not Given Documented By: JAMES Non-Admin Reason: IV Running Sumatriptan Succinate (Sumatriptan Succinate 100 Mg Tablet) 100 mg PO Q2H PRN PRN Reason: Migraine Headache Venlafaxine HCl (Venlafaxine Hcl Er 75 Mg Cap.Er.24h) 75 mg PO DAILY [facility] Labs 12/30/23 07:05 12/30/23 07:05 Labs: Laboratory Results - last 24 hr 12/29/23 12/29/23 12/29/23 17:05 20:00 23:42 MCV 72.1 L MCH 21.4 L MCHC 29.7 L RDW 20.1 H Plt Count 582 H MPV 8.9 L Immature Gran % (Auto) 3.1 H Neut % (Auto) 66.7 Lymph % (Auto) 20.6 Carbon % (Auto) 6.9 Eos % (Auto) 2.1 Baso % (Auto) 0.6 Lymph # (Auto) 2.5 Carbon # (Auto) 0.8 Eos # (Auto) 0.3 Baso # (Auto) 0.1 Abs Immat Gran (auto) 0.38 H Absolute Neuts (auto) 8.1 Absolute Nucleated RBC 0.000 Nucleated RBC % (auto) 0.0 ESR 22 H PT 12.5 INR 1.0 APTT 27.7 aPTT Heparin Protocol Anion Gap 17 Estim Creat Clear Calc 98.7 Estimated GFR > 60 Random Glucose 85 Lactic Acid 2.6 H* Lactic Acid F/U @ 2Hr 1.0 Calcium 9.5 Total Bilirubin 0.2 AST 25 ALT 13 Alkaline Phosphatase 77 Total Creatine Kinase 13 L C-Reactive Protein 4.10 H Total Protein 8.5 H Albumin 4.0 Urine Color Urine Appearance Urine pH Ur Specific [place] Urine Protein Urine Glucose (UA) Urine Ketones Urine Blood Urine Nitrite Ur Leukocyte Esterase Urine Opiates Screen Urine Fentanyl Screen Ur Barbiturates Screen Ur Phencyclidine Scrn Ur Amphetamines Screen U Benzodiazepines Scrn Urine Cocaine Screen U Marijuana (THC) Screen Hep Bs Antigen Negative Hep Bs Antibody NONREACTIVE Hep B Core Total Ab Nonreactive Hepatitis C Ab (EIA) Nonreactive HIV 1&2 Ab/P24 Ag 4thGn Nonreactive 12/30/23 12/30/23 01:02 03:08 MCV MCH MCHC RDW Plt Count MPV Immature Gran % (Auto) Neut % (Auto) Lymph % (Auto) Carbon % (Auto) Eos % (Auto) Baso % (Auto) Lymph # (Auto) Carbon # (Auto) Eos # (Auto) Baso # (Auto) Abs Immat Gran (auto) Absolute Neuts (auto) Absolute Nucleated RBC Nucleated RBC % (auto) ESR PT INR APTT aPTT Heparin Protocol 74.6 D Anion Gap Estim Creat Clear Calc Estimated GFR Random Glucose Lactic Acid Lactic Acid F/U @ 2Hr Calcium Total Bilirubin AST ALT Alkaline Phosphatase Total Creatine Kinase C-Reactive Protein Total Protein Albumin Urine Color Yellow Urine Appearance Clear Urine pH 5.5 Ur Specific [place] >= 1.030 H Urine Protein Negative Urine Glucose (UA) Negative Urine Ketones Negative Urine Blood Negative Urine Nitrite Negative Ur Leukocyte Esterase Negative Urine Opiates Screen Not Detected Urine Fentanyl Screen POSITIVE H Ur Barbiturates Screen Not Detected Ur Phencyclidine Scrn Not Detected Ur Amphetamines Screen Not Detected U Benzodiazepines Scrn Not Detected Urine Cocaine Screen Not Detected U Marijuana (THC) Screen POSITIVE H Hep Bs Antigen Hep Bs Antibody Hep B Core Total Ab Hepatitis C Ab (EIA) HIV 1&2 Ab/P24 Ag 4thGn Assessment and Plan (1) Left leg DVT: Status: Acute (2) Discitis of lumbar region: Status: Acute (3) Severe sepsis: Status: Acute Plan 33-year-old male with history of mood disorder, opioid dependence on methadone, ongoing IV drug abuse with heroin (relapsed 1 month ago), chronic low back pain, and history of bilateral DVT (provoked- post op) completed course of Lovenox/Eliquis admitted for management of occlusive LLE DVT and severe sepsis due to discitis #Lumbar discitis with severe sepsis--tachycardia, hypotension resolved, sepsis resolved -CT abd/pelvis shows possible discitis at L1-L2 -IV vanco q12h and 2g ctx daily (initiated 12/28) -MRI lumbar spine -ID consult -pain management prn. - continue methadone -Follow cultures -may transfer to [facility] #Acute occlusive LLE DVT -venous duplex shows occlusive left common femoral, profunda femoral, and superficial femoral DVT. Previous site of bilateral DVT veins patent with recanalization -Per [facility] surgery (Dr. Smith), no intervention at this time. Recommended IV heparin per protocol which was initiated (12/28). Should symptoms worsen, agreeable to rediscuss transfer -continue heparin drip per protocol and to be transitioned to eliquis #Opioid depedence with ongoing IVDA -check hepb/c and hiv given ongoing IVDA -continue methadone (miravista) -addiction med consult #Mood disorder -continue effexor #Chronic low back pain -ct abd/pelvis shows L3 compression fx -pain management prn, continue methadone, flexeril, gabapentin -outpt follow up #migraines -imitrex prn dvt prophylaxis/treatment- heparin per protocol full code need for inpt: dvt lle requiring iv heparin for ac as well as iv abx for treatment of discitis with severe sepsis Quality Stroke Does the patient have a stroke diagnosis?: No VTE Prior VTE?: Yes VTE Risk Level:: Medical - moderate - high VTE Device Contraindication: Treatment Not Indicated VTE Drug Contraindication: N/A - Med Ordered
[2023-12-30 07:36] LABS: MANUAL DIFF FLAG NO
[2023-12-30 07:41] VITALS: BP 94/65; PULSE 85; RESP 20; TEMP 36.3; O2SAT 98
[2023-12-30 07:42] LABS: Basophils Absolute Auto 0.1 X10*3/uL (0.0-0.2); Basophils Percent Auto 0.5 % (0-2); Eosinophils Absolute Auto 0.3 X10*3/uL (0.0-0.4); Eosinophils Percent Auto 3.5 % (0-4); Hemoglobin 9.3 g/dl (14.0-18.0); Imm Gran Abs Auto 0.29 X10*3/uL (0.00-0.03); Lymphocytes Absolute Auto 3.2 X10*3/uL (1.2-4.9); Lymphocytes Percent Auto 32.5 % (20-40); Mean Corpuscular Hemoglobin 21.6 pg (27.0-33.0); Mean Corpuscular Volume 71.9 fL (80.0-98.0); Mean Platelet Volume 9.2 fL (9.4-12.4); Monocytes Absolute Auto 0.9 X10*3/uL (0.1-1.2); Monocytes Percent Auto 9.2 % (2-11); Neutrophils Percent Auto 51.3 % (45-73); Platelet Count 494 X10*3/uL (160-400); Red Blood Count 4.31 X10*6/uL (4.60-5.80); Red Cell Distribution Width 19.4 % (11.0-16.0); White Blood Count 9.7 X10*3/uL (4.8-10.8)
[2023-12-30 07:52] LABS: PTT Heparin Drip 44.3 SEC (53-77.9)
[2023-12-30 07:55] LABS: Anion Gap 12 (12-20); Blood Urea Nitrogen 15 mg/dL (9-16); Calcium 8.7 mg/dL (8.4-10.2); Carbon Dioxide 23 mmol/L (22-29); Chloride 108 mmol/L (96-108); Creatinine Clr Calc Pharmacy 131.2; Estimated Glomerular Filt Rate > 60; Glucose Random 79 mg/dL (60-115); Potassium 4.7 mmol/L (3.3-5.1); Sodium 138 mmol/L (135-145)
[2023-12-30] MEDS: Venlafaxine HCl ER 75 MG CAP.ER.24H PO (09:51)
[2023-12-30] MEDS: Gabapentin 300 MG CAPSULE PO ×3 (09:51→22:35)
[2023-12-30] MEDS: vancomycin HCL 1,000 MG in 0.9 % Sodium Chloride 250 ML 270 MG IV (09:51)
[2023-12-30] MEDS: 0.9 % Sodium Chloride Flush 3 ML SYRINGE IVFLUSH ×3 (09:52→22:44)
[2023-12-30 10:50] LABS: PTT Heparin Drip 35.6 SEC (53-77.9)
[2023-12-30] MEDS: Heparin Sodium,Porcine 5,000 UNIT/ML VIAL 5200 UNIT IVPUSH (10:58)
--- NOTE | 2023-12-30 11:20 | MHC.CM.PN ---
EMR REVIEWED, PT ADMITTED W/SEVERE SEPSIS, DISCITIS AND OCCLUSIVE DVT W/BC'S PENDING, CM MET W/PT WHO REPORTS HE LIVES IN AN APT W/A ROOMMATE, PT IS INDEP W/LL CARE AND DENIES USE OF DME/SERVICES, PT'S GOAL FOR DC IS HOME HOWEVER IF BACTEREMIC WILL LIKELY NEED IV ABX AT SNF D/T POSITIVE FOR FENTANYL (&MARIJUANA). ID/ADDICTION MEDICINE CONSULTS PENDING. PT VERIFIES PCP IS IN [place] HOWEVER IS UNSURE OF LOCATION OR WHICH PRACTICE (UNCLEAR IF THIS IS ACCURATE INFO), PT EDUCATED ON AND DECLINES TO COMPLETE A HCP AND PT UNSURE OF HOW MANY COVID19 VACCINES HE HAS RECEIVED. CM WILL CONT TO FOLLOW FOR DISPO/DC NEEDS.
[2023-12-30 11:38] VITALS: BP 99/63; PULSE 85; RESP 20; TEMP 36.1; O2SAT 99
--- NOTE | 2023-12-30 12:25 | P.CNID_ITS ---
History of Present Illness Data of Consult Service Date: 12/30/23 Requesting physician: Ramses Armstrong Primary Care Provider: Unknown Physician HPI Reason for consult: back pain,IVDA He presents with pain left groin after injecting heroin as well as lower back pain last month. He has had L2/L3 surgery in 2008. He has just had MRI shows irregular disc but no erosion c/w OM. He has low sed rate in 20s. Review of Systems 2 Review of Systems: Yes all other systems are reviewed and are negative Musculoskeletal: Musculoskeletal: Reports back pain PMFSH Past Medical History Medical History Opioid use disorder DVT of lower extremity, bilateral Migraine headache Family History Family history: reviewed and not pertinent Surgical History Surgical History History of surgery on lower extremity History of ankle surgery Social History Social History Household Members: Friend(s) Housing: House Do you presently have visiting nurse or other home services: No Alcohol intake: current Alcohol intake frequency: holidays/special occasions only Patient Tobacco Use Status: Never used Tobacco e-Cigarette/Vaping Use: Never Used Second Hand Smoke Exposure: No Substance Use Type: Heroin service: No Current occupational status: employed Meds Allergies Allergy/AdvReac Type Severity Reaction Status Date / Time vancomycin [VANCOMYCIN] AdvReac Unknown red man Verified 12/29/23 15:55 syndrome Active Medications: Current Medications Acetaminophen (Acetaminophen 325 Mg Tablet) 650 mg PO Q6H PRN PRN Reason: Pain, Mild (Pain Scale 1-3) Calcium Carbonate (Calcium Carbonate 750 Mg Tab.Chew) 750 mg PO Q6H PRN PRN Reason: Heartburn Last Admin: 12/30/23 03:13 Dose: 750 mg Cyclobenzaprine HCl (Cyclobenzaprine Hcl 10 Mg Tablet) 10 mg PO TID PRN PRN Reason: muscle spasm Gabapentin (Gabapentin 300 Mg Capsule) 300 mg PO TID [place] Last Admin: 12/30/23 09:51 Dose: 300 mg Heparin Sodium (Porcine) (Heparin Sodium,Porcine 5,000 Unit/Ml Vial) 2,600 unit 40 unit/kg (2600 unit) IVPUSH PROTOCOL BOLUS PRN; Protocol PRN Reason: 40 unit/kg - Heparin Protocol Heparin Sodium (Porcine) (Heparin Sodium,Porcine 5,000 Unit/Ml Vial) 5,200 unit 80 unit/kg (5200 unit) IVPUSH PROTOCOL BOLUS PRN; Protocol PRN Reason: 80 unit/kg - Heparin Protocol Last Admin: 12/30/23 10:58 Dose: 5,200 unit Hydromorphone HCl (Hydromorphone Hcl 0.5 Mg/0.5 Ml Syringe) 0.5 mg IVPUSH Q4H PRN; Protocol PRN Reason: Pain, Severe (Pain Scale 7-10) Heparin Sodium/Sodium Chloride (Heparin Sodium,Porcine/1/2ns) 25,000 unit in 250 mls @ 0 mls/hr IVCONT .Q0M [facility]; Protocol Last Titration: 12/30/23 10:58 Dose: 18 units/kg/hr, 11.7 mls/hr Ceftriaxone Sodium 2 gm/ (Sodium Chloride) 50 mls @ 100 mls/hr IV Q24H [facility] Vancomycin HCl 1,000 mg/ (Sodium Chloride) 270 mls @ 270 mls/hr IV Q12H [facility] Last Admin: 12/30/23 09:51 Dose: 270 mls/hr Methadone HCl (Methadone Hcl 20 Mg/2 Ml Oral.Conc) 95 mg PO DAILY [facility] Ondansetron HCl (Ondansetron Hcl 4 Mg/2 Ml Vial) 4 mg IVPUSH Q8H PRN PRN Reason: Nausea and Vomiting Oxycodone HCl (Oxycodone Hcl Immed Release 5 Mg Tablet) 5 mg PO Q6H PRN PRN Reason: Pain, Moderate(Pain Scale 4-6) Pharmacy Consult (Consult Rx Vancomycin Dosing) 1 each MISCELLANE DAILY PRN PRN Reason: Consult order Senna (Sennosides 8.6 Mg Tablet) 17.2 mg PO BEDTIME PRN PRN Reason: Constipation Sodium Chloride (0.9 % Sodium Chloride Flush 3 Ml Syringe) 3 ml IVFLUSH QSHIFT [facility] Last Admin: 12/30/23 09:52 Dose: 3 ml Sumatriptan Succinate (Sumatriptan Succinate 100 Mg Tablet) 100 mg PO Q2H PRN PRN Reason: Migraine Headache Venlafaxine HCl (Venlafaxine Hcl Er 75 Mg Cap.Er.24h) 75 mg PO DAILY [facility] Last Admin: 12/30/23 09:51 Dose: 75 mg Home Medications Medication Instructions Recorded Confirmed Last Taken Type fremanezumab-vfrm 225 mg/1.5 mL 225 mg subcut QMONTH 04/12/21 12/29/23 08/27/23 History subcutaneous auto-injector (Ajovy) gabapentin 300 mg capsule 1 cap PO TID 04/12/21 12/29/23 12/29/23 History sumatriptan succinate 100 mg tablet 1 tab PO Q2H PRN Migraine Headache 04/12/21 12/29/23 12/25/23 History methadone 5 mg/5 mL oral solution 95 mg PO DAILY 04/13/21 12/29/23 12/29/23 History ondansetron 4 mg disintegrating 4 mg PO Q12H PRN nausea and 12/29/23 12/29/23 12/27/23 History tablet vomiting Physical Exam 2 Vital Signs: Vital Signs: Last Vital Signs Temp 97.0 F 12/30/23 11:38 Pulse 85 12/30/23 11:38 Resp 20 12/30/23 11:38 BP 99/63 12/30/23 11:38 Pulse Ox 99 12/30/23 11:38 O2 Del Method Room Air 12/30/23 11:38 BMI result Body Mass Index 21.3 Const: General: cooperative HEENT: Head: Yes normal to inspection Face and sinus: Yes normal facial exam Mouth: Normal oral and palatal mucosa present Teeth and gingiva: d entition normal Eyes: General: appearance normal, both eyes and all related structures P upils: Equal, round and reactive pupils present Resp: Effort & Inspection: normal respiratory effort Cardio: Rate: regular rate Rhythm: regular rhythm GI: Palpation (GI): Soft to palpation and nontender : General: Yes no CVA tenderness Back/Spine/Pelvis: Other: scar from prior surgery lumbar pain no objective weakness in legs Back: no CVA tenderness Skin: General skin exam: no rashes or lesions noted Neuro: General: moves all extremities Cranial nerves: Yes Equal, round and reactive pupils present Extrem: General: Yes normal to inspection Psych: Appearance: grossly normal Results Labs 12/30/23 07:05 12/30/23 07:05 Labs: Short CBC 12/29/23 12/30/23 Range/Units 17:05 07:05 WBC 12.1 H 9.7 (4.8-10.8) X10*3/uL Hgb 11.6 L 9.3 L (14.0-18.0) g/dl Hct 39.0 L 31.0 L D (42.0-52.0) % Plt Count 582 H 494 H (160-400) X10*3/uL BMP 12/29/23 12/30/23 17:05 07:05 Sodium 139 138 Potassium 4.6 4.7 Chloride 101 108 Carbon Dioxide 26 23 BUN 23 H 15 Creatinine 0.96 0.75 Calcium 9.5 8.7 D Cardiac Enzymes 12/29/23 Range/Units 17:05 Total Creatine Kinase 13 L (38-174) U/L Liver Function 12/29/23 Range/Units 17:05 Total Bilirubin 0.2 (0.0-1.0) mg/dL AST 25 (5-37) U/L ALT 13 (0-40) U/L Alkaline Phosphatase 77 (39-117) U/L Albumin 4.0 (3.5-5.0) g/dL Urine 12/30/23 Range/Units 01:02 Urine Color Yellow Urine Appearance Clear Urine pH 5.5 (5.0-9.0) Ur Specific [place] >= 1.030 H (1.005-1.025) Urine Protein Negative (Neg-Trace) mg/dL Urine Glucose (UA) Negative (Negative) mg/dL Assessment and Plan (1) Left leg DVT: Status: Acute (2) Back pain: Status: Inactive Plan He has MRI negative for OM or fluid collection on 12/20 LS spine here ,done through ER. He has no fever or elevated ESR even minimally. CT is not as good as MRI reading for disciitis and has probable osteoarthritis,compression and alignment abnormalities in bone and prior surgeries so may be hard to read any studies. Possible bacteremia No groin abscess HIV and Hepatitis C negative. Apparently another MRI is pending to look for erosive changes If no erosive changes or bacteremia would hold antibiotics and followup with Neurosurgery. Would continue Vancomycin and Ceftriaxone for now.
[2023-12-30] MEDS: gadobutroL 10 ML VIAL IVPUSH (14:14)
[2023-12-30] MEDS: HYDROmorphone HCl 0.5 MG/0.5 ML SYRINGE IVPUSH (14:59)
--- NOTE | 2023-12-30 15:20 | MHC.RECOVRN ---
Met with pt in 468 after consult placed to Addiction Medicine for IV substance use. Pt had presented to the ED reporting injecting substances into the left femoral vein and now having pain/redness/tingling about two days ago; also reports having lower back pain hx l2 l3 fusion. Upon evaluation, pt admitted for left leg DVT, discitis, and severe sepsis. Pt laying in bed, awake, alert, easily engages in conversation, RN present. Pt reports currently receiving methadone, 95 mg through [facility], receives take home bottles. Pts methadone has yet to be confirmed, RN having difficulty obtaining last dose information. Pt reports pain, requesting Toradol-RN to reach out to MD. Pt denies other concerns currently. T/w spoke to Kendal De La Garza (?[phone]) from [facility], Kendal is able to assist with last dose information, however, needs RN to call back in 15-20 minutes as well as obtain HAO. RN informed and provided with Kendal's contact information. Will continue to follow.
[2023-12-30 15:21] VITALS: BP 121/80; PULSE 88; RESP 18; TEMP 36.2; O2SAT 100
[2023-12-30] MEDS: Ketorolac Tromethamine 15 MG/ML VIAL IVPUSH ×2 (16:22→22:36)
--- NOTE | 2023-12-30 16:27 | HE.PHANOTE ---
RE: METHADONE DOSE Last dose of methadone 95 mg was given on 12/29/2023 at home (unknown time) per Kendal De La Garza at [facility] on 12/30/2023 @[id number].
[2023-12-30 16:42] LABS: PTT Heparin Drip 87.1 SEC (53-77.9)
[2023-12-30] MEDS: methADONE HCl 20 MG/2 ML ORAL.CONC 95 MG PO (17:01)
[2023-12-30] MEDS: cefTRIAXone sodium 2 GM in 0.9 % Sodium Chloride 50 ML IV (18:22)
[2023-12-30 20:00] VITALS: BP 111/73; PULSE 101; RESP 20; TEMP 36; O2SAT 97
[2023-12-30 20:16] LABS: Vancomycin Random 12.5 mcg/mL (15-20)
[2023-12-30] MEDS: vancomycin HCL 1,000 MG in 0.9 % Sodium Chloride 250 ML 125 MG IV (22:54)
[2023-12-30] MEDS: Heparin Sodium,Porcine/1/2NS 25,000 UNIT/250 ML IV.SOLN 10.4 UNIT IVCONT (22:57)
[2023-12-30 23:33] LABS: PTT Heparin Drip 47.5 SEC (53-77.9)
[2023-12-30 23:41] VITALS: BP 109/73; PULSE 90; RESP 20; TEMP 36.8; O2SAT 96
[2023-12-31] MEDS: Heparin Sodium,Porcine 5,000 UNIT/ML VIAL 2600 UNIT IVPUSH ×2 (02:09→15:54)
[2023-12-31 04:00] VITALS: BP 121/80; PULSE 100; RESP 20; TEMP 36.2; O2SAT 98
[2023-12-31] MEDS: Calcium Carbonate 750 MG TAB.CHEW PO (04:16)
[2023-12-31] MEDS: Ketorolac Tromethamine 15 MG/ML VIAL IVPUSH ×2 (04:16→10:29)
[2023-12-31 07:39] VITALS: BP 112/77; PULSE 74; RESP 18; TEMP 36.1; O2SAT 97
--- NOTE | 2023-12-31 07:52 | P.PNIM_ITS ---
Subjective Subjective Date of Service: 12/31/23 Interval History: f/u DVT, discitis Pain is controlled, no fever and he doesn't look toxic no weakness in legs,no urinary or stool incontinence Physical Exam 2 Vital Signs: Vital Signs: Last Vital Signs Temp 97.0 F 12/31/23 07:39 Pulse 74 12/31/23 07:39 Resp 18 12/31/23 07:39 BP 112/77 12/31/23 07:39 Pulse Ox 97 12/31/23 07:39 O2 Del Method Room Air 12/31/23 07:39 BMI result Body Mass Index 21.3 General: AO X 3, no acute distress Resp: CTA bilateral CVS: S1,S2,RRR GI: +BS, NT, no distention Skin: No rash, ext: swelling in the left calf is better Neuro: motor grossly intact, normal strength Psych: appropriate affect Objective Data Active Medications Acetaminophen (Acetaminophen 325 Mg Tablet) 650 mg PO Q6H PRN PRN Reason: Pain, Mild (Pain Scale 1-3) Calcium Carbonate (Calcium Carbonate 750 Mg Tab.Chew) 750 mg PO Q6H PRN PRN Reason: Heartburn Last Admin: 12/31/23 04:16 Dose: 750 mg Documented By: LATOSHA Cyclobenzaprine HCl (Cyclobenzaprine Hcl 10 Mg Tablet) 10 mg PO TID PRN PRN Reason: muscle spasm Gabapentin (Gabapentin 300 Mg Capsule) 300 mg PO TID [facility] Last Admin: 12/30/23 22:35 Dose: 300 mg Documented By: LATOSHA Heparin Sodium (Porcine) (Heparin Sodium,Porcine 5,000 Unit/Ml Vial) 2,600 unit 40 unit/kg (2600 unit) IVPUSH PROTOCOL BOLUS PRN; Protocol PRN Reason: 40 unit/kg - Heparin Protocol Last Admin: 12/31/23 02:09 Dose: 2,600 unit Documented By: EDWIN Heparin Sodium (Porcine) (Heparin Sodium,Porcine 5,000 Unit/Ml Vial) 5,200 unit 80 unit/kg (5200 unit) IVPUSH PROTOCOL BOLUS PRN; Protocol PRN Reason: 80 unit/kg - Heparin Protocol Last Admin: 12/30/23 10:58 Dose: 5,200 unit Documented By: PEPE Hydromorphone HCl (Hydromorphone Hcl 0.5 Mg/0.5 Ml Syringe) 0.5 mg IVPUSH Q4H PRN; Protocol PRN Reason: Pain, Severe (Pain Scale 7-10) Last Admin: 12/30/23 14:59 Dose: 0.5 mg Documented By: PEPE Heparin Sodium/Sodium Chloride (Heparin Sodium,Porcine/1/2ns) 25,000 unit in 250 mls @ 0 mls/hr IVCONT .Q0M [facility]; Protocol Last Titration: 12/31/23 02:11 Dose: 18 units/kg/hr, 11.7 mls/hr Documented By: EDWIN Co-signed By: LATOSHA Ceftriaxone Sodium 2 gm/ (Sodium Chloride) 50 mls @ 100 mls/hr IV Q24H [facility] Last Infusion: 12/30/23 23:07 Dose: Infused Documented By: LATOSHA Vancomycin HCl 1,000 mg/ (Sodium Chloride) 270 mls @ 270 mls/hr IV Q12H [facility] Last Infusion: 12/31/23 01:28 Dose: Infused Documented By: LATOSHA Ketorolac Tromethamine (Ketorolac Tromethamine 15 Mg/Ml Vial) 15 mg IVPUSH Q6H [facility] Stop: 12/31/23 10:16 Last Admin: 12/31/23 04:16 Dose: 15 mg Documented By: LATOSHA Methadone HCl (Methadone Hcl 20 Mg/2 Ml Oral.Conc) 95 mg PO DAILY [facility] Last Admin: 12/30/23 17:01 Dose: 95 mg Documented By: PEPE Ondansetron HCl (Ondansetron Hcl 4 Mg/2 Ml Vial) 4 mg IVPUSH Q8H PRN PRN Reason: Nausea and Vomiting Oxycodone HCl (Oxycodone Hcl Immed Release 5 Mg Tablet) 5 mg PO Q6H PRN PRN Reason: Pain, Moderate(Pain Scale 4-6) Pharmacy Consult (Consult Rx Vancomycin Dosing) 1 each MISCELLANE DAILY PRN PRN Reason: Consult order Senna (Sennosides 8.6 Mg Tablet) 17.2 mg PO BEDTIME PRN PRN Reason: Constipation Sodium Chloride (0.9 % Sodium Chloride Flush 3 Ml Syringe) 3 ml IVFLUSH QSHIFT [facility] Last Admin: 12/30/23 22:44 Dose: 3 ml Documented By: LATOSHA Sumatriptan Succinate (Sumatriptan Succinate 100 Mg Tablet) 100 mg PO Q2H PRN PRN Reason: Migraine Headache Venlafaxine HCl (Venlafaxine Hcl Er 75 Mg Cap.Er.24h) 75 mg PO DAILY [place] Last Admin: 12/30/23 09:51 Dose: 75 mg Documented By: PEPE Labs 12/30/23 07:05 12/31/23 08:16 Labs: Laboratory Results - last 24 hr 12/30/23 12/30/23 12/30/23 07:05 10:02 16:05 Hold Purple Top SEE NOTE aPTT Heparin Protocol 44.3 L D 35.6 L 87.1 H D Anion Gap 12 Estim Creat Clear Calc 131.2 Estimated GFR > 60 Random Glucose 79 Calcium 8.7 D Random Vancomycin 12/30/23 12/30/23 19:56 23:09 Hold Purple Top aPTT Heparin Protocol 47.5 L D Anion Gap Estim Creat Clear Calc Estimated GFR Random Glucose Calcium Random Vancomycin 12.5 L Microbiology Microbiology Results: Microbiology 12/29/23 17:05 Blood Culture - Preliminary Blood - Venous Prelim: GPC Gram Stain only 12/29/23 18:49 Blood Culture - Preliminary Blood - Venous No growth after 24 hours. Assessment and Plan (1) Left leg DVT: Status: Acute (2) Discitis of lumbar region: Status: Acute (3) Severe sepsis: Status: Acute Plan 33-year-old male with history of mood disorder, opioid dependence on methadone, ongoing IV drug abuse with heroin (relapsed 1 month ago), chronic low back pain, and history of bilateral DVT (provoked- post op) completed course of Lovenox/Eliquis admitted for management of occlusive LLE DVT and severe sepsis due to discitis #Lumbar discitis with severe sepsis--tachycardia, hypotension resolved, sepsis resolved -CT abd/pelvis shows possible discitis at L1-L2 -MRI:- At L1-L2 finding of osteomylitis- L1-L2 disck protrusion with L2 nerve root compression L4-L5 DJD...moderate foraminal stenosis..no abscess -IV vanco q12h and 2g ctx daily (initiated 12/28) -MRI lumbar spine -ID input noted -pain management prn. - continue methadone -Follow cultures - #1/2 gram positive cocci bacteremia--probably contamination, wait on final culture #Acute occlusive LLE DVT -venous duplex shows occlusive left common femoral, profunda femoral, and superficial femoral DVT. Previous site of bilateral DVT veins patent with recanalization -Per [facility] vascular surgery (Dr. Smith), no intervention at this time. Recommended IV heparin per protocol which was initiated (12/28). Should symptoms worsen, agreeable to rediscuss transfer -continue heparin drip per protocol and to be transitioned to eliquis -vascular surgery consult tomorrow for consideration of decloting #Opioid depedence with ongoing IVDA -Hep B, C and HIV negative -continue methadone (miravista) -addiction med consult following #Mood disorder -continue effexor #Chronic low back pain -ct abd/pelvis shows L3 compression fx -pain management prn, continue methadone, flexeril, gabapentin -outpt follow up #migraines -imitrex prn dvt prophylaxis/treatment- heparin per protocol full code need for inpt: dvt lle requiring iv heparin for ac as well as iv abx for treatment of discitis with severe sepsis Quality Stroke Does the patient have a stroke diagnosis?: No VTE Prior VTE?: Yes VTE Risk Level:: Medical - moderate - high VTE Device Contraindication: Treatment Not Indicated VTE Drug Contraindication: N/A - Med Ordered
[2023-12-31 08:36] LABS: PTT Heparin Drip 78.4 SEC (53-77.9)
[2023-12-31 08:52] LABS: Creatinine Clr Calc Pharmacy 104.7; Estimated Glomerular Filt Rate > 60
[2023-12-31] MEDS: Gabapentin 300 MG CAPSULE PO ×3 (09:25→19:49)
[2023-12-31] MEDS: Venlafaxine HCl ER 75 MG CAP.ER.24H PO (09:28)
[2023-12-31] MEDS: methADONE HCl 20 MG/2 ML ORAL.CONC 95 MG PO (09:28)
[2023-12-31] MEDS: 0.9 % Sodium Chloride Flush 3 ML SYRINGE IVFLUSH ×2 (09:32→19:51)
[2023-12-31] MEDS: vancomycin HCL 1,000 MG in 0.9 % Sodium Chloride 250 ML 125 MG IV (10:28)
[2023-12-31 12:00] VITALS: RESP 18
--- NOTE | 2023-12-31 14:05 | MHC.RECOVRN ---
Met with to follow up and provide support. Pt laying in bed, awake, alert, easily engages in conversation, appears comfortable. Pt reports gratitude for having methadone dose confirmed. Pt reports that approx twice per week pt would use heroin/fentanyl, 100 bags daily, IV. Pt reports he would use this if he was unable to get to the clinic or if he ran out of methadone. Pt reports he has overtaken methadone at times to help manage pain. Pt reports minimal withdrawal symptoms including diaphoresis and hot/cold flashes. Discussed comfort medications, pt open to clonidine. Pt reports pain has been manageable with Toradol, reports it is much more effective than opioid pain medication. Pt reports having been in treatment fairly recently, was at [facility] up until 5 months ago. Has since been renting a room in [place]. 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 Pt plans to return home upon dc. Pt denies other questions or concerns for t/w. Encouraged to reach out if needed.
[2023-12-31] MEDS: Acetaminophen 325 MG TABLET 650 MG PO ×2 (15:32→22:08)
[2023-12-31] MEDS: polyethylene glycoL 3350 17 GM POWD.PACK PO (15:32)
[2023-12-31] MEDS: Cyclobenzaprine HCl 10 MG TABLET PO ×2 (15:34→23:48)
[2023-12-31 15:40] LABS: PTT Heparin Drip 46.7 SEC (53-77.9)
[2023-12-31 16:00] VITALS: BP 100/60; PULSE 93; RESP 20; TEMP 36.4; O2SAT 97
[2023-12-31 19:10] VITALS: BP 111/65; PULSE 101; RESP 20; TEMP 36.4; O2SAT 97
[2023-12-31] MEDS: cefTRIAXone sodium 2 GM in 0.9 % Sodium Chloride 50 ML IV (19:49)
[2023-12-31 20:30] LABS: Vancomycin Random 19.9 mcg/mL (15-20)
[2023-12-31] MEDS: Heparin Sodium,Porcine/1/2NS 25,000 UNIT/250 ML IV.SOLN 11.7 UNIT IVCONT (20:36)
--- NOTE | 2023-12-31 20:39 | HE.PHANOTE ---
RE:vanco Trough on 12/30 came back at 19.9; decreased dose to 750mg Q12H with predicted trough of 15.4, AUC of 478 mg/L. Next level to be drawn 12/31 @1999. Will continue to monitor renal function
[2023-12-31 22:09] LABS: PTT Heparin Drip 74.8 SEC (53-77.9)
[2023-12-31] MEDS: vancomycin HCL 750 MG in 0.9 % Sodium Chloride 250 ML 265 MG IV (22:09)
[2023-12-31 23:47] VITALS: BP 110/63; PULSE 94; RESP 18; TEMP 37; O2SAT 97
[2024-01-01 03:55] VITALS: BP 106/57; PULSE 90; RESP 18; TEMP 36.8; O2SAT 97
[2024-01-01 04:20] LABS: PTT Heparin Drip 67.5 SEC (53-77.9)
--- NOTE | 2024-01-01 07:00 | CA_ITS ---
Transthoracic Echocardiogram Patient (Last, First, Middle): Sergio Clark, Gender: Male Date of : 1990 Age: 33 Procedure Date: 01/01/2024 Procedure Type: Transthoracic Echocardiogram [place] [facility] [place]: 177.8 cm Weight: 67.13 kg BSA: 1.84 m2 Heart Rate: bpm BP: 95 / 66 mmHg Guest Service Host: Referring MD: Ramses Armstrong MD Symptoms: disckitis, rule endocarditis Study Quality: Good ECG Rhythm: Sinus Conclusions: - The left ventricular systolic function is normal. The calculated ejection fraction is 60% by biplane method. - No obvious valvular pathology seen on this study. Findings Left Ventricle Normal left ventricular cavity size. There is normal left ventricular wall thickness. The left ventricular systolic function is normal. The calculated ejection fraction is 60% by biplane method. There is no evidence of regional wall motion abnormalities. Diastolic function is normal for age. Right Ventricle Normal right ventricular cavity size and systolic function. Atria Both atria are normal in size. Aortic Valve There is a normal trileaflet aortic valve. There is no aortic valve stenosis. There is no aortic valve regurgitation. Mitral Valve There is bowing of the posterior mitral leaflet without obvious prolapse. There is trace mitral valve regurgitation. There is no mitral valve stenosis. Pulmonic Valve The pulmonic valve is likely normal. Tricuspid Valve Normal tricuspid valve structure. There is trace tricuspid valve regurgitation. There is no evidence of pulmonary hypertension. Great Vessels The asc aorta is normal in size. Venous The inferior vena cava is normal in size and collapses greater than 50% with inspiration. Pericardium/Pleural There is no evidence of pericardial effusion. Prior Study Comparison No prior study available for comparison. Recommendations, Care & Conclusions No obvious valvular pathology seen on this study. Measurements 2D Linear Measurements IVSd: 0.84 0.6-0.9/0.6-1.0 cm LVIDd: 4.52 3.9-5.3/4.2-5.9 cm LVIDd Index: 2.46 2.4-3.2/2.2-3.1 cm/m2 LVIDs: 2.61 2.0-3.6 cm LVPWd: 0.96 0.7-1.1 cm Ao Root: 3.70 2.1-3.5 cm LA Diam: 3.20 2.7-3.8/3.0-4.0 cm LAIDs Index: 1.74 1.5-2.3 cm/m2 LV Mass: 165.50 67-162/88-224 g LV Mass Index: 89.94 43-95/49-115 g/m2 LVOT Diam: 2.60 3.0+(-)1.3 cm 2D Systolic Function EF 4C: 59.60 >55% EF 2C: 57.40 >55% EF BiP: 60.10 >55% Mitral Valve MV VTI: 0.16 MV Pk Rogelio: 0.86 MV Mn Rogelio: 0.55 MV Pk Grad: 3.00 MV Mn Grad: 1.00 MV Pk E: 0.74 MV PK A: 0.65 MV Decel Time: 118.00 E/A: 1.10 E'Lateral: 12.80 E'Medial: 7.51 E/E' Med: 9.90 E/E' Lat: 5.80 PHT: 34.00 MVA PHT: 6.47 MVA Continuity: 4.47 Decel Tompkins: 6.31 Aortic Valve AoV Pk Rogelio: 1.00 AoV Mn Rogelio: 0.57 AoV VTI: 0.21 AoV Pk Grad: 4.00 Aov Mn Grad: 2.00 ROBBY Cont.VTI: 3.52 LVOT LVOT Pk Rogelio: 0.87 LVOT Mn Rogelio: 0.56 LVOT VTI: 0.14 LVOT Pk Grad: 3.00 LVOT Mn Grad: 2.00 LVOT Diam: 2.60 LVOT Area: 5.31 Diastolic Function MV Pk E: 0.74 MV Pk A: 0.65 E/A: 1.10 E'Medial: 7.51 E/E' Med: 9.90 E' Laterial: 12.80 E/E' Lat: 5.80 Right Ventricle TAPSE (mm): 23.00 TVS' Rogelio: 15.00 Tricuspid Valve TR Pk Rogelio: 2.13 TR Pk Grad: 18.00 RA Press: 3.00 RVSP: 21.00 Great Vessels Aorta Ao Root-2D: 3.70 2.0-3.7 cm Ao Asc: 3.30 2.1-3.4 cm Pulmonary Valve PV Pk Rogelio: 0.98 Peak PV Grad: 4.00 Updated in Other Vendor System with Status of Final Emre Nagel MD electronically signed on 01/01/2024 3:41:41 PM with status of Final
[2024-01-01 07:06] VITALS: BP 95/66; PULSE 95; RESP 18; TEMP 36.5; O2SAT 98
[2024-01-01 07:41] LABS: Basophils Percent Auto 0.4 % (0-2); Eosinophils Absolute Auto 0.4 X10*3/uL (0.0-0.4); Eosinophils Percent Auto 3.8 % (0-4); Hematocrit 33.7 % (42.0-52.0); Hemoglobin 9.7 g/dl (14.0-18.0); Imm Gran Abs Auto 0.25 X10*3/uL (0.00-0.03); Imm Gran Pct Auto 2.7 % (0.0-0.4); MANUAL DIFF FLAG NO; Mean Corpuscular HGB Conc 28.8 g/dl (31.0-36.0); Mean Corpuscular Hemoglobin 21.5 pg (27.0-33.0); Mean Corpuscular Volume 74.6 fL (80.0-98.0); Mean Platelet Volume 10.2 fL (9.4-12.4); Monocytes Percent Auto 10.8 % (2-11); Neutrophils Absolute Auto 4.5 x10*3/uL (2.0-8.3); Neutrophils Percent Auto 49.3 % (45-73); Platelet Count 541 X10*3/uL (160-400); Red Blood Count 4.52 X10*6/uL (4.60-5.80); Red Cell Distribution Width 19.6 % (11.0-16.0); White Blood Count 9.2 X10*3/uL (4.8-10.8)
[2024-01-01] MEDS: Gabapentin 300 MG CAPSULE PO ×3 (08:33→20:17)
[2024-01-01] MEDS: Cyclobenzaprine HCl 10 MG TABLET PO ×2 (08:33→14:55)
[2024-01-01] MEDS: Acetaminophen 325 MG TABLET 650 MG PO (08:34)
[2024-01-01] MEDS: oxyCODONE HCl Immed Release 5 MG TABLET PO (08:34)
[2024-01-01] MEDS: Venlafaxine HCl ER 75 MG CAP.ER.24H PO (08:35)
[2024-01-01] MEDS: methADONE HCl 20 MG/2 ML ORAL.CONC 95 MG PO (08:37)
[2024-01-01] MEDS: 0.9 % Sodium Chloride Flush 3 ML SYRINGE IVFLUSH (08:39)
[2024-01-01 08:45] LABS: PTT Heparin Drip 49.1 SEC (53-77.9)
[2024-01-01 08:53] LABS: Creatinine Clr Calc Pharmacy 100.4; Estimated Glomerular Filt Rate > 60
[2024-01-01] MEDS: Heparin Sodium,Porcine 5,000 UNIT/ML VIAL 2600 UNIT IVPUSH (09:18)
[2024-01-01] MEDS: vancomycin HCL 750 MG in 0.9 % Sodium Chloride 250 ML 2665 MG IV (10:48)
--- NOTE | 2024-01-01 10:51 | P.PNIM_ITS ---
Subjective Subjective Date of Service: 01/01/24 Interval History: f/u DVT, discitis and strep bacteremia Pain is controlled, no fever, non toxic and no neurological changes, no weakness in legs,no urinary or stool incontinence Physical Exam 2 Vital Signs: Vital Signs: Last Vital Signs Temp 97.7 F 01/01/24 07:06 Pulse 95 01/01/24 07:06 Resp 18 01/01/24 07:06 BP 95/66 01/01/24 07:06 Pulse Ox 98 01/01/24 07:06 O2 Del Method Room Air 01/01/24 07:06 BMI result Body Mass Index 21.3 General: AO X 3, no acute distress Resp: CTA bilateral CVS: S1,S2,RRR GI: +BS, NT, no distention Skin: No rash, ext: swelling in the left calf is better Neuro: motor grossly intact, normal strength Psych: appropriate affect Objective Data Active Medications Acetaminophen (Acetaminophen 325 Mg Tablet) 650 mg PO Q6H PRN PRN Reason: Pain, Mild (Pain Scale 1-3) Last Admin: 01/01/24 08:34 Dose: 650 mg Documented By: MAXINE Calcium Carbonate (Calcium Carbonate 750 Mg Tab.Chew) 750 mg PO Q6H PRN PRN Reason: Heartburn Last Admin: 12/31/23 04:16 Dose: 750 mg Documented By: LATOSHA Clonidine HCl (Clonidine Hcl 0.1 Mg Tablet) 0.1 mg PO TID PRN; Protocol PRN Reason: Opiate Withdrawal Cyclobenzaprine HCl (Cyclobenzaprine Hcl 10 Mg Tablet) 10 mg PO TID PRN PRN Reason: muscle spasm Last Admin: 01/01/24 08:33 Dose: 10 mg Documented By: MAXINE Gabapentin (Gabapentin 300 Mg Capsule) 300 mg PO TID [place] Last Admin: 01/01/24 08:33 Dose: 300 mg Documented By: MAXINE Heparin Sodium (Porcine) (Heparin Sodium,Porcine 5,000 Unit/Ml Vial) 2,600 unit 40 unit/kg (2600 unit) IVPUSH PROTOCOL BOLUS PRN; Protocol PRN Reason: 40 unit/kg - Heparin Protocol Last Admin: 01/01/24 09:18 Dose: 2,600 unit Documented By: MAXINE Heparin Sodium (Porcine) (Heparin Sodium,Porcine 5,000 Unit/Ml Vial) 5,200 unit 80 unit/kg (5200 unit) IVPUSH PROTOCOL BOLUS PRN; Protocol PRN Reason: 80 unit/kg - Heparin Protocol Last Admin: 12/30/23 10:58 Dose: 5,200 unit Documented By: PEPE Hydromorphone HCl (Hydromorphone Hcl 0.5 Mg/0.5 Ml Syringe) 0.5 mg IVPUSH Q4H PRN; Protocol PRN Reason: Pain, Severe (Pain Scale 7-10) Last Admin: 12/30/23 14:59 Dose: 0.5 mg Documented By: PEPE Heparin Sodium/Sodium Chloride (Heparin Sodium,Porcine/1/2ns) 25,000 unit in 250 mls @ 0 mls/hr IVCONT .Q0M [facility]; Protocol Last Titration: 01/01/24 09:16 Dose: 20 units/kg/hr, 13 mls/hr Documented By: MAXINE Co-signed By: SILVESTRE Ceftriaxone Sodium 2 gm/ (Sodium Chloride) 50 mls @ 100 mls/hr IV Q24H [facility] Last Infusion: 12/31/23 21:05 Dose: Infused Documented By: FARHAN Vancomycin HCl 750 mg/ Sodium (Chloride) 265 mls @ 265 mls/hr IV Q12H [facility] Last Admin: 01/01/24 10:48 Dose: 2,665 mls/hr Documented By: MAXINE Methadone HCl (Methadone Hcl 20 Mg/2 Ml Oral.Conc) 95 mg PO DAILY [facility] Last Admin: 01/01/24 08:37 Dose: 95 mg Documented By: MAXINE Ondansetron HCl (Ondansetron Hcl 4 Mg/2 Ml Vial) 4 mg IVPUSH Q8H PRN PRN Reason: Nausea and Vomiting Oxycodone HCl (Oxycodone Hcl Immed Release 5 Mg Tablet) 5 mg PO Q6H PRN PRN Reason: Pain, Moderate(Pain Scale 4-6) Last Admin: 01/01/24 08:34 Dose: 5 mg Documented By: MAXINE Pharmacy Consult (Consult Rx Vancomycin Dosing) 1 each MISCELLANE DAILY PRN PRN Reason: Consult order Polyethylene Glycol (Polyethylene Glycol 3350 17 Gm Powd.Pack) 17 gm PO DAILY PRN PRN Reason: Constipation Last Admin: 12/31/23 15:32 Dose: 17 gm Documented By: MAXINE Senna (Sennosides 8.6 Mg Tablet) 17.2 mg PO BEDTIME PRN PRN Reason: Constipation Sodium Chloride (0.9 % Sodium Chloride Flush 3 Ml Syringe) 3 ml IVFLUSH QSHIFT [facility] Last Admin: 01/01/24 08:39 Dose: 3 ml Documented By: MAXINE Sumatriptan Succinate (Sumatriptan Succinate 100 Mg Tablet) 100 mg PO Q2H PRN PRN Reason: Migraine Headache Venlafaxine HCl (Venlafaxine Hcl Er 75 Mg Cap.Er.24h) 75 mg PO DAILY [facility] Last Admin: 01/01/24 08:35 Dose: 75 mg Documented By: MAXINE Labs 12/31/23 08:16 01/01/24 07:49 Labs: Laboratory Results - last 24 hr 12/31/23 12/31/23 12/31/23 08:16 15:09 19:56 MCV 74.6 L MCH 21.5 L MCHC 28.8 L RDW 19.6 H Plt Count 541 H MPV 10.2 Immature Gran % (Auto) 2.7 H Neut % (Auto) 49.3 Lymph % (Auto) 33.0 [place] % (Auto) 10.8 Eos % (Auto) 3.8 Baso % (Auto) 0.4 Lymph # (Auto) 3.0 [place] # (Auto) 1.0 Eos # (Auto) 0.4 Baso # (Auto) 0.0 Abs Immat Gran (auto) 0.25 H Absolute Neuts (auto) 4.5 Absolute Nucleated RBC 0.000 Nucleated RBC % (auto) 0.0 aPTT Heparin Protocol 46.7 L D Estim Creat Clear Calc Estimated GFR Hold Yellow Top See Note Random Vancomycin 19.9 12/31/23 01/01/24 01/01/24 21:55 04:03 07:49 MCV MCH MCHC RDW Plt Count MPV Immature Gran % (Auto) Neut % (Auto) Lymph % (Auto) [place] % (Auto) Eos % (Auto) Baso % (Auto) Lymph # (Auto) [place] # (Auto) Eos # (Auto) Baso # (Auto) Abs Immat Gran (auto) Absolute Neuts (auto) Absolute Nucleated RBC Nucleated RBC % (auto) aPTT Heparin Protocol 74.8 D 67.5 49.1 L D Estim Creat Clear Calc 100.4 Estimated GFR > 60 Hold Yellow Top Random Vancomycin Microbiology Microbiology Results: Microbiology 12/29/23 17:05 Blood Culture - Final Blood - Venous Streptococcus viridans group 12/29/23 18:49 Blood Culture - Preliminary Blood - Venous No growth after 48 hours. Assessment and Plan (1) Left leg DVT: Status: Acute (2) Discitis of lumbar region: Status: Acute (3) Severe sepsis: Status: Acute Plan 33-year-old male with history of mood disorder, opioid dependence on methadone, ongoing IV drug abuse with heroin (relapsed 1 month ago), chronic low back pain, and history of bilateral DVT (provoked- post op) completed course of Lovenox/Eliquis admitted for management of occlusive LLE DVT and severe sepsis due to discitis #Lumbar discitis with severe sepsis--tachycardia, hypotension resolved, sepsis resolved #Strep Bacteremia -CT abd/pelvis shows possible discitis at L1-L2 -MRI:- At L1-L2 finding of osteomylitis- L1-L2 disck protrusion with L2 nerve root compression L4-L5 DJD...moderate foraminal stenosis..no abscess -IV vanco q12h and 2g ceftriaxone daily (initiated 12/28) -likely IV Ceftriaxone alone, will discuss with ID -pain management prn. -Follow cultures and repeat cultures today - #1/2 gram positive cocci bacteremia--Strep viridan --Antibiotics as above #Acute occlusive LLE DVT -venous duplex shows occlusive left common femoral, profunda femoral, and superficial femoral DVT. Previous site of bilateral DVT veins patent with recanalization -Per [facility] (Dr. Smith), no intervention at this time. Recommended IV heparin per protocol which was initiated (12/28). Should symptoms worsen, agreeable to rediscuss transfer -continue heparin drip per protocol and to be transitioned to eliquis -vascular surgery consult tomorrow for consideration of decloting -hematological consult for suggestion on transitioning to PO #Opioid depedence with ongoing IVDA -Hep B, C and HIV negative -continue methadone (miravista) -addiction med consult following #Mood disorder -continue effexor #Chronic low back pain -ct abd/pelvis shows L3 compression fx -pain management prn, continue methadone, flexeril, gabapentin -outpt follow up #migraines -imitrex prn dvt prophylaxis/treatment- heparin per protocol full code need for inpt: dvt lle requiring iv heparin for ac as well as iv abx for treatment of discitis with severe sepsis Quality Stroke Does the patient have a stroke diagnosis?: No VTE Prior VTE?: Yes VTE Risk Level:: Medical - moderate - high VTE Device Contraindication: Treatment Not Indicated VTE Drug Contraindication: N/A - Med Ordered
--- NOTE | 2024-01-01 10:56 | MHC.CM.PN ---
Provider said that pt may need 6 weeks IV ABX, CM met with pt to discuss going to a SNF for this. He said he will not be able to go to a SNF, and said that he has had IV meds at home in the past. He said he lives with his aunt. He has a new PCP appt. on 01/23/[address] Spicer in [place]. CM has submitted referrals to 3 area SNFs that [place], and to [facility] and [facility] in planning for DC. [facility] responded that they accept pt. CM will continue to follow and work on DC planning.
[2024-01-01 11:05] VITALS: BP 109/74; PULSE 95; RESP 18; TEMP 37.3; O2SAT 97
[2024-01-01] MEDS: cloNIDine HCL 0.1 MG TABLET PO ×2 (12:02→20:32)
--- NOTE | 2024-01-01 14:42 | PM.CNGS ---
History of Present Illness Consult details Consult date: 01/01/24 Reason for consult: other (dvt) Narrative: 33-year-old gentleman with a history of mood disorder and opioid dependence presented to the emergency room with left lower extremity swelling. He began repeated use of heroin with injections. Developed a left lower extremity DVT. Of note he had a prior history of right lower extremity DVT which was declotted at [facility]. Now presents to us for vascular evaluation. Of note he has been maintained on anticoagulants. Review of Systems Review of Systems: Yes all other systems are reviewed and are negative Constitutional: Constitutional: Reports no additional constitutional complaints ENT: Reports Normal hearing present Cardiovascular: Cardiovascular: Denies chest pain, Denies chest pain at rest, Denies chest pain with activity and Denies pedal edema Respiratory: Respiratory: Denies cough Gastrointestinal: Gastrointestinal: Denies abdominal pain Musculoskeletal: Musculoskeletal: Denies abnormal gait, Denies muscle cramps and Denies radiating pain into limb Integumentary/Breasts: Skin/Breast: Denies skin ulcer and Denies wounds Neurologic: Reports Normal hearing present and Denies abnormal gait Psychiatric: Psychiatric: Reports no additional psychiatric complaints PMFSH Past Medical History Medical History Opioid use disorder DVT of lower extremity, bilateral Migraine headache Family History Family history: reviewed and not pertinent Surgical History Surgical History History of surgery on lower extremity History of ankle surgery Social History Social History Household Members: Friend(s) Housing: House Do you presently have visiting nurse or other home services: No Alcohol intake: current Alcohol intake frequency: holidays/special occasions only Patient Tobacco Use Status: Never used Tobacco e-Cigarette/Vaping Use: Never Used Second Hand Smoke Exposure: No Substance Use Type: Heroin service: No Current occupational status: employed Meds Allergies Allergy/AdvReac Type Severity Reaction Status Date / Time vancomycin [VANCOMYCIN] AdvReac Unknown red man Verified 12/29/23 15:55 syndrome Active Medications: Current Medications Acetaminophen (Acetaminophen 325 Mg Tablet) 650 mg PO Q6H PRN PRN Reason: Pain, Mild (Pain Scale 1-3) Last Admin: 01/01/24 08:34 Dose: 650 mg Calcium Carbonate (Calcium Carbonate 750 Mg Tab.Chew) 750 mg PO Q6H PRN PRN Reason: Heartburn Last Admin: 12/31/23 04:16 Dose: 750 mg Clonidine HCl (Clonidine Hcl 0.1 Mg Tablet) 0.1 mg PO TID PRN; Protocol PRN Reason: Opiate Withdrawal Last Admin: 01/01/24 12:02 Dose: 0.1 mg Cyclobenzaprine HCl (Cyclobenzaprine Hcl 10 Mg Tablet) 10 mg PO TID PRN PRN Reason: muscle spasm Last Admin: 01/01/24 08:33 Dose: 10 mg Gabapentin (Gabapentin 300 Mg Capsule) 300 mg PO TID [place] Last Admin: 01/01/24 08:33 Dose: 300 mg Heparin Sodium (Porcine) (Heparin Sodium,Porcine 5,000 Unit/Ml Vial) 2,600 unit 40 unit/kg (2600 unit) IVPUSH PROTOCOL BOLUS PRN; Protocol PRN Reason: 40 unit/kg - Heparin Protocol Last Admin: 01/01/24 09:18 Dose: 2,600 unit Heparin Sodium (Porcine) (Heparin Sodium,Porcine 5,000 Unit/Ml Vial) 5,200 unit 80 unit/kg (5200 unit) IVPUSH PROTOCOL BOLUS PRN; Protocol PRN Reason: 80 unit/kg - Heparin Protocol Last Admin: 12/30/23 10:58 Dose: 5,200 unit Hydromorphone HCl (Hydromorphone Hcl 0.5 Mg/0.5 Ml Syringe) 0.5 mg IVPUSH Q4H PRN; Protocol PRN Reason: Pain, Severe (Pain Scale 7-10) Last Admin: 12/30/23 14:59 Dose: 0.5 mg Heparin Sodium/Sodium Chloride (Heparin Sodium,Porcine/1/2ns) 25,000 unit in 250 mls @ 0 mls/hr IVCONT .Q0M [place]; Protocol Last Titration: 01/01/24 09:16 Dose: 20 units/kg/hr, 13 mls/hr Ceftriaxone Sodium 2 gm/ (Sodium Chloride) 50 mls @ 100 mls/hr IV Q24H [facility] Last Infusion: 12/31/23 21:05 Dose: Infused Vancomycin HCl 750 mg/ Sodium (Chloride) 265 mls @ 265 mls/hr IV Q12H [facility] Last Infusion: 01/01/24 12:19 Dose: Infused Methadone HCl (Methadone Hcl 20 Mg/2 Ml Oral.Conc) 95 mg PO DAILY [facility] Last Admin: 01/01/24 08:37 Dose: 95 mg Ondansetron HCl (Ondansetron Hcl 4 Mg/2 Ml Vial) 4 mg IVPUSH Q8H PRN PRN Reason: Nausea and Vomiting Pharmacy Consult (Consult Rx Vancomycin Dosing) 1 each MISCELLANE DAILY PRN PRN Reason: Consult order Polyethylene Glycol (Polyethylene Glycol 3350 17 Gm Powd.Pack) 17 gm PO DAILY PRN PRN Reason: Constipation Last Admin: 12/31/23 15:32 Dose: 17 gm Senna (Sennosides 8.6 Mg Tablet) 17.2 mg PO BEDTIME PRN PRN Reason: Constipation Sodium Chloride (0.9 % Sodium Chloride Flush 3 Ml Syringe) 3 ml IVFLUSH QSHIFT [facility] Last Admin: 01/01/24 08:39 Dose: 3 ml Sumatriptan Succinate (Sumatriptan Succinate 100 Mg Tablet) 100 mg PO Q2H PRN PRN Reason: Migraine Headache Tramadol HCl (Tramadol Hcl 50 Mg Tablet) 50 mg PO Q6H PRN PRN Reason: Pain, Moderate(Pain Scale 4-6) Venlafaxine HCl (Venlafaxine Hcl Er 75 Mg Cap.Er.24h) 75 mg PO DAILY [facility] Last Admin: 01/01/24 08:35 Dose: 75 mg Home Medications Medication Instructions Recorded Confirmed Last Taken Type fremanezumab-vfrm 225 mg/1.5 mL 225 mg subcut QMONTH 04/12/21 12/29/23 08/27/23 History subcutaneous auto-injector (Ajovy) gabapentin 300 mg capsule 1 cap PO TID 04/12/21 12/29/23 12/29/23 History sumatriptan succinate 100 mg tablet 1 tab PO Q2H PRN Migraine Headache 04/12/21 12/29/23 12/25/23 History methadone 5 mg/5 mL oral solution 95 mg PO DAILY 04/13/21 12/29/23 12/29/23 History ondansetron 4 mg disintegrating 4 mg PO Q12H PRN nausea and 12/29/23 12/29/23 12/27/23 History tablet vomiting Physical Exam Vital Signs: Vital Signs: Last Vital Signs Temp 99.1 F 01/01/24 11:05 Pulse 95 01/01/24 11:05 Resp 18 01/01/24 11:05 BP 109/74 01/01/24 11:05 Pulse Ox 97 01/01/24 11:05 O2 Del Method Room Air 01/01/24 11:05 BMI result Body Mass Index 21.3 Const: General: cooperative, healthy appearing and comfortable Orientation/consciousness: oriented to person, oriented to place and oriented to time HEENT: Head: Yes normal to inspection Neck: Neck: Yes normal visual inspection Carotids: no bruits Chest: Chest palpation & inspection: normal inspection of the chest Resp: Effort & Inspection: normal respiratory effort and able to speak in complete sentences Auscultation: clear to auscultation bilaterally, no crackles, no rales, no rhonchi and no wheezes Cardio: Rate: regular rate Rhythm: regular rhythm Heart sounds: S1 normal heart sound present and S2 normal heart sound present Bruits: no carotid bruits Peripheral pulses: Peripheral pulses 2+ throughout GI: Inspection: Yes normal to inspection Skin: Wounds: no wounds Hair: normal Neuro: General: oriented to person, oriented to place and oriented to time Cranial nerves: Yes CN's II-XII intact bilaterally and Yes Normal hearing present Cognition (Neuro): normal cognition Motor exam (neuro): 5/5 motor strength present throughout Extrem: Other: venous exam: No significant superficial varicosities or spider telangiectasias, minimal edema General: No clubbing, No cyanosis and No edema Psych: Appearance: grossly normal Mental Status: mental status grossly normal Speech and movement: Normal speech and movement present Results Labs 12/31/23 08:16 01/01/24 07:49 Labs: Abnormal lab results 12/31/23 12/31/23 01/01/24 Range/Units 08:16 15:09 07:49 RBC 4.52 L (4.60-5.80) X10*6/uL Hgb 9.7 L (14.0-18.0) g/dl Hct 33.7 L (42.0-52.0) % MCV 74.6 L (80.0-98.0) fL MCH 21.5 L (27.0-33.0) pg MCHC 28.8 L (31.0-36.0) g/dl RDW 19.6 H (11.0-16.0) % Plt Count 541 H (160-400) X10*3/uL Immature Gran % (Auto) 2.7 H (0.0-0.4) % Abs Immat Gran (auto) 0.25 H (0.00-0.03) X10*3/uL aPTT Heparin Protocol 46.7 L D 49.1 L D (53-77.9) SEC Short CBC 12/31/23 Range/Units 08:16 WBC 9.2 (4.8-10.8) X10*3/uL Hgb 9.7 L (14.0-18.0) g/dl Hct 33.7 L (42.0-52.0) % Plt Count 541 H (160-400) X10*3/uL BMP 01/01/24 07:49 Creatinine 0.98 Urine 12/30/23 Range/Units 01:02 Urine Color Yellow Urine Appearance Clear Urine pH 5.5 (5.0-9.0) Ur Specific [place] >= 1.030 H (1.005-1.025) Urine Protein Negative (Neg-Trace) mg/dL Urine Glucose (UA) Negative (Negative) mg/dL All other labs normal. Assessment and Plan (1) Left leg DVT: Qualifiers: Affected thrombotic vein of extremity: femoral Chronicity: acute Qualified Code(s): I82.412 - Acute embolism and thrombosis of left femoral vein Status: Acute Plan In short patient has acute DVT. Due to his overall history and prior history of DVT would recommend straight anticoagulation. I am concerned about his lumbar diskitis with severe sepsis. Would not recommend any intervention at the current time. He is improving on anticoagulation alone. We will peripherally follow with you. Thank you for allowing us to assist in his care. Procedures Date of Service Date of Service: 01/01/24
[2024-01-01] MEDS: traMADoL HCL 50 MG TABLET PO (14:55)
[2024-01-01 15:38] VITALS: BP 103/63; PULSE 100; RESP 20; TEMP 36.8; O2SAT 96
[2024-01-01 15:38] LABS: PTT Heparin Drip 99.3 SEC (53-77.9)
--- NOTE | 2024-01-01 15:41 | PM.HEMONCCN ---
Subjective - Subjective Chief complaint: Back and left leg pain Patient: new to practice Consult date: 01/01/24 Primary Care Provider: Jaylen Spicer DO, MD Medical Summary: Diagnosis: Recurrent bilateral DVT HPI - Consult Narrative Reason for consult: Recurrent DVT Narrative: Sergio Clark is a 33 year old male with history of IV drug abuse who has been admitted for diskitis and recurrent left lower extremity DVT. Patient states that he has his 1st episode DVT in the right lower extremity around 2021, that was diagnosed at [facility]. He had thrombectomy and he was on anticoagulation for a month. In 2022 he had right knee surgery and was on prophylactic anticoagulation with Eliquis. He has not been maintained on anticoagulation. He does admit that each time he developed a blood clot this was in relation to his IV drug abuse. There is no family history of thromboembolism. He quit smoking recently. He had ultrasound of left lower extremity which showed occlusive thrombus in the left common femoral, profunda femoral, superficial femoral veins which are new compared to prior exam. Previously noted DVT in the left popliteal, peroneal, posterior tibial and greater saphenous vein had recanalized. MRI of lumbar spine shows findings suspicious for osteomyelitis, he is receiving IV antibiotics. He is also on IV heparin. He denies pleuritic chest pain, shortness of breath or cough. He denies any prior history of pulmonary embolism. Review of Systems - Constitutional Reports as per HPI, Reports fatigue, Reports malaise, Reports weight loss - Cardiovascular Denies chest pain, Denies fainting, Reports fast heart rate - Neurologic Reports no additional neurologic complaints, Reports hearing normal, Denies abnormal speech, Denies abnormal gait, Denies dizziness, Denies headache(s), Denies numbness, Denies tingling, Denies weakness [facility] Medical History: Medical History (Last Reviewed 12/30/23 @ 12:27 by Whitney Fernandez MD) DVT of lower extremity, bilateral Migraine headache Opioid use disorder Family history: reviewed and not pertinent Surgical History: Surgical History (Last Reviewed 12/30/23 @ 12:27 by Whitney Fernandez MD) History of ankle surgery History of surgery on lower extremity Social History: Social History (Last Reviewed 12/30/23 @ 12:27 by Whitney Fernandez MD) Living Situation History: Household Members: Friend(s) Housing: House Do you presently have visiting nurse or other home services: No Tobacco History: Patient Tobacco Use Status: Never used Tobacco e-Cigarette/Vaping Use: Never Used Second Hand Smoke Exposure: No Substance Use History: Substance Use Type: Heroin Occupation Assessmet: service: No Current occupational status: employed Home Medications and Allergies Current Medications: Current Medications Acetaminophen (Acetaminophen 325 Mg Tablet) 650 mg PO Q6H PRN PRN Reason: Pain, Mild (Pain Scale 1-3) Last Admin: 01/01/24 08:34 Dose: 650 mg Calcium Carbonate (Calcium Carbonate 750 Mg Tab.Chew) 750 mg PO Q6H PRN PRN Reason: Heartburn Last Admin: 12/31/23 04:16 Dose: 750 mg Clonidine HCl (Clonidine Hcl 0.1 Mg Tablet) 0.1 mg PO TID PRN; Protocol PRN Reason: Opiate Withdrawal Last Admin: 01/01/24 12:02 Dose: 0.1 mg Cyclobenzaprine HCl (Cyclobenzaprine Hcl 10 Mg Tablet) 10 mg PO TID PRN PRN Reason: muscle spasm Last Admin: 01/01/24 14:55 Dose: 10 mg Gabapentin (Gabapentin 300 Mg Capsule) 300 mg PO TID [place] Last Admin: 01/01/24 14:55 Dose: 300 mg Heparin Sodium (Porcine) (Heparin Sodium,Porcine 5,000 Unit/Ml Vial) 2,600 unit 40 unit/kg (2600 unit) IVPUSH PROTOCOL BOLUS PRN; Protocol PRN Reason: 40 unit/kg - Heparin Protocol Last Admin: 01/01/24 09:18 Dose: 2,600 unit Heparin Sodium (Porcine) (Heparin Sodium,Porcine 5,000 Unit/Ml Vial) 5,200 unit 80 unit/kg (5200 unit) IVPUSH PROTOCOL BOLUS PRN; Protocol PRN Reason: 80 unit/kg - Heparin Protocol Last Admin: 12/30/23 10:58 Dose: 5,200 unit Hydromorphone HCl (Hydromorphone Hcl 0.5 Mg/0.5 Ml Syringe) 0.5 mg IVPUSH Q4H PRN; Protocol PRN Reason: Pain, Severe (Pain Scale 7-10) Last Admin: 12/30/23 14:59 Dose: 0.5 mg Heparin Sodium/Sodium Chloride (Heparin Sodium,Porcine/1/2ns) 25,000 unit in 250 mls @ 0 mls/hr IVCONT .Q0M [facility]; Protocol Last Titration: 01/01/24 09:16 Dose: 20 units/kg/hr, 13 mls/hr Ceftriaxone Sodium 2 gm/ (Sodium Chloride) 50 mls @ 100 mls/hr IV Q24H [facility] Last Infusion: 12/31/23 21:05 Dose: Infused Vancomycin HCl 750 mg/ Sodium (Chloride) 265 mls @ 265 mls/hr IV Q12H [facility] Last Infusion: 01/01/24 12:19 Dose: Infused Methadone HCl (Methadone Hcl 20 Mg/2 Ml Oral.Conc) 95 mg PO DAILY [facility] Last Admin: 01/01/24 08:37 Dose: 95 mg Ondansetron HCl (Ondansetron Hcl 4 Mg/2 Ml Vial) 4 mg IVPUSH Q8H PRN PRN Reason: Nausea and Vomiting Pharmacy Consult (Consult Rx Vancomycin Dosing) 1 each MISCELLANE DAILY PRN PRN Reason: Consult order Polyethylene Glycol (Polyethylene Glycol 3350 17 Gm Powd.Pack) 17 gm PO DAILY PRN PRN Reason: Constipation Last Admin: 12/31/23 15:32 Dose: 17 gm Senna (Sennosides 8.6 Mg Tablet) 17.2 mg PO BEDTIME PRN PRN Reason: Constipation Sodium Chloride (0.9 % Sodium Chloride Flush 3 Ml Syringe) [facility] Last Admin: 01/01/24 08:39 Dose: 3 ml Sumatriptan Succinate (Sumatriptan Succinate 100 Mg Tablet) 100 mg PO Q2H PRN PRN Reason: Migraine Headache Tramadol HCl (Tramadol Hcl 50 Mg Tablet) 50 mg PO Q6H PRN PRN Reason: Pain, Moderate(Pain Scale 4-6) Last Admin: 01/01/24 14:55 Dose: 50 mg Venlafaxine HCl (Venlafaxine Hcl Er 75 Mg Cap.Er.24h) 75 mg PO DAILY [facility] Last Admin: 01/01/24 08:35 Dose: 75 mg Home Medications Medication Instructions Recorded Confirmed Type fremanezumab-vfrm 225 mg/1.5 mL 225 mg subcut QMONTH 04/12/21 12/29/23 History subcutaneous auto-injector (Ajovy) gabapentin 300 mg capsule 1 cap PO TID 04/12/21 12/29/23 History sumatriptan succinate 100 mg tablet 1 tab PO Q2H PRN Migraine Headache 04/12/21 12/29/23 History methadone 5 mg/5 mL oral solution 95 mg PO DAILY 04/13/21 12/29/23 History ondansetron 4 mg disintegrating 4 mg PO Q12H PRN nausea and 12/29/23 12/29/23 History tablet vomiting Allergies Allergy/AdvReac Type Severity Reaction Status Date / Time vancomycin [VANCOMYCIN] AdvReac Unknown red man Verified 12/29/23 15:55 syndrome Physical Exam Vital signs: Vital Signs Temp 98.2 F 01/01/24 15:38 Pulse 100 01/01/24 15:38 Resp 20 01/01/24 15:38 BP 103/63 01/01/24 15:38 Pulse Ox 96 01/01/24 15:38 O2 Del Method Room Air 01/01/24 15:38 Intake & Output 12/31/23 01/01/24 01/01/24 18:59 06:59 18:59 Intake Total 840.973 / 2023.978 1183.005 / 2023.978 920.575 / 920.575 Output Total 300 / 300 Balance 840.973 / 1723.978 883.005 / 1723.978 920.575 / 920.575 Urine Output (Average ml/kg/hr) 0.37 0.37 Intake: Intake, Oral Amount 420 / 1140 720 / 1140 600 / 600 Intake, IV Amount 420.973 / 883.978 463.005 / 883.978 320.575 / 320.575 cefTRIAXone sodium 2 gm In 0.9 50 / 50 % Sodium Chloride 50 ml @ 100 mls/hr IV Q24H [place] Rx#: [id number] vancomycin HCL 1,000 mg In 0.9 270 / 270 % Sodium Chloride 250 ml @ 270 mls/hr IV Q12H [place] Rx#: [id number] vancomycin HCL 750 mg In 0.9 % 265 / 265 265 / 265 Sodium Chloride 250 ml @ 265 mls/hr IV Q12H [place] Rx#: [id number] Heparin Sodium,Porcine/1/2NS 25 150.973 / 298.978 148.005 / 298.978 55.575 / 55.575 ,000 unit In 250 ml @ Per Protocol IVCONT .Q0M [facility] Rx#: [id number] Output: Output, Urine Amount 300 / 300 Other: Breakfast % Eaten 75% Lunch % Eaten 100% 100% Number of Unmeasured Voids 3 Urine Bathroom Urine Color Yellow Last Bowel Movement 12/29/23 12/29/23 Weight 67.5 kg - Constitutional Present: no acute distress, cooperative - Routine HEENT Exam Head: Present: normal inspection Eye: Present: conjunctivae pale, PERRL - Routine Neck Exam Present: supple. Absent: lymphadenopathy - Routine Respiratory Exam Absent: accessory muscle use - Routine Cardiovascular Exam Cardiovascular: Present: S1, S2 - Routine Abdominal Exam Present: soft Hem/Onc Consult Result - Labs CBC & Chem 7: 12/31/23 08:16 01/01/24 07:49 Labs: Short CBC 12/31/23 Range/Units 08:16 WBC 9.2 (4.8-10.8) X10*3/uL Hgb 9.7 L (14.0-18.0) g/dl Hct 33.7 L (42.0-52.0) % Plt Count 541 H (160-400) X10*3/uL BMP 01/01/24 07:49 Creatinine 0.98 Assessment and Plan Patient Active problem list reviewed?: Yes (1) Left leg DVT Status: Acute Assessment and plan: 1. This is a 33-year-old male who has been diagnosed with bilateral recurrent DVT in relation to IV drug abuse. First episode occurred around 2021, he was diagnosed at [facility] and apparently treated with thrombectomy for right lower extremity DVT. Subsequently he has had recurrent clots in both lower extremities, all in relation to needle use over veins of lower extremity. He has not been maintained on long-term anticoagulation, he received about 1 month of anticoagulation the last time he was diagnosed with DVT. There is no family history of thromboembolism. No role of thrombophilia testing at this time. I have recommended long-term anticoagulation with newer oral anticoagulants such as Eliquis. I discussed pros and cons of long-term anticoagulation. He is interested in quitting his drug habit. He was advised to monitor himself for any signs of bruising or bleeding. 2. Iron deficiency anemia. He can be started on oral iron supplementation. I will be happy to see him upon discharge. Thank you for the consultation. - Time Spent With Patient Time Spent with Patient (in minutes): 20
--- NOTE | 2024-01-01 15:49 | MHC.RECOVRN ---
Met with pt to check in and provide support. Pt laying in bed, awake, alert, easily engages in conversation, reports trying to relax. Pt was informed he may need residential IV abx, is not interested in going to [facility]. Pt reports he has received IV abx at home from [facility] last year. Encouraged pt to discuss this with provider and CM. Pt comfortable with methadone dose, denies withdrawal symptoms. Pt denies other questions or concerns. T/a available if needed.
[2024-01-01] MEDS: Ibuprofen 600 MG TABLET PO (18:31)
[2024-01-01] MEDS: SUMAtriptan succinate 100 MG TABLET PO (18:31)
[2024-01-01 19:53] VITALS: BP 111/67; PULSE 88; RESP 16; TEMP 36.8; O2SAT 95
[2024-01-01] MEDS: Apixaban 5 MG TABLET 10 MG PO (20:17)
[2024-01-01] MEDS: cefTRIAXone sodium 2 GM in 0.9 % Sodium Chloride 50 ML IV (20:17)
[2024-01-01 20:20] LABS: Vancomycin Random 16.2 mcg/mL (15-20)
[2024-01-01 23:27] VITALS: BP 111/73; PULSE 85; RESP 16; TEMP 36.6; O2SAT 99
[2024-01-02 03:12] VITALS: BP 94/53; PULSE 69; RESP 16; TEMP 36.1; O2SAT 96
[2024-01-02 06:07] LABS: Creatinine Clr Calc Pharmacy 103.6; Estimated Glomerular Filt Rate > 60
[2024-01-02 07:38] VITALS: BP 95/60; PULSE 78; RESP 20; TEMP 37.1; O2SAT 97
[2024-01-02] MEDS: Cyclobenzaprine HCl 10 MG TABLET PO ×3 (08:32→20:50)
[2024-01-02] MEDS: SUMAtriptan succinate 100 MG TABLET PO (08:32)
[2024-01-02] MEDS: traMADoL HCL 50 MG TABLET PO ×3 (08:32→20:49)
[2024-01-02] MEDS: methADONE HCl 20 MG/2 ML ORAL.CONC 95 MG PO (08:33)
[2024-01-02] MEDS: Apixaban 5 MG TABLET 10 MG PO ×2 (08:33→20:48)
[2024-01-02] MEDS: Venlafaxine HCl ER 75 MG CAP.ER.24H PO (08:33)
[2024-01-02] MEDS: 0.9 % Sodium Chloride Flush 3 ML SYRINGE IVFLUSH ×2 (08:33→15:10)
[2024-01-02] MEDS: Gabapentin 300 MG CAPSULE PO ×3 (08:33→20:48)
--- NOTE | 2024-01-02 10:44 | P.PNIM_ITS ---
Subjective Subjective Date of Service: 01/02/24 Interval History: f/u DVT, discitis and strep viridan bacteremia Pain is controlled, no fever, non toxic and no neurological changes, no weakness in legs,no urinary or stool incontinence Physical Exam 2 Vital Signs: Vital Signs: Last Vital Signs Temp 98.8 F 01/02/24 07:38 Pulse 78 01/02/24 07:38 Resp 20 01/02/24 07:38 BP 95/60 01/02/24 07:38 Pulse Ox 97 01/02/24 07:38 O2 Del Method Room Air 01/02/24 07:38 BMI result Body Mass Index 21.3 General: AO X 3, no acute distress Resp: CTA bilateral CVS: S1,S2,RRR GI: +BS, NT, no distention Skin: No rash Neuro: motor grossly intact, no wekness in legs, no numbness Psych: appropriate affect Objective Data Active Medications Acetaminophen (Acetaminophen 325 Mg Tablet) 650 mg PO Q6H PRN PRN Reason: Pain, Mild (Pain Scale 1-3) Last Admin: 01/01/24 08:34 Dose: 650 mg Documented By: MAXINE Apixaban (Apixaban 5 Mg Tablet) 10 mg PO BID [facility] Stop: 01/08/24 09:01 Last Admin: 01/02/24 08:33 Dose: 10 mg Documented By: PEPE Calcium Carbonate (Calcium Carbonate 750 Mg Tab.Chew) 750 mg PO Q6H PRN PRN Reason: Heartburn Last Admin: 12/31/23 04:16 Dose: 750 mg Documented By: LATOSHA Clonidine HCl (Clonidine Hcl 0.1 Mg Tablet) 0.1 mg PO TID PRN; Protocol PRN Reason: Opiate Withdrawal Last Admin: 01/01/24 20:32 Dose: 0.1 mg Documented By: LUKE Cyclobenzaprine HCl (Cyclobenzaprine Hcl 10 Mg Tablet) 10 mg PO TID PRN PRN Reason: muscle spasm Last Admin: 01/02/24 08:32 Dose: 10 mg Documented By: PEPE Gabapentin (Gabapentin 300 Mg Capsule) 300 mg PO TID [facility] Last Admin: 01/02/24 08:33 Dose: 300 mg Documented By: PEPE Hydromorphone HCl (Hydromorphone Hcl 0.5 Mg/0.5 Ml Syringe) 0.5 mg IVPUSH Q4H PRN; Protocol PRN Reason: Pain, Severe (Pain Scale 7-10) Last Admin: 12/30/23 14:59 Dose: 0.5 mg Documented By: PEPE Ceftriaxone Sodium 2 gm/ (Sodium Chloride) 50 mls @ 100 mls/hr IV Q24H [facility] Last Infusion: 01/02/24 00:00 Dose: Infused Documented By: DESIRE Ibuprofen (Ibuprofen 600 Mg Tablet) 600 mg PO Q8H PRN PRN Reason: Pain, Moderate(Pain Scale 4-6) Last Admin: 01/01/24 18:31 Dose: 600 mg Documented By: MAXINE Methadone HCl (Methadone Hcl 20 Mg/2 Ml Oral.Conc) 95 mg PO DAILY [facility] Last Admin: 01/02/24 08:33 Dose: 95 mg Documented By: PEPE Ondansetron HCl (Ondansetron Hcl 4 Mg/2 Ml Vial) 4 mg IVPUSH Q8H PRN PRN Reason: Nausea and Vomiting Polyethylene Glycol (Polyethylene Glycol 3350 17 Gm Powd.Pack) 17 gm PO DAILY PRN PRN Reason: Constipation Last Admin: 12/31/23 15:32 Dose: 17 gm Documented By: MAXINE Senna (Sennosides 8.6 Mg Tablet) 17.2 mg PO BEDTIME PRN PRN Reason: Constipation Sodium Chloride (0.9 % Sodium Chloride Flush 3 Ml Syringe) [facility] Last Admin: 01/02/24 08:33 Dose: 3 ml Documented By: PEPE Sumatriptan Succinate (Sumatriptan Succinate 100 Mg Tablet) 100 mg PO Q2H PRN PRN Reason: Migraine Headache Last Admin: 01/02/24 08:32 Dose: 100 mg Documented By: PEPE Tramadol HCl (Tramadol Hcl 50 Mg Tablet) 50 mg PO Q6H PRN PRN Reason: Pain, Moderate(Pain Scale 4-6) Last Admin: 01/02/24 08:32 Dose: 50 mg Documented By: PEPE Venlafaxine HCl (Venlafaxine Hcl Er 75 Mg Cap.Er.24h) 75 mg PO DAILY [facility] Last Admin: 01/02/24 08:33 Dose: 75 mg Documented By: PEPE Labs 12/31/23 08:16 01/02/24 05:27 Labs: Laboratory Results - last 24 hr 01/01/24 01/01/24 01/02/24 15:20 19:59 05:27 Hold Purple Top SEE NOTE aPTT Heparin Protocol 99.3 H D Estim Creat Clear Calc 103.6 Estimated GFR > 60 Random Vancomycin 16.2 Microbiology Microbiology Results: Microbiology 12/29/23 17:05 Blood Culture - Final Blood - Venous Streptococcus viridans group Assessment and Plan (1) Left leg DVT: Status: Acute (2) Discitis of lumbar region: Status: Acute (3) Severe sepsis: Status: Acute Plan 33-year-old male with history of mood disorder, opioid dependence on methadone, ongoing IV drug abuse with heroin (relapsed 1 month ago), chronic low back pain, and history of bilateral DVT (provoked- post op) completed course of Lovenox/Eliquis admitted for management of occlusive LLE DVT and severe sepsis due to discitis #Lumbar discitis with severe sepsis--tachycardia, hypotension resolved, sepsis resolved #Strep Bacteremia -CT abd/pelvis shows possible discitis at L1-L2 -MRI:- At L1-L2 finding of osteomylitis- L1-L2 disck protrusion with L2 nerve root compression L4-L5 DJD...moderate foraminal stenosis..no abscess -IV vanco q12h and 2g ceftriaxone daily (initiated 12/28) -likely IV Ceftriaxone alone, will discuss with ID -pain management prn. -Follow cultures and repeat cultures today -he follows with a NeuroSurgery team in [place] #1/ Strep viridan -Antibiotics as above -echo no vegetation -repeat culture pending #Acute occlusive LLE DVT -venous duplex shows occlusive left common femoral, profunda femoral, and superficial femoral DVT. Previous site of bilateral DVT veins patent with recanalization -Per [place] vascular surgery (Dr. Smith), no intervention at this time. Recommended IV heparin per protocol which was initiated (12/28). Should symptoms worsen, agreeable to rediscuss transfer -continue heparin drip per protocol and to be transitioned to eliquis -vascular surgery consult tomorrow for consideration of decloting -hematology consulted: Eliquis starting with loading dose of 10 bid x7 days, then 5 bid #Opioid depedence with ongoing IVDA -Hep B, C and HIV negative -continue methadone (miravista) -addiction med consult following #Mood disorder -continue effexor #Chronic low back pain -ct abd/pelvis shows L3 compression fx -pain management prn, continue methadone, flexeril, gabapentin -outpt follow up #migraines -imitrex prn dvt prophylaxis/treatment- heparin per protocol full code need for inpt:IV Abx for bacteremia and needs IV Abx Quality Stroke Does the patient have a stroke diagnosis?: No VTE Prior VTE?: Yes VTE Risk Level:: Medical - moderate - high VTE Device Contraindication: Treatment Not Indicated VTE Drug Contraindication: N/A - Med Ordered
[2024-01-02 11:21] VITALS: BP 117/75; PULSE 87; RESP 20; TEMP 37.2; O2SAT 96
[2024-01-02] MEDS: Ibuprofen 600 MG TABLET PO (11:59)
[2024-01-02] MEDS: polyethylene glycoL 3350 17 GM POWD.PACK PO (11:59)
--- NOTE | 2024-01-02 13:59 | PC.NURSE ---
Patient on MondayDecember 29 went down to MRI scan around 13:37. Patient on heparin gtt at the time, MD Armstrong approved to paused heparin drip. Patient came back up from MRI around 14:34 and the heparin gtt resumed.
[2024-01-02 14:29] LABS: Anion Gap 16 (12-20); Blood Urea Nitrogen 9 mg/dL (9-16); Calcium 9.1 mg/dL (8.4-10.2); Carbon Dioxide 26 mmol/L (22-29); Chloride 103 mmol/L (96-108); Glucose Random 73 mg/dL (60-115); Potassium 4.5 mmol/L (3.3-5.1); Sodium 140 mmol/L (135-145)
[2024-01-02] MEDS: cloNIDine HCL 0.1 MG TABLET PO ×2 (15:09→20:50)
[2024-01-02 15:32] VITALS: BP 102/66; PULSE 100; RESP 20; TEMP 36.3; O2SAT 97
[2024-01-02] MEDS: cefTRIAXone sodium 2 GM in 0.9 % Sodium Chloride 50 ML IV (17:44)
[2024-01-02 20:20] VITALS: BP 102/65; PULSE 111; RESP 20; TEMP 36.1; O2SAT 97
[2024-01-02] MEDS: Sennosides 8.6 MG TABLET 17.2 MG PO (20:49)
[2024-01-03] VITALS: BP 97/51; PULSE 100; RESP 20; TEMP 36.6; O2SAT 96
[2024-01-03] MEDS: 0.9 % Sodium Chloride Flush 3 ML SYRINGE IVFLUSH ×4 (00:41→19:26)
[2024-01-03] MEDS: Ibuprofen 600 MG TABLET PO ×2 (02:40→16:57)
[2024-01-03 07:10] LABS: Creatinine Clr Calc Pharmacy 97.4; Estimated Glomerular Filt Rate > 60
[2024-01-03 07:15] VITALS: BP 98/60; PULSE 85; RESP 20; TEMP 36.1; O2SAT 96
[2024-01-03] MEDS: SUMAtriptan succinate 100 MG TABLET PO (08:34)
[2024-01-03] MEDS: Apixaban 5 MG TABLET 10 MG PO ×2 (08:34→19:25)
[2024-01-03] MEDS: Venlafaxine HCl ER 75 MG CAP.ER.24H PO (08:34)
[2024-01-03] MEDS: Gabapentin 300 MG CAPSULE PO ×3 (08:34→19:26)
[2024-01-03] MEDS: methADONE HCl 20 MG/2 ML ORAL.CONC 95 MG PO (08:37)
--- NOTE | 2024-01-03 11:00 | P.CDIM_ITS ---
PROVIDER RESPONSE TEXT: To clarify, the appropriate diagnosis supported by the clinical indicators: Acute QUERY TEXT: PHYSICIAN'S DOCUMENTATION REQUEST Date of Query: 01/01/2024 12:44 PM EDT Patient Name: Sergio Clark Admit Date: 12/30/2023 Dear Ramses Armstrong, A review of the medical record indicates additional documentation may be needed. Please review below and update the documentation accordingly. Clinical Indicators: MRI:- At L1-L2 finding of osteomyelitis Clarify which of the following accurately represents the acuity of the Osteomyelitis. Possible options might include: Acute Acute on chronic Compensated Chronic stable condition Remission Other (explain) Clinically unable to determine (explain) Thank you, Mindy Boucher RN Use of terms such as suspected, likely, concern for, or probable (associated with a specific diagnosi s that is being evaluated, monitored, or treated as if it exists) are acceptable and can be coded in the inpatient se tting, when documented at the time of discharge. Please use your independent medical judgment in providing your response. THIS QUERY IS PART OF THE PERMANENT MEDICAL RECORD
--- NOTE | 2024-01-03 12:09 | P.PNIM_ITS ---
Subjective Subjective Date of Service: 01/03/24 Interval History: Seen and evaluated this morning back pain better controlled Leg swelling improving Review of Systems Review of Systems: Yes all other systems are reviewed and are negative Physical Exam 2 Vital Signs: Vital Signs: Last Vital Signs Temp 97.0 F 01/03/24 07:15 Pulse 85 01/03/24 07:15 Resp 20 01/03/24 07:15 BP 98/60 01/03/24 07:15 Pulse Ox 96 01/03/24 07:15 O2 Del Method Room Air 01/03/24 07:15 BMI result Body Mass Index 21.3 Const: Other: Constitutional : Awake, interactive, not in distress Neck : Normal inspection, Supple Cardiovascular : RRR, no JVP, no lower extremity edema Respiratory : good bilateral air entry, no crackles, wheezes or rhonchi Gastrointestinal: soft, lax, Normal bowel sounds, Non tender Skin : Warm, Dry Ext: Left leg more swollen and warmer than right one Neurological : Alert & oriented x3, No focal deficit Objective Data Active Medications Acetaminophen (Acetaminophen 325 Mg Tablet) 650 mg PO Q6H PRN PRN Reason: Pain, Mild (Pain Scale 1-3) Last Admin: 01/01/24 08:34 Dose: 650 mg Documented By: MAXINE Apixaban (Apixaban 5 Mg Tablet) 10 mg PO BID [facility] Stop: 01/08/24 09:01 Last Admin: 01/03/24 08:34 Dose: 10 mg Documented By: DHRUV Calcium Carbonate (Calcium Carbonate 750 Mg Tab.Chew) 750 mg PO Q6H PRN PRN Reason: Heartburn Last Admin: 12/31/23 04:16 Dose: 750 mg Documented By: LATOSHA Clonidine HCl (Clonidine Hcl 0.1 Mg Tablet) 0.1 mg PO TID PRN; Protocol PRN Reason: Opiate Withdrawal Last Admin: 01/02/24 20:50 Dose: 0.1 mg Documented By: ARI Cyclobenzaprine HCl (Cyclobenzaprine Hcl 10 Mg Tablet) 10 mg PO TID PRN PRN Reason: muscle spasm Last Admin: 01/02/24 20:50 Dose: 10 mg Documented By: ARI Gabapentin (Gabapentin 300 Mg Capsule) 300 mg PO TID [facility] Last Admin: 01/03/24 08:34 Dose: 300 mg Documented By: DHRUV Hydromorphone HCl (Hydromorphone Hcl 0.5 Mg/0.5 Ml Syringe) 0.5 mg IVPUSH Q4H PRN; Protocol PRN Reason: Pain, Severe (Pain Scale 7-10) Last Admin: 12/30/23 14:59 Dose: 0.5 mg Documented By: PEPE Ceftriaxone Sodium 2 gm/ (Sodium Chloride) 50 mls @ 100 mls/hr IV Q24H [facility] Last Infusion: 01/02/24 18:26 Dose: Infused Documented By: PEPE Ibuprofen (Ibuprofen 600 Mg Tablet) 600 mg PO Q8H PRN PRN Reason: Pain, Moderate(Pain Scale 4-6) Last Admin: 01/03/24 02:40 Dose: 600 mg Documented By: MADELYN Methadone HCl (Methadone Hcl 20 Mg/2 Ml Oral.Conc) 95 mg PO DAILY [facility] Last Admin: 01/03/24 08:37 Dose: 95 mg Documented By: DHRUV Ondansetron HCl (Ondansetron Hcl 4 Mg/2 Ml Vial) 4 mg IVPUSH Q8H PRN PRN Reason: Nausea and Vomiting Polyethylene Glycol (Polyethylene Glycol 3350 17 Gm Powd.Pack) 17 gm PO DAILY PRN PRN Reason: Constipation Last Admin: 01/02/24 11:59 Dose: 17 gm Documented By: PEPE Senna (Sennosides 8.6 Mg Tablet) 17.2 mg PO BEDTIME PRN PRN Reason: Constipation Last Admin: 01/02/24 20:49 Dose: 17.2 mg Documented By: ARI Sodium Chloride (0.9 % Sodium Chloride Flush 3 Ml Syringe) 3 ml IVFLUSH [facility] Last Admin: 01/03/24 08:36 Dose: 3 ml Documented By: DHRUV Sumatriptan Succinate (Sumatriptan Succinate 100 Mg Tablet) 100 mg PO Q2H PRN PRN Reason: Migraine Headache Last Admin: 01/03/24 08:34 Dose: 100 mg Documented By: DHRUV Tramadol HCl (Tramadol Hcl 50 Mg Tablet) 50 mg PO Q6H PRN PRN Reason: Pain, Moderate(Pain Scale 4-6) Last Admin: 01/02/24 20:49 Dose: 50 mg Documented By: ARI Venlafaxine HCl (Venlafaxine Hcl Er 75 Mg Cap.Er.24h) 75 mg PO DAILY [place] Last Admin: 01/03/24 08:34 Dose: 75 mg Documented By: DHRUV Labs 12/31/23 08:16 01/03/24 06:21 Labs: Laboratory Results - last 24 hr 01/02/24 01/03/24 05:27 06:21 Hold Purple Top SEE NOTE Anion Gap 16 Estim Creat Clear Calc 103.6 97.4 Estimated GFR > 60 > 60 Random Glucose 73 Calcium 9.1 Microbiology Microbiology Results: Microbiology 01/01/24 11:01 Blood Culture - Preliminary Blood - Venous No growth after 24 hours. 01/01/24 10:51 Blood Culture - Preliminary Blood - Venous No growth after 24 hours. Assessment and Plan (1) Left leg DVT: Status: Acute (2) Discitis of lumbar region: Status: Acute (3) Severe sepsis: Status: Acute (4) Bacteremia due to Streptococcus: Status: Acute Plan 33-year-old male with history of mood disorder, opioid dependence on methadone, ongoing IV drug abuse with heroin (relapsed 1 month ago), chronic low back pain, and history of bilateral DVT (provoked- post op) completed course of Lovenox/Eliquis admitted for management of occlusive LLE DVT and severe sepsis due to discitis #Lumbar discitis with severe sepsis 2/2 Strep. V. Bacteremia repeated Cx negative echo no vegetation MRI:- At L1-L2 finding of osteomylitis- L1-L2 disck protrusion with L2 nerve root compression L4-L5 DJD...moderate foraminal stenosis..no abscess IV 2g Ceftriaxone daily (initiated 12/28) pain management prn. Follow cultures and repeat cultures today he follows with a NeuroSurgery team in [facility] and discharge planning #Acute occlusive LLE DVT venous duplex shows occlusive left common femoral, profunda femoral, and superficial femoral DVT. Previous site of bilateral DVT veins patent with recanalization Treated with Heparin drip per protocol and transitioned to eliquis vascular surgery consult, medical management hematology consulted: Eliquis starting with loading dose of 10 bid x7 days, then 5 bid #Opioid depedence with ongoing IVDA Hep B, C and HIV negative continue methadone (miravista) addiction med consult following #Mood disorder continue effexor #Chronic low back pain ct abd/pelvis shows L3 compression fx pain management prn, continue methadone, flexeril, gabapentin outpt follow up #migraines imitrex prn dvt prophylaxis/treatment- heparin per protocol full code need for inpt:IV Abx for bacteremia and needs IV Abx pending safe discharge plan Quality Stroke Does the patient have a stroke diagnosis?: No VTE Prior VTE?: Yes VTE Risk Level:: Medical - moderate - high VTE Device Contraindication: Treatment Not Indicated VTE Drug Contraindication: N/A - Med Ordered
--- NOTE | 2024-01-03 15:25 | MHC.CM.PN ---
EMR reviewed and per MD rounds, pt is not medically cleared for D/C due to management of bacteremia with IV antibiotic treatment, and pending blood cultures, likely will be getting a PICC line placed. [facility] continues to follow and are willing to accept pt at D/C. This CM met with pt to discuss discharge plan. Per pt he states he cannot go to [facility]. This CM discussed the barriers of other options with him not having an active PCP, so unable to have a VNA, without an MD to sign orders. This CM verified that pt is not an active pt with Dr. Fernando as he was last seen in 2020. Pt does have an upcoming new PCP appointment with Dr. Jaylen Spicer on 01/22. This CM called Dr. Spicer's office to ask if they would be willing to sign orders for pt prior to him being seen there, and they are not willing to do that. They did have an earlier appointment available on 01/09 at 12pm with [facility], Teri Mustafa (under Dr. Jaylen Spicer). This information was relayed to the pt, and he would like to switch new PCP appointment to sooner date, pt calling Dr. Spicer's office to have this scheduled.
[2024-01-03 15:37] VITALS: BP 118/69; PULSE 116; RESP 20; TEMP 36.3; O2SAT 98
[2024-01-03] MEDS: cefTRIAXone sodium 2 GM in 0.9 % Sodium Chloride 50 ML IV (18:36)
[2024-01-03] MEDS: Acetaminophen 325 MG TABLET 650 MG PO (19:25)
[2024-01-03] MEDS: traMADoL HCL 50 MG TABLET PO (19:26)
[2024-01-03 19:34] VITALS: BP 111/75; PULSE 112; RESP 20; TEMP 36.3; O2SAT 100
[2024-01-03] MEDS: Cyclobenzaprine HCl 10 MG TABLET PO (21:37)
[2024-01-03] MEDS: cloNIDine HCL 0.1 MG TABLET PO (21:37)
[2024-01-04] VITALS (7 sets, daily range): BP systolic 90–115; BP diastolic 51–76; PULSE 75–105; RESP 16–20; TEMP 36.2–37.1; O2SAT 96–98
[2024-01-04 07:16] LABS: Creatinine Clr Calc Pharmacy 113.1; Estimated Glomerular Filt Rate > 60
--- NOTE | 2024-01-04 09:19 | P.PICC_ITS ---
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 Following completion of [place] Protocol the skin and soft tissues were anesthetized with 1% Lidocaine plain. Using ultrasound guidance, RIGHT BRACHIAL vein access was obtained. Over an 0.018 wire through peel-away sheath, a 4FR SINGLE LUMEN PASV PICC line was positioned. Catheter length is 42CM internal length, 0CM AT THE MILENA external length, for a total trimmed length of 42CM. The procedure was performed in RM 272. Tip verification was performed by Mary Beth Walden with Noris 3CG. Tip located in SVC. Ultrasound was used to document vein patency and for needle entry. A formal ultrasound picture and cardiac rhythm strip was recorded. [facility] [employer] has released the line for use and it is currently dressed with a StatLock, Tegaderm, and CHG disc. Verification has been performed for blood return and line patency. Arm Circumference: 26CM Equipment: [employer] POWERPICC SOLO Catheter Type: 4FR SINGLE LUMEN PASV POWERPICC LOT # [id number]
[2024-01-04] MEDS: Gabapentin 300 MG CAPSULE PO ×3 (09:37→19:54)
[2024-01-04] MEDS: Venlafaxine HCl ER 75 MG CAP.ER.24H PO (09:37)
[2024-01-04] MEDS: methADONE HCl 20 MG/2 ML ORAL.CONC 95 MG PO (09:37)
[2024-01-04] MEDS: Apixaban 5 MG TABLET 10 MG PO ×2 (09:37→19:53)
[2024-01-04] MEDS: Ibuprofen 600 MG TABLET PO ×2 (10:42→19:57)
--- NOTE | 2024-01-04 12:01 | HO.PM.IMPN ---
Subjective Subjective Date of Service: 01/04/24 Interval History: Seen and evaluated this morning back pain better controlled Leg swelling improving PICC line in place Review of Systems Review of Systems: Yes all other systems are reviewed and are negative Physical Exam Vital Signs: Vital Signs: Last Vital Signs Temp 97.2 F 01/04/24 11:38 Pulse 105 H 01/04/24 11:38 Resp 20 01/04/24 11:38 BP 108/76 01/04/24 11:38 Pulse Ox 97 01/04/24 11:38 O2 Del Method Room Air 01/04/24 11:38 BMI result Body Mass Index 21.3 Const: Other: Constitutional : Awake, interactive, not in distress Neck : Normal inspection, Supple Cardiovascular : RRR, no JVP, no lower extremity edema Respiratory : good bilateral air entry, no crackles, wheezes or rhonchi Gastrointestinal: soft, lax, Normal bowel sounds, Non tender Skin : Warm, Dry, picc line in place Ext: Left leg more swollen and warmer than right one Neurological : Alert & oriented x3, No focal deficit Objective Data Active Medications Acetaminophen (Acetaminophen 325 Mg Tablet) 650 mg PO Q6H PRN PRN Reason: Pain, Mild (Pain Scale 1-3) Last Admin: 01/03/24 19:25 Dose: 650 mg Documented By: TAINA Apixaban (Apixaban 5 Mg Tablet) 10 mg PO BID [facility] Stop: 01/08/24 09:01 Last Admin: 01/04/24 09:37 Dose: 10 mg Documented By: JULIO Calcium Carbonate (Calcium Carbonate 750 Mg Tab.Chew) 750 mg PO Q6H PRN PRN Reason: Heartburn Last Admin: 12/31/23 04:16 Dose: 750 mg Documented By: LATOSHA Clonidine HCl (Clonidine Hcl 0.1 Mg Tablet) 0.1 mg PO TID PRN; Protocol PRN Reason: Opiate Withdrawal Last Admin: 01/03/24 21:37 Dose: 0.1 mg Documented By: TAINA Cyclobenzaprine HCl (Cyclobenzaprine Hcl 10 Mg Tablet) 10 mg PO TID PRN PRN Reason: muscle spasm Last Admin: 01/03/24 21:37 Dose: 10 mg Documented By: TAINA Gabapentin (Gabapentin 300 Mg Capsule) 300 mg PO TID [facility] Last Admin: 01/04/24 09:37 Dose: 300 mg Documented By: JULIO Hydromorphone HCl (Hydromorphone Hcl 0.5 Mg/0.5 Ml Syringe) 0.5 mg IVPUSH Q4H PRN; Protocol PRN Reason: Pain, Severe (Pain Scale 7-10) Last Admin: 12/30/23 14:59 Dose: 0.5 mg Documented By: PEPE Ceftriaxone Sodium 2 gm/ (Sodium Chloride) 50 mls @ 100 mls/hr IV Q24H [facility] Last Infusion: 01/03/24 19:22 Dose: Infused Documented By: YOAV-ALONZO Ibuprofen (Ibuprofen 600 Mg Tablet) 600 mg PO Q8H PRN PRN Reason: Pain, Moderate(Pain Scale 4-6) Last Admin: 01/04/24 10:42 Dose: 600 mg Documented By: JULIO Methadone HCl (Methadone Hcl 20 Mg/2 Ml Oral.Conc) 95 mg PO DAILY [facility] Last Admin: 01/04/24 09:37 Dose: 95 mg Documented By: JULIO Ondansetron HCl (Ondansetron Hcl 4 Mg/2 Ml Vial) 4 mg IVPUSH Q8H PRN PRN Reason: Nausea and Vomiting Polyethylene Glycol (Polyethylene Glycol 3350 17 Gm Powd.Pack) 17 gm PO DAILY PRN PRN Reason: Constipation Last Admin: 01/02/24 11:59 Dose: 17 gm Documented By: PEPE Senna (Sennosides 8.6 Mg Tablet) 17.2 mg PO BEDTIME PRN PRN Reason: Constipation Last Admin: 01/02/24 20:49 Dose: 17.2 mg Documented By: ARI Sodium Chloride (0.9 % Sodium Chloride Flush 3 Ml Syringe) [facility] Last Admin: 01/04/24 09:37 Dose: Not Given Documented By: JULIO Non-Admin Reason: IN OR getting PICC placed Sodium Chloride (0.9 % Sodium Chloride Flush 10 Ml Syringe) 5 ml IVFLUSH TID [facility] Sumatriptan Succinate (Sumatriptan Succinate 100 Mg Tablet) 100 mg PO Q2H PRN PRN Reason: Migraine Headache Last Admin: 01/03/24 08:34 Dose: 100 mg Documented By: DHRUV Tramadol HCl (Tramadol Hcl 50 Mg Tablet) 50 mg PO Q6H PRN PRN Reason: Pain, Moderate(Pain Scale 4-6) Last Admin: 01/03/24 19:26 Dose: 50 mg Documented By: TAINA Venlafaxine HCl (Venlafaxine Hcl Er 75 Mg Cap.Er.24h) 75 mg PO DAILY [place] Last Admin: 01/04/24 09:37 Dose: 75 mg Documented By: SUJITARL Labs 12/31/23 08:16 01/04/24 06:11 Labs: Laboratory Results - last 24 hr 01/04/24 06:11 Estim Creat Clear Calc 113.1 Estimated GFR > 60 Microbiology Microbiology Results: Microbiology 12/29/23 18:49 Blood Culture - Final Blood - Venous No growth after 5 days. 01/01/24 11:01 Blood Culture - Preliminary Blood - Venous No growth after 48 hours. 01/01/24 10:51 Blood Culture - Preliminary Blood - Venous No growth after 48 hours. Assessment and Plan (1) Bacteremia due to Streptococcus: Status: Acute (2) Left leg DVT: Status: Acute Plan 33-year-old male with history of mood disorder, opioid dependence on methadone, ongoing IV drug abuse with heroin (relapsed 1 month ago), chronic low back pain, and history of bilateral DVT (provoked- post op) completed course of Lovenox/Eliquis admitted for management of occlusive LLE DVT and severe sepsis due to discitis #Lumbar discitis with severe sepsis 2/2 Strep. V. Bacteremia repeated Cx negative echo no vegetation MRI:- At L1-L2 finding of osteomylitis- L1-L2 disck protrusion with L2 nerve root compression L4-L5 DJD...moderate foraminal stenosis..no abscess IV 2g Ceftriaxone daily (initiated 12/28) pain management prn. Follow cultures and repeat cultures today he used to follow with a NeuroSurgery team in [facility] placed arranging care at next facility #Acute occlusive LLE DVT venous duplex shows occlusive left common femoral, profunda femoral, and superficial femoral DVT. Previous site of bilateral DVT veins patent with recanalization Treated with Heparin drip per protocol and transitioned to eliquis vascular surgery consult, medical management hematology consulted: Eliquis starting with loading dose of 10 bid x7 days, then 5 bid #Opioid depedence with ongoing IVDA Hep B, C and HIV negative continue methadone (miravista) addiction med consult following #Mood disorder continue effexor #Chronic low back pain ct abd/pelvis shows L3 compression fx pain management prn, continue methadone, flexeril, gabapentin outpt follow up #migraines imitrex prn dvt prophylaxis/treatment- heparin per protocol full code need for inpt:IV Abx for bacteremia and needs IV Abx pending safe discharge plan Quality Stroke Does the patient have a stroke diagnosis?: No VTE Prior VTE?: Yes VTE Risk Level:: Medical - moderate - high VTE Device Contraindication: Treatment Not Indicated VTE Drug Contraindication: N/A - Med Ordered
--- NOTE | 2024-01-04 13:27 | MHC.CM.PN ---
Addendum entered by Isabella Schofield 01/04/24 15:53: accepted pt for Monday, 01/07. Original Note: [facility] working on Pt. DC to [facility]. He will need to get his Methadone from [facility] in [place], and they are not ready to provide his Methadone until Monday morning. [facility]AK has reached out to to request we plan on Sunday 01/07 DC, awaiting response. [facility] of [place] will need DC summary and last dose letter faxed to: [phone] att: Rianna.
[2024-01-04] MEDS: 0.9 % Sodium Chloride Flush 10 ML SYRINGE 5 ML IVFLUSH ×2 (14:27→22:00)
[2024-01-04] MEDS: cefTRIAXone sodium 2 GM in 0.9 % Sodium Chloride 50 ML IV (18:30)
[2024-01-04] MEDS: Nicotine Polacrilex 2 MG GUM BUCCAL (19:54)
[2024-01-04] MEDS: 0.9 % Sodium Chloride Flush 3 ML SYRINGE IVFLUSH (19:55)
[2024-01-04] MEDS: cloNIDine HCL 0.1 MG TABLET PO (19:57)
[2024-01-04] MEDS: Cyclobenzaprine HCl 10 MG TABLET PO (19:57)
[2024-01-05 03:22] VITALS: BP 107/68; PULSE 88; RESP 18; TEMP 36.5; O2SAT 97
[2024-01-05 07:15] LABS: Hematocrit 29.1 % (42.0-52.0); Hemoglobin 8.8 g/dl (14.0-18.0); Mean Corpuscular HGB Conc 30.2 g/dl (31.0-36.0); Mean Corpuscular Hemoglobin 21.6 pg (27.0-33.0); Mean Corpuscular Volume 71.5 fL (80.0-98.0); Mean Platelet Volume 9.2 fL (9.4-12.4); Platelet Count 481 X10*3/uL (160-400); Red Blood Count 4.07 X10*6/uL (4.60-5.80); White Blood Count 7.2 X10*3/uL (4.8-10.8)
[2024-01-05 07:38] LABS: Anion Gap 14 (12-20); Blood Urea Nitrogen 18 mg/dL (9-16); Calcium 9.4 mg/dL (8.4-10.2); Carbon Dioxide 29 mmol/L (22-29); Chloride 99 mmol/L (96-108); Creatinine Clr Calc Pharmacy 94.6; Estimated Glomerular Filt Rate > 60; Glucose Random 106 mg/dL (60-115); Potassium 3.9 mmol/L (3.3-5.1); Sodium 138 mmol/L (135-145)
[2024-01-05 08:00] VITALS: BP 98/72; PULSE 98; RESP 18; TEMP 35.5; O2SAT 99
[2024-01-05] MEDS: methADONE HCl 20 MG/2 ML ORAL.CONC 95 MG PO (08:47)
[2024-01-05] MEDS: Venlafaxine HCl ER 75 MG CAP.ER.24H PO (08:48)
[2024-01-05] MEDS: Apixaban 5 MG TABLET 10 MG PO ×2 (08:48→19:53)
[2024-01-05] MEDS: Gabapentin 300 MG CAPSULE PO ×3 (08:48→19:53)
[2024-01-05] MEDS: Nicotine Polacrilex 2 MG GUM BUCCAL ×2 (08:50→19:53)
[2024-01-05] MEDS: 0.9 % Sodium Chloride Flush 10 ML SYRINGE 5 ML IVFLUSH ×3 (08:51→19:54)
[2024-01-05] MEDS: polyethylene glycoL 3350 17 GM POWD.PACK PO (08:53)
[2024-01-05] MEDS: Ibuprofen 600 MG TABLET PO ×2 (08:55→18:44)
--- NOTE | 2024-01-05 09:54 | P.PNIM_ITS ---
Subjective Subjective Date of Service: 01/05/24 Interval History: Seen and evaluated this morning back pain better controlled Leg swelling improving Review of Systems Review of Systems: Yes all other systems are reviewed and are negative Physical Exam 2 Vital Signs: Vital Signs: Last Vital Signs Temp 96 F L 01/05/24 08:00 Pulse 98 01/05/24 08:00 Resp 18 01/05/24 08:00 BP 98/72 01/05/24 08:00 Pulse Ox 99 01/05/24 08:00 O2 Del Method Room Air 01/05/24 08:00 BMI result Body Mass Index 21.3 Const: Other: Constitutional : Awake, interactive, not in distress Neck : Normal inspection, Supple Cardiovascular : RRR, no JVP, no lower extremity edema Respiratory : good bilateral air entry, no crackles, wheezes or rhonchi Gastrointestinal: soft, lax, Normal bowel sounds, Non tender Skin : Warm, Dry, picc line in place Ext: Left leg more swollen and warmer than right one Neurological : Alert & oriented x3, No focal deficit Objective Data Active Medications Acetaminophen (Acetaminophen 325 Mg Tablet) 650 mg PO Q6H PRN PRN Reason: Pain, Mild (Pain Scale 1-3) Last Admin: 01/03/24 19:25 Dose: 650 mg Documented By: TAINA Apixaban (Apixaban 5 Mg Tablet) 10 mg PO BID [facility] Stop: 01/08/24 09:01 Last Admin: 01/05/24 08:48 Dose: 10 mg Documented By: JULIO Calcium Carbonate (Calcium Carbonate 750 Mg Tab.Chew) 750 mg PO Q6H PRN PRN Reason: Heartburn Last Admin: 12/31/23 04:16 Dose: 750 mg Documented By: LATOSHA Clonidine HCl (Clonidine Hcl 0.1 Mg Tablet) 0.1 mg PO TID PRN; Protocol PRN Reason: Opiate Withdrawal Last Admin: 01/04/24 19:57 Dose: 0.1 mg Documented By: ELLA Cyclobenzaprine HCl (Cyclobenzaprine Hcl 10 Mg Tablet) 10 mg PO TID PRN PRN Reason: muscle spasm Last Admin: 01/04/24 19:57 Dose: 10 mg Documented By: ELLA Gabapentin (Gabapentin 300 Mg Capsule) 300 mg PO TID [facility] Last Admin: 01/05/24 08:48 Dose: 300 mg Documented By: JULIO Hydromorphone HCl (Hydromorphone Hcl 0.5 Mg/0.5 Ml Syringe) 0.5 mg IVPUSH Q4H PRN; Protocol PRN Reason: Pain, Severe (Pain Scale 7-10) Last Admin: 12/30/23 14:59 Dose: 0.5 mg Documented By: PEPE Ceftriaxone Sodium 2 gm/ (Sodium Chloride) 50 mls @ 100 mls/hr IV Q24H [facility] Last Infusion: 01/04/24 19:53 Dose: Infused Documented By: ELLA Ibuprofen (Ibuprofen 600 Mg Tablet) 600 mg PO Q8H PRN PRN Reason: Pain, Moderate(Pain Scale 4-6) Last Admin: 01/05/24 08:55 Dose: 600 mg Documented By: JULIO Methadone HCl (Methadone Hcl 20 Mg/2 Ml Oral.Conc) 95 mg PO DAILY [facility] Last Admin: 01/05/24 08:47 Dose: 95 mg Documented By: JULIO Nicotine Polacrilex (Nicotine Polacrilex 2 Mg Gum) 2 mg BUCCAL Q2H PRN PRN Reason: Nicotine Cravings Last Admin: 01/05/24 08:50 Dose: 2 mg Documented By: JULIO Ondansetron HCl (Ondansetron Hcl 4 Mg/2 Ml Vial) 4 mg IVPUSH Q8H PRN PRN Reason: Nausea and Vomiting Polyethylene Glycol (Polyethylene Glycol 3350 17 Gm Powd.Pack) 17 gm PO DAILY PRN PRN Reason: Constipation Last Admin: 01/05/24 08:53 Dose: 17 gm Documented By: JULIO Senna (Sennosides 8.6 Mg Tablet) 17.2 mg PO BEDTIME PRN PRN Reason: Constipation Last Admin: 01/02/24 20:49 Dose: 17.2 mg Documented By: ARI Sodium Chloride (0.9 % Sodium Chloride Flush 3 Ml Syringe) 3 ml IVFLUSH QSHIFT [facility] Last Admin: 01/05/24 08:56 Dose: Not Given Documented By: JULIO Non-Admin Reason: no peripheral IV, 5mL flush order Sodium Chloride (0.9 % Sodium Chloride Flush 10 Ml Syringe) 5 ml IVFLUSH TID [facility] Last Admin: 01/05/24 08:51 Dose: 5 ml Documented By: JULIO Sumatriptan Succinate (Sumatriptan Succinate 100 Mg Tablet) 100 mg PO Q2H PRN PRN Reason: Migraine Headache Last Admin: 01/03/24 08:34 Dose: 100 mg Documented By: DHRUV Tramadol HCl (Tramadol Hcl 50 Mg Tablet) 50 mg PO Q6H PRN PRN Reason: Pain, Moderate(Pain Scale 4-6) Last Admin: 01/03/24 19:26 Dose: 50 mg Documented By: YOAV-ALONZO Venlafaxine HCl (Venlafaxine Hcl Er 75 Mg Cap.Er.24h) 75 mg PO DAILY [facility] Last Admin: 01/05/24 08:48 Dose: 75 mg Documented By: JULIO Labs 01/05/24 06:37 01/05/24 06:37 Labs: Laboratory Results - last 24 hr 01/05/24 06:37 MCV 71.5 L MCH 21.6 L MCHC 30.2 L RDW 19.0 H Plt Count 481 H MPV 9.2 L Absolute Nucleated RBC 0.000 Nucleated RBC % (auto) 0.0 Anion Gap 14 Estim Creat Clear Calc 94.6 Estimated GFR > 60 Random Glucose 106 Calcium 9.4 Assessment and Plan (1) Bacteremia due to Streptococcus: Status: Acute (2) Left leg DVT: Status: Acute Plan 33-year-old male with history of mood disorder, opioid dependence on methadone, ongoing IV drug abuse with heroin (relapsed 1 month ago), chronic low back pain, and history of bilateral DVT (provoked- post op) completed course of Lovenox/Eliquis admitted for management of occlusive LLE DVT and severe sepsis due to discitis #Lumbar discitis with severe sepsis 2/ Strep. V. Bacteremia repeated Cx negative echo no vegetation MRI:- At L1-L2 finding of osteomylitis- L1-L2 disck protrusion with L2 nerve root compression L4-L5 DJD...moderate foraminal stenosis..no abscess IV 2g Ceftriaxone daily (initiated 12/28) pain management prn. Negative repeated cultures 12/31 he used to follow with a NeuroSurgery team in [place], would like referral to [facility] group PICC placed arranging care at next facility #Acute occlusive LLE DVT venous duplex shows occlusive left common femoral, profunda femoral, and superficial femoral DVT. Previous site of bilateral DVT veins patent with recanalization Treated with Heparin drip per protocol and transitioned to eliquis vascular surgery consult, medical management hematology consulted: Eliquis starting with loading dose of 10 bid x7 days, then 5 bid #Opioid depedence with ongoing IVDA Hep B, C and HIV negative continue methadone (miravista) addiction med consult following #Mood disorder continue effexor #Chronic low back pain ct abd/pelvis shows L3 compression fx pain management prn, continue methadone, flexeril, gabapentin outpt follow up #migraines imitrex prn dvt prophylaxis/treatment- heparin per protocol full code need for inpt:IV Abx for bacteremia and needs IV Abx pending safe discharge plan Quality Stroke Does the patient have a stroke diagnosis?: No VTE Prior VTE?: Yes VTE Risk Level:: Medical - moderate - high VTE Device Contraindication: Treatment Not Indicated VTE Drug Contraindication: N/A - Med Ordered
[2024-01-05 11:24] VITALS: BP 101/63; PULSE 93; RESP 20; TEMP 36.6; O2SAT 98
[2024-01-05] MEDS: SUMAtriptan succinate 100 MG TABLET PO (14:48)
--- NOTE | 2024-01-05 14:58 | MHC.CM.PN ---
Pt is not medically cleared for D/C, plan remains for pt to discharge to [facility] on Sunday 01/07 for STR/IV antibiotics.
[2024-01-05 15:27] VITALS: BP 110/68; PULSE 90; RESP 20; TEMP 36; O2SAT 100
[2024-01-05 19:41] VITALS: BP 119/77; PULSE 100; RESP 18; TEMP 36.4; O2SAT 96
[2024-01-05] MEDS: Sennosides 8.6 MG TABLET 17.2 MG PO (19:53)
[2024-01-05] MEDS: Cyclobenzaprine HCl 10 MG TABLET PO (19:53)
[2024-01-05] MEDS: cloNIDine HCL 0.1 MG TABLET PO (19:53)
[2024-01-05] MEDS: cefTRIAXone sodium 2 GM in 0.9 % Sodium Chloride 50 ML IV (19:53)
[2024-01-05] MEDS: 0.9 % Sodium Chloride Flush 3 ML SYRINGE IVFLUSH (19:54)
[2024-01-06] MEDS: Calcium Carbonate 750 MG TAB.CHEW PO (03:36)
[2024-01-06 04:00] VITALS: BP 101/55; PULSE 89; RESP 18; TEMP 36.8; O2SAT 98
[2024-01-06 06:32] LABS: Creatinine Clr Calc Pharmacy 118.5; Estimated Glomerular Filt Rate > 60
[2024-01-06 07:07] VITALS: BP 97/57; PULSE 86; RESP 16; TEMP 36.2; O2SAT 98
[2024-01-06] MEDS: 0.9 % Sodium Chloride Flush 10 ML SYRINGE 5 ML IVFLUSH ×3 (09:18→19:49)
[2024-01-06] MEDS: methADONE HCl 20 MG/2 ML ORAL.CONC 95 MG PO (09:19)
[2024-01-06] MEDS: Gabapentin 300 MG CAPSULE PO ×3 (09:22→19:57)
[2024-01-06] MEDS: Venlafaxine HCl ER 75 MG CAP.ER.24H PO (09:22)
[2024-01-06] MEDS: Apixaban 5 MG TABLET 10 MG PO ×2 (09:22→19:58)
[2024-01-06] MEDS: Ibuprofen 600 MG TABLET PO ×2 (09:28→19:57)
[2024-01-06] MEDS: Nicotine Polacrilex 2 MG GUM BUCCAL ×3 (09:28→19:56)
--- NOTE | 2024-01-06 10:40 | P.PNIM_ITS ---
Subjective Subjective Date of Service: 01/06/24 Interval History: Seen and evaluated this morning back pain better controlled Leg swelling improving Physical Exam 2 Vital Signs: Vital Signs: Last Vital Signs Temp 97.2 F 01/06/24 07:07 Pulse 86 01/06/24 07:07 Resp 16 01/06/24 07:07 BP 97/57 L 01/06/24 07:07 Pulse Ox 98 01/06/24 07:07 O2 Del Method Room Air 01/06/24 07:07 BMI result Body Mass Index 21.3 Const: Other: Constitutional : Awake, interactive, not in distress Neck : Normal inspection, Supple Cardiovascular : RRR, no JVP, no lower extremity edema Respiratory : good bilateral air entry, no crackles, wheezes or rhonchi Gastrointestinal: soft, lax, Normal bowel sounds, Non tender Skin : Warm, Dry, picc line in place Ext: Left leg less swollen and warm almost back to normal Neurological : Alert & oriented x3, No focal deficit Objective Data Active Medications Acetaminophen (Acetaminophen 325 Mg Tablet) 650 mg PO Q6H PRN PRN Reason: Pain, Mild (Pain Scale 1-3) Last Admin: 01/03/24 19:25 Dose: 650 mg Documented By: TAINA Apixaban (Apixaban 5 Mg Tablet) 10 mg PO BID [facility] Stop: 01/08/24 09:01 Last Admin: 01/06/24 09:22 Dose: 10 mg Documented By: PHILIP Calcium Carbonate (Calcium Carbonate 750 Mg Tab.Chew) 750 mg PO Q6H PRN PRN Reason: Heartburn Last Admin: 01/06/24 03:36 Dose: 750 mg Documented By: ELLA Clonidine HCl (Clonidine Hcl 0.1 Mg Tablet) 0.1 mg PO TID PRN; Protocol PRN Reason: Opiate Withdrawal Last Admin: 01/05/24 19:53 Dose: 0.1 mg Documented By: ELLA Cyclobenzaprine HCl (Cyclobenzaprine Hcl 10 Mg Tablet) 10 mg PO TID PRN PRN Reason: muscle spasm Last Admin: 01/05/24 19:53 Dose: 10 mg Documented By: ELLA Gabapentin (Gabapentin 300 Mg Capsule) 300 mg PO TID [facility] Last Admin: 01/06/24 09:22 Dose: 300 mg Documented By: PHILIP Hydromorphone HCl (Hydromorphone Hcl 0.5 Mg/0.5 Ml Syringe) 0.5 mg IVPUSH Q4H PRN; Protocol PRN Reason: Pain, Severe (Pain Scale 7-10) Last Admin: 12/30/23 14:59 Dose: 0.5 mg Documented By: PEPE Ceftriaxone Sodium 2 gm/ (Sodium Chloride) 50 mls @ 100 mls/hr IV Q24H [facility] Last Infusion: 01/05/24 20:48 Dose: Infused Documented By: ELLA Ibuprofen (Ibuprofen 600 Mg Tablet) 600 mg PO Q8H PRN PRN Reason: Pain, Moderate(Pain Scale 4-6) Last Admin: 01/06/24 09:28 Dose: 600 mg Documented By: PHILIP Comments: pt. requested Methadone HCl (Methadone Hcl 20 Mg/2 Ml Oral.Conc) 95 mg PO DAILY [facility] Last Admin: 01/06/24 09:19 Dose: 95 mg Documented By: PHILIP Nicotine Polacrilex (Nicotine Polacrilex 2 Mg Gum) 2 mg BUCCAL Q2H PRN PRN Reason: Nicotine Cravings Last Admin: 01/06/24 09:28 Dose: 2 mg Documented By: PHILIP Ondansetron HCl (Ondansetron Hcl 4 Mg/2 Ml Vial) 4 mg IVPUSH Q8H PRN PRN Reason: Nausea and Vomiting Polyethylene Glycol (Polyethylene Glycol 3350 17 Gm Powd.Pack) 17 gm PO DAILY PRN PRN Reason: Constipation Last Admin: 01/05/24 08:53 Dose: 17 gm Documented By: SUJITARL Senna (Sennosides 8.6 Mg Tablet) 17.2 mg PO BEDTIME PRN PRN Reason: Constipation Last Admin: 01/05/24 19:53 Dose: 17.2 mg Documented By: ELLA Sodium Chloride (0.9 % Sodium Chloride Flush 3 Ml Syringe) 3 ml IVFLUSH QSHIFT [facility] Last Admin: 01/06/24 09:19 Dose: Not Given Documented By: PHILIP Non-Admin Reason: No Access Sodium Chloride (0.9 % Sodium Chloride Flush 10 Ml Syringe) 5 ml IVFLUSH TID [facility] Last Admin: 01/06/24 09:18 Dose: 5 ml Documented By: PHILIP Sumatriptan Succinate (Sumatriptan Succinate 100 Mg Tablet) 100 mg PO Q2H PRN PRN Reason: Migraine Headache Last Admin: 01/05/24 14:48 Dose: 100 mg Documented By: JULIO Tramadol HCl (Tramadol Hcl 50 Mg Tablet) 50 mg PO Q6H PRN PRN Reason: Pain, Moderate(Pain Scale 4-6) Last Admin: 01/03/24 19:26 Dose: 50 mg Documented By: YOAV-RIVLA Venlafaxine HCl (Venlafaxine Hcl Er 75 Mg Cap.Er.24h) 75 mg PO DAILY [place] Last Admin: 01/06/24 09:22 Dose: 75 mg Documented By: PHILIP Labs 01/05/24 06:37 01/06/24 05:34 Labs: Laboratory Results - last 24 hr 01/06/24 05:34 Hold Purple Top SEE NOTE Estim Creat Clear Calc 118.5 Estimated GFR > 60 Assessment and Plan (1) Bacteremia due to Streptococcus: Status: Acute (2) Left leg DVT: Status: Acute Plan 33-year-old male with history of mood disorder, opioid dependence on methadone, ongoing IV drug abuse with heroin (relapsed 1 month ago), chronic low back pain, and history of bilateral DVT (provoked- post op) completed course of Lovenox/Eliquis admitted for management of occlusive LLE DVT and severe sepsis due to discitis #Lumbar discitis with severe sepsis 11/17 Strep. V. Bacteremia repeated Cx negative echo no vegetation MRI:- At L1-L2 finding of osteomylitis, L1-L2 disck protrusion with L2 nerve root compression, L4-L5 DJD...moderate foraminal stenosis..no abscess IV 2g Ceftriaxone daily for 6 weeks (initiated 12/28) pain management prn. Negative repeated cultures 12/31 he used to follow with a NeuroSurgery team in [place], would like referral [place] [facility] [place] arranging care at next facility #Acute occlusive LLE DVT venous duplex shows occlusive left common femoral, profunda femoral, and superficial femoral DVT. Previous site of bilateral DVT veins patent with recanalization Treated with Heparin drip per protocol and transitioned to eliquis vascular surgery consult, medical management hematology consulted: Eliquis starting with loading dose of 10 bid x7 days, then 5 bid #Opioid depedence with ongoing IVDA Hep B, C and HIV negative continue methadone (miravista) addiction med consult following #Mood disorder continue effexor #Chronic low back pain ct abd/pelvis shows L3 compression fx pain management prn, continue methadone, flexeril, gabapentin outpt follow up #migraines imitrex prn dvt prophylaxis/treatment- heparin per protocol full code need for inpt:IV Abx for bacteremia and needs IV Abx pending safe discharge plan Quality Stroke Does the patient have a stroke diagnosis?: No VTE Prior VTE?: Yes VTE Risk Level:: Medical - moderate - high VTE Device Contraindication: Treatment Not Indicated VTE Drug Contraindication: N/A - Med Ordered
[2024-01-06 14:39] VITALS: BP 119/82; PULSE 97; RESP 20; TEMP 36.3; O2SAT 98
[2024-01-06] MEDS: Acetaminophen 325 MG TABLET 650 MG PO (14:44)
[2024-01-06 15:28] VITALS: BP 110/70; PULSE 99; RESP 16; TEMP 36.6; O2SAT 96
[2024-01-06] MEDS: Cyclobenzaprine HCl 10 MG TABLET PO (15:55)
[2024-01-06 19:30] VITALS: BP 102/74; PULSE 97; RESP 16; TEMP 36.9; O2SAT 98
[2024-01-06] MEDS: cefTRIAXone sodium 2 GM in 0.9 % Sodium Chloride 50 ML IV (19:48)
[2024-01-06] MEDS: Sennosides 8.6 MG TABLET 17.2 MG PO (20:30)
--- NOTE | 2024-01-06 20:30 | PC.NURSE ---
Pt requested Senokot for constipation,reports BM yesterday,will monitor
[2024-01-06] MEDS: cloNIDine HCL 0.1 MG TABLET PO (21:57)
--- NOTE | 2024-01-07 00:17 | P.PNID_ITS ---
Subjective Subjective Date of Service: 01/06/24 Critical Care Time (minutes): 15 Comment: He has back pain still,but better. He has strep viridans blood so likely infection spine. Objective Data Labs 01/05/24 06:37 01/06/24 05:34 Labs: Laboratory Results - last 24 hr 01/06/24 05:34 Hold Purple Top SEE NOTE Creatinine 0.83 Estim Creat Clear Calc 118.5 Estimated GFR > 60 Microbiology Microbiology Results: Microbiology 01/01/24 11:01 Blood - Venous Blood Culture - Final No growth after 5 days. 01/01/24 10:51 Blood - Venous Blood Culture - Final No growth after 5 days. 12/29/23 18:49 Blood - Venous Blood Culture - Final No growth after 5 days. 12/29/23 17:05 Blood - Venous Blood Culture - Final Streptococcus viridans group Physical Exam 2 Vital Signs: Vital Signs: Last Vital Signs Temp 98.4 F 01/06/24 19:30 Pulse 97 01/06/24 19:30 Resp 16 01/06/24 19:30 BP 102/74 01/06/24 19:30 Pulse Ox 98 01/06/24 19:30 O2 Del Method Room Air 01/06/24 19:30 BMI result Body Mass Index 21.3 Back/Spine/Pelvis: Other: milld back discomfort Assessment and Plan Assessment and plan (1) Bacteremia due to Streptococcus: Status: Acute Assessment and Plan: Lumbar disc infection,strep viridans There is no MRSA Would give IV Ceftriaxone for six weeks ,last dose , (2) Discitis of lumbar region: Status: Acute Time Spent With Patient Time: Total time managing care of this patient today ____ minutes.
[2024-01-07 03:29] VITALS: BP 111/67; PULSE 85; RESP 16; TEMP 36.4; O2SAT 98
[2024-01-07 06:08] LABS: Creatinine Clr Calc Pharmacy 97.4; Estimated Glomerular Filt Rate > 60
[2024-01-07 07:20] VITALS: BP 119/78; PULSE 79; RESP 16; TEMP 36.2; O2SAT 98
[2024-01-07] MEDS: Venlafaxine HCl ER 75 MG CAP.ER.24H PO (09:36)
[2024-01-07] MEDS: Gabapentin 300 MG CAPSULE PO ×3 (09:36→19:44)
[2024-01-07] MEDS: Apixaban 5 MG TABLET 10 MG PO ×2 (09:36→19:43)
[2024-01-07] MEDS: methADONE HCl 20 MG/2 ML ORAL.CONC 95 MG PO (09:36)
[2024-01-07] MEDS: 0.9 % Sodium Chloride Flush 10 ML SYRINGE 5 ML IVFLUSH ×3 (09:38→19:43)
[2024-01-07] MEDS: Ibuprofen 600 MG TABLET PO ×2 (09:40→18:38)
[2024-01-07] MEDS: Nicotine Polacrilex 2 MG GUM BUCCAL ×4 (09:40→23:36)
--- NOTE | 2024-01-07 10:29 | P.PNIM_ITS ---
Subjective Subjective Date of Service: 01/07/24 Interval History: Seen and evaluated this morning back pain better controlled Leg swelling improving Physical Exam 2 Vital Signs: Vital Signs: Last Vital Signs Temp 97.2 F 01/07/24 07:20 Pulse 79 01/07/24 07:20 Resp 16 01/07/24 07:20 BP 119/78 01/07/24 07:20 Pulse Ox 98 01/07/24 07:20 O2 Del Method Room Air 01/07/24 07:20 BMI result Body Mass Index 21.3 Const: Other: Constitutional : Awake, interactive, not in distress Neck : Normal inspection, Supple Cardiovascular : RRR, no JVP, no lower extremity edema Respiratory : good bilateral air entry, no crackles, wheezes or rhonchi Gastrointestinal: soft, lax, Normal bowel sounds, Non tender Skin : Warm, Dry, picc line in place Ext: Left leg less swollen and warm almost back to normal Neurological : Alert & oriented x3, No focal deficit Objective Data Active Medications Acetaminophen (Acetaminophen 325 Mg Tablet) 650 mg PO Q6H PRN PRN Reason: Pain, Mild (Pain Scale 1-3) Last Admin: 01/06/24 14:44 Dose: 650 mg Documented By: PHILIP Apixaban (Apixaban 5 Mg Tablet) 10 mg PO BID [facility] Stop: 01/08/24 09:01 Last Admin: 01/07/24 09:36 Dose: 10 mg Documented By: FLACO Calcium Carbonate (Calcium Carbonate 750 Mg Tab.Chew) 750 mg PO Q6H PRN PRN Reason: Heartburn Last Admin: 01/06/24 03:36 Dose: 750 mg Documented By: ELLA Clonidine HCl (Clonidine Hcl 0.1 Mg Tablet) 0.1 mg PO TID PRN; Protocol PRN Reason: Opiate Withdrawal Last Admin: 01/06/24 21:57 Dose: 0.1 mg Documented By: YAW Cyclobenzaprine HCl (Cyclobenzaprine Hcl 10 Mg Tablet) 10 mg PO TID PRN PRN Reason: muscle spasm Last Admin: 01/06/24 15:55 Dose: 10 mg Documented By: GLEN Gabapentin (Gabapentin 300 Mg Capsule) 300 mg PO TID [facility] Last Admin: 01/07/24 09:36 Dose: 300 mg Documented By: FLACO Hydromorphone HCl (Hydromorphone Hcl 0.5 Mg/0.5 Ml Syringe) 0.5 mg IVPUSH Q4H PRN; Protocol PRN Reason: Pain, Severe (Pain Scale 7-10) Last Admin: 12/30/23 14:59 Dose: 0.5 mg Documented By: PEPE Ceftriaxone Sodium 2 gm/ (Sodium Chloride) 50 mls @ 100 mls/hr IV Q24H [facility] Last Infusion: 01/06/24 20:26 Dose: Infused Documented By: GLEN Ibuprofen (Ibuprofen 600 Mg Tablet) 600 mg PO Q8H PRN PRN Reason: Pain, Moderate(Pain Scale 4-6) Last Admin: 01/07/24 09:40 Dose: 600 mg Documented By: FLACO Methadone HCl (Methadone Hcl 20 Mg/2 Ml Oral.Conc) 95 mg PO DAILY [facility] Last Admin: 01/07/24 09:36 Dose: 95 mg Documented By: FLACO Nicotine Polacrilex (Nicotine Polacrilex 2 Mg Gum) 2 mg BUCCAL Q2H PRN PRN Reason: Nicotine Cravings Last Admin: 01/07/24 09:40 Dose: 2 mg Documented By: FLACO Ondansetron HCl (Ondansetron Hcl 4 Mg/2 Ml Vial) 4 mg IVPUSH Q8H PRN PRN Reason: Nausea and Vomiting Polyethylene Glycol (Polyethylene Glycol 3350 17 Gm Powd.Pack) 17 gm PO DAILY PRN PRN Reason: Constipation Last Admin: 01/05/24 08:53 Dose: 17 gm Documented By: LESSARL Senna (Sennosides 8.6 Mg Tablet) 17.2 mg PO BEDTIME PRN PRN Reason: Constipation Last Admin: 01/06/24 20:30 Dose: 17.2 mg Documented By: GLEN Sodium Chloride (0.9 % Sodium Chloride Flush 3 Ml Syringe) 3 ml IVFLUSH QSHIFT [facility] Last Admin: 01/07/24 09:38 Dose: Not Given Documented By: FLACO Non-Admin Reason: Duplicate Order Sodium Chloride (0.9 % Sodium Chloride Flush 10 Ml Syringe) 5 ml IVFLUSH TID [facility] Last Admin: 01/07/24 09:38 Dose: 5 ml Documented By: FLACO Sumatriptan Succinate (Sumatriptan Succinate 100 Mg Tablet) 100 mg PO Q2H PRN PRN Reason: Migraine Headache Last Admin: 01/05/24 14:48 Dose: 100 mg Documented By: LESSARL Venlafaxine HCl (Venlafaxine Hcl Er 75 Mg Cap.Er.24h) 75 mg PO DAILY [place] Last Admin: 01/07/24 09:36 Dose: 75 mg Documented By: CHARTN Labs 01/05/24 06:37 01/07/24 05:31 Labs: Laboratory Results - last 24 hr 01/07/24 05:31 Hold Purple Top SEE NOTE Estim Creat Clear Calc 97.4 Estimated GFR > 60 Microbiology Microbiology Results: Microbiology 01/01/24 11:01 Blood Culture - Final Blood - Venous No growth after 5 days. 01/01/24 10:51 Blood Culture - Final Blood - Venous No growth after 5 days. Assessment and Plan (1) Bacteremia due to Streptococcus: Status: Acute (2) Left leg DVT: Status: Acute Plan 33-year-old male with history of mood disorder, opioid dependence on methadone, ongoing IV drug abuse with heroin (relapsed 1 month ago), chronic low back pain, and history of bilateral DVT (provoked- post op) completed course of Lovenox/Eliquis admitted for management of occlusive LLE DVT and severe sepsis due to discitis #Lumbar discitis with severe sepsis 2/ Strep. V. Bacteremia repeated Cx negative echo no vegetation MRI:- At L1-L2 finding of osteomylitis, L1-L2 disck protrusion with L2 nerve root compression, L4-L5 DJD...moderate foraminal stenosis..no abscess IV 2g Ceftriaxone daily for 6 weeks (initiated 12/28) pain management prn. Negative repeated cultures 12/31 he used to follow with a NeuroSurgery team in [place], would like referral to [facility] group PICC placed arranging care at next facility #Acute occlusive LLE DVT venous duplex shows occlusive left common femoral, profunda femoral, and superficial femoral DVT. Previous site of bilateral DVT veins patent with recanalization Treated with Heparin drip per protocol and transitioned to eliquis vascular surgery consult, medical management hematology consulted: Eliquis starting with loading dose of 10 bid x7 days, then 5 bid #Opioid depedence with ongoing IVDA Hep B, C and HIV negative continue methadone (miravista) addiction med consult following #Mood disorder continue effexor #Chronic low back pain ct abd/pelvis shows L3 compression fx pain management prn, continue methadone, flexeril, gabapentin outpt follow up #migraines imitrex prn dvt prophylaxis/treatment- heparin per protocol full code need for inpt:IV Abx for bacteremia and needs IV Abx pending safe discharge plan Quality Stroke Does the patient have a stroke diagnosis?: No VTE Prior VTE?: Yes VTE Risk Level:: Medical - moderate - high VTE Device Contraindication: Treatment Not Indicated VTE Drug Contraindication: N/A - Med Ordered
[2024-01-07] MEDS: Cyclobenzaprine HCl 10 MG TABLET PO ×2 (12:31→23:36)
[2024-01-07] MEDS: Acetaminophen 325 MG TABLET 650 MG PO (12:31)
--- NOTE | 2024-01-07 12:53 | MHC.CM.PN ---
EMR REVIEWED, CM MET W/PT PER PT REQUEST, PT REPORTING HE WAS RENTING A ROOM AND NOT SURE IF HE CAN GO BACK, PT ALSO REPORTING HE WENT TO HIS AUNTS W/IV ABX PREVIOUSLY AND WOULD LIKE TO DO SO AGAIN, CM DISCUSSED ISSUE OF POSITIVE DRUG SCREEN AND PT REPORTS HE WAS POSITIVE WHEN [facility] PROVIDED SERVICES AND REPORTS HE WOULD LIKE TO SEE IF HE CAN DO THAT AGAIN, CM WILL PLACE REFERRAL HOWEVER PT AWARE HE WILL NEED TO FOLLOW UP W/CM TOMORROW AM, CM WILL CONT TO FOLLOW DC NEEDS.
[2024-01-07 15:20] VITALS: BP 109/71; PULSE 103; RESP 18; TEMP 36.8; O2SAT 96
[2024-01-07] MEDS: cefTRIAXone sodium 2 GM in 0.9 % Sodium Chloride 50 ML IV (18:16)
[2024-01-07 19:24] VITALS: BP 107/70; PULSE 100; RESP 20; TEMP 36.2; O2SAT 97
[2024-01-07] MEDS: cloNIDine HCL 0.1 MG TABLET PO (19:46)
[2024-01-08] MEDS: SUMAtriptan succinate 100 MG TABLET PO (01:01)
[2024-01-08] MEDS: Calcium Carbonate 750 MG TAB.CHEW PO (01:01)
[2024-01-08 03:48] VITALS: BP 110/71; PULSE 82; RESP 16; TEMP 36.1; O2SAT 98
[2024-01-08 06:30] LABS: Creatinine Clr Calc Pharmacy 100.4; Estimated Glomerular Filt Rate > 60
[2024-01-08 07:13] VITALS: BP 105/69; PULSE 89; RESP 18; TEMP 36; O2SAT 95
[2024-01-08] MEDS: methADONE HCl 20 MG/2 ML ORAL.CONC 95 MG PO (08:14)
[2024-01-08] MEDS: Apixaban 5 MG TABLET 10 MG PO (08:14)
[2024-01-08] MEDS: Gabapentin 300 MG CAPSULE PO ×2 (08:14→14:46)
[2024-01-08] MEDS: Ferrous Sulfate 324 MG TABLET.DR PO (08:14)
[2024-01-08] MEDS: Venlafaxine HCl ER 75 MG CAP.ER.24H PO (08:14)
[2024-01-08] MEDS: Acetaminophen 325 MG TABLET 650 MG PO (08:14)
[2024-01-08 08:16] LABS: MANUAL DIFF FLAG NO
[2024-01-08] MEDS: 0.9 % Sodium Chloride Flush 10 ML SYRINGE 5 ML IVFLUSH (08:17)
[2024-01-08 08:19] LABS: Basophils Percent Auto 0.6 % (0-2); Eosinophils Absolute Auto 0.4 X10*3/uL (0.0-0.4); Eosinophils Percent Auto 5.2 % (0-4); Hematocrit 29.9 % (42.0-52.0); Imm Gran Abs Auto 0.08 X10*3/uL (0.00-0.03); Imm Gran Pct Auto 1.1 % (0.0-0.4); Lymphocytes Percent Auto 27.2 % (20-40); Mean Corpuscular HGB Conc 30.1 g/dl (31.0-36.0); Mean Corpuscular Hemoglobin 21.5 pg (27.0-33.0); Mean Corpuscular Volume 71.4 fL (80.0-98.0); Mean Platelet Volume 9.1 fL (9.4-12.4); Monocytes Absolute Auto 0.8 X10*3/uL (0.1-1.2); Monocytes Percent Auto 10.5 % (2-11); Neutrophils Percent Auto 55.4 % (45-73); Platelet Count 477 X10*3/uL (160-400); Red Blood Count 4.19 X10*6/uL (4.60-5.80); Red Cell Distribution Width 18.9 % (11.0-16.0); White Blood Count 7.3 X10*3/uL (4.8-10.8)
[2024-01-08 08:37] LABS: Iron 35 mcg/dL (45-160); Percent Iron Saturation 11 % (15-50); Total Iron Binding Capacity 314 mcg/dL (228-428); Unsaturated Iron Binding 279 ug/dL
[2024-01-08] MEDS: Nicotine Polacrilex 2 MG GUM BUCCAL ×2 (08:56→13:08)
--- NOTE | 2024-01-08 09:26 | MHC.CM.PN ---
EMR REVIEWED, CM CONTACTED [facility] TO DISCUSS CASE, [facility] REPORTS THEY ARE UNABLE TO PROVIDE SERVICES TO PT HIS DRUG SCREEN WAS POSITIVE, CM MET W/PT WHO IS NOW AGREEABLE TO DC TO [facility] TODAY. [facility]NABELL DC LATER TODAY TO [facility] W/[facility] FOR BLS TRANSPORT CM TO FAX DC SUMMARY AND LAST DOSE LETTER TO YAW AT [facility] [phone] FOR FINAL APPROVAL OF GUEST DOSING
[2024-01-08] MEDS: Cyclobenzaprine HCl 10 MG TABLET PO (09:30)
--- NOTE | 2024-01-08 10:36 | P.DS_ITS ---
DS: Providers Provider Date of Service: 01/08/24 Date of admission: 12/29/23 21:16 Primary care physician: Jaylen Spicer DO, MD Consults: 12/29/23 21:14 Consult to Infectious Diseases [place]ine [place]ing [place] [facility] [place] Reason for consultation: discitis, ivda 12/29/23 21:45 Addiction Medicine Routine Consulting Provider: Addiction Covering Reason for consultation: ivda 12/31/23 07:55 Consult to Vascular Surgery Routine Consulting Provider[place] [facility] [place] Reason for consultation: DVT, ? need for declotication 01/01/24 10:17 Consult to Hematology / Oncology Routine Consulting Provider: Shanti Vidal Reason for consultation: recurrent dvt? treatment options DS: Diagnosis Discharge Diagnosis (1) Bacteremia due to Streptococcus: Status: Acute (2) Left leg DVT: Status: Acute (3) Anemia: Status: Acute (4) Discitis of lumbar region: Status: Acute (5) Severe sepsis: Status: Acute (6) Elevated lactic acid level: Status: Acute (7) Leukocytosis: Status: Acute (8) Acute deep vein thrombosis (DVT) of femoral vein: Status: Acute DS: Summary Hospital Course Hospital Course: Admission note HPI 33-year-old male with history of mood disorder, opioid dependence on methadone, ongoing IV drug abuse with heroin (relapsed 1 month ago), chronic low back pain, and history of bilateral DVT (provoked- post op) completed course of Lovenox/Eliquis presented to the ED earlier today for evaluation of increased pain, swelling, mild erythema in the left lower extremity. The patient reports he had been clean from IV drugs but given worsening low back pain about 1 month ago began injecting heroin into the groin. Reports last use was 4 days ago. He is also reporting left scrotal discomfort. Denies any fevers, chills, shortness of breath, lightheadedness, palpitations, syncope, chest pain. Since arrival, patient has been tachycardic to 120 but afebrile. He did have a brief period of hypotension with blood pressure 88/58 which responded to IV fluids the blood pressure remains soft at 101/62. Chronic microcytic anemia with H/H 11.6/39.0%. Renal function and electrolyte levels normal. Initial lactic acid 2.6 improved to 1.0 following IV fluids. Hepatic function within normal limits. Total CK 13. ESR/CRP pending. Venous duplex of the left lower extremity shows occlusive thrombus in the left common femoral, profunda femoral and superficial femoral veins new compared to prior exam. Previously noted DVT in the left popliteal, peroneal, posterior tibial vein and greater saphenous vein in the upper thigh noted to be patent and recannulized from prior imaging. CT abdomen pelvis shows constipation and scarring of both groins with 2 linear radiopaque densities of the right groin questionable for surgical clips versus possible broken needles as well as left femoral DVT. There is surgical hardware in the lumbar spine with question of L1-L2 diskitis mild L3 vertebral body compression fracture. Scrotal ultrasound shows subcentimeter simple appearing left epididymal head cysts but no significant abnormality. In the ED has been given 2 L IV NS, 2 g ceftriaxone, and has been initiated on heparin drip per protocol after calls placed to [facility] vascular surgery did not recommend intervention at this time but recommended transfer should symptoms worsen. Hospital course #Lumbar discitis with severe sepsis secondary to Strep. V. Bacteremia He was treated with Ceftiraxone 2 gm daily as repeated Cx turned negative. ECHO no vegetation. MRI was done showing. At L1-L2 finding of osteomylitis, L1-L2 disck protrusion with L2 nerve root compression, L4-L5 DJD...moderate foraminal stenosis, no abscess. ID recommended IV 2g Ceftriaxone daily for 6 weeks (finish by 02/11). pain management prn Tramadol and Tylenol. he used to follow with a NeuroSurgery team in [place], would like referral to follow on the disc protrusion and nerve root compression. PICC placed and will be transferred to [facility] to finish his treatment. #Acute occlusive LLE DVT venous duplex shows occlusive left common femoral, profunda femoral, and superficial femoral DVT. Treated with Heparin drip per protocol and transitioned to eliquis as he was evaluated by vascular surgery who recommended medical management. hematology consulted: Eliquis starting with loading dose of 10 bid x7 days, then 5 bid. He will be followed by Hematology as outpatient for follow up on anemia as well. will be on Iron supplement and repeat CBC next week. #Opioid depedence with ongoing IVDA Hep B, C and HIV negative. continue methadone (miravista). addiction team followed him during hospital stay. #Chronic low back pain ct abd/pelvis shows L3 compression fx and MRI showing L1-L2 disck protrusion with L2 nerve root compression. pain management prn, continue methadone, flexeril, gabapentin Plan for outpatient follow up with neurosurgery dr Jean. Start Omeprazole for stomach protection Start Iron supplement Eliquis 5 mg twice daily for clot treatment Continue antibiotic as prescribed Follow with PCP as scheduled repeat blood test as outpatient To follow with dr Vidal from Hematology for anemia work up Time Attestation Discharge Coordination Time (in mins): 42 Quality: Safe Use of Opioids Does Pt have an Active Cancer Diagnosis on the Problem List?: No Quality: Stroke Does the patient have a stroke diagnosis?: No Physical Exam Vital Signs: Vital Signs: Last Vital Signs Temp 96.8 F 01/08/24 07:13 Pulse 89 01/08/24 07:13 Resp 18 01/08/24 07:13 BP 105/69 01/08/24 07:13 Pulse Ox 95 01/08/24 07:13 O2 Del Method Room Air 01/08/24 07:13 BMI result Body Mass Index 21.3 Const: Other: Constitutional : Awake, interactive, not in distress Neck : Normal inspection, Supple Cardiovascular : RRR, no JVP, no lower extremity edema Respiratory : good bilateral air entry, no crackles, wheezes or rhonchi Gastrointestinal: soft, lax, Normal bowel sounds, Non tender Skin : Warm, Dry, picc line in place Ext: Left leg back to normal Neurological : Alert & oriented x3, No focal deficit DS: Data Data Completed and Pending Labs on day of discharge: Laboratory Results - last 24 hr 01/08/24 01/08/24 05:56 07:57 WBC 7.3 RBC 4.19 L Hgb 9.0 L Hct 29.9 L MCV 71.4 L MCH 21.5 L MCHC 30.1 L RDW 18.9 H Plt Count 477 H MPV 9.1 L Immature Gran % (Auto) 1.1 H Neut % (Auto) 55.4 Lymph % (Auto) 27.2 [place] % (Auto) 10.5 Eos % (Auto) 5.2 H Baso % (Auto) 0.6 Lymph # (Auto) 2.0 [place] # (Auto) 0.8 Eos # (Auto) 0.4 Baso # (Auto) 0.0 Abs Immat Gran (auto) 0.08 H Absolute Neuts (auto) 4.0 Absolute Nucleated RBC 0.000 Nucleated RBC % (auto) 0.0 Hold Purple Top SEE NOTE Creatinine 0.98 Estim Creat Clear Calc 100.4 Estimated GFR > 60 Iron 35 L TIBC 314 % Saturation 11 L Unsat Iron Binding 279 Imaging Chest x-ray: Radiologist's impression: ITS Impressions Scrotum Ultrasound 12/29/23 17:30 IMPRESSION: Subcentimeter simple-appearing left epididymal head cyst. No additional significant abnormality. Scrotum Ultrasound 12/29/23 17:30 IMPRESSION: Subcentimeter simple-appearing left epididymal head cyst. No additional significant abnormality. Duplex Scan Lower Extremity Artery 12/29/23 18:27 IMPRESSION: Slightly elevated left common femoral artery peak systolic velocity otherwise unremarkable exam. Abdomen/Pelvis CT 12/29/23 18:30 IMPRESSION: Constipation. Scarring of both groins. 2 linear Radiopaque densities of the right groin questionable for surgical clips versus possible broken needles. Left femoral DVT. Surgical hardware in the lumbar spine. Question L1-L2 discitis and mild L3 vertebral body compression fracture. Fleischner guidelines were followed. Venous Duplex 12/29/23 18:37 IMPRESSION: Left common femoral, profunda femoral and superficial femoral DVT. Findings were communicated to Bibi Jewell by telephone on 12/29/2023 at 1926 hours Lumbar Spine MRI 12/30/23 14:16 IMPRESSION: - At L1-L2, there has been progressive opposing endplate T2 signal change/enhancement as well as significant opposing endplate cortical erosion better seen on CT. Findings are highly suspicious for osteomyelitis discitis at L1-L2. No additional evidence of infection within the lumbar spine. There is no epidural abscess and there is no drainable soft tissue abscess. - At L1-L2, a broad-based left paracentral disc protrusion continues to compress the traversing left L2 nerve root within the left subarticular zone and spondylitic changes result in moderate left-sided foraminal stenosis. - At L4-L5, multifactorial degenerative changes result in moderate to severe bilateral foraminal stenosis with mass effect on the exiting L4 nerve roots bilaterally. - Chronic compression deformity at L3. - Partially imaged bladder is significantly distended. Discharge Plan Discharge Anticipated Discharge Date/Time: 01/08/24 10:23 Patient Disposition: [facility] ([facility] Discharge Diagnosis: Strep Viridans bacteremia Acute Deep vein thrombosis Referrals: [facility] [Outside] - 1 Day (SHORT TERM REHAB) Jaylen Spicer DO, MD [Primary Care Provider] - 1 Week Jonathan Jean MD, PhD [Physician] - 1 Month (L1-L2 Disc protrusion and nerve compression. recent Discitis with Strep Viridians bacteremia) Discharge Medications: New ceftriaxone 2 gram Recon Soln 2 g IV Q24H Qty: 35 0RF Eliquis 5 mg Tablet 5 mg PO BID Qty: 180 0RF tramadol 50 mg Tablet 25 mg PO Q4H PRN (Reason: Pain, Severe (Pain Scale 7-10)) Qty: 24 0RF ferrous sulfate 324 mg (65 mg iron) Tablet,Delayed Release (Dr/Ec) 324 mg PO DAILY Qty: 90 0RF Continued sumatriptan succinate 100 mg tablet 1 tab PO Q2H PRN (Reason: Migraine Headache) Rx Instructions: MAX 2X/24 HR gabapentin 300 mg capsule 1 cap PO TID [facility]ovy Autoinjector 225 mg/1.5 mL auto-injector 225 mg subcut QMONTH methadone 5 mg/5 mL Solution 95 mg PO DAILY ondansetron 4 mg tablet,disintegrating 4 mg PO Q12H PRN (Reason: nausea and vomiting) venlafaxine 75 mg capsule,extended release 24hr 75 mg PO DAILY Qty: 30 0RF cyclobenzaprine 10 mg tablet 10 mg PO TID PRN (Reason: muscle spasm) Qty: 15 0RF Discharge Orders: Discharge Order (Routine); Ordered 01/08/24 Ordered By: Robbie Oliver Diet: Advance to usual diet Activity on Discharge: As tolerated Stand Alone Forms: Patient Portal Discharge page Other Ambulatory Orders: Complete Blood Count Auto Diff (Routine) Timeframe: 1 Week Facility: [facility] - Location: Laboratory Ordered By: Robbie Oliver Care Plan Goals: Read below Health Concerns: Read below Plan of Treatment: Read below Assessment: Start Omeprazole for stomach protection Start Iron supplement Eliquis 5 mg twice daily for clot treatment Continue antibiotic as prescribed Follow with PCP as scheduled repeat blood test as outpatient To follow with dr Vidal from Hematology for anemia work up
[2024-01-08] MEDS: Omeprazole 40 MG CAPSULE.DR PO (10:54)
[2024-01-08] MEDS: traMADoL HCL 50 MG TABLET 25 MG PO (13:08)
[2024-01-08 15:04] VITALS: BP 123/84; PULSE 108; RESP 20; TEMP 37.1; O2SAT 98
== END 2024-01-08 16:30 | disposition skilled nursing facility (03) | DRG 720 ==
LOC: HO.ED 20:45 → HO.EDOVER 21:26 → HO.IMC 12-30 01:01 → HO.S3 01-06 03:37
PROVIDERS: Internal Medicine; Nurse Practitioner Family; Student in an Organized Health Care Education/Training Program; Admitting Provider Physician Assistant; Emergency Provider Internal Medicine; PCP Internal Medicine; Visit Provider Student in an Organized Health Care Education/Training Program
PROC: 02HV33Z Insertion of Infusion Device into Superior Vena Cava, Percutaneous Approach (ICD-10-PCS; principal; 2024-01-04 07:30)
DX: A40.8 Other streptococcal sepsis (principal); R65.20 Severe sepsis without septic shock; I82.412 Acute embolism and thrombosis of left femoral vein; M46.26 Osteomyelitis of vertebra, lumbar region; F11.20 Opioid dependence, uncomplicated; D50.9 Iron deficiency anemia, unspecified; F39 Unspecified mood [affective] disorder; G43.909 Migraine, unspecified, not intractable, without status migrainosus; M46.46 Discitis, unspecified, lumbar region; G89.29 Other chronic pain; Z79.899 Other long term (current) drug therapy
CPT/HCPCS: 36415; 36573; 72158; 74177; 76870; 80048; 80053; 80202; 80307; 81003; 82550; 82565; 83540; 83605; 85025; 85027; 85610; 85652; 85730; 86140; 86704; 86706; 86803; 87040; 87205; 87340; 87389; 93005; 93306; 93926; 93971; 93975; 99285; A9585; C1751; J0696; J1170; J1644; J1885; J3370; J3371; Q9957; Q9967

== ENCOUNTER 2023-12-29 21:16 | Outpatient (BNV) | payer OTHER, SELFPAY | END 2024-01-01 07:00 | PROVIDERS: Admitting Provider Physician Assistant; Emergency Provider Internal Medicine; PCP Internal Medicine; Visit Provider Internal Medicine | DX: I34.89 Other nonrheumatic mitral valve disorders (principal) | CPT/HCPCS: 93306 ==

== ENCOUNTER 2023-12-29 21:16 | Outpatient (BNV) | payer OTHER, SELFPAY | END 2023-12-29 21:29 | PROVIDERS: Admitting Provider Physician Assistant; Emergency Provider Internal Medicine; Visit Provider Internal Medicine Cardiovascular Disease | DX: I45.81 Long QT syndrome (principal) | CPT/HCPCS: 93010 ==

== ENCOUNTER → 2023-12-29 21:16 | Outpatient (BNV) | payer OTHER, SELFPAY | PROVIDERS: Admitting Provider Physician Assistant; Emergency Provider Internal Medicine; Visit Provider Internal Medicine | DX: R78.81 Bacteremia (principal); B95.5 Unspecified streptococcus as the cause of diseases classified elsewhere; M46.46 Discitis, unspecified, lumbar region | CPT/HCPCS: 99222; 99232 ==

== ENCOUNTER → 2023-12-29 21:16 | Outpatient (BNV) | payer OTHER, SELFPAY | PROVIDERS: Admitting Provider Physician Assistant; Emergency Provider Internal Medicine; PCP Internal Medicine; Visit Provider Internal Medicine | DX: I82.402 Acute embolism and thrombosis of unspecified deep veins of left lower extremity (principal); D50.9 Iron deficiency anemia, unspecified | CPT/HCPCS: 99222 ==

== ENCOUNTER → 2023-12-29 21:16 | Outpatient (BNV) | payer OTHER, SELFPAY | PROVIDERS: Admitting Provider Physician Assistant; Emergency Provider Internal Medicine; PCP Internal Medicine; Visit Provider Surgery Vascular Surgery | DX: I82.412 Acute embolism and thrombosis of left femoral vein (principal) | CPT/HCPCS: 99222 ==

== ENCOUNTER 2024-01-17 14:44 | Outpatient (AMB) | payer OTHER, SELFPAY ==
--- NOTE | 2024-01-17 14:49 | MHC.OFFVIS ---
Intake Vital Signs 01/17/24 14:53 Height 5 ft 10 in Weight 152 lb BMI 21.8 Pulse 111 H Pulse Source Pulse Oximeter Pulse Oximetry (%) 99 Intake Visit Reasons: reff list/Sepsis ceftriaxone end 02/11 Allergies vancomycin [VANCOMYCIN] Adverse Reaction (Unknown, Verified 01/17/24 14:54) red man syndrome HPI reff list/Sepsis ceftriaxone end 02/11 HPI Details He is at [facility] and has still discomfort no change in back but no evidence of weakness walking or incontinence. He has had strep viridans bacteremia,probable from disc. He has had no endocarditis. [facility] Medical History Opioid use disorder DVT of lower extremity, bilateral Migraine headache Surgical History History of surgery on lower extremity History of ankle surgery Social History Household Members: Friend(s) Housing: House Do you presently have visiting nurse or other home services: No Alcohol intake: current Alcohol intake frequency: holidays/special occasions only Patient Tobacco Use Status: Never used Tobacco e-Cigarette/Vaping Use: Never Used Second Hand Smoke Exposure: No Substance Use Type: Heroin service: No Current occupational status: employed Review of Systems Const All systems reviewed & are unremarkable except as noted in HPI and below Physical Exam Vital Signs: Last Vital Signs Pulse 111 H 01/17/24 14:53 Pulse Ox 99 01/17/24 14:53 BMI result Body Mass Index 21.8 Const General: cooperative Orientation/consciousness: patient oriented x3 HEENT Head: Yes normal to inspection Mouth: Normal oral and palatal mucosa present Eyes General: appearance normal, both eyes and all related structures Pupils: Equal, round and reactive pupils present Resp Effort & Inspection: normal respiratory effort Cardio Rate: regular rate Rhythm: regular rhythm GI Palpation (GI): Soft to palpation and nontender General: Yes no CVA tenderness Back/Spine/Pelvis Back: no CVA tenderness Skin General skin exam: no rashes or lesions noted Neuro General: patient oriented x3 Cranial nerves: Yes CN's II-XII intact bilaterally and Yes Equal, round and reactive pupils present Extrem General: Yes normal to inspection Psych Appearance: grossly normal Assessment & Plan Assessment & Plan (1) Discitis of lumbar region: Comment: Probable pain some disc destruction from infection Code(s): M46.46 - Discitis, unspecified, lumbar region Plan: Finish IV Ceftriaxone on 02/11. Hepatitis B vaccine CV[facility]. He is HIV and Hepatitis C negative. Follow Neurosurgery or Pain Clinic possible disk erosion from infection. Coding Level of Care Code Est Pt Level 3 (63483) Diagnoses Discitis of lumbar region M46.46
[2024-01-17 14:53] VITALS: PULSE 111; O2SAT 99; BMI 21.8
== END 2024-01-17 15:18 | disposition home or self-care (01) ==
LOC: HO.HID 14:44
PROVIDERS: PCP Internal Medicine; Visit Provider Internal Medicine
DX: M46.46 Discitis, unspecified, lumbar region (principal)
CPT/HCPCS: 99213

== ENCOUNTER → 2024-01-17 14:44 | Outpatient (BNVA) | payer OTHER, SELFPAY | PROVIDERS: PCP Internal Medicine; Visit Provider Internal Medicine | DX: M46.46 Discitis, unspecified, lumbar region (principal) | CPT/HCPCS: 99212 ==

== ENCOUNTER 2024-01-31 14:14 | Outpatient (AMB) | payer OTHER, SELFPAY ==
[2024-01-31 14:20] VITALS: PULSE 119; TEMP 36.6; O2SAT 97; BMI 23.0
--- NOTE | 2024-01-31 14:20 | A.OFFVIS_ITS ---
Vital Signs 01/31/24 14:20 Height 5 ft 10 in Weight 160 lb BMI 23.0 Pulse 119 H Pulse Source Pulse Oximeter Temp 97.9 F Temp Source Oral Pulse Oximetry (%) 97 Intake Visit Reasons: 2 wks ,follow up Allergies vancomycin [VANCOMYCIN] Adverse Reaction (Unknown, Verified 01/31/24 14:21) red man syndrome HPI HPI 2 wks ,follow up: Details: He is at [facility] and taking Ceftriaxone for strep viridans bacteremia related to lumbar disk infection. He has negative HIV test and Hepatitis C negative. [facility] Medical History Opioid use disorder DVT of lower extremity, bilateral Migraine headache Surgical History History of surgery on lower extremity History of ankle surgery Social History Household Members: Friend(s) Housing: House Do you presently have visiting nurse or other home services: No Alcohol intake: current Alcohol intake frequency: holidays/special occasions only Patient Tobacco Use Status: Never used Tobacco e-Cigarette/Vaping Use: Never Used Second Hand Smoke Exposure: No Substance Use Type: Heroin service: No Current occupational status: employed Review of Systems Const All systems reviewed & are unremarkable except as noted in HPI and below Physical Exam Vital Signs: Last Vital Signs Temp 97.9 F 01/31/24 14:20 Pulse 119 H 01/31/24 14:20 Pulse Ox 97 01/31/24 14:20 BMI result Body Mass Index 23.0 Const General: cooperative Orientation/consciousness: patient oriented x3 HEENT Head: Yes normal to inspection Mouth: Normal oral and palatal mucosa present Eyes General: appearance normal, both eyes and all related structures Pupils: Equal, round and reactive pupils present Resp Effort & Inspection: normal respiratory effort Cardio Rate: regular rate Rhythm: regular rhythm GI Palpation (GI): Soft to palpation and nontender General: Yes no CVA tenderness Back/Spine/Pelvis Back: no CVA tenderness Skin General skin exam: no rashes or lesions noted Neuro General: patient oriented x3 Cranial nerves: Yes CN's II-XII intact bilaterally and Yes Equal, round and reactive pupils present Extrem General: Yes normal to inspection Psych Appearance: grossly normal Assessment & Plan Assessment & Plan (1) Discitis of lumbar region: Comment: Probable pain some disc destruction from infection He feels better Code(s): M46.46 - Discitis, unspecified, lumbar region Category: Medical Plan: Finish Ceftriaxone Stop IV antibiotics on 02/11 Orders: Orders IR cvc remove any age 0401/31/24 M46.46 - Discitis, unspecified, lumbar region Medications: New penicillin V potassium 500 mg PO BID 60 tabs 0RF 30 days Coding Level of Care Code Est Pt Level 4 (15102) Diagnoses Discitis of lumbar region M46.46
== END 2024-01-31 14:49 | disposition home or self-care (01) ==
LOC: HO.HID 14:14
PROVIDERS: PCP Internal Medicine; Visit Provider Internal Medicine
DX: M46.46 Discitis, unspecified, lumbar region (principal)
CPT/HCPCS: 99214

== ENCOUNTER → 2024-01-31 14:14 | Outpatient (BNVA) | payer OTHER, SELFPAY | PROVIDERS: PCP Internal Medicine; Visit Provider Internal Medicine | DX: M46.46 Discitis, unspecified, lumbar region (principal) | CPT/HCPCS: 99212 ==

== ENCOUNTER 2024-02-14 11:11 | Outpatient (AMB) | payer OTHER, SELFPAY ==
--- NOTE | 2024-02-14 11:17 | A.OFFVIS_ITS ---
Vital Signs 02/14/24 11:18 Height 5 ft 10 in Weight 155 lb BMI 22.2 BP 111/75 Blood Pressure Location Lt brachial Position Sitting Respiration 18 Pulse 111 H Pulse Source Pulse Oximeter Pulse Oximetry (%) 98 Oxygen Delivery Method Room Air Intake Visit Reasons: back pain Allergies vancomycin [VANCOMYCIN] Adverse Reaction (Unknown, Verified 02/14/24 12:28) red man syndrome HPI Comments Details: Brain in his very pleasant 33-year-old male who presents to the office today for evaluation management of his chronic lower back pain. Patient reports he has been suffering with this pain for many years, it has been increasingly worse over the past 2 months. Patient was evaluated in the emergency room 12/31/2023 for back pain, he was found to have L 1 L2 osteomyelitis/discitis. Given IV antibiotics, ceftriaxone for last 1 month. Just discharged from [facility] and states that he will need to take p.o. penicillin for 1 year. Patient also started on Eliquis for femoral DVT. In 2008 patient jumped out of a 5th floor window and suffered extensive injuries. He required surgery with hardware to right ankle and lumbar fusion. Patient reports his pain had been managed with methadone through the clinic until recently when it became more severe. Patient had been in recovery for 3 years, states he lost his job and then relapsed and was using IV heroin. Last IV drug use was approximately 2 months ago. He endorses pain across the lower back, worse on the right. Exacerbated with sitting and standing, bending. Average pain is 6/10. Patient was going to physical therapy while he was at [facility] over the last 1 month. He states it helped but the pain persists. Patient is unable to take nonsteroidal anti-inflammatory medications due to being on Eliquis. He is currently taking gabapentin and muscle relaxers with some minor improvement of his pain. Patient was evaluated by neurosurgery and told that he is not a candidate for further surgical intervention. FORMERLY [facility], [facility] Medical History Opioid use disorder DVT of lower extremity, bilateral Migraine headache Surgical History History of surgery on lower extremity History of ankle surgery Social History Household Members: Friend(s) Housing: House Do you presently have visiting nurse or other home services: No Alcohol intake: current Alcohol intake frequency: holidays/special occasions only Patient Tobacco Use Status: Never used Tobacco e-Cigarette/Vaping Use: Never Used Second Hand Smoke Exposure: No Substance Use Type: Heroin Advance Directives: No Advance Directives Information Provided: No Do you have a plan to hurt others: No Plan service: No Current occupational status: employed Review of Systems Const All systems reviewed & are unremarkable except as noted in HPI and below Physical Exam Vital Signs: Last Vital Signs Pulse 111 H 02/14/24 11:18 Resp 18 02/14/24 11:18 BP 111/75 02/14/24 11:18 Pulse Ox 98 02/14/24 11:18 Oxygen Delivery Method Room Air 02/14/24 11:18 BMI result Body Mass Index 22.2 General: awake, alert, oriented. Answers questions appropriately. Fully engaged in examination. Skin: Right forearm notable for warmth, redness, swelling and tenderness to palpation. HEENT: Normocephalic. Hearing intact. Cardiac: External chest normal in appearance. Respiratory: No cough, audible wheezing or stridor. Abdomen: without gross distension. MS: No obvious swelling or deformities. Able to transition from sit to stand unassisted. SLR negative bilaterally Nontender over PSIS Tender to palpation midline lumbar vertebrae and lumbar paraspinal muscles Decreased range of motion lumbar spine. Pain with flexion and extension Spurling positive bilaterally Neurological: Oriented to person, place, time and situation. Thought process intact. Psychiatric: Appropriate mood and affect. Good judgment and insight. Results Reviewed Results Reviewed: 12/30/23 MRI LS IMPRESSION: - At L1-L2, there has been progressive opposing endplate T2 signal change/enhancement as well as significant opposing endplate cortical erosion better seen on CT. Findings are highly suspicious for osteomyelitis discitis at L1-L2. No additional evidence of infection within the lumbar spine. There is no epidural abscess and there is no drainable soft tissue abscess. - At L1-L2, a broad-based left paracentral disc protrusion continues to compress the traversing left L2 nerve root within the left subarticular zone and spondylitic changes result in moderate left-sided foraminal stenosis. - At L4-L5, multifactorial degenerative changes result in moderate to severe bilateral foraminal stenosis with mass effect on the exiting L4 nerve roots bilaterally. - Chronic compression deformity at L3. - Partially imaged bladder is significantly distended. Assessment & Plan Assessment & Plan (1) Chronic back pain: Code(s): M54.9 - Dorsalgia, unspecified; G89.29 - Other chronic pain Category: Medical (2) Post laminectomy syndrome: Code(s): M96.1 - Postlaminectomy syndrome, not elsewhere classified Category: Medical (3) Discitis of lumbar region: Code(s): M46.46 - Discitis, unspecified, lumbar region Category: Medical Plan Patient presents the office today for evaluation management of his chronic lower back pain. Suffering from post laminectomy syndrome, currently recovering from osteomyelitis/discitis L1-L2. Lengthy discussion with patient today regarding his diagnosis and treatment options. Recent imaging was reviewed with Dr. Pearce and Dr. Casey. Patient was offered intrathecal pain pump trial with bupivacaine, we will avoid opioid use in the pain pump given patient's current IV drug use and high risk for overdose. He is aware that this would require mental health evaluation prior to implantable device placement. He would like to proceed, he has been added to the [employer] point list. Aware that he will be called to schedule the evaluation. Once we get clearance from [facility] will schedule for bupivacaine trial. Today physical exam was notable for significant warmth, redness, swelling to the right forearm that he states is secondary to IV infiltration during a [facility]ftri[facility]one infusion at [facility]. Patient denies IV drug use in approximately 2 months. Patient was referred to the emergency room for evaluation. All questions and concerns were answered, patient agrees with the plan. Follow- up after [facility] evaluation, sooner if needed. Coding Level of Care Code New Pt Level 4 (85643) Diagnoses Chronic back pain M54.9; G89.29 Post laminectomy syndrome M96.1 Discitis of lumbar region M46.46
[2024-02-14 11:18] VITALS: BP 111/75; PULSE 111; RESP 18; O2SAT 98; BMI 22.2
== END 2024-02-14 12:04 | disposition home or self-care (01) ==
PROVIDERS: PCP Internal Medicine; Visit Provider Registered Nurse Emergency
DX: G89.29 Other chronic pain (principal); M96.1 Postlaminectomy syndrome, not elsewhere classified; M46.46 Discitis, unspecified, lumbar region
CPT/HCPCS: 99204

== ENCOUNTER → 2024-02-14 11:11 | Outpatient (BNVA) | payer OTHER, SELFPAY | PROVIDERS: PCP Internal Medicine; Visit Provider Registered Nurse Emergency | DX: M96.1 Postlaminectomy syndrome, not elsewhere classified (principal); M46.46 Discitis, unspecified, lumbar region; G89.29 Other chronic pain | CPT/HCPCS: 99202 ==

== ENCOUNTER 2024-02-14 12:09 | Emergency (ER) | payer OTHER, SELFPAY ==
--- NOTE | ~2024-02-14 | US_ITS ---
EXAMINATION: US VENOUS WITH DOPPLER UPPER EXTREMITY, RIGHT CLINICAL INFORMATION: Right upper extremity cellulitis. Recent IV access. COMPARISON: None available. TECHNIQUE: Ultrasound of the upper extremity is performed using compression sonography and color and pulse Doppler flow with assessment of augmentation of flow. There is also imaging and Doppler assessment of the jugular and subclavian veins. Spectral analysis with color-flow imaging is performed. FINDINGS: There is superficial thrombophlebitis in the cephalic vein in the forearm extending to the antecubital fossa. There is no evidence of DVT. The right internal jugular, subclavian, axillary, brachial and basilic veins are patent. Radial and ulnar veins in the forearm are patent. US/US venous duplex UE RT IMPRESSION: Superficial thrombophlebitis of the cephalic vein in the forearm and antecubital fossa. No DVT. Findings will be communicated by the [place] work flow mainstreaming facilitator.
[2024-02-14 12:22] VITALS: BP 123/77; PULSE 106; RESP 16; TEMP 36.4; O2SAT 95
--- NOTE | 2024-02-14 12:25 | ED_ITS ---
HPI - General Adult General Chief complaint: General Medical Stated complaint: Infection R arm Time Seen by Provider: 02/14/24 15:54 Source: patient Mode of arrival: ambulatory Limitations: no limitations History of Present Illness HPI narrative: 33-year-old male with history of IV drug abuse last time he shoot drugs was over 2 weeks ago and patient confirmed that he did not injected any drugs in his forearm any time recently, patient was hospitalized recently for diskitis that require IV antibiotic patient was discharged on Augmentin, while he was hospitalized he had IV infiltration in the right forearm come to the ED today for further evaluation of redness and hotness of the right forearm area, no fever or chills , otherwise no trauma to the forearm. Related Data Home Medications ?Medication ?Instructions ?Recorded ?Confirmed gabapentin 300 mg capsule 1 cap PO TID 04/12/21 12/29/23 sumatriptan succinate 100 mg tablet 1 tab PO Q2H PRN Migraine Headache 04/12/21 12/29/23 methadone 5 mg/5 mL oral solution 95 mg PO DAILY 04/13/21 12/29/23 ondansetron 4 mg disintegrating 4 mg PO Q12H PRN nausea and 12/29/23 12/29/23 tablet vomiting ibuprofen 400 mg tablet 400 mg PO TID 02/14/24 omeprazole 20 mg capsule,delayed 20 mg PO DAILY 02/14/24 release Previous Rx's ?Medication ?Instructions ?Recorded cyclobenzaprine 10 mg tablet 10 mg PO TID PRN muscle spasm #15 12/21/23 tabs venlafaxine 75 mg capsule,extended 75 mg PO DAILY #30 caps 12/21/23 release 24 hr apixaban 5 mg tablet (Eliquis) 5 mg PO BID #180 tabs 01/08/24 ceftriaxone 2 gram solution for 2 g IV Q24H #35 ea 01/08/24 injection ferrous sulfate 324 mg (65 mg 324 mg PO DAILY #90 tabs 01/08/24 iron) tablet,delayed release tramadol 50 mg tablet 25 mg (1/2 x 50 mg) PO Q4H PRN 01/08/24 Pain, Severe (Pain Scale 7-10) #24 tabs penicillin V potassium 500 mg 500 mg PO BID 30 days #60 tabs 01/31/24 tablet doxycycline hyclate 100 mg tablet 100 mg PO BID #14 tabs 02/14/24 Allergies Allergy/AdvReac Type Severity Reaction Status Date / Time vancomycin [VANCOMYCIN] AdvReac Unknown red man Verified 02/14/24 12:28 syndrome Review of Systems 2 Review of Systems: All other systems are reviewed and are negative Constitutional: Reports as per HPI and Reports no additional constitutional complaints Eyes: Reports as per HPI and Reports no additional eye complaints Reports system reviewed and no additional complaints, except as documented Cardiovascular: Reports as per HPI and Reports no additional cardiovascular complaints Respiratory: Reports as per HPI and Reports no additional respiratory complaints Gastrointestinal: Reports as per HPI and Reports no additional gastrointestinal complaints Genitourinary: Reports no additional female genitourinary complaints Musculoskeletal: Reports no additional musculoskeletal complaints Skin/Breast: Reports system reviewed and no additional complaints, except as docu Psychiatric: Reports no additional psychiatric complaints Endocrine: Reports no additional endocrine complaints Hematologic/Lymphatic: Reports no additional hematologic/lymphatic complaints Allergic/Immunologic: Reports no additional allergic/immunologic complaints Reports system reviewed and no additional complaints, except as documented and Reports Abnormal speech present [facility] Past Medical History Medical History Opioid use disorder DVT of lower extremity, bilateral Migraine headache Surgical History History of surgery on lower extremity History of ankle surgery Social History Social History Household Members: Friend(s) Housing: House Do you presently have visiting nurse or other home services: No Alcohol intake: current Alcohol intake frequency: holidays/special occasions only Patient Tobacco Use Status: Never used Tobacco e-Cigarette/Vaping Use: Never Used Second Hand Smoke Exposure: No Substance Use Type: Heroin Advance Directives: No Advance Directives Information Provided: No Do you have a plan to hurt others: No Plan service: No Current occupational status: employed Physical Exam ED Vital Signs: Vital Signs - 24 hr 02/14/24 12:22 02/14/24 16:56 Temperature 97.5 F 98.5 F Pulse Rate 106 H 99 Respiratory Rate 16 14 Blood Pressure 123/77 102/66 Pulse Oximetry 95 99 Oxygen Delivery Method Room Air Room Air BMI result Body Mass Index 0.0 Vital signs have been reviewed and appear to be correct. Blood pressure elevated. Heart rate normal. Respiratory rate normal. Temperature normal. Oxygen saturation normal. Appearance: Alert. Oriented X3. No acute distress. Head: Normal external exam. Normocephalic. Atraumatic. No Mccall signs noted. No raccoon eyes noted Eyes: PERRLA. EOMI. Conjunctiva and sclera normal. Eyelids normal. ENT: TM's Normal. Pharynx normal. Uvula midline. Moist mucous membranes. No trismus noted. No drooling noted. No muffled voice noted. Neck: Normal inspection. Neck supple. FROM. No adenopathy. Thyroid Normal. No meningeal signs. No neck mass noted. CVS: Normal heart rate and rhythm. Heart sound normal. No murmurs noted. Pulses normal throughout. Respiratory: No respiratory distress. Painless inspiration. Breath sounds normal. No wheezes/rales/rhonchi noted. Chest nontender. No accessory muscle usage noted or decreased air movement noted. Abdomen: Soft and nontender. Bowel sounds normal in all 4 quadrants. No distention noted. No organomegaly noted. No visible injury noted. Back: No CVA tenderness. Full range of motion noted. Skin: Skin warm and dry. Normal skin color. Normal skin turgor. No rashes/lesions/lacerations noted. Extremities: 10 x 5 cm area of redness, hotness, tenderness affecting the ventral aspect of the right forearm, no fluctuation is appreciated, neurovascularly intact with patent right radial artery and good cap refill. Neuro: Oriented X 3. Cranial nerve exam: II-XII are grossly intact No motor deficit. No sensory deficit. Reflexes normal. Course Course Course Narrative: RME- 33 year old male presents for evaluation of right forearm infection. He reports that he was discharged from [facility] yesterday after an admission for discitis and IV drug abuse. He has significant redness and swelling to right forearm. Denies fevers. Reports he has not injected any substances at all in over 2 months. Plan for labs, blood cultures, and drug screening. Reevaluation(s) Reevaluation #1: 33-year-old male recent hospitalization required IV antibiotic administration for diskitis with reported extravasation by the patient causing superficial thrombophlebitis of the cephalic vein in the AC fossa Patient is already on Eliquis for history of DVT patient was instructed to continue with Eliquis, cellulitis of the forearm patient is already on Augmentin will add doxycycline for MRSA prophylaxis. Time: 18:11 Medical Decision Making Differential Diagnosis Differential Diagnoses: The differential diagnosis associated with the presentation includes ( Superficial thrombophlebitis of the right upper extremity, DVT of her right upper extremity, cellulitis, severe anemia, electrolyte derangement , right forearm abscess.) Admission/Observation Consideration of admission/observation: Escalation of care including admission/observation considered Lab Data MDM Lab Attestation statement: I reviewed the patient's lab results. 02/14/24 12:42 02/14/24 12:42 Labs: Lab Results 02/14/24 02/14/24 Range/Units 12:42 17:35 WBC 9.8 (4.8-10.8) X10*3/uL RBC 4.01 L (4.60-5.80) X10*6/uL Hgb 9.4 L (14.0-18.0) g/dl Hct 30.7 L (42.0-52.0) % MCV 76.6 L (80.0-98.0) fL MCH 23.4 L (27.0-33.0) pg MCHC 30.6 L (31.0-36.0) g/dl RDW 21.2 H (11.0-16.0) % Plt Count 770 H D (160-400) X10*3/uL MPV 8.7 L (9.4-12.4) fL Immature Gran % (Auto) 1.3 H (0.0-0.4) % Neut % (Auto) 63.3 (45-73) % Lymph % (Auto) 22.9 (20-40) % Craven % (Auto) 8.6 (2-11) % Eos % (Auto) 3.2 (0-4) % Baso % (Auto) 0.7 (0-2) % Lymph # (Auto) 2.2 (1.2-4.9) X10*3/uL Craven # (Auto) 0.8 (0.1-1.2) X10*3/uL Eos # (Auto) 0.3 (0.0-0.4) X10*3/uL Baso # (Auto) 0.1 (0.0-0.2) X10*3/uL Abs Immat Gran (auto) 0.13 H (0.00-0.03) X10*3/uL Absolute Neuts (auto) 6.2 (2.0-8.3) x10*3/uL Absolute Nucleated RBC 0.000 (0.0-0.012) X10*3/uL Nucleated RBC % (auto) 0.0 (0.0-0.2) /100WBC Sodium 135 (135-145) mmol/L Potassium 4.1 (3.3-5.1) mmol/L Chloride 99 (96-108) mmol/L Carbon Dioxide 25 (22-29) mmol/L Anion Gap 15 (12-20) BUN 18 H (9-16) mg/dL Creatinine 1.09 (0.5-1.4) mg/dL Estim Creat Clear Calc 95.6 Estimated GFR > 60 Random Glucose 76 (60-115) mg/dL Lactic Acid 1.3 (0.5-2.0) mmol/L Calcium 10.0 D (8.4-10.2) mg/dL Total Bilirubin 0.2 (0.0-1.0) mg/dL AST 16 (5-37) U/L ALT 12 (0-40) U/L Alkaline Phosphatase 70 (39-117) U/L Total Protein 8.1 H (6.5-8.0) g/dL Albumin 4.2 (3.5-5.0) g/dL Lipase 10 (8-78) U/L Urine Color Yellow Urine Appearance Clear Urine pH 5.5 (5.0-9.0) Ur Specific Sidney 1.015 (1.005-1.025) Urine Protein Negative (Neg-Trace) mg/dL Urine Glucose (UA) Negative (Negative) mg/dL Urine Ketones Negative (Negative) mg/dL Urine Blood Negative (Negative) Urine Nitrite Negative (Negative) Ur Leukocyte Esterase Negative (Negative) Urine RBC 0-2 (0-2) /HPF Urine WBC 0-5 (0-5) /HPF Ur Squamous Epith Cells 0-2 (0-2) /HPF Urine Bacteria None Seen (None Seen) Hyaline Casts 0-2 (0-2) /LPF Urine Opiates Screen Not Detected (Not Detect) Ur Buprenorphine Scrn Not Detected (Not Detect) ng/mL Ur Oxycodone Screen Not Detected (Not Detect) ng/mL Urine Methadone Screen Positive H (Not Detect) ng/mL Urine Fentanyl Screen POSITIVE H (Not Detect) Ur Barbiturates Screen Not Detected (Not Detect) Ur Phencyclidine Scrn Not Detected (Not Detect) Ur Amphetamines Screen Not Detected (Not Detect) U Benzodiazepines Scrn POSITIVE H (Not Detect) Urine Cocaine Screen Not Detected (Not Detect) U Marijuana (THC) Screen POSITIVE H (Not Detect) Independent Interpretation I performed an independent interpretation of an: Ultrasound ( Right upper extremity:Superficial thrombophlebitis of the cephalic vein in the forearm and antecubital fossa. No DVT. ) Radiology Impression Discussion of test interpretation with radiology: I have reviewed the radiologist's reading. Discharge Plan Discharge Clinical Impression: Right forearm cellulitis, Superficial thrombophlebitis of right upper extremity Patient Disposition: Home, Self-Care Instructions: Cellulitis (ED) Additional Instructions: continue taking Eliquis for the new superficial thrombophlebitis of the right forearm. Continue with your current antibiotic and the new antibiotic was prescribed to you today. Prescriptions: New doxycycline hyclate 100 mg tablet 100 mg PO BID Qty: 14 0RF No Action sumatriptan succinate 100 mg tablet 1 tab PO Q2H PRN (Reason: Migraine Headache) Rx Instructions: MAX 2X/24 HR gabapentin 300 mg capsule 1 cap PO TID methadone 5 mg/5 mL Solution 95 mg PO DAILY ondansetron 4 mg tablet,disintegrating 4 mg PO Q12H PRN (Reason: nausea and vomiting) ceftriaxone 2 gram Recon Soln 2 g IV Q24H Qty: 35 0RF Eliquis 5 mg Tablet 5 mg PO BID Qty: 180 0RF tramadol 50 mg Tablet 25 mg PO Q4H PRN (Reason: Pain, Severe (Pain Scale 7-10)) Qty: 24 0RF ferrous sulfate 324 mg (65 mg iron) Tablet,Delayed Release (Dr/Ec) 324 mg PO DAILY Qty: 90 0RF venlafaxine 75 mg capsule,extended release 24hr 75 mg PO DAILY Qty: 30 0RF cyclobenzaprine 10 mg tablet 10 mg PO TID PRN (Reason: muscle spasm) Qty: 15 0RF penicillin V potassium 500 mg tablet 500 mg PO BID 30 Days Qty: 60 0RF ibuprofen 400 mg tablet 400 mg PO TID omeprazole 20 mg capsule,delayed release(DR/EC) 20 mg PO DAILY Referrals: Jaylen Spicer DO, MD [Primary Care Provider] - Print Language: [place]
--- NOTE | 2024-02-14 12:28 | ECG_ITS ---
Test Reason : PAIN Blood Pressure : / mmHG Vent. Rate : 101 BPM Atrial Rate : 101 BPM P-R Int : 118 ms QRS Dur : 090 ms QT Int : 360 ms P-R-T Axes : 085 -06 013 degrees QTc Int : 466 ms Sinus tachycardia Otherwise normal ECG When compared with ECG of 29-DEC-2023 21:29, Nonspecific T wave abnormality no longer evident in Lateral leads Referred By: Howard Keller Electronically Signed By:GINNY ATKINS
[2024-02-14 12:48] LABS: MANUAL DIFF FLAG NO
[2024-02-14 12:50] LABS: Basophils Absolute Auto 0.1 X10*3/uL (0.0-0.2); Basophils Percent Auto 0.7 % (0-2); Eosinophils Absolute Auto 0.3 X10*3/uL (0.0-0.4); Eosinophils Percent Auto 3.2 % (0-4); Hematocrit 30.7 % (42.0-52.0); Hemoglobin 9.4 g/dl (14.0-18.0); Imm Gran Abs Auto 0.13 X10*3/uL (0.00-0.03); Imm Gran Pct Auto 1.3 % (0.0-0.4); Lymphocytes Absolute Auto 2.2 X10*3/uL (1.2-4.9); Lymphocytes Percent Auto 22.9 % (20-40); Mean Corpuscular HGB Conc 30.6 g/dl (31.0-36.0); Mean Corpuscular Hemoglobin 23.4 pg (27.0-33.0); Mean Corpuscular Volume 76.6 fL (80.0-98.0); Mean Platelet Volume 8.7 fL (9.4-12.4); Monocytes Absolute Auto 0.8 X10*3/uL (0.1-1.2); Monocytes Percent Auto 8.6 % (2-11); Neutrophils Absolute Auto 6.2 x10*3/uL (2.0-8.3); Neutrophils Percent Auto 63.3 % (45-73); Platelet Count 770 X10*3/uL (160-400); Red Blood Count 4.01 X10*6/uL (4.60-5.80); Red Cell Distribution Width 21.2 % (11.0-16.0); White Blood Count 9.8 X10*3/uL (4.8-10.8)
[2024-02-14 13:05] LABS: Lactic Acid 1.3 mmol/L (0.5-2.0)
[2024-02-14 13:15] LABS: Alanine Aminotransferase 12 U/L (0-40); Albumin Level 4.2 g/dL (3.5-5.0); Alkaline Phosphatase 70 U/L (39-117); Anion Gap 15 (12-20); Aspartate Amino Transferase 16 U/L (5-37); Bilirubin Total 0.2 mg/dL (0.0-1.0); Blood Urea Nitrogen 18 mg/dL (9-16); Carbon Dioxide 25 mmol/L (22-29); Chloride 99 mmol/L (96-108); Creatinine Clr Calc Pharmacy 95.6; Estimated Glomerular Filt Rate > 60; Glucose Random 76 mg/dL (60-115); Lipase 10 U/L (8-78); Potassium 4.1 mmol/L (3.3-5.1); Sodium 135 mmol/L (135-145); Total Protein 8.1 g/dL (6.5-8.0)
--- OUTSIDE RECORDS SUMMARY | 2024-02-14 16:06 | XMS_ITS | Patient Health Record ---
Author Organization [facility] Address [address], [place] [id number] Care Team Providers Care Stunt Person Name Role Phone [facility], Nursing Unavailable [phone] REASON FOR REFERRAL No Information SOCIAL HISTORY Sex Assigned At : Social History Observation Description Sex Assigned At Unknown PLAN OF TREATMENT No Information Insurance Providers Payer Name Payer Address Payer Phone Subscriber Number Group Number Insured Name Patient Relationship to Insured Coverage Start Date Coverage End Date [facility] [place] Health[employer] Plan [address] [address] [place] [address] German Clark Self - patient is the insured
--- OUTSIDE RECORDS SUMMARY | 2024-02-14 16:06 | XMS_ITS | Continuity of Care Document ---
Author Organization [facility] Adult Address [address] [place] [address]- Care Team Providers Care Yard Person Name Role Phone Not on Staff, PCP Primary Care Physician Unavail able [place] [facility] [place]25[place] - 03/25/[address] [facility] Adult [address] [place] [id number]- Attending Physician: Not on Staff, Attending MD Allergies, Adverse Reactions, Alerts Substance Reaction [...] 06/20/22 11:51:00 EDT, Route to Pharmacy Electronically, [facility], Partial fill upon patient request if [...] Personnel Name: Not on Staff, PCP Position: [facility] Physician (General Medicine) Member Role: PCP Name: Pamela Maza LPN Position: [facility] RN Member Role: Primary Care Nurse Care Team Related Persons Name: ARTHUR ORTIZ Address: [place] [address] Name: JOSE FRANCISCO ORTIZ Address: home [address] [place] [address]
--- OUTSIDE RECORDS SUMMARY | 2024-02-14 16:06 | XMS_ITS | Continuity of Care Document ---
Author Organization [facility] Adult Address [address] [place] [address]- Care Team Providers Care Shooter Helper Name Role Phone Not on Staff, PCP Primary Care Physician Unavail able [place]counter [facility] [place] 02/23/23 - 03/25/23 [facility] Adult [address] [place] [address]- Attending Physician: Mary Mcdonnell Admitting Physician: Mary Mcdonnell Referring Physician: AdmtrMary Allergies, Adverse Reactions, Alerts Substance Reaction Severity [...] 06/20/22 11:51:00 EDT, Route to Pharmacy Electronically, [facility], Partial fill upon patient request [...] Personnel Name: Not on Staff, PCP Position: [facility] Physician (General Medicine) Member Role: PCP Name: Pamela Maza LPN Position: [facility] RN Member Role: Primary Care Nurse Care Team Related Persons Name: ARTHUR ORTIZ Address: [place] [address] Name: JOSE FRANCISCO ORTIZ Address: home [address] [place] [address]
[2024-02-14 16:56] VITALS: BP 102/66; PULSE 99; RESP 14; TEMP 36.9; O2SAT 99
[2024-02-14 17:49] LABS: Appearance Urine Clear; Color Urine Yellow; Glucose Urine UA Negative (Negative); Leukocyte Esterase Urine Negative (Negative); Nitrite Urine Negative (Negative); PH 5.5 (5.0-9.0); Specific Gravity - Urine 1.015 (1.005-1.025); Urine Blood Negative (Negative); Urine Ketones Negative (Negative); Urine Protein Negative (Neg-Trace)
[2024-02-14 17:51] LABS: Amphetamine Screen Urine Not Detected (Not Detect); Barbiturates, Urine Not Detected (Not Detect); Benzodiazepines Screen Urine POSITIVE (Not Detect); Buprenorphine Scr Not Detected (Not Detect); Cannabinoid Screen Urine POSITIVE (Not Detect); Cocaine Screen Urine Not Detected (Not Detect); Fentanyl, urine POSITIVE (Not Detect); Methadone Screen, Urine Positive (Not Detect); Opiate Screen Urine Not Detected (Not Detect); Oxycodone Screen Urine Not Detected (Not Detect); Phencyclidine Screen Urine Not Detected (Not Detect)
[2024-02-14 17:54] LABS: Bacteria Urine None Seen (None Seen); Hyaline Casts Urine 0-2 /LPF (0-2); RBC Urine 0-2 /HPF (0-2); Squamous Epithelial Cell Urine 0-2 /HPF (0-2); WBC Urine 0-5 /HPF (0-5)
[2024-02-14 18:39] VITALS: BP 105/68; PULSE 85; RESP 20; TEMP 36.6; O2SAT 98
== END 2024-02-14 19:00 | disposition home or self-care (01) ==
PROVIDERS: Physician Assistant; Emergency Provider Emergency Medicine; PCP Internal Medicine
DX: I82.611 Acute embolism and thrombosis of superficial veins of right upper extremity (principal); L03.113 Cellulitis of right upper limb; F11.20 Opioid dependence, uncomplicated; Z86.718 Personal history of other venous thrombosis and embolism; Z79.01 Long term (current) use of anticoagulants
CPT/HCPCS: 36415; 80053; 80307; 81001; 83605; 83690; 85025; 87040; 93005; 93971; 99284

== ENCOUNTER → 2024-02-14 12:28 | Outpatient (BNV) | payer OTHER, SELFPAY | PROVIDERS: Emergency Provider Emergency Medicine; PCP Internal Medicine; Visit Provider Internal Medicine | DX: R00.0 Tachycardia, unspecified (principal) | CPT/HCPCS: 93010 ==

== ENCOUNTER 2024-04-15 10:37 | Outpatient (REF) | payer OTHER, SELFPAY ==
--- NOTE | ~2024-04-15 | US_ITS ---
EXAMINATION: US VENOUS ULTRASOUND WITH DOPPLER LOWER EXTREMITY, BILATERAL CLINICAL INFORMATION: DVT COMPARISON: Left lower extremity ultrasound 12/29/2023: Left common femoral, profunda femoral and superficial femoral DVT. Bilateral lower extremity ultrasound 11/12/2022: Again seen is extensive deep venous thrombus in the right lower extremity with interval resolution of the previously seen thrombus in the peroneal and a femoral profunda veins. Again seen is near occlusive thrombus in the left common femoral vein similar to prior. There is also superficial venous thrombus in the greater saphenous vein, not previously imaged. TECHNIQUE: Ultrasound of the deep veins of each leg is performed from the hip to the calf with compression sonography and color and pulse Doppler assessment. Spectral analysis with color-flow imaging is performed. FINDINGS: On the left, there is nonobstructive thrombus seen in the left common femoral vein and profunda femoris vein with similar appearances compared to 12/29/2023. The common femoral thrombus is occlusive. At that time exam, femoral venous thrombus was also present which does not appear to be present at this time. On the right, there is occlusive thrombus in the right common femoral vein along with some nonocclusive thrombus in the proximal femoral vein. Time of the prior study there was nonocclusive thrombus seen throughout the femoral vein which has significantly improved US/US venous duplex LE LT IMPRESSION: Bilateral lower extremity DVT with some improvement compared to the prior study.
== END 2024-04-15 10:38 | disposition home or self-care (01) ==
LOC: HO.US 10:37
PROVIDERS: PCP Internal Medicine; Visit Provider Internal Medicine
DX: I82.492 Acute embolism and thrombosis of other specified deep vein of left lower extremity (principal)
CPT/HCPCS: 93971

== ENCOUNTER → 2024-09-17 13:00 | Outpatient (BNV) | payer OTHER, SELFPAY | PROVIDERS: PCP Internal Medicine; Visit Provider Internal Medicine | DX: I82.402 Acute embolism and thrombosis of unspecified deep veins of left lower extremity (principal); D50.9 Iron deficiency anemia, unspecified | CPT/HCPCS: 99213 ==

== ENCOUNTER 2025-01-10 09:54 | Emergency (ER) | payer OTHER, SELFPAY ==
--- NOTE | ~2025-01-10 | CT_ITS ---
EXAMINATION: CT ANGIOGRAM BRAIN, HEAD CLINICAL INFORMATION: Headache with negative noncontrast CT head. COMPARISON: Noncontrast CT head dated earlier same day. TECHNIQUE: Test bolus sequences followed by intravenous administration 100 mL of Omnipaque 350 intravenous contrast. Helical imaging was performed in the axial plane from the skull base to the vertex. Delayed postcontrast imaging of the head was also performed. The data was processed at the dairy manufacturing technologist workstation for generation of MIP sequences. Three-dimensional volume rendered reformatted images were also generated at an offline 3-D workstation. The degree of stenosis determined by NASCET criteria. This CT examination was performed using dose optimization techniques as appropriate, variously including the following: *Automated exposure control *Adjustment of mA and/or kV according to patient size (this includes techniques or standardized protocols for targeted exams where dose is matched to indication/reason for exam; i.e. extremities or head) *Use of iterative reconstruction technique FINDINGS: CTA OF THE BRAIN: -INTRACRANIAL INTERNAL CAROTID ARTERIES: No focal stenosis or occlusion. No aneurysm. -RIGHT ANTERIOR CEREBRAL ARTERY: Normal A1 segment. Normal arborization of the distal segments. -LEFT ANTERIOR CEREBRAL ARTERY: Normal A1 segment.. Normal arborization of the distal segments. -ANTERIOR COMMUNICATING ARTERY: Normal. -RIGHT MIDDLE CEREBRAL ARTERY: Normal M1 segment of the MCA without focal stenosis or occlusion. Normal arborization of the distal segments. -LEFT MIDDLE CEREBRAL ARTERY: Normal M1 segment of the MCA without focal stenosis or occlusion. Normal arborization of the distal segments. -RIGHT VERTEBRAL ARTERY V4: Diminutive. Normal in course and caliber. Terminates as a PICA branch. -LEFT VERTEBRAL ARTERY V4: Dominant. Normal in course and caliber. Normal PICA branch. -BASILAR ARTERY: Normal without focal stenosis or occlusion. Normal appearance of the proximal superior cerebellar arteries. Normal basilar tip. -RIGHT POSTERIOR CEREBRAL ARTERY: Normal P1 segment. Normal respiration of the distal CEMENT LOADER segments. -LEFT POSTERIOR CEREBRAL ARTERY: Normal P1 segment. Normal arborization of the distal CEMENT LOADER segments. -POSTERIOR COMMUNICATING ARTERIES: Normal opacification of the superior sagittal, straight, transverse, and sigmoid sinuses. No venous thrombosis. No space-occupying hemorrhage or definite evolving infarct. CT/CT angio head IMPRESSION: 1. Normal CT angiogram of the head. No aneurysm, dissection, stenosis, or occlusion of the major arterial vasculature. Electronically signed by: Naren Harrison MD 01/10/2025 03:54 PM EDT RP
--- NOTE | ~2025-01-10 | CT_ITS ---
EXAMINATION: CT HEAD WITHOUT CONTRAST CLINICAL INFORMATION: severe headache COMPARISON: None available. TECHNIQUE: Contiguous axial imaging was performed from the skull base to vertex without intravenous administration of contrast. This CT examination was performed using dose optimization techniques as appropriate, variously including the following: *Automated exposure control *Adjustment of mA and/or kV according to patient size (this includes techniques or standardized protocols for targeted exams where dose is matched to indication/reason for exam; i.e. extremities or head) *Use of iterative reconstruction technique DLP: 682 mGy-cm FINDINGS: No acute intracranial hemorrhage, mass effect, midline shift, hydrocephalus or herniation. Fernandes-white matter differentiation is normal. Posterior cranial fossa contents demonstrated no acute intracranial hemorrhage or mass effect. Sellar/suprasellar region demonstrated no gross masses. Craniocervical junction is intact. Bony calvarium is intact. Skull base is intact. Small retention cysts versus polyp, left maxillary sinus. No air-fluid levels. Tympanic cavities and mastoid cells are aerated. CT/CT head/brain wo IV con IMPRESSION: No acute intracranial hemorrhage or acute brain abnormality by CT. Electronically signed by: Isaias Katz MD 01/10/2025 12:49 PM EDT
[2025-01-10 09:57] VITALS: BP 152/98; PULSE 89; RESP 18; TEMP 36.7; O2SAT 99; BMI 23.3
--- NOTE | 2025-01-10 10:34 | ED.HA ---
HPI - Headache General Chief Complaint: Headache Stated Complaint: headache Time Seen by Provider: 01/10/25 10:26 Source: patient and old records reviewed Mode of arrival: ambulatory Limitations: no limitations History of Present Illness ED Provider: JERRI LIANG Narrative: 34 yo male with PMH of migraines, chronic low back pain, DVT completed eliquis course and has not been on it in over a month, strep bacteremia lumbar disciitis, opiate use disorder on methadone 80mg AM and 30mg PM who notes he has not injected drugs in 6 months. He presents with severe headache that woke him from sleep 3 days ago and will not go away despite tylenol and sumatriptan. No fevers, no neck pain, no numbness, weakness. No recent head trauma. He states he has never had a headache like this before. MD elicited complaint: headache and migraine Pertinent past history: migraines Onset (ago): day(s) (3) Onset description: suddenly Location: left, temporal and occipital Severity: severe Quality & Timing: throbbing and constant Exacerbating factors: movement of head/neck, light and noise Relieving factors: nothing Context: occurred at rest Associated symptoms: nausea Treatments prior to arrival: acetaminophen and migraine medication Related Data Home Medications ?Medication ?Instructions ?Recorded ?Confirmed sumatriptan succinate 100 mg tablet 1 tab PO Q2H PRN Migraine Headache 04/12/21 09/17/24 methadone 5 mg/5 mL oral solution 95 mg PO DAILY 04/13/21 09/17/24 ondansetron 4 mg disintegrating 4 mg PO Q12H PRN nausea and 12/29/23 09/17/24 tablet vomiting omeprazole 20 mg capsule,delayed 20 mg PO DAILY 02/14/24 09/17/24 release Previous Rx's ?Medication ?Instructions ?Recorded venlafaxine 75 mg capsule,extended 75 mg PO DAILY #30 caps 12/21/23 release 24 hr apixaban 5 mg tablet (Eliquis) 5 mg PO BID #180 tabs 01/08/24 ferrous sulfate 324 mg (65 mg 324 mg PO DAILY #90 tabs 01/08/24 iron) tablet,delayed release Allergies Allergy/AdvReac Type Severity Reaction Status Date / Time vancomycin [VANCOMYCIN] AdvReac Unknown red man Verified 01/10/25 10:01 syndrome Review of Systems Review of Systems: Constitutional : No Fever, No Chills, No Fatigue ENT/Mouth : No sore throat, No Rhinorrhea Eyes: No Eye Pain, No Swelling, No Redness Cardiovascular : No Chest Pain, No SOB, No Dyspnea on Exertion Respiratory : No Cough, No Sputum Gastrointestinal : pos Nausea, No Vomiting, No Diarrhea, No abdominal Pain Genitourinary : No Dysuria, No Urinary Frequency, No Hematuria, Musculoskeletal : No joint pain, No Myalgias, No Joint Swelling Skin : No Skin Lesions, No rash Neuro : No Weakness, No Numbness, No Dizziness, positive Headache Psych : No Anxiety/Panic, No Depression All other systems reviewed and are negative [facility] Past Medical History Attestation statement: The following information was validated with the patient. Source: old records reviewed Medical History Opioid use disorder DVT of lower extremity, bilateral Migraine headache Surgical History History of surgery on lower extremity History of ankle surgery Social History Social History Household Members: Friend(s) Housing: House Do you presently have visiting nurse or other home services: No Alcohol intake: current Alcohol intake frequency: does not drink Patient Tobacco Use Status: Former Tobacco user Tobacco use type: Cigarette Smoked in Last 30 Days: No e-Cigarette/Vaping Use: Never Used Second Hand Smoke Exposure: No Use of substances other than those prescribed or required for medical reasons: No Substance Use Type: Heroin and Marijuana Advance Directives: No Advance Directives Information Provided: Yes service: No Current occupational status: employed Physical Exam Vital Signs: Vital Signs: Last Vital Signs Temp 97.9 F 01/10/25 15:03 Pulse 64 01/10/25 15:03 Resp 16 01/10/25 15:03 BP 144/78 H 01/10/25 15:03 Pulse Ox 99 01/10/25 15:03 O2 Del Method Room Air 01/10/25 15:03 BMI result Body Mass Index 23.3 Course Course Course Narrative: despite muliple medications c/o headache - CTA ordered to rule out SAH Reevaluation(s) Reevaluation #1: PA did IV US for me and told PA that he has had this before and IV ativan helps - this is different from what his history was told to me Medications Administered Discontinued Medications Generic Name Dose Route Start Last Admin Trade Name Abdi PRN Reason Stop Dose Admin Al Hydroxide/Mg Hydroxide 15 ml 01/10/25 14:11 01/10/25 14:32 Magnesium Hydrox/Alum Hydrox 30 Ml Oral.Susp PO 01/10/25 14:12 15 ml ONCE ONE Administration Diphenhydramine HCl 50 mg 01/10/25 13:10 01/10/25 13:27 Diphenhydramine Hcl 50 Mg/Ml Vial IM 01/10/25 13:11 50 mg ONCE ONE Administration Iohexol 100 ml 01/10/25 15:37 01/10/25 15:37 Iohexol 350 Mg/Ml 100 Ml Infus..Btl IV 01/10/25 15:38 70 ml ONCE ONE Administration Lidocaine HCl 15 ml 01/10/25 14:11 01/10/25 14:32 Lidocaine Hcl Viscous 2 % 15 Ml Solution MUCOUS MEM 01/10/25 14:12 15 ml ONCE ONE Administration Lorazepam 1 mg 01/10/25 15:00 01/10/25 15:06 Lorazepam 2 Mg/Ml Vial IVPUSH 01/10/25 15:01 1 mg STAT STA Administration Metoclopramide HCl 10 mg 01/10/25 10:31 01/10/25 11:14 Metoclopramide Hcl 10 Mg/2 Ml Vial IVPUSH 01/10/25 10:32 Not Given ONCE ONE Morphine Sulfate 4 mg 01/10/25 10:31 01/10/25 11:13 Morphine Sulfate 4 Mg/Ml Cartridge IVPUSH 01/10/25 10:32 2 mg ONCE ONE Administration Protocol Morphine Sulfate 4 mg 01/10/25 13:10 01/10/25 13:27 Morphine Sulfate 4 Mg/Ml Cartridge IM 01/10/25 13:11 4 mg ONCE ONE Administration Protocol Prochlorperazine Edisylate 10 mg 01/10/25 13:10 01/10/25 13:23 Prochlorperazine Edisylate 10 Mg/2 Ml Vial IM 01/10/25 13:11 10 mg ONCE ONE Administration Medical Decision Making Medical Decision Making MDM Narrative: 34 yo male with PMH of migraines, chronic low back pain, DVT completed eliquis course and has not been on it in over a month, strep bacteremia lumbar disciitis, opiate use disorder no longer using IVDA here with headache L side x 3 days with no response to medications. States he has never had a headache like this before. No fevers, no trauma. At this time will obtain basic labs, CT head for ICH, he has no fevers or concern for meningeal signs. Differential Diagnosis Differential Diagnoses: The differential diagnosis associated with the presentation includes migraine, tension, dehydration, ICH Admission/Observation Consideration of admission/observation: Escalation of care including admission/observation considered negative workup can be DC at this time CTA negative no acute findings Lab Data MDM Lab Attestation statement: I reviewed the patient's lab results. 01/10/25 10:54 01/10/25 12:14 Labs: Lab Results 01/10/25 01/10/25 Range/Units 10:54 12:14 WBC 9.5 (4.8-10.8) X10*3/uL RBC 5.40 (4.60-5.80) X10*6/uL Hgb 16.1 (14.0-18.0) g/dl Hct 46.9 (42.0-52.0) % MCV 86.9 (80.0-98.0) fL MCH 29.8 (27.0-33.0) pg MCHC 34.3 (31.0-36.0) g/dl RDW 14.8 (11.0-16.0) % Plt Count 297 (160-400) X10*3/uL MPV 10.7 (9.4-12.4) fL Immature Gran % (Auto) 1.7 H (0.0-0.4) % Neut % (Auto) 58.9 (45-73) % Lymph % (Auto) 25.1 (20-40) % [place] % (Auto) 9.5 (2-11) % Eos % (Auto) 4.1 H (0-4) % Baso % (Auto) 0.7 (0-2) % Lymph # (Auto) 2.4 (1.2-4.9) X10*3/uL [place] # (Auto) 0.9 (0.1-1.2) X10*3/uL Eos # (Auto) 0.4 (0.0-0.4) X10*3/uL Baso # (Auto) 0.1 (0.0-0.2) X10*3/uL Abs Immat Gran (auto) 0.16 H (0.00-0.03) X10*3/uL Absolute Neuts (auto) 5.6 (2.0-8.3) x10*3/uL Absolute Nucleated RBC 0.000 (0.0-0.012) X10*3/uL Nucleated RBC % (auto) 0.0 (0.0-0.2) /100WBC Sodium 139 (135-145) mmol/L Potassium 4.6 (3.3-5.1) mmol/L Chloride 107 (96-108) mmol/L Carbon Dioxide 22 (22-29) mmol/L Anion Gap 15 (12-20) BUN 14 (9-16) mg/dL Creatinine 0.88 (0.5-1.4) mg/dL Estim Creat Clear Calc 119.8 Estimated GFR > 60 Random Glucose 106 (60-115) mg/dL Calcium 9.5 (8.4-10.2) mg/dL Magnesium 1.8 (1.6-2.6) mg/dL Total Bilirubin 0.3 (0.0-1.0) mg/dL AST 20 (5-37) U/L ALT 9 (0-40) U/L Alkaline Phosphatase 56 (39-117) U/L Total Protein 7.2 (6.5-8.0) g/dL Albumin 4.3 (3.5-5.0) g/dL Influenza Type A (PCR) NEGATIVE (Negative) Influenza Type B (PCR) NEGATIVE (Negative) RSV RNA Qual (PCR) NEGATIVE (Negative) SARS-CoV-2 RNA (RT-PCR) NEGATIVE (Negative) Independent Interpretation I performed an independent interpretation of an: CT Scan (no SAH) Radiology Impression Discussion of test interpretation with radiology: I have reviewed the radiologist's reading. External Record Review External record reviewed: Inpatient record and Outpatient record Discharge Plan Discharge Clinical Impression: Migraine Qualifiers: Migraine type: unspecified Status migrainosus presence: without status migrainosus Intractability: not intractable Qualified Code(s): G43.909 - Migraine, unspecified, not intractable, without status migrainosus Patient Disposition: Home, Self-Care Instructions: Migraine Headache (ED) Additional Instructions: labs and CT scan normal no mass no bleeding no aneurysm please follow up and continue your medications rest and stay hydrated return for any worsening symptoms or concerns. Prescriptions: No Action sumatriptan succinate 100 mg tablet 1 tab PO Q2H PRN (Reason: Migraine Headache) Rx Instructions: MAX 2X/24 HR methadone 5 mg/5 mL Solution 95 mg PO DAILY ondansetron 4 mg tablet,disintegrating 4 mg PO Q12H PRN (Reason: nausea and vomiting) Eliquis 5 mg Tablet 5 mg PO BID Qty: 180 0RF ferrous sulfate 324 mg (65 mg iron) Tablet,Delayed Release (Dr/Ec) 324 mg PO DAILY Qty: 90 0RF venlafaxine 75 mg capsule,extended release 24hr 75 mg PO DAILY Qty: 30 0RF omeprazole 20 mg capsule,delayed release(DR/EC) 20 mg PO DAILY Print Language: Chilean
[2025-01-10 10:58] LABS: MANUAL DIFF FLAG NO
[2025-01-10 11:04] LABS: Basophils Absolute Auto 0.1 X10*3/uL (0.0-0.2); Basophils Percent Auto 0.7 % (0-2); Eosinophils Absolute Auto 0.4 X10*3/uL (0.0-0.4); Eosinophils Percent Auto 4.1 % (0-4); Hematocrit 46.9 % (42.0-52.0); Hemoglobin 16.1 g/dl (14.0-18.0); Imm Gran Abs Auto 0.16 X10*3/uL (0.00-0.03); Imm Gran Pct Auto 1.7 % (0.0-0.4); Lymphocytes Absolute Auto 2.4 X10*3/uL (1.2-4.9); Lymphocytes Percent Auto 25.1 % (20-40); Mean Corpuscular HGB Conc 34.3 g/dl (31.0-36.0); Mean Corpuscular Hemoglobin 29.8 pg (27.0-33.0); Mean Corpuscular Volume 86.9 fL (80.0-98.0); Mean Platelet Volume 10.7 fL (9.4-12.4); Monocytes Absolute Auto 0.9 X10*3/uL (0.1-1.2); Monocytes Percent Auto 9.5 % (2-11); Neutrophils Absolute Auto 5.6 x10*3/uL (2.0-8.3); Neutrophils Percent Auto 58.9 % (45-73); Platelet Count 297 X10*3/uL (160-400); Red Cell Distribution Width 14.8 % (11.0-16.0); White Blood Count 9.5 X10*3/uL (4.8-10.8)
[2025-01-10] MEDS: Morphine Sulfate 4 MG/ML CARTRIDGE IVPUSH (11:13)
[2025-01-10 11:37] LABS: Influenza A PCR NEGATIVE (Negative); Influenza B PCR NEGATIVE (Negative); Resp Syncy Virus RNA Qual PCR NEGATIVE (Negative); SARS COV2 PCR INHOUSE NEGATIVE (Negative)
--- NOTE | 2025-01-10 12:29 | MHC.EDTECH ---
Pt intitial chemistries hemolyzed. Pt attempted redraw by 2 different tech 2x each. Afterwards this tech attempted redraw 2x but unsuccesfull. Fingerstick specimen obtained and sent to labs. Awaiting results ATT.
[2025-01-10 12:41] LABS: Alanine Aminotransferase 9 U/L (0-40); Albumin Level 4.3 g/dL (3.5-5.0); Alkaline Phosphatase 56 U/L (39-117); Anion Gap 15 (12-20); Aspartate Amino Transferase 20 U/L (5-37); Bilirubin Total 0.3 mg/dL (0.0-1.0); Blood Urea Nitrogen 14 mg/dL (9-16); Calcium 9.5 mg/dL (8.4-10.2); Carbon Dioxide 22 mmol/L (22-29); Chloride 107 mmol/L (96-108); Creatinine Clr Calc Pharmacy 119.8; Estimated Glomerular Filt Rate > 60; Glucose Random 106 mg/dL (60-115); Magnesium 1.8 mg/dL (1.6-2.6); Potassium 4.6 mmol/L (3.3-5.1); Sodium 139 mmol/L (135-145); Total Protein 7.2 g/dL (6.5-8.0)
[2025-01-10] MEDS: Prochlorperazine Edisylate 10 MG/2 ML VIAL IM (13:23)
[2025-01-10] MEDS: diphenhydrAMINE HCL 50 MG/ML VIAL IM (13:27)
[2025-01-10] MEDS: Morphine Sulfate 4 MG/ML CARTRIDGE IM (13:27)
[2025-01-10] MEDS: Magnesium Hydrox/Alum Hydrox 30 ML ORAL.SUSP 15 ML PO (14:32)
[2025-01-10] MEDS: Lidocaine HCl Viscous 2 % 15 ML SOLUTION MUCOUS MEM (14:32)
[2025-01-10 15:03] VITALS: BP 144/78; PULSE 64; RESP 16; TEMP 36.6; O2SAT 99
[2025-01-10] MEDS: LORazepam 2 MG/ML VIAL 1 MG IVPUSH (15:06)
[2025-01-10] MEDS: iohexoL 350 MG/ML 100 ML INFUS..BTL IV (15:37)
[2025-01-10] MEDS: SUMAtriptan succinate 6 MG/0.5 ML VIAL SUBCUT (16:11)
[2025-01-10 16:18] VITALS: BP 144/78; PULSE 64; RESP 16; TEMP 36.6; O2SAT 99
== END 2025-01-10 16:26 | disposition home or self-care (01) ==
PROVIDERS: Emergency Provider Emergency Medicine; PCP Internal Medicine
DX: G43.909 Migraine, unspecified, not intractable, without status migrainosus (principal); Z87.891 Personal history of nicotine dependence; Z03.818 Encounter for observation for suspected exposure to other biological agents ruled out
CPT/HCPCS: 0241U; 70450; 70496; 80053; 83735; 85025; 96372; 96374; 96375; 99284; J0737; J1200; J2060; J2270; J3030; Q9967

== ENCOUNTER → 2025-01-10 10:31 | Outpatient (BNV) | payer OTHER, SELFPAY | PROVIDERS: Emergency Provider Emergency Medicine; PCP Internal Medicine; Visit Provider Radiology Diagnostic Radiology | DX: R51.9 Headache, unspecified (principal) | CPT/HCPCS: 70450; 70496 ==

== ENCOUNTER 2025-07-29 13:47 | Outpatient (REF) | payer OTHER, SELFPAY ==
--- NOTE | ~2025-07-29 | US_ITS ---
EXAMINATION: US TRIPLEX LOWER EXTREMITY, BILATERAL CLINICAL INFORMATION: \ Recurrent DVTs COMPARISON: April 15, 2024 TECHNIQUE: Color-flow triplex imaging with spectral analysis and compression Doppler were performed on the bilateral lower extremities. FINDINGS: LEFT: Common femoral vein appears anechoic without a small amount of flow on color Doppler. Venous waveform with respiratory variation is demonstrated on spectral interrogation. The visualized superficial femoral vein, profunda femoral vein, popliteal vein and midcalf peroneal and posterior tibial venous segments show no evidence of deep venous thrombosis. RIGHT: Common femoral vein appears anechoic. There is no flow on color Doppler spectral interrogation. Greater saphenous vein is shown at the saphenofemoral Junction, also without flow. In the thigh, the great saphenous vein demonstrates peripheral hypoechoic material is central venous blood flow. There is normal compression and augmented flow are noted throughout the superficial femoral vein, profunda femoral vein, popliteal vein and midcalf peroneal and posterior tibial venous segments show no evidence of deep venous thrombosis bilaterally. US/US venous duplex LE BI IMPRESSION: Left: Nonocclusive thrombus is present in the common femoral vein. Interval improvement in great saphenous vein thrombus. Right: Common femoral vein is occluded with thrombus with extension into the saphenofemoral Junction. There is partially occlusive peripheral thrombus in the greater saphenous vein is likely chronic. Interval resolution of thrombus extending to the superficial femoral vein. Electronically signed by: Jaime Guallpa MD 07/29/2025 03:25 PM EDT
--- OUTSIDE RECORDS SUMMARY | 2025-07-29 16:44 | XMS_ITS | Clinical Summary ---
Author Organization [address] [facility] Address [address] [place] [phone] Phone Care Team Providers Care Casting Machine Operator Name Role Phone Nayan Jaylen Primary Care Provider [phone] Surgical History Surgery Date Site/Laterality Comments OTHER SURGICAL HISTORY 02/10/2022 Right PROCEDURE: INCISION OF ABSCESS, DEEP/COMPLEX; COMMENT: right groin abscess with involvement of the right common femoral vein OTHER SURGICAL HISTORY 02/10/2022 Right PROCEDURE: VA THRMBC DIR/W/CATH V/C ILIAC FEMPOP VEIN LEG INC OTHER SURGICAL HISTORY 02/15/2022 Right PROCEDURE: VA SECONDARY CLOSURE SURG WOUND/DEHSN XTNSV/COMP OTHER SURGICAL HISTORY N/A PROCEDURE: LUMBAR SPINE FUSION, LAT TRANSVERSE; COMMENT: L3-L4 fusion KNEE SURGERY Right PROCEDURE: HISTORICAL KNEE SURGERY; COMMENT: 2022 ANKLE SURGERY PROCEDURE: HISTORICAL ANKLE SURGERY; COMMENT: 2008 Medical History Medical History Date Comments Anemia DX:Anemia Low back pain DX:Low back pain Difficulty balancing DX:Difficul ty balancing IVDU (intravenous drug user) DX: IVDU (intravenous drug user) Sleep disturbance DX:Sleep distu rbance Discitis DX:Discitis Osteomyelitis (CMS/HCC V24, CMS/HCC V28) DX:Osteomyelitis (HCC) Depression DX:Depression Left leg DVT (CMS/HCC V24, CMS/HCC V28) DX:Left leg DVT (HCC) Anxiety disorder DX:Anxiety diso rder Wears glasses DX:Wears glasses Leg pain DX:Leg pain; COM MENT: prev leg pain while waling Heart rate fast DX:Heart rate fa st; COMMENT: high heart rate Migraine DX:Migraine; COM MENT: migraine,headaches Social History Tobacco Use Types Packs/Day Years Used Date Smoking Tobacco: Former Smokeless Tobacco: Never Sex and Gender Information Value Date Recorded Sex Assigned at Not on file Legal Sex Male 3:26 PM EST Gender Identity Not on file Sexual Orientation Not on file Obstetrics History Last Filed Vital Signs Vital Sign Reading Time Taken Comments Blood Pressure 110/80 03/07/2022 2:45 PM EDT Pulse 68 03/07/2022 2:45 PM EDT Temperature - - Respiratory Rate - - Oxygen Saturation - - Inhaled Oxygen Concentration - - Weight 68 kg (150 lb) 01/26/2024 2:19 PM EDT Height 177.8 cm (5' 10 ) 01/26/2024 2:19 PM EDT Body Mass Index 21.52 01/26/2024 2:19 PM EDT Plan of Treatment Health Maintenance Due Date Last Done Comments DTaP,Tdap,and Td Vaccines (1 - Tdap) 2007 Hepatitis B Vaccines (1 of 3 - 19+ 3-dose series) 2007 HPV Vaccines (1 - 3-dose SCD M series) 2015 Cholesterol Screening (Lipid Panel) 09/14/2022 HIV Screening 09/14/2022 Hepatitis C Screening 09/14/2022 Social Influencers of Health Screening 09/14/2022 Depression Screening 10/16/2024 COVID-19 Vaccine ( - 2023-2 5 season) 2025 Influenza Vaccine (#1) 2025 RSV Immunization Adult Patie nts (1 - 1-dose 75+ series) 2063 HIB Vaccines Aged Out No longer eligi ble based on patient's age to complete this topic Hepatitis A Vaccines Aged Out No long er eligible based on patient's age to complete this topic IPV Vaccines Aged Out No longer eligi ble based on patient's age to complete this topic MMR Vaccines Aged Out No longer eligi ble based on patient's age to complete this topic Meningococcal ACWY Vaccine Aged Out N o longer eligible based on patient's age to complete this topic Meningococcal B Vaccine Aged Out No l onger eligible based on patient's age to complete this topic Pneumococcal Vaccine: Pediat rics (0 to 5 Years) and At-Risk Patients (6 to 49 Years) Aged Out No longer eligible b ased on patient's age to complete this topic RSV Immunization Patients Un yanni 20 months Aged Out No longer eligible b ased on patient's age to complete this topic Varicella Vaccines Aged Out No longer eligible based on patient's age to complete this topic Procedures Procedure Name Priority Date/Time Associated Diagnosis Comments TESTOSTERONE FREE, BIOAVAILABLE AND TOTAL Routine 06/19/2025 9:47 AM EDT Impotence of organic origin from Last 3 Months Results * (ABNORMAL) Testosterone free, bioavailable and total (06/19/2025 9:47 AM EDT) Testosterone 199(L) 229 - 902 ng/dL LAB CHEMISTRY METHOD 06/19/2025 1:[address] [facility] Testosterone, Free 3.3(L) 4.6 - 22.4 ng/dL LAB CHEMISTRY METHOD 06/19/2025 1:[address] [facility] Testosterone, Bioavailable 74(L) 110 - 575 ng/dL LAB CHEMISTRY METHOD 06/19/2025 1:[address] [facility] Sex Hormone Binding 42.6 See Comment nmol/L LAB CHEMISTRY METHOD 06/19/2025 1:[address] [facility] Comment: FEMALES: pre-menopausal 10.8 - >180 post-menopausal 23.2 - 159.1 MALES: 21-49 years 14.6 - 94.6 50-89 years 21.6 - 113.1 CHILDREN: No established reference range Over the counter supplements containing high doses of biotin may interfere with this assay. If interference is suspected, patients should be retested after refraining from biotin supplements for 72 hours. Albumin 4.1 3.2 - 5.0 g/dL LAB CHEMISTRY METHOD 06/19/2025 1:[address] 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
== END 2025-07-29 13:48 | disposition home or self-care (01) ==
LOC: HO.US 13:47
PROVIDERS: PCP Internal Medicine; Visit Provider Internal Medicine
DX: I82.402 Acute embolism and thrombosis of unspecified deep veins of left lower extremity (principal)
CPT/HCPCS: 93970

== ENCOUNTER → 2025-07-29 14:06 | Outpatient (BNV) | payer OTHER, SELFPAY | PROVIDERS: PCP Internal Medicine; Visit Provider Radiology Diagnostic Radiology | DX: I82.412 Acute embolism and thrombosis of left femoral vein (principal); I82.812 Embolism and thrombosis of superficial veins of left lower extremity; I82.411 Acute embolism and thrombosis of right femoral vein; I82.811 Embolism and thrombosis of superficial veins of right lower extremity | CPT/HCPCS: 93970 ==

== ENCOUNTER 2025-07-29 15:04 | Emergency (ER) | payer OTHER, SELFPAY ==
--- NOTE | 2025-07-29 15:23 | ED_ITS ---
HPI - General Adult General Chief complaint: General Medical Stated complaint: DVT Time Seen by Provider: 07/29/25 18:26 Source: patient Mode of arrival: ambulatory Limitations: no limitations History of Present Illness ED Provider: Antonio Allen HPI narrative: 35-year-old male history of IV drug use osteomyelitis in the past presents to the ED for DVT on bilateral ultrasound which was done outpatient by primary care provider. Patient is asymptomatic. has no leg swelling, calf pain, chest pain or shortness of breath but PCP ordered ultrasound as part of routine physical due to patient has a history of DVT. Patient is not on any blood thinner. Patient denies any recent IV drug use. Related Data Home Medications ?Medication ?Instructions ?Recorded ?Confirmed sumatriptan succinate 100 mg tablet 1 tab PO Q2H PRN M igraine Headache 04/12/21 09/17/24 methadone 5 mg/5 mL oral solution 95 mg PO DAILY 04/1309/17/24 ondansetron 4 mg disintegrating 4 mg PO Q12H PRN nause a and 12/29/23 09/17/24 tablet vomiting omeprazole 20 mg capsule,delayed 20 mg PO DAILY 09/17/24 release Previous Rx's ?Medication ?Instructions ?Recorded venlafaxine 75 mg capsule,extended 75 mg PO DAILY #30 caps 12/21/23 release 24 hr apixaban 5 mg tablet (Eliquis) 5 mg PO BID #180 tabs 0 01/08/24 ferrous sulfate 324 mg (65 mg 324 mg PO DAILY #90 tabs 01/08/24 iron) tablet,delayed release Allergies Allergy/AdvReac Type Severity Reaction Status Date / Time vancomycin (VANCOMYCIN) AdvReac Unknown red man Verified 07/29/25 15:28 syndrome Review of Systems 2 Review of Systems: Asymptomatic Yes all other systems are reviewed and are negative PMFSH Past Medical History Medical History Opioid use disorder DVT of lower extremity, bilateral Migraine headache Surgical History History of surgery on lower extremity History of ankle surgery Social History Social History Household Members: Friend(s) Housing: House Do you presently have visiting nurse or other home services: No Alcohol intake: current Alcohol intake frequency: does not drink Patient Tobacco Use Status: Former Tobacco user Tobacco use type: Cigarette e-Cigarette/Vaping Use: Never Used Second Hand Smoke Exposure: No Substance Use Type: Heroin and Marijuana Advance Directives: No Advance Directives Information Provided: No Do you have a plan to hurt others: No Plan service: No Current occupational status: employed Physical Exam ED Vital Signs: Vital Signs - 24 hr 07/29/25 19:12 07/29/25 20:51 Temperature 98.2 F 98.2 F Pulse Rate 84 84 Respiratory Rate 18 18 Blood Pressure 126/93 H 126/93 H Pulse Oximetry 97 97 Oxygen Delivery Method Room Air Room Air BMI result Body Mass Index 22.3 Const General: cooperative, healthy appearing, comfortable, no acute distress, well developed, alert, awake and Physically active Orientation/consciousness: patient oriented x3 HENMT Head: Yes normal to inspection, Yes No palpable skull fracture present, Yes normocephalic and Yes atraumatic Eyes General: appearance normal, both eyes and all related structures Neck Neck: Yes normal visual inspection, Yes full ROM, Yes no lymphadenopathy, Yes no meningeal signs, Yes trachea midline, Yes supple, No anterior neck swelling and No tender Chest Chest palpation & inspection: normal inspection of the chest and normal palpation of entire chest wall Resp Effort & Inspection: normal respiratory effort and able to speak in complete sentences Auscultation: clear to auscultation bilaterally Cardio Jugular venous distension: no JVD Heart sounds: S1 normal heart sound present and S2 normal heart sound present GI Inspection: Yes normal to inspection Palpation (GI): Soft to palpation, not firm, nontender, no guarding and not rigid General: Yes no CVA tenderness Back/Spine/Pelvis Back: no CVA tenderness and No back tenderness Skin General skin exam: no rashes or lesions noted, elasticity normal and turgor normal Neuro General: patient oriented x3, gait normal, tone normal, moves all extremities, Normal light touch and pain sensation, no meningeal signs, no focal motor deficits, CN's II-XI intact bilaterally and normal sensation to monofilament Extrem General: Yes normal to inspection, Yes full ROM and Yes capillary refill normal Psych Appearance: grossly normal, well kempt and not disheveled Course Course Course Narrative: This is a rapid medical exam performed by C. Twila, FENCE RIDER: Additional HPI, ROS, PE not included below will be deferred to primary provider. Patient is a 35y/oM with history of DVT, has been off Eliquis for the past 6 mos presenting from outpatient ultrasound, was not told U/S results. Prelim tech findings appear to show R MANAGER GIFT occlusion and L MANAGER GIFT partial occlusion with partial flow. Initially went to PCP for HARRY. Plan: labs Medical Decision Making Medical Decision Making [facility] Narrative: 35 year male was sent to the ED for for positive DVT. Patient is asymptomatic. Outpatient ultrasound positive for DVT. Outpatient ultrasound done today was compared to ultrasound done in 04/15/2024 in his hospital both with similar readings. Patient's labs are reassuring. Case was discussed with Dr. Wick and he was also sent copy of ultrasound results in he states no need for patient to be placed on anticoagulants any agrees this is chronic. He states patient should recommend discharge and outpatient follow up with his primary care provider. Patient denies any pulmonary embolus symptoms. Patient explained worrisome signs informed return to the ED immediately. NOt suspecting compartment syndrome, cellulitis, osteomyelitits, fracture, dislocation, arterial occlusions, or any other life threatening etiolgoy. Differential Diagnosis Differential Diagnoses: The differential diagnosis associated with the presentation includes (DVT cellulitis) Admission/Observation Consideration of admission/observation: Escalation of care including admission/observation considered Consult Healthcare Provider Management of the patient was discussed with: Embossing Toolsetter (Dr. Wick) Lab Data [facility] Lab Attestation statement: I reviewed the patient's lab results. 07/29/25 15:50 07/29/25 15:51 Labs: Lab Results 07/29/25 07/29/25 Range/Units 15:50 15:51 WBC 8.2 (4.8-10.8) X10*3/uL RBC 4.87 (4.60-5.80) X10*6/uL Hgb 14.7 (14.0-18.0) g/dl Hct 44.8 (42.0-52.0) % MCV 92.0 (80.0-98.0) fL MCH 30.2 (27.0-33.0) pg MCHC 32.8 (31.0-36.0) g/dl RDW 13.2 (11.0-16.0) % Plt Count 304 (160-400) X10*3/uL MPV 9.6 (9.4-12.4) fL Immature Gran % (Auto) 1.5 H (0.0-0.4) % Neut % (Auto) 60.2 (45-73) % Lymph % (Auto) 25.9 (20-40) % Cascade % (Auto) 9.7 (2-11) % Eos % (Auto) 2.2 (0-4) % Baso % (Auto) 0.5 (0-2) % Lymph # (Auto) 2.1 (1.2-4.9) X10*3/uL Cascade # (Auto) 0.8 (0.1-1.2) X10*3/uL Eos # (Auto) 0.2 (0.0-0.4) X10*3/uL Baso # (Auto) 0.0 (0.0-0.2) X10*3/uL Abs Immat Gran (auto) 0.12 H (0.00-0.03) X10*3/uL Absolute Neuts (auto) 4.9 (2.0-8.3) x10*3/uL Absolute Nucleated RBC 0.000 (0.0-0.012) X10*3/uL Nucleated RBC % (auto) 0.0 (0.0-0.2) /100WBC Sodium 141 (135-145) mmol/L Potassium 4.5 (3.3-5.1) mmol/L Chloride 106 (96-108) mmol/L Carbon Dioxide 25 (22-29) mmol/L Anion Gap 15 (12-20) BUN 21 H (9-16) mg/dL Creatinine 0.95 (0.5-1.4) mg/dL Estim Creat Clear Calc 109.2 Estimated GFR > 60 Random Glucose 120 H (60-115) mg/dL Calcium 9.4 (8.4-10.2) mg/dL Total Bilirubin 0.2 (0.0-1.0) mg/dL AST 27 (5-37) U/L ALT 19 (0-40) U/L Alkaline Phosphatase 65 (39-117) U/L Total Protein 7.8 (6.5-8.0) g/dL Albumin 4.9 (3.5-5.0) g/dL Independent Historian Clinical information obtained from an independent historian. History obtained from or confirmed by: Other (patient) Prescription Management I considered prescription management with: Other (patient) Discharge Plan Discharge Clinical Impression: Chronic deep vein thrombosis (DVT) of both lower extremities Patient Disposition: Home, Self-Care Instructions: Deep Vein Thrombosis (ED), Venous Thromboembolism (ED) Additional Instructions: Your ultrasound shows bilateral DVT which is chronic. Case was discussed with Dr. Wick our vascular surgeon who states you do not need to be placed on any anticoagulants. Recommend follow up with primary care provider. Return to the ED immediately for any swelling, calf pain, chest pain, shortness of breath, coughing up blood, or any other concerning symptoms. rdering Physician: Janina Egan DO, MD Date of Service: 07/29/25 Procedure(s): US venous duplex LE BI Accession Number(s): [id number] cc: Janina Egan DO, MD~ Reason for Exam: Re-evaluation of recurrent DVTS EXAMINATION: US TRIPLEX LOWER EXTREMITY, BILATERAL CLINICAL INFORMATION: \ Recurrent DVTs COMPARISON: April 15, 2024 TECHNIQUE: Color-flow triplex imaging with spectral analysis and compression Doppler were performed on the bilateral lower extremities. FINDINGS: LEFT: Common femoral vein appears anechoic without a small amount of flow on color Doppler. Venous waveform with respiratory variation is demonstrated on spectral interrogation. The visualized superficial femoral vein, profunda femoral vein, popliteal vein and midcalf peroneal and posterior tibial venous segments show no evidence of deep venous thrombosis. RIGHT: Common femoral vein appears anechoic. There is no flow on color Doppler spectral interrogation. Greater saphenous vein is shown at the saphenofemoral Junction, also without flow. In the thigh, the great saphenous vein demonstrates peripheral hypoechoic material is central venous blood flow. There is normal compression and augmented flow are noted throughout the superficial femoral vein, profunda femoral vein, popliteal vein and midcalf peroneal and posterior tibial venous segments show no evidence of deep venous thrombosis bilaterally. US/US venous duplex LE BI IMPRESSION: Left: Nonocclusive thrombus is present in the common femoral vein. Interval improvement in great saphenous vein thrombus. Right: Common femoral vein is occluded with thrombus with extension into the saphenofemoral Junction. There is partially occlusive peripheral thrombus in the greater saphenous vein is likely chronic. Interval resolution of thrombus extending to the superficial femoral vein. Electronically signed by: Jaime Guallpa MD 07/29/2025 03:25 PM EDT Dictated By: Jaime Guallpa MD Signed By: <Electronically signed by Jaime Guallpa MD in OV> 07/29/25 1525 Ordering Physician: JANINA EGAN DO Date of Service: 04/15/24 Procedure(s): US venous duplex LE LT Accession Number(s): [id number] cc: JANINA EGAN DO~ EXAMINATION: US VENOUS ULTRASOUND WITH DOPPLER LOWER EXTREMITY, BILATERAL CLINICAL INFORMATION: DVT COMPARISON: Left lower extremity ultrasound 12/29/2023: Left common femoral, profunda femoral and superficial femoral DVT. Bilateral lower extremity ultrasound 11/12/2022: Again seen is extensive deep venous thrombus in the right lower extremity with interval resolution of the previously seen thrombus in the peroneal and a femoral profunda veins. Again seen is near occlusive thrombus in the left common femoral vein similar to prior. There is also superficial venous thrombus in the greater saphenous vein, not previously imaged. TECHNIQUE: Ultrasound of the deep veins of each leg is performed from the hip to the calf with compression sonography and color and pulse Doppler assessment. Spectral analysis with color-flow imaging is performed. FINDINGS: On the left, there is nonobstructive thrombus seen in the left common femoral vein and profunda femoris vein with similar appearances compared to 12/29/2023. The common femoral thrombus is occlusive. At that time exam, femoral venous thrombus was also present which does not appear to be present at this time. On the right, there is occlusive thrombus in the right common femoral vein along with some nonocclusive thrombus in the proximal femoral vein. Time of the prior study there was nonocclusive thrombus seen throughout the femoral vein which has significantly improved US/US venous duplex LE LT IMPRESSION: Bilateral lower extremity DVT with some improvement compared to the prior study. Dictated By: Sree Johnston MD Signed By: <Electronically signed by Sree Johnston MD in OV> 04/15/24 1327 Prescriptions: No Action sumatriptan succinate 100 mg tablet 1 tab PO Q2H PRN (Reason: Migraine Headache) Rx Instructions: MAX 2X/24 HR methadone 5 mg/5 mL Solution 95 mg PO DAILY ondansetron 4 mg tablet,disintegrating 4 mg PO Q12H PRN (Reason: nausea and vomiting) Eliquis 5 mg Tablet 5 mg PO BID Qty: 180 0RF ferrous sulfate 324 mg (65 mg iron) Tablet,Delayed Release (Dr/Ec) 324 mg PO DAILY Qty: 90 0RF venlafaxine 75 mg capsule,extended release 24hr 75 mg PO DAILY Qty: 30 0RF omeprazole 20 mg capsule,delayed release(DR/EC) 20 mg PO DAILY Referrals: Lon Wick MD [Physician, Vascular Surgery] Referral Note: Chronic DVT Clinical Impression: Chronic deep vein thrombosis (DVT) of both lower extremities Janina Egan DO, MD [Primary Care Provider, Internal Medicine] - 2 days Referral Note: Chronic DVT Clinical Impression: Chronic deep vein thrombosis (DVT) of both lower extremities Stand Alone Forms: Work/School Release Interventions: ED Discharge Assessment Last Done: 07/29/25 20:51 Discharge Date/Time: 07/29/25 20:51 Print Language: Hungarian
[2025-07-29 15:26] VITALS: BP 146/95; PULSE 84; RESP 18; TEMP 36.6; O2SAT 96; BMI 22.3
[2025-07-29 16:01] LABS: MANUAL DIFF FLAG NO
[2025-07-29 16:06] LABS: Hematocrit 44.8 % (42.0-52.0); Hemoglobin 14.7 g/dl (14.0-18.0); Imm Gran Abs Auto 0.12 X10*3/uL (0.00-0.03); Imm Gran Pct Auto 1.5 % (0.0-0.4); Lymphocytes Absolute Auto 2.1 X10*3/uL (1.2-4.9); Mean Corpuscular HGB Conc 32.8 g/dl (31.0-36.0); Mean Corpuscular Hemoglobin 30.2 pg (27.0-33.0); Mean Corpuscular Volume 92.0 fL (80.0-98.0); NRBC Abs Auto 0.000 X10*3/uL (0.0-0.012); NRBC Pct Auto 0.0 /100WBC (0.0-0.2); Platelet Count 304 X10*3/uL (160-400); Red Blood Count 4.87 X10*6/uL (4.60-5.80); White Blood Count 8.2 X10*3/uL (4.8-10.8)
[2025-07-29 16:36] LABS: Alanine Aminotransferase 19 U/L (0-40); Albumin Level 4.9 g/dL (3.5-5.0); Anion Gap 15 (12-20); Aspartate Amino Transferase 27 U/L (5-37); Blood Urea Nitrogen 21 mg/dL (9-16); Calcium 9.4 mg/dL (8.4-10.2); Carbon Dioxide 25 mmol/L (22-29); Chloride 106 mmol/L (96-108); Creatinine Clr Calc Pharmacy 109.2; Estimated Glomerular Filt Rate > 60; Potassium 4.5 mmol/L (3.3-5.1); Sodium 141 mmol/L (135-145); Total Protein 7.8 g/dL (6.5-8.0)
[2025-07-29 17:24] LABS: Alkaline Phosphatase 65 U/L (39-117)
[2025-07-29 19:12] VITALS: BP 126/93; PULSE 84; RESP 18; TEMP 36.8; O2SAT 97
[2025-07-29 20:51] VITALS: BP 126/93; PULSE 84; RESP 18; TEMP 36.8; O2SAT 97
== END 2025-07-29 20:51 | disposition home or self-care (01) ==
PROVIDERS: Registered Nurse Emergency; Emergency Provider Emergency Medicine Emergency Medical Services; PCP Internal Medicine
DX: I82.503 Chronic embolism and thrombosis of unspecified deep veins of lower extremity, bilateral (principal); Z79.899 Other long term (current) drug therapy; Z87.891 Personal history of nicotine dependence
CPT/HCPCS: 36415; 80053; 85025; 99282